=== PATIENT | female | born 1945 | race Caucasian/White ===

== ENCOUNTER 2017-04-17 10:59 | Emergency (ER) | payer MEDICARE, BC ==
[2017-04-17 11:34] VITALS: BP 170/74
[2017-04-17] MEDS ORDERED: ONDANSETRON 4 MG TAB.RAPDIS PO ONE (11:53)
--- NOTE | 2017-04-17 11:55 | ER Document Report ---
ED Medical Screen (RME) - General Chief Complaint: Abdominal Pain >50 Stated Complaint: AMDOMINAL PAIN Time Seen by Provider: 04/17/17 11:48 Notes: This 71-year-old female patient reports being nauseous for 3-4 days after starting Bactrim for UTI. The Bactrim was stopped and a different antibiotic was started. She reports this morning about 5 AM she began having severe pain and cramps to her lower abdomen and has been having cold sweats today. She does have nausea without vomiting or diarrhea. I have greeted and performed a rapid initial assessment of this patient. A comprehensive ED assessment and evaluation of the patient, analysis of test results and completion of the medical decision making process will be conducted by additional ED providers. TRAVEL OUTSIDE OF THE [place] IN LAST 30 DAYS: No - Related Data Allergies/Adverse Reactions: No Known Allergies Allergy (Verified 04/17/17 11:30) Past Medical History Renal/ Medical History: Reports: Hx Kidney Stones. Denies: Hx Peritoneal Dialysis Past Surgical History: Reports: Hx Bowel Surgery - colon resection, Hx Hysterectomy - Immunizations Hx Diphtheria, Pertussis, Tetanus Vaccination: Yes Physical Exam - Vital signs Vitals: Temp Pulse Resp BP Pulse Ox 98.4 F 100 20 170/74 H 97 04/17/17 11:34 04/17/17 11:34 04/17/17 11:34 04/17/17 11:34 04/17/17 11:34 Course - Vital Signs Vital signs: Temp Pulse Resp BP Pulse Ox 98.4 F 100 20 170/74 H 97 04/17/17 11:34 04/17/17 11:34 04/17/17 11:34 04/17/17 11:34 04/17/17 11:34
[2017-04-17] MEDS ORDERED: HYDROCODONE/ACETAMINOPHEN 5-325 MG TABLET PO ONE (12:49)
[2017-04-17 13:13] LABS: ABSOLUTE BASOPHILS # (AUTO) 0.1 10^3/uL (0.0-0.2); ABSOLUTE LYMPHOCYTES (AUTO) 1.2 10^3/uL (0.5-4.7); ABSOLUTE MONOCYTES (AUTO) 0.7 10^3/uL (0.1-1.4); ABSOLUTE NEUT (AUTO) 6.6 10^3/uL (1.7-8.2); BASOPHILS % (AUTO) 0.8 % (0-2); EOSINOPHILS % (AUTO) 0.1 % (0-6); HEMATOCRIT 42.5 % (36.0-47.0); HEMOGLOBIN 13.7 g/dL (12.0-15.5); HGB HCT DIFFERENCE -1.4; LYMPHOCYTES % (AUTO) 13.7 % (13-45); MEAN CORPUSCULAR HGB CONC 32.3 g/dL (32.0-36.0); MEAN CORPUSCULAR VOLUME 84 fl (80-97); MONOCYTES % (AUTO) 8.6 % (3-13); RED BLOOD COUNT 5.08 10^6/uL (3.72-5.28); RED CELL DISTRIBUTION WIDTH 16.3 % (11.5-14.0); SEGMENTED NEUTROPHILS % (AUTO) 76.8 % (42-78); WHITE BLOOD COUNT 8.6 10^3/uL (4.0-10.5)
[2017-04-17 13:22] LABS: APPEARANCE,URINE CLOUDY; BILIRUBIN,URINE NEGATIVE (NEGATIVE); GLUCOSE, URINE NEGATIVE (NEGATIVE); KETONES,URINE NEGATIVE (NEGATIVE); LEUKOCYTE ESTERASE,URINE LARGE (NEGATIVE); NITRITE,URINE NEGATIVE (NEGATIVE); PROTEIN,URINE NEGATIVE (NEGATIVE); UROBILINOGEN,URINE NEGATIVE mg/dL (<2.0)
[2017-04-17 13:30] LABS: ALANINE AMINOTRANSFERASE 33 U/L (9-52); ALBUMIN 4.8 g/dL (3.5-5.0); ALKALINE PHOSPHATASE 116 U/L (38-126); ANION GAP 18 (5-19); ASPARTATE AMINO TRANSFERASE 27 U/L (14-36); BILIRUBIN,DIRECT 0.3 mg/dL (0.0-0.4); BILIRUBIN,TOTAL 0.6 mg/dL (0.2-1.3); BLOOD UREA NITROGEN 13 mg/dL (7-20); CALCIUM 10.5 mg/dL (8.4-10.2); CARBON DIOXIDE 22 mmol/L (22-30); CHLORIDE 102 mmol/L (98-107); CREATININE RESULT 0.56 mg/dL (0.52-1.25); GLUCOSE 137 mg/dL (75-110); POTASSIUM 4.3 mmol/L (3.6-5.0); SODIUM 142.2 mmol/L (137-145); TOTAL PROTEIN 8.8 g/dL (6.3-8.2)
[2017-04-17] MEDS ORDERED: OXYCODONE-ACETAMINOPHEN 5-325 MG TABLET PO ONE (14:33)
== END 2017-04-17 15:18 | disposition left against medical advice (07) ==
LOC: ER 10:59
DX: N39.0 Urinary tract infection, site not specified (principal); R11.0 Nausea; R10.30 Lower abdominal pain, unspecified; R61 Generalized hyperhidrosis; Z87.442 Personal history of urinary calculi; Z53.20 Procedure and treatment not carried out because of patient's decision for unspecified reasons
CPT/HCPCS: 99284; 36415; 87040; 87086; 85025; 87088; 80053; 81001; 87186; A9270 ×2; S0119

== ENCOUNTER 2017-04-23 09:46 | Emergency (ER) | payer MEDICARE, BC ==
[2017-04-23 10:37] LABS: ABSOLUTE BASOPHILS # (AUTO) 0.1 10^3/uL (0.0-0.2); ABSOLUTE LYMPHOCYTES (AUTO) 1.4 10^3/uL (0.5-4.7); ABSOLUTE MONOCYTES (AUTO) 0.7 10^3/uL (0.1-1.4); BASOPHILS % (AUTO) 0.9 % (0-2); EOSINOPHILS % (AUTO) 0.5 % (0-6); HEMATOCRIT 37.6 % (36.0-47.0); HEMOGLOBIN 12.7 g/dL (12.0-15.5); HGB HCT DIFFERENCE 0.5; LYMPHOCYTES % (AUTO) 22.5 % (13-45); MEAN CORPUSCULAR HEMOGLOBIN 28.1 pg (27.0-33.4); MEAN CORPUSCULAR HGB CONC 33.8 g/dL (32.0-36.0); MEAN CORPUSCULAR VOLUME 83 fl (80-97); MONOCYTES % (AUTO) 11.3 % (3-13); RED BLOOD COUNT 4.52 10^6/uL (3.72-5.28); RED CELL DISTRIBUTION WIDTH 15.5 % (11.5-14.0); SEGMENTED NEUTROPHILS % (AUTO) 64.8 % (42-78); WHITE BLOOD COUNT 6.2 10^3/uL (4.0-10.5)
[2017-04-23 10:52] LABS: ALANINE AMINOTRANSFERASE 32 U/L (9-52); ALBUMIN 3.6 g/dL (3.5-5.0); ALKALINE PHOSPHATASE 112 U/L (38-126); ANION GAP 12 (5-19); ASPARTATE AMINO TRANSFERASE 23 U/L (14-36); BILIRUBIN,DIRECT 0.3 mg/dL (0.0-0.4); BILIRUBIN,TOTAL 0.4 mg/dL (0.2-1.3); BLOOD UREA NITROGEN 15 mg/dL (7-20); CALCIUM 9.5 mg/dL (8.4-10.2); CARBON DIOXIDE 25 mmol/L (22-30); CHLORIDE 103 mmol/L (98-107); CREATINE KINASE 49 U/L (30-135); CREATININE RESULT 0.55 mg/dL (0.52-1.25); GLUCOSE 176 mg/dL (75-110); SODIUM 139.9 mmol/L (137-145)
[2017-04-23 11:04] LABS: CREATINE KINASE MB 1.98 ng/mL (<4.55); TROPONIN I < 0.012 ng/mL
[2017-04-23 11:51] LABS: APPEARANCE,URINE CLEAR; BILIRUBIN,URINE NEGATIVE (NEGATIVE); GLUCOSE, URINE NEGATIVE (NEGATIVE); KETONES,URINE NEGATIVE (NEGATIVE); LEUKOCYTE ESTERASE,URINE LARGE (NEGATIVE); NITRITE,URINE NEGATIVE (NEGATIVE); PROTEIN,URINE NEGATIVE (NEGATIVE); UROBILINOGEN,URINE NEGATIVE mg/dL (<2.0)
[2017-04-23] MEDS ORDERED: NITROFURANTOIN MONOHYD/M-CRYST 100 MG CAPSULE PO ONE (11:57)
[2017-04-23 12:01] LABS: BACTERIA,URINE TRACE /HPF; RBC,URINE 20-30 /HPF
[2017-04-23] MEDS ORDERED: ONDANSETRON HCL INJ/PF 4 MG/2 ML SDV IV ONE (12:37)
[2017-04-23] MEDS ORDERED: NORMAL SALINE 1000 ML 1,000 ML IV ONE (12:37)
[2017-04-23] MEDS ORDERED: AMOXICILLIN TR/POT CLAVULANATE 500-125 MG TAB PO ONE (12:39)
[2017-04-23] MEDS ORDERED: MORPHINE SULFATE 10 MG/ML INJ IV ONE ×2 (12:40→14:14)
[2017-04-23] MEDS ORDERED: AMPICILLIN SOD/SULBACTAM 3 GM VIAL IV ONE (13:16)
--- NOTE | 2017-04-23 13:37 | ER Document Report ---
ED Dizziness/Weakness - General Chief Complaint: General Weakness Stated Complaint: WEAKNESS Time Seen by Provider: 04/23/17 11:56 Mode of Arrival: Ambulatory Information source: Patient Notes: Patient is a 71-year-old female who presents to the ER today for fever and chills for the past 3 weeks. Patient states that she has had a UTI since that time and has been on Bactrim, Macrobid and now doxycycline. She states that she started having some nausea and vomiting 3 days ago and has not been able to take the doxycycline at all for 3 days. She states that she was here on the with nausea and vomiting as well but left without being seen. She states that her highest temperature is 102F. She also complains of back pain, she had surgery on March 11 and states that she does not have any pain medicine to take at home and "just needs something to rest." TRAVEL OUTSIDE OF THE [place] IN LAST 30 DAYS: No - Related Data Allergies/Adverse Reactions: cephalexin [From Keflex] Allergy (Verified 04/23/17 10:21) ciprofloxacin [From Cipro] Allergy (Verified 04/23/17 10:21) levofloxacin [From Levaquin] Allergy (Verified 04/23/17 10:21) pioglitazone Allergy (Verified 04/23/17 10:21) Past Medical History - General Information source: Patient - Social History Smoking Status: Never Smoker Frequency of alcohol use: None Drug Abuse: None Family History: Reviewed & Not Pertinent - Past Medical History Cardiac Medical History: Reports: Hx Hypercholesterolemia Endocrine Medical History: Reports: Hx Diabetes Mellitus Type 2 Renal/ Medical History: Reports: Hx Kidney Stones. Denies: Hx Peritoneal Dialysis Psychiatric Medical History: Reports: Hx Depression Past Surgical History: Reports: Hx Bowel Surgery - colon resection, Hx Hysterectomy - Immunizations Hx Diphtheria, Pertussis, Tetanus Vaccination: Yes Review of Systems - Review of Systems Constitutional: See HPI EENT: No symptoms reported Cardiovascular: No symptoms reported Respiratory: No symptoms reported Gastrointestinal: No symptoms reported Genitourinary: See HPI Female Genitourinary: No symptoms reported Musculoskeletal: No symptoms reported Skin: No symptoms reported Hematologic/Lymphatic: No symptoms reported Neurological/Psychological: No symptoms reported Physical Exam - Vital signs Vitals: Resp 18 04/23/17 09:55 - Notes Notes: PHYSICAL EXAMINATION: GENERAL: Appears uncomfortable, but in no acute distress. HEAD: Atraumatic, normocephalic. EYES: Pupils equal round and reactive to light, extraocular movements intact, sclera anicteric, conjunctiva are normal. NECK: Normal range of motion, supple without lymphadenopathy LUNGS: CTAB and equal. No wheezes rales or rhonchi. HEART: Regular rate and rhythm without murmurs ABDOMEN: Soft, suprapubic tenderness. No guarding, no rebound BACK: lumbar vertebral tenderness, new vertical scar over lumbar spine noted, pt will not cooperate with ROM GI/: no CVA tenderness EXTREMITIES: Normal range of motion, no pitting edema. No cyanosis. NEUROLOGICAL: Cranial nerves grossly intact. Normal sensory/motor exams. PSYCH:: anxious SKIN: Warm, Dry, normal turgor, no rashes or lesions noted Course - Re-evaluation Re-evalutation: 04/23/17 15:15 Lab work is unremarkable except for a urinalysis that revealed leukocytes and white blood cells. Patient has not been taking her doxycycline, and is uncertain if patient has been compliant or not she does not seem to be with me. She has not been taking her doxycycline. However she states "is not working" so I will switch her to Augmentin as her urine culture sent on the of this month for this infection revealed that it was susceptible to penicillins. She received IV Unasyn here and fluids. She continues after pain medication although she is really here for nausea, vomiting and a UTI. This is for chronic back pain. I was nice enough to give her some pain medication here but I will not send her home on any narcotics as I see that she keeps receiving prescriptions every couple of days from 2 different doctors for narcotic medications. I will advise her to follow-up with whoever she sees for this. They apparently have some concern as well as they will only give her 10 pills at a time. Patient has not had any vomiting here in the emergency department the entire time she has been here. P.o. challenge was attempted she made the nurse told her Gatorade for her and hold the straw to her mouth, would not even attempt to hold with her own hands. 04/23/17 15:17 04/23/17 15:17 On discharge, patient repeats over and over to the nurse, "I want to kill myself ," place and performed. I spoke with provider who performed psych consult who states psych consult was that she had a long conversation with the son and the patient, provider's impression was that she does not really want to kill herself she just wants to be taking care of, some attention. The son is now aware of her struggles taking care of her bedbound , son's father, at home and son agrees to watch her medications and help her, keep a close eye on her. Psychiatric provider does not feel IVC or inpatient stay is necessary at this time after long conversation with family. 04/24/17 09:14 - Vital Signs Vital signs: Temp Pulse Resp BP Pulse Ox 98.0 F 16 134/64 H 97 04/23/17 16:29 04/23/17 17:01 04/23/17 17:01 04/23/17 17:01 - Laboratory Result Diagrams: 04/23/17 10:05 04/23/17 10:05 Laboratory results interpreted by me: 04/23/17 04/23/17 04/23/17 10:05 10:05 11:10 RDW 15.5 H Glucose 176 H Urine Blood LARGE H Ur Leukocyte Esterase LARGE H Discharge - Discharge Clinical Impression: UTI (urinary tract infection) Qualifiers: Urinary tract infection type: site unspecified Hematuria presence: with hematuria Qualified Code(s): N39.0 - Urinary tract infection, site not specified Nausea and vomiting Qualifiers: Vomiting type: unspecified Vomiting Intractability: non-intractable Qualified Code(s): R11.2 - Nausea with vomiting, unspecified Condition: Stable Disposition: HOME, SELF-CARE Additional Instructions: Return immediately for any new or worsening symptoms. Follow up with primary care provider, call tomorrow to make followup appointment. Prescriptions: Amox Tr/Potassium Clavulanate [Augmentin 875-125 Tablet] 1 tab PO BID 10 Days Ondansetron [Zofran Odt 4 mg Tablet] 1 - 2 tab PO Q4H PRN #15 tab.rapdis PRN Reason: For Nausea/Vomiting
[2017-04-23] MEDS ORDERED: HYDROMORPHONE HCL INJ/PF 2 MG/ML AMPULE IV ONE (15:13)
[2017-04-23 17:24] VITALS: BP 134/64
--- NOTE | 2017-04-23 17:46 | PSYCHOLOGICAL NOTE ---
Psych Note - Psych Note Psych Note: Patient is a 71 year old female who presented today with c/o n/v and UTI symptoms. Patient repeatedly complained of back pain, and states she has had 4 back surgeries within 2 months and she cannot find a medication to manage her pain. Patient was was referred for consultation after she reported suicidal ideations during discharge. Patient reportedly asked how long it would take for the infection to spread to her kidney so she would just . Patient states to this clinician she is tired of being sick. Patient states she is tired of the back pain and the UTI. 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 Patient states she feels responsible for him and his care, despite having home health. Patient states she does not want to commit suicide, but does not have "the guts" to do it. Patient states she has not had the ability to take her medications for her back pain and or UTI because of her n/v she relates to her UTI medications (which she discontinued). Patient states she needs rest and sleep. Patient states her son, who is bedside, lives down the road. Attempted to discuss with patient and son any precautionary measures that could be taken, to include staying with or having another family member stay with her. Patient state, "that is not realistic nor is it helpful." Patient did states everyone's lives are busy. Patient states she will not kill herself. Patient stated, "I am not trying to be condescending , but I have to pee and my son is here to take me home. That is what is helpful at this time." SonSerafin : states he feels the patient would be best served by resting and asks if there is anywhere she can check in. Did attempt to clarify this in re: to a licensed facility (SNF or [facility]), or this hospital, etc. Son did state he was not concerned for her safety. He does acknowledge that this information is new to him as of this afternoon. Patient stated he would check in with the patient, and resides [address] from her, and agreed to attempt to monitor the medications in the home. Son again states she feels she will be ok , but just needs to rest and heal. Patient is A&O. Mood is irritable with congruent affect. Patient endorses suicidal ideations. She did reference cutting herself with a knife. Patient states she does not want to follow though with this notion. Patient denies homicidal ideations, intent, plan , or means. Patient denies A/V H; delusions not noted. Thought processes were guarded. Conversational speech was WNL for prosody. Intellectual abilities were estimated within average range. Attention and focus were fair. Insight, judgment, and impulse control were poor. Diagnosis : Deferred Patient is psychiatrically cleared for discharge to her son. Patient encouraged to work with son and family members to utilize as support, to include daily check ins, and monitoring of medications and sharp objects. Patient refused referral information. Per patient [place] Registry, she is prescribed large amounts of Hydrocodone as well as Ativan; however, recently has been prescribed fewer and fewer pills (10 days vs 120). I consulted with Dr. Leon in regards to the care and management of this patient. ED provider was in agreement with disposition and recommendations.
--- NOTE | 2017-04-23 18:46 | EKG REPORT ---
SEVERITY:- ABNORMAL ECG - SINUS TACHYCARDIA LEFT AXIS DEVIATION ANTERIOR INFARCT, OLD : Confirmed by: Valdez Martinez 23-Apr-2017 18:46:00
== END 2017-04-23 17:24 | disposition home or self-care (01) ==
LOC: ER 09:46
DX: N39.0 Urinary tract infection, site not specified (principal); R31.9 Hematuria, unspecified; T36.4X6A Underdosing of tetracyclines, initial encounter; Z91.14 Patient's other noncompliance with medication regimen; R50.9 Fever, unspecified; R11.2 Nausea with vomiting, unspecified; M54.9 Dorsalgia, unspecified; G89.29 Other chronic pain; Z98.890 Other specified postprocedural states; Z88.1 Allergy status to other antibiotic agents; Z88.8 Allergy status to other drugs, medicaments and biological substances
CPT/HCPCS: 93005; 96376; 99285; 96361; 96375; 96365; 36415; 87086; 82553; 82550; 85025; 87088; 80053; 81001; 84484; 87186; 93010; J0295; J2270; J1170; J2405; J7030

== ENCOUNTER 2017-05-03 12:03 | Emergency (ER) | payer MEDICARE, BC ==
--- NOTE | 2017-05-03 12:27 | ER Document Report ---
ED Medical Screen (RME) - General Chief Complaint: Nausea/Vomiting/Diarrhea Stated Complaint: NAUSEA VOMITING AND DIARREHA Time Seen by Provider: 05/03/17 12:25 Notes: Patient says that she has been having nausea and diarrhea for the past 3 weeks. She says that this is her third visit here to the emergency department for this complaint. She had back surgery a couple months ago and feels that that lowered her community. On 1 of her prior 2 visits here to the emergency department, she says that she was treated for a UTI with Augmentin, which worsened her diarrhea. Has not seen any blood in her diarrhea. Has not had any fever. Patient wants to know why she is having these symptoms and that is why she is here for the third visit. TRAVEL OUTSIDE OF THE [place] IN LAST 30 DAYS: No - Related Data Allergies/Adverse Reactions: cephalexin [From Keflex] Allergy (Verified 05/03/17 12:09) ciprofloxacin [From Cipro] Allergy (Verified 05/03/17 12:09) levofloxacin [From Levaquin] Allergy (Verified 05/03/17 12:09) pioglitazone Allergy (Verified 05/03/17 12:09) Past Medical History - Social History Chew tobacco use (# tins/day): No Frequency of alcohol use: None Drug Abuse: None - Past Medical History Cardiac Medical History: Reports: Hx Hypercholesterolemia Endocrine Medical History: Reports: Hx Diabetes Mellitus Type 2 Renal/ Medical History: Reports: Hx Kidney Stones. Denies: Hx Peritoneal Dialysis Psychiatric Medical History: Reports: Hx Depression Past Surgical History: Reports: Hx Bowel Surgery - colon resection, Hx Hysterectomy - Immunizations Hx Diphtheria, Pertussis, Tetanus Vaccination: Yes Physical Exam - Vital signs Vitals: Temp Pulse Resp BP Pulse Ox 98.2 F 53 L 18 165/81 H 97 05/03/17 12:11 05/03/17 12:11 05/03/17 12:11 05/03/17 12:11 05/03/17 12:11 Course - Vital Signs Vital signs: Temp Pulse Resp BP Pulse Ox 98.2 F 53 L 18 165/81 H 97 05/03/17 12:11 05/03/17 12:11 05/03/17 12:11 05/03/17 12:11 05/03/17 12:11
[2017-05-03 12:57] LABS: ABSOLUTE BASOPHILS # (AUTO) 0.1 10^3/uL (0.0-0.2); ABSOLUTE LYMPHOCYTES (AUTO) 1.2 10^3/uL (0.5-4.7); ABSOLUTE NEUT (AUTO) 8.1 10^3/uL (1.7-8.2); BASOPHILS % (AUTO) 0.6 % (0-2); EOSINOPHILS % (AUTO) 0.2 % (0-6); HEMATOCRIT 39.7 % (36.0-47.0); HGB HCT DIFFERENCE -0.7; LYMPHOCYTES % (AUTO) 11.5 % (13-45); MEAN CORPUSCULAR HGB CONC 32.7 g/dL (32.0-36.0); MEAN CORPUSCULAR VOLUME 83 fl (80-97); MONOCYTES % (AUTO) 9.8 % (3-13); RED CELL DISTRIBUTION WIDTH 15.6 % (11.5-14.0); SEGMENTED NEUTROPHILS % (AUTO) 77.9 % (42-78); WHITE BLOOD COUNT 10.4 10^3/uL (4.0-10.5)
[2017-05-03 13:16] LABS: APPEARANCE,URINE HAZY; BILIRUBIN,URINE NEGATIVE (NEGATIVE); GLUCOSE, URINE 50 mg/dL (NEGATIVE); KETONES,URINE NEGATIVE (NEGATIVE); LEUKOCYTE ESTERASE,URINE LARGE (NEGATIVE); NITRITE,URINE NEGATIVE (NEGATIVE); PROTEIN,URINE 30 mg/dL (NEGATIVE); UROBILINOGEN,URINE NEGATIVE mg/dL (<2.0)
[2017-05-03 13:17] LABS: ALANINE AMINOTRANSFERASE 33 U/L (9-52); ALBUMIN 4.4 g/dL (3.5-5.0); ALKALINE PHOSPHATASE 114 U/L (38-126); ANION GAP 15 (5-19); ASPARTATE AMINO TRANSFERASE 25 U/L (14-36); BILIRUBIN,DIRECT 0.3 mg/dL (0.0-0.4); BILIRUBIN,TOTAL 0.4 mg/dL (0.2-1.3); BLOOD UREA NITROGEN 16 mg/dL (7-20); CALCIUM 10.2 mg/dL (8.4-10.2); CARBON DIOXIDE 24 mmol/L (22-30); CHLORIDE 101 mmol/L (98-107); CREATININE RESULT 0.53 mg/dL (0.52-1.25); GLUCOSE 166 mg/dL (75-110); LIPASE 135.9 U/L (23-300); POTASSIUM 4.1 mmol/L (3.6-5.0); SODIUM 139.9 mmol/L (137-145); TOTAL PROTEIN 8.1 g/dL (6.3-8.2)
[2017-05-03 13:19] LABS: URINE SPECIFIC GRAVITY 1.006
[2017-05-03] MEDS ORDERED: OXYCODONE-ACETAMINOPHEN 5-325 MG TABLET PO ONE (13:27)
[2017-05-03] MEDS ORDERED: ONDANSETRON HCL INJ/PF 4 MG/2 ML SDV IV ONE (13:27)
--- NOTE | 2017-05-03 13:27 | ER Document Report ---
ED GI/ - General Mode of Arrival: Ambulatory Information source: Patient TRAVEL OUTSIDE OF THE [place] IN LAST 30 DAYS: No - HPI Patient complains to provider of: Abdominal pain Associated symptoms: Other - See above <ODILON SORTO - Last Filed: 05/03/17 14:30> <AZALEAMARTINMILTON - Last Filed: 05/03/17 20:14> - General Chief Complaint: Abdominal Pain Stated Complaint: abdominal pain Time Seen by Provider: 05/03/17 12:25 Notes: Patient is a 71 year old female, with a past medical history including colon resection and breast cancer that is in remission, who presents to the emergency department complaining of abdominal pain onset 3 weeks ago. Patient states that she had gotten the stomach flu about 3 weeks ago and came to the ED but left without being seen, the day before that she had gone to her PCP and was treated with Macrobid for a UTI. Patient states the the Macrobid did not help and so she stopped taking it but still had urinary symptoms as well as nausea, vomiting , diarrhea, and abdominal pain so she went back to her PCP and was given Bactrim but that made her symptoms worse so she stopped taking it. Patient then came to the ED for her abdominal pain and was given Augmentin which made her pain worse and stopped taking it. Patient states that her abdominal pain is gnawing, located across her middle. Patient reports she has only been eating a bland diet and feels weak, states she had passed out before her last ED visit, and that she is also running a low grade fever since onset of her complaint that she measured as 101.1. Patient also complains of having dark tar like stool. Patient recently had back surgery a few months ago performed by Dr. Fields. PCP: Dr. Avery Zarate (ODILON SORTO) - Related Data Allergies/Adverse Reactions: cephalexin [From Keflex] Allergy (Verified 05/03/17 12:09) ciprofloxacin [From Cipro] Allergy (Verified 05/03/17 12:09) levofloxacin [From Levaquin] Allergy (Verified 05/03/17 12:09) pioglitazone Allergy (Verified 05/03/17 12:09) Past Medical History - General Information source: Patient - Social History Smoking Status: Never Smoker Chew tobacco use (# tins/day): No Frequency of alcohol use: None Drug Abuse: None Family History: Reviewed & Not Pertinent Patient has suicidal ideation: No Patient has homicidal ideation: No - Past Medical History Cardiac Medical History: Reports: Hx Heart Attack, Hx Hypercholesterolemia, Hx Hypertension Endocrine Medical History: Reports: Hx Diabetes Mellitus Type 2 Renal/ Medical History: Reports: Hx Kidney Stones Malignancy Medical History: Reports: Hx Breast Cancer Psychiatric Medical History: Reports: Hx Depression Past Surgical History: Reports: Hx Bowel Surgery - colon resection, Hx Hysterectomy, Other - Hx colon resection - Immunizations Hx Diphtheria, Pertussis, Tetanus Vaccination: Yes <ODILON SORTO - Last Filed: 05/03/17 14:30> Review of Systems - Review of Systems Constitutional: See HPI, Fever EENT: No symptoms reported Cardiovascular: No symptoms reported Respiratory: No symptoms reported Gastrointestinal: See HPI, Abdominal pain, Diarrhea, Nausea, Vomiting, Black stools Genitourinary: No symptoms reported Female Genitourinary: No symptoms reported Musculoskeletal: No symptoms reported Skin: No symptoms reported Hematologic/Lymphatic: No symptoms reported Neurological/Psychological: No symptoms reported -: Yes All other systems reviewed and negative <ODILON SORTO - Last Filed: 05/03/17 14:30> Physical Exam <ODILON SORTO - Last Filed: 05/03/17 14:30> <MILTON SZYMANSKI - Last Filed: 05/03/17 20:14> - Vital signs Vitals: Temp Pulse Resp BP Pulse Ox 98.2 F 53 L 18 165/81 H 97 05/03/17 12:11 05/03/17 12:11 05/03/17 12:11 05/03/17 12:11 05/03/17 12:11 - Notes Notes: GENERAL: Alert, interacts well. No acute distress. HEAD: Normocephalic, atraumatic. EYES: Pupils equal, round, and reactive to light. Extraocular movements intact. ENT: Oral mucosa moist, tongue midline. NECK: Full range of motion. Supple. Trachea midline. LUNGS: Clear to auscultation bilaterally, no wheezes, rales, or rhonchi. No respiratory distress. HEART: Regular rate and rhythm. No murmurs, gallops, or rubs. ABDOMEN: Tenderness to palpation of left lower quadrant, swelling of left side. No hernia, no guarding, no rigidity, no rebound. Bowel sounds present in all 4 quadrants. EXTREMITIES: Moves all 4 extremities spontaneously. No edema, radial and dorsalis pedis pulses 2/4 bilaterally. No cyanosis. NEUROLOGICAL: Alert and oriented x3. Normal speech. PSYCH: Normal affect, normal mood. SKIN: Warm, dry, normal turgor. No rashes or lesions noted. (ODILON SORTO) Course - Laboratory Result Diagrams: 05/03/17 12:50 05/03/17 12:50 <ODILON SORTO - Last Filed: 05/03/17 14:30> - Laboratory Result Diagrams: 05/03/17 12:50 05/03/17 12:50 <MILTON SZYMANSKI - Last Filed: 05/03/17 20:14> - Re-evaluation Re-evalutation: 05/03/17 17:58 CBC unremarkable, CMP shows hyperglycemia with glucose 166 otherwise unremarkable, lipase normal, urinalysis shows small blood but large leukocyte esterase, 1+ bacteria, negative occult blood sample, C. difficile PCR still pending. CT scan the abdomen and pelvis shows a distended gallbladder without any signs of obstruction, pericholecystic fluid or gallbladder wall thickening. No acute surgical pathology at this time. Patient is concerned by the amount of diarrhea she has been having since starting Augmentin, I did emphasize that the only abnormality we are finding on her lab work is a urinary tract infection. Discussed with patient the importance of actually finishing a course of antibiotics. We have urine cultures and microbiology data that shows that her urine is susceptible to penicillin based antibiotics. Patient will be changed from Augmentin due to its diarrhea type side effects to Keflex. Patient will be discharged home on Keflex. Patient is encouraged to use Imodium, given Phenergan and Zofran for the nausea. Follow-up with surgery as an outpatient for the gallbladder distention without any acute surgical pathology. Patient may need to have a HIDA scan at some point as well. Currently symptoms are not classic for biliary colic, there is no worsening with food simply low-grade nausea. (MILTON SZYMANSKI) - Vital Signs Vital signs: Temp Pulse Resp BP Pulse Ox 97.9 F 86 18 140/77 H 95 05/03/17 18:38 05/03/17 18:38 05/03/17 12:11 05/03/17 18:38 05/03/17 18:38 - Laboratory Laboratory results interpreted by me: 05/03/17 05/03/17 05/03/17 12:45 12:50 12:50 RDW 15.6 H Lymphocytes % 11.5 L Glucose 166 H Urine Protein 30 H Urine Glucose (UA) 50 H Urine Blood SMALL H Ur Leukocyte Esterase LARGE H Discharge <ODILON SORTO - Last Filed: 05/03/17 14:30> <MILTON SZYMANSKI - Last Filed: 05/03/17 20:14> - Discharge Clinical Impression: Nausea vomiting and diarrhea Urinary tract infection Qualifiers: Urinary tract infection type: acute cystitis Hematuria presence: with hematuria Qualified Code(s): N30.01 - Acute cystitis with hematuria Condition: Stable Disposition: HOME, SELF-CARE Additional Instructions: Drink plenty of fluids. Follow a bland diet. The BRAT diet can be helpful. Bananas rice applesauce and toast. It is imperative that you finish all of your antibiotics as directed. Do not stop taking them partway through. I have changed you from your Augmentin to Keflex. Keflex will have less diarrhea. You must finish the antibiotic or ulcer urinary tract infection could kill you. You may use Imodium as directed [id number] for diarrhea. We have also prescribed Phenergan and Zofran for nausea. You do have a slightly distended gallbladder on ultrasound. This could cause some of your nausea but would not be causing her diarrhea. If you start having pain when eating you may wish to see a surgeon as an outpatient to consider having her gallbladder removed. Your primary care physician can help finish the workup. There is no evidence of blockage or infection of your gallbladder today. Please return to the emergency department for any new or concerning symptoms. Prescriptions: Cephalexin Monohydrate [Keflex 500 mg Capsule] 1,000 mg PO BID #28 capsule Ondansetron [Zofran Odt 4 mg Tablet] 1 - 2 tab PO Q4H PRN #15 tab.rapdis PRN Reason: For Nausea/Vomiting Promethazine HCl [Phenergan 25 mg Tablet] 1 - 2 tab PO Q6H PRN #15 tablet PRN Reason: Referrals: AVERY ZARATE MD [Primary Care Provider] - Follow up in 3-5 days [employer] Attestation: 05/03/17 20:14 I personally performed the services described in the documentation, reviewed and edited the documentation which was dictated to the scribe in my presence, and it accurately records my words and actions. (MILTON SZYMANSKI) Scribe Documentation - Scribe Written by Zee:: zee Eason, 05/03/17, 1443 acting as scribe for :: Amada <ODILON SORTO - Last Filed: 05/03/17 14:30>
[2017-05-03] MEDS ORDERED: NORMAL SALINE 1000 ML 1,000 ML IV ONE (13:28)
--- NOTE | 2017-05-03 16:59 | RADIOLOGY REPORT (SQ) ---
EXAM DESCRIPTION: CT ABD/PELVIS WITH IV ORAL COMPLETED DATE/TIME: 05/03/2017 4:33 pm REASON FOR STUDY: persistent N/V/D x 3 wks, LLQ TTP COMPARISON: None. TECHNIQUE: CT scan of the abdomen and pelvis performed using helical scanning technique with dynamic intravenous contrast injection. Patient drank oral contrast. Images reviewed with lung, soft tissue, and bone windows. Reconstructed coronal and sagittal MPR imag es reviewed. Delayed images for evaluation of the urinary system also acquired. All images stored on PACS. All CT scanners at this facility use dose modulation, iterative reconstruction, and/or weight based d osing when appropriate to reduce radiation dose to as low as reasonably achievable (ALARA). [facility]: Dose Right [facility]: CareDose [facility]: Dose Right [facility]: Teradose 4D [facility]: 80[employer] CONTRAST TYPE AND DOSE: contrast/concentration: Isovue 370.00 mg/ml; Total Contrast Delivered: 75.0 ml; Total Saline Delivered: 50.0 ml RENAL FUNCTION: Creatinine 0.53 RADIATION DOSE: Up-to-date CT equipment and radiation dose reduction techniques were employed. CTDIv ol: 7.3 - 10.4 mGy. DLP: 961 mGy-cm.. LIMITATIONS: None. FINDINGS: LOWER CHEST: No significant findings. No nodules or infiltrates. LIVER: Normal size. No masses. No dilated ducts. There are calcified lymph nodes at the sony hepat is of uncertain clinical significance, 8 mm diameter on axial image 27, 14 mm diameter axial image 28 , 12 mm diameter axial image 31. SPLEEN: Normal size. No focal lesions. PANCREAS: No masses. No significant calcifications. No adjacent inflammation or peripancreatic fluid collections. Pancreatic duct not dilated. GALLBLADDER: No identified stones by CT criteria. Gallbladder is distended, 11 cm in greatest length . No pericholecystic fluid. ADRENAL GLANDS: No significant masses or asymmetry. RIGHT KIDNEY AND URETER: No solid masses. Calcified medullary pyramids No hydronephrosis or hydro ureter. LEFT KIDNEY AND URETER: No solid masses. Calcified medullary pyramids No hydronephrosis or hydrou reter. AORTA AND VESSELS: No aneurysm. No dissection. Renal arteries, SMA, celiac without stenosis. RETROPERITONEUM: No retroperitoneal adenopathy, hemorrhage or masses. BOWEL AND PERITONEAL CAVITY: No masses or inflammatory changes. No free fluid or peritoneal masses. Oral contrast throughout the gastrointestinal tract without evidence of obstruction. Patient is post partial sigmoid colectomy. No diverticulosis. APPENDIX: Normal. PELVIS: No mass or free fluid. No bladder calculi. Post hysterectomy. Bladder bulges into the christopher neum from pelvic floor insufficiency ABDOMINAL WALL: No masses. No hernias. BONES: Post lower lumbar bilateral laminectomies and fusion of L3-4, L4-5, L5-S1. There is lucency a round the screws at the S1 level from loosening. Bone growth stimulator with battery pack over the d orsal paraspinal soft tissues OTHER: No other significant finding. IMPRESSION: Distended gallbladder without gallbladder wall thickening or pericholecystic fluid. Post hysterectomy, lower lumbar laminectomy, partial sigmoid colectomy TECHNICAL DOCUMENTATION: JOB ID: [id number] Quality ID # [id number]: Final reports with documentation of one or more dose reduction techniques (e.g., Au tomated exposure control, adjustment of the mA and/or kV according to patient size, use of iterative reconstruction technique) 2010 [employer]- All Rights Reserved
[2017-05-03 18:46] VITALS: BP 140/77
== END 2017-05-03 18:40 | disposition home or self-care (01) ==
LOC: ER 12:03
DX: N30.01 Acute cystitis with hematuria (principal); R10.9 Unspecified abdominal pain; Z85.3 Personal history of malignant neoplasm of breast; R11.2 Nausea with vomiting, unspecified; R19.7 Diarrhea, unspecified
CPT/HCPCS: 99284; 96361; 96374; 36415; 87045; 87086; 87205; 83690; 85025; 82272; 87088; 80053; 81001; 87186; 87493 ×2; 74177; A9270; J2405; J7030

== ENCOUNTER 2017-10-28 15:00 | Emergency (ER) | payer MEDICARE, BC ==
[2017-10-28 15:46] VITALS: BP 142/69
== END 2017-10-28 16:30 | disposition left against medical advice (07) ==
LOC: ER 15:00
DX: Z53.9 Procedure and treatment not carried out, unspecified reason (principal); M25.561 Pain in right knee

== ENCOUNTER 2017-11-14 16:14 | Emergency (ER) | payer MEDICARE, BC ==
--- NOTE | 2017-11-14 17:00 | RADIOLOGY REPORT (SQ) ---
EXAM DESCRIPTION: CHEST SINGLE VIEW COMPLETED DATE/TIME: 11/14/2017 4:42 pm REASON FOR STUDY: bed 8 sepsis protocol COMPARISON: None. EXAM PARAMETERS: NUMBER OF VIEWS: One view. TECHNIQUE: Single frontal radiographic view of the chest acquired. RADIATION DOSE: NA LIMITATIONS: None. FINDINGS: LUNGS AND PLEURA: No acute opacities, masses or pneumothorax. No pleural effusion. MEDIASTINUM AND HILAR STRUCTURES: No masses. Contour normal. HEART AND VASCULAR STRUCTURES: Heart normal in size. Normal vasculature. BONES: No acute findings. HARDWARE: Multiple surgical clips in the left axilla. OTHER: No other significant finding. IMPRESSION: NO ACUTE RADIOGRAPHIC FINDING IN THE CHEST. TECHNICAL DOCUMENTATION: JOB ID: [id number] [employer]- All Rights Reserved
--- NOTE | 2017-11-14 17:29 | ER Document Report ---
ED General - General Chief Complaint: General Weakness Stated Complaint: GENERAL WEAKNESS Time Seen by Provider: 11/14/17 16:39 Notes: 72-year-old female patient, found on floor. Febrile, tachycardic. History of UTI and sepsis. History of kidney stones. Patient confused. Has a recent history of back surgeries with complications. No surgeries within the last 2 months though. According to family has had increased confusion over the last couple of days. 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 Followed by urology at [facility] in [place]. TRAVEL OUTSIDE OF THE [place] IN LAST 30 DAYS: No - HPI Onset: Just prior to arrival Quality of pain: Achy Severity: Moderate Pain Level: 2 - Related Data Allergies/Adverse Reactions: cephalexin [From Keflex] Allergy (Verified 10/28/17 15:03) ciprofloxacin [From Cipro] Allergy (Verified 10/28/17 15:03) levofloxacin [From Levaquin] Allergy (Verified 10/28/17 15:03) pioglitazone Allergy (Verified 10/28/17 15:03) Past Medical History - General Information source: Patient, Relative - Social History Smoking Status: Former Smoker Chew tobacco use (# tins/day): No Drug Abuse: None Lives with: Family, Spouse/Significant other Family History: Reviewed & Not Pertinent Patient has suicidal ideation: No Patient has homicidal ideation: No - Past Medical History Cardiac Medical History: Reports: Hx Heart Attack, Hx Hypercholesterolemia, Hx Hypertension Endocrine Medical History: Reports: Hx Diabetes Mellitus Type 2 Renal/ Medical History: Reports: Hx Kidney Stones. Denies: Hx Peritoneal Dialysis Malignancy Medical History: Reports: Hx Breast Cancer Psychiatric Medical History: Reports: Hx Depression Past Surgical History: Reports: Hx Bowel Surgery - colon resection, Hx Hysterectomy, Other - Hx colon resection - Immunizations Hx Diphtheria, Pertussis, Tetanus Vaccination: Yes Review of Systems - Review of Systems -: Yes ROS unobtainable due to patient's medical condition - Patient is confused. Difficult to answer questions. Physical Exam - Vital signs Vitals: Resp 21 H 11/14/17 16:57 Interpretation: Tachycardic - General General appearance: Appears well, Alert - HEENT Head: Normocephalic, Atraumatic Eyes: Normal Pupils: PERRL Mucous membranes: Dry - Respiratory Respiratory status: No respiratory distress Chest status: Nontender Breath sounds: Normal Chest palpation: Normal - Cardiovascular Rhythm: Tachycardia Heart sounds: Normal auscultation Murmur: No - Abdominal Inspection: Normal Distension: No distension Bowel sounds: Normal Tenderness: Nontender Organomegaly: No organomegaly - Back Back: Normal, Nontender - Extremities General upper extremity: Normal inspection, Nontender, Normal color, Normal ROM , Normal temperature General lower extremity: Normal inspection, Nontender, Normal color, Normal ROM , Normal temperature, Normal weight bearing. No: Wai's sign - Neurological Neuro grossly intact: Yes Cognition: Confused Orientation: Disoriented to person, Disoriented to place, Disoriented to time, Disoriented to events [place] Coma Scale Eye Opening: Spontaneous [place] Coma Scale Verbal: Oriented Nick Coma Scale Motor: Obeys Commands [place] Coma Scale Total: 15 Motor strength normal: LUE, RUE, LLE, RLE Sensory: Normal - Psychological Associated symptoms: Normal affect, Normal mood - Skin Skin Temperature: Warm Skin Moisture: Dry Skin Color: Normal Course - Re-evaluation Re-evalutation: 11/14/17 18:32 Patient with a 6 mm proximal ureter stone obstruction with infection. Tachycardic. Infected urine. Patient will need to be seen by urologist. No urological services are available at this facility. Blood cultures have been obtained. Patient does have elevated lactic acid. 11/14/17 19:12 Patient followed by urologist at [facility]. Will attempt to transfer there at this time. 11/14/17 19:12 Laboratory 11/14/17 11/14/17 11/14/17 16:50 17:16 17:23 WBC 27.9 H RBC 4.29 Hgb 12.1 Hct 35.5 L MCV 83 MCH 28.2 MCHC 34.1 RDW 14.8 H Plt Count 262 Total Counted 100 Seg Neutrophils % Not Reportable Seg Neuts % (Manual) 92 H Lymphocytes % Not Reportable Lymphocytes % (Manual) 4 L Monocytes % Not Reportable Monocytes % (Manual) 4 Eosinophils % Not Reportable Eosinophils % (Manual) 0 Basophils % Not Reportable Basophils % (Manual) 0 Absolute Neutrophils Not Reportable Abs Neuts (Manual) 25.7 H Absolute Lymphocytes Not Reportable Abs Lymphs (Manual) 1.1 Absolute Monocytes Not Reportable Abs Monocytes (Manual) 1.1 Absolute Eosinophils Not Reportable Absolute Eos (Manual) 0.0 Absolute Basophils Not Reportable Abs Basophils (Manual) 0.0 Hypersegmented Neuts PRESENT Toxic Vacuolation PRESENT Large Platelets PRESENT Giant Platelets PRESENT Platelet Comment ADEQUATE Polychromasia SLIGHT RBC Morph Comment NORMO-CYTIC/CHROMIC PT INR VBG pH VBG pCO2 VBG HCO3 VBG Base Excess Sodium Potassium Chloride Carbon Dioxide Anion Gap BUN Creatinine Est GFR ( Amer) Est GFR (Non-Af Amer) Glucose POC Glucose 256 H Lactic Acid Calcium Total Bilirubin Direct Bilirubin Neonat Total Bilirubin Neonat Direct Bilirubin Neonat Indirect Bili AST ALT Alkaline Phosphatase Total Protein Albumin Urine Color YELLOW Urine Appearance TURBID Urine pH 8.0 Ur Specific [place] 1.017 Urine Protein >=500 H Urine Glucose (UA) NEGATIVE Urine Ketones NEGATIVE Urine Blood SMALL H Urine Nitrite NEGATIVE Urine Bilirubin NEGATIVE Urine Urobilinogen NEGATIVE Ur Leukocyte Esterase MODERATE H Urine WBC (Auto) 4 Urine Mucus (Auto) MANY Urine Ascorbic Acid NEGATIVE 11/14/17 11/14/17 11/14/17 17:23 17:23 17:23 WBC RBC Hgb Hct MCV MCH MCHC RDW Plt Count Total Counted Seg Neutrophils % Seg Neuts % (Manual) Lymphocytes % Lymphocytes % (Manual) Monocytes % Monocytes % (Manual) Eosinophils % Eosinophils % (Manual) Basophils % Basophils % (Manual) Absolute Neutrophils Abs Neuts (Manual) Absolute Lymphocytes Abs Lymphs (Manual) Absolute Monocytes Abs Monocytes (Manual) Absolute Eosinophils Absolute Eos (Manual) Absolute Basophils Abs Basophils (Manual) Hypersegmented Neuts Toxic Vacuolation Large Platelets Giant Platelets Platelet Comment Polychromasia RBC Morph Comment PT 15.0 INR 1.10 VBG pH VBG pCO2 VBG HCO3 VBG Base Excess Sodium 127.8 L Potassium 4.2 Chloride 92 L Carbon Dioxide 21 L Anion Gap 15 BUN 50 H Creatinine 1.23 Est GFR ( Amer) 52 L Est GFR (Non-Af Amer) 43 L Glucose 235 H POC Glucose Lactic Acid 3.3 H Calcium 9.6 Total Bilirubin 1.2 Direct Bilirubin 0.5 H Neonat Total Bilirubin Not Reportable Neonat Direct Bilirubin Not Reportable Neonat Indirect Bili Not Reportable AST 105 H ALT 54 H Alkaline Phosphatase 97 Total Protein 6.6 Albumin 3.7 Urine Color Urine Appearance Urine pH Ur Specific [place] Urine Protein Urine Glucose (UA) Urine Ketones Urine Blood Urine Nitrite Urine Bilirubin Urine Urobilinogen Ur Leukocyte Esterase Urine WBC (Auto) Urine Mucus (Auto) Urine Ascorbic Acid 01/17/18 17:23 WBC RBC Hgb Hct MCV MCH MCHC RDW Plt Count Total Counted Seg Neutrophils % Seg Neuts % (Manual) Lymphocytes % Lymphocytes % (Manual) Monocytes % Monocytes % (Manual) Eosinophils % Eosinophils % (Manual) Basophils % Basophils % (Manual) Absolute Neutrophils Abs Neuts (Manual) Absolute Lymphocytes Abs Lymphs (Manual) Absolute Monocytes Abs Monocytes (Manual) Absolute Eosinophils Absolute Eos (Manual) Absolute Basophils Abs Basophils (Manual) Hypersegmented Neuts Toxic Vacuolation Large Platelets Giant Platelets Platelet Comment Polychromasia RBC Morph Comment PT INR VBG pH 7.49 H VBG pCO2 31.6 L VBG HCO3 23.4 VBG Base Excess 0.6 Sodium Potassium Chloride Carbon Dioxide Anion Gap BUN Creatinine Est GFR ( Amer) Est GFR (Non-Af Amer) Glucose POC Glucose Lactic Acid Calcium Total Bilirubin Direct Bilirubin Neonat Total Bilirubin Neonat Direct Bilirubin Neonat Indirect Bili AST ALT Alkaline Phosphatase Total Protein Albumin Urine Color Urine Appearance Urine pH Ur Specific [place] Urine Protein Urine Glucose (UA) Urine Ketones Urine Blood Urine Nitrite Urine Bilirubin Urine Urobilinogen Ur Leukocyte Esterase Urine WBC (Auto) Urine Mucus (Auto) Urine Ascorbic Acid Chest X-Ray 11/14/17 16:20 IMPRESSION: NO ACUTE RADIOGRAPHIC FINDING IN THE CHEST. Abdomen/Pelvis CT 11/14/17 17:07 IMPRESSION: 1. Left renal obstruction as above. Moderate hydronephrosis with renal edema. This is due to a proximal ureteral stone measuring 6 mm. There is also another stone in the left UVJ measuring just over 3 mm. 2. Extensive chronic renal calcifications otherwise. 11/14/17 19:47 Dr. Nguyen at [facility] states that she needs to be admitted at their hospital. Will make n.p.o. Antibiotics have been started. Awaiting callback regarding transfer at this time. 11/14/17 21:53 Affecting a prolonged wait for the transfer. I have called [facility]. Spoke with Dr. Guillory who is also accepted patient. Will transfer her to the first available facility. Repeating lactate at this time. Repeating fluids at this time. Had a head CT as well. 11/14/17 22:26 She complaining of pain in her left flank. Toradol ordered. Continue fluids. Continue antibiotics. - Vital Signs Vital signs: Temp Pulse Resp BP Pulse Ox 99.2 F 21 H 115/96 H 100 11/14/17 17:00 11/14/17 22:00 11/14/17 21:00 11/14/17 22:00 - Laboratory Result Diagrams: 11/14/17 17:23 11/14/17 17:23 Laboratory results interpreted by me: 11/14/17 11/14/17 11/14/17 16:50 17:16 17:23 WBC 27.9 H Hct 35.5 L RDW 14.8 H Seg Neuts % (Manual) 92 H Lymphocytes % (Manual) 4 L Abs Neuts (Manual) 25.7 H VBG pH VBG pCO2 Sodium Chloride Carbon Dioxide BUN Est GFR ( Amer) Est GFR (Non-Af Amer) Glucose POC Glucose 256 H Lactic Acid Direct Bilirubin AST ALT Urine Protein >=500 H Urine Blood SMALL H Ur Leukocyte Esterase MODERATE H 11/14/17 11/14/17 11/14/17 17:23 17:23 17:23 WBC Hct RDW Seg Neuts % (Manual) Lymphocytes % (Manual) Abs Neuts (Manual) VBG pH 7.49 H VBG pCO2 31.6 L Sodium 127.8 L Chloride 92 L Carbon Dioxide 21 L BUN 50 H Est GFR ( Amer) 52 L Est GFR (Non-Af Amer) 43 L Glucose 235 H POC Glucose Lactic Acid 3.3 H Direct Bilirubin 0.5 H AST 105 H ALT 54 H Urine Protein Urine Blood Ur Leukocyte Esterase 11/14/17 21:27 WBC Hct RDW Seg Neuts % (Manual) Lymphocytes % (Manual) Abs Neuts (Manual) VBG pH VBG pCO2 Sodium Chloride Carbon Dioxide BUN Est GFR ( Amer) Est GFR (Non-Af Amer) Glucose POC Glucose Lactic Acid 2.8 H Direct Bilirubin AST ALT Urine Protein Urine Blood Ur Leukocyte Esterase Critical Care Note - Critical Care Note Total time excluding time spent on procedures (mins): 60 Comments: Abscess, consultation with specialists, transfer to another facility, infection , fluid management Discharge - Discharge Clinical Impression: Ureterolithiasis, Hyponatremia Sepsis Qualifiers: Sepsis type: Escherichia coli Qualified Code(s): A41.51 - Sepsis due to Escherichia coli [E. coli] Urinary tract infection Qualifiers: Urinary tract infection type: site unspecified Hematuria presence: without hematuria Qualified Code(s): N39.0 - Urinary tract infection, site not specified
[2017-11-14 17:31] LABS: APPEARANCE,URINE TURBID; BILIRUBIN,URINE NEGATIVE (NEGATIVE); COLOR,URINE YELLOW; GLUCOSE, URINE NEGATIVE (NEGATIVE); KETONES,URINE NEGATIVE (NEGATIVE); LEUKOCYTE ESTERASE,URINE MODERATE (NEGATIVE); NITRITE,URINE NEGATIVE (NEGATIVE); PROTEIN,URINE >=500 mg/dL (NEGATIVE); URINE SPECIFIC GRAVITY 1.017; UROBILINOGEN,URINE NEGATIVE mg/dL (<2.0)
[2017-11-14 17:48] LABS: HEMATOCRIT 35.5 % (36.0-47.0); HEMOGLOBIN 12.1 g/dL (12.0-15.5); MEAN CORPUSCULAR HEMOGLOBIN 28.2 pg (27.0-33.4); MEAN CORPUSCULAR HGB CONC 34.1 g/dL (32.0-36.0); MEAN CORPUSCULAR VOLUME 83 fl (80-97); PLATELET COUNT 262 10^3/uL (150-450); RED BLOOD COUNT 4.29 10^6/uL (3.72-5.28); RED CELL DISTRIBUTION WIDTH 14.8 % (11.5-14.0); WHITE BLOOD COUNT 27.9 10^3/uL (4.0-10.5)
[2017-11-14 17:51] LABS: VENOUS BLOOD BASE EXCESS 0.6 mmol/L; VENOUS BLOOD HCO3 23.4 mmol/L (20-32); VENOUS BLOOD PCO2 31.6 mmHg (35-63); VENOUS BLOOD PH 7.49 (7.30-7.42)
[2017-11-14 18:13] LABS: ALANINE AMINOTRANSFERASE 54 U/L (9-52); ALBUMIN 3.7 g/dL (3.5-5.0); ALKALINE PHOSPHATASE 97 U/L (38-126); ANION GAP 15 (5-19); ASPARTATE AMINO TRANSFERASE 105 U/L (14-36); BILIRUBIN,DIRECT 0.5 mg/dL (0.0-0.4); BILIRUBIN,TOTAL 1.2 mg/dL (0.2-1.3); BLOOD UREA NITROGEN 50 mg/dL (7-20); CALCIUM 9.6 mg/dL (8.4-10.2); CARBON DIOXIDE 21 mmol/L (22-30); CHLORIDE 92 mmol/L (98-107); GLUCOSE 235 mg/dL (75-110); POTASSIUM 4.2 mmol/L (3.6-5.0); SODIUM 127.8 mmol/L (137-145); TOTAL PROTEIN 6.6 g/dL (6.3-8.2)
[2017-11-14] MEDS ORDERED: SULFAMETHOX/TRIMETH 800-160 MG/10 ML VIAL IV ONE (18:25)
[2017-11-14] MEDS ORDERED: NORMAL SALINE 1000 ML 1,000 ML IV ONE ×2 (18:25→21:26)
[2017-11-14 18:27] LABS: ABSOLUTE LYMPHOCYTES# (MANUAL) 1.1 10^3/uL (0.5-4.7); ABSOLUTE MONOCYTES # (MANUAL) 1.1 10^3/uL (0.1-1.4); ABSOLUTE NEUTROPHILS# (MANUAL) 25.7 10^3/uL (1.7-8.2); BASOPHILS % (MANUAL) 0 % (0-2); EOSINOPHILS % (MANUAL) 0 % (0-6); LYMPHOCYTES % (MANUAL) 4 % (13-45); MONOCYTES % (MANUAL) 4 % (3-13); SEGMENTED NEUTROPHILS % (MAN) 92 % (42-78); TOTAL CELLS COUNTED 100
[2017-11-14 18:28] LABS: HYPERSEGMENTED NEUTROPHILS PRESENT; TOXIC VACUOLATION PRESENT
[2017-11-14 18:29] LABS: PLATELET COMMENT ADEQUATE
[2017-11-14 18:30] LABS: PLATELET GIANT PRESENT; PLATELET LARGE PRESENT; POLYCHROMASIA SLIGHT; RBC MORPHOLOGY COMMENT NORMO-CYTIC/CHROMIC
--- NOTE | 2017-11-14 18:30 | RADIOLOGY REPORT (SQ) ---
EXAM DESCRIPTION: CT ABD/PELVIS NO ORAL OR IV COMPLETED DATE/TIME: 11/14/2017 6:17 pm REASON FOR STUDY: History of stones, infection in urine, left lower COMPARISON: 05/03/2017. TECHNIQUE: CT scan of the abdomen and pelvis performed without intravenous or oral contrast. Images reviewed with lung, soft tissue, and bone windows. Reconstructed coronal and sagittal MPR images revi ewed. All images stored on PACS. All CT scanners at this facility use dose modulation, iterative reconstruction, and/or weight based d osing when appropriate to reduce radiation dose to as low as reasonably achievable (ALARA). [facility]: Dose Right [facility]: CareDose [facility]: Dose Right [facility]: Teradose 4D [facility]: [email or web address] RADIATION DOSE: CT Rad equipment meets quality standard of care and radiation dose reduction techniq ues were employed. CTDIvol: 9.2 mGy. DLP: 537 mGy-cm.mGy. LIMITATIONS: None. FINDINGS: LOWER CHEST: Mild areas of suspected subsegmental atelectasis. Mild pericardial fluid. NON-CONTRASTED LIVER, SPLEEN, ADRENALS: Fatty liver parenchyma without suggestion of gross mass. Spl een unremarkable. No adrenal mass. PANCREAS: No masses. No peripancreatic inflammatory changes. GALLBLADDER: No identified stones by CT criteria. No inflammatory changes to suggest cholecystitis. RIGHT KIDNEY AND URETER: Numerous calcifications, most of which look medullary. No hydronephrosis or ureteral stone. LEFT KIDNEY AND URETER: Numerous calcifications, many of which are medullary. There is moderate hydr onephrosis with distended renal pelvis and proximal ureteral obstructing stone which measures at leas t 6 mm. Configuration makes Hounsfield unit determination somewhat difficult ; likely is at least 63 0 Hounsfield units or more. Tiny 3 mm stone at the left UVJ. Mild left generalized increased renal density and enlargement consistent with parenchymal edema. Mild perinephric stranding as well. AORTA AND RETROPERITONEUM: No aneurysm. No retroperitoneal masses or adenopathy. BOWEL AND PERITONEAL CAVITY: No obvious masses or inflammatory changes. No free fluid. APPENDIX: Normal. PELVIS, BLADDER, AND ABDOMINAL WALL:As above. No pelvic mass or free fluid. BONES: Osteopenia. Postoperative lumbar spine changes. No fracture or worrisome bone lesion per OTHER: No other significant finding. IMPRESSION: 1. Left renal obstruction as above. Moderate hydronephrosis with renal edema. This is due to a proximal ureteral stone measuring 6 mm. There is also another stone in the left UVJ measur ing just over 3 mm. 2. Extensive chronic renal calcifications otherwise. TECHNICAL DOCUMENTATION: JOB ID: [id number] Quality ID # [id number]: Final reports with documentation of one or more dose reduction techniques (e.g., Au tomated exposure control, adjustment of the mA and/or kV according to patient size, use of iterative reconstruction technique) 2010 [employer]- All Rights Reserved
[2017-11-14] MEDS ORDERED: VANCOMYCIN HCL INJ 1000 MG VIAL IV ONE (18:35)
[2017-11-14] MEDS ORDERED: VANCOMYCIN HCL INJ 1000 MG VIAL ONE (21:39)
[2017-11-14] MEDS ORDERED: KETOROLAC TROMETHAMINE INJ/PF 30 MG/1 ML SDV IV ONE (22:24)
--- NOTE | 2017-11-14 23:08 | EKG REPORT ---
SEVERITY:- OTHERWISE NORMAL ECG - SINUS TACHYCARDIA BORDERLINE LEFT AXIS DEVIATION : Confirmed by: Valdez Martinez 14-Nov-2017 23:07:54
--- NOTE | 2017-11-14 23:34 | RADIOLOGY REPORT (SQ) ---
EXAM DESCRIPTION: CT HEAD WITHOUT CLINICAL HISTORY: 72 years Female, altered mental status COMPARISON: None. TECHNIQUE: No contrast. This exam was performed according to our departmental dose-optimization program, which includes automated exposure control, adjustment of the mA and/or kV according to patient size and/or use of iterative reconstruction technique. FINDINGS: No hemorrhage or infarct. No mass, mass effect, or midline shift. Atherosclerosis. Brain and extra-axial structures appear otherwise intact. IMPRESSION: No acute findings.
[2017-11-15] MEDS ORDERED: NORMAL SALINE 1000 ML 1,000 ML IV ONE (00:07)
[2017-11-15] MEDS ORDERED: POTASSI CL 20 MEQ/NS 1L 1,000 ML IV ONE (00:07)
[2017-11-15] MEDS ORDERED: ONDANSETRON HCL INJ/PF 4 MG/2 ML SDV IV ONE (04:55)
[2017-11-15] MEDS: FENTANYL CITRATE INJ/PF 100 MCG/2 ML AMPUL IV PRN ×2 (05:27→11:14)
[2017-11-15] MEDS ORDERED: SULFAMETHOX/TRIMETH 800-160 MG/10 ML VIAL IV ONE ×2 (10:18→10:30)
[2017-11-15] MEDS ORDERED: VANCOMYCIN HCL INJ 1000 MG VIAL IV ONE (10:30)
[2017-11-15] MEDS ORDERED: GLIMEPIRIDE 1 MG TABLET PO ONE (11:21)
[2017-11-15] MEDS ORDERED: PREGABALIN 75 MG CAPSULE PO ONE (11:21)
[2017-11-15] MEDS ORDERED: VENLAFAXINE HCL 37.5 MG CAP.SR.24H PO ONE (11:22)
[2017-11-15] MEDS ORDERED: DICLOFENAC SODIUM 25 MG TABLET.DR PO ONE (11:27)
[2017-11-15] MEDS ORDERED: ONDANSETRON 4 MG TAB.RAPDIS PO ONE (12:55)
[2017-11-15 12:57] LABS: HEMOGLOBIN 10.1 g/dL (12.0-15.5); MEAN CORPUSCULAR HEMOGLOBIN 28.4 pg (27.0-33.4); MEAN CORPUSCULAR HGB CONC 33.8 g/dL (32.0-36.0); MEAN CORPUSCULAR VOLUME 84 fl (80-97); PLATELET COUNT 209 10^3/uL (150-450); RED BLOOD COUNT 3.57 10^6/uL (3.72-5.28); RED CELL DISTRIBUTION WIDTH 14.9 % (11.5-14.0); WHITE BLOOD COUNT 15.6 10^3/uL (4.0-10.5)
[2017-11-15 13:09] LABS: ANION GAP 10 (5-19); BLOOD UREA NITROGEN 40 mg/dL (7-20); CALCIUM 8.3 mg/dL (8.4-10.2); CARBON DIOXIDE 18 mmol/L (22-30); CHLORIDE 103 mmol/L (98-107); GLUCOSE 155 mg/dL (75-110); POTASSIUM 4.3 mmol/L (3.6-5.0); SODIUM 130.5 mmol/L (137-145)
[2017-11-15 13:13] LABS: ABSOLUTE LYMPHOCYTES# (MANUAL) 1.4 10^3/uL (0.5-4.7); ABSOLUTE MONOCYTES # (MANUAL) 0.3 10^3/uL (0.1-1.4); ABSOLUTE NEUTROPHILS# (MANUAL) 13.9 10^3/uL (1.7-8.2); BAND NEUTROPHILS % (MANUAL) 1 % (3-5); BASOPHILS % (MANUAL) 0 % (0-2); EOSINOPHILS % (MANUAL) 0 % (0-6); LYMPHOCYTES % (MANUAL) 9 % (13-45); MONOCYTES % (MANUAL) 2 % (3-13); SEGMENTED NEUTROPHILS % (MAN) 88 % (42-78); TOTAL CELLS COUNTED 100
[2017-11-15 13:14] LABS: ANISOCYTOSIS SLIGHT; PLATELET COMMENT ADEQUATE
[2017-11-15] MEDS ORDERED: KETOROLAC TROMETHAMINE INJ/PF 30 MG/1 ML SDV IV ONE (14:48)
[2017-11-15 15:39] VITALS: BP 117/63
== END 2017-11-15 15:25 | disposition short-term general hospital (02) ==
LOC: ER 16:14
DX: A41.51 Sepsis due to Escherichia coli [E. coli] (principal); N39.0 Urinary tract infection, site not specified; N13.2 Hydronephrosis with renal and ureteral calculous obstruction; E87.1 Hypo-osmolality and hyponatremia; R41.0 Disorientation, unspecified; R50.9 Fever, unspecified; R00.0 Tachycardia, unspecified; I25.2 Old myocardial infarction; I10 Essential (primary) hypertension; E11.9 Type 2 diabetes mellitus without complications; Z88.1 Allergy status to other antibiotic agents; Z88.8 Allergy status to other drugs, medicaments and biological substances; Z87.891 Personal history of nicotine dependence; Z85.3 Personal history of malignant neoplasm of breast
CPT/HCPCS: 93005; 96376; 99291; 96361; 96375; 96365; 96366; 96367; 36415; 87040; 87086; 82962; 85025; 85610; 87077; 87088; 80048; 80053; 81001; 87186; 82803; 83605; 71045; 70450; 74176; 93010; A9270 ×5; J3010; J1885 ×2; J3490 ×2; J2405; J7030 ×2; J3480; J3370 ×2; S0119

== ENCOUNTER 2019-10-08 11:57 | Emergency (ER) | payer MEDICARE, BC ==
[2019-10-08] MEDS ORDERED: HYDROCODONE/ACETAMINOPHEN 5-325 MG TABLET PO ONE (13:06)
[2019-10-08 13:07] VITALS: BP 109/83
--- NOTE | 2019-10-08 14:09 | RADIOLOGY REPORT (SQ) ---
EXAM DESCRIPTION: KNEE RIGHT 4 VIEWS COMPLETED DATE/TIME: 10/08/2019 1:52 pm REASON FOR STUDY: fall COMPARISON: None. NUMBER OF VIEWS: Four views. TECHNIQUE: AP, lateral, and both oblique radiographic images acquired of the right knee. LIMITATIONS: None. FINDINGS: MINERALIZATION: Normal. BONES: No acute fracture or dislocation. No worrisome bone lesions. JOINT: No effusion. Chondrocalcinosis. SOFT TISSUES: No soft tissue swelling. No radio-opaque foreign body. OTHER: No other significant finding. IMPRESSION: No acute findings. TECHNICAL DOCUMENTATION: JOB ID: [id number] [employer]- All Rights Reserved Reading location - IP/workstation name: [email or web address]
--- NOTE | 2019-10-08 14:10 | RADIOLOGY REPORT (SQ) ---
EXAM DESCRIPTION: FOOT RIGHT COMPLETE COMPLETED DATE/TIME: 10/08/2019 1:52 pm REASON FOR STUDY: fall INJURY PAIN COMPARISON: Ankle films same date NUMBER OF VIEWS: Three views. TECHNIQUE: AP, lateral and oblique radiographic images acquired of the right foot. LIMITATIONS: None. FINDINGS: MINERALIZATION: Osteoporotic BONES: Few tiny bone flecks are present along the dorsum of the talus and tarsal navicular bone, worr isome for avulsion fractures at the tibialis anterior attachment. Old healed 3rd 4th and 5th metatarsal fracture. Prominent plantar calcaneal spur. JOINTS: Tibiotalar joint effusion SOFT TISSUES: Anterior ankle soft tissue swelling over the talus and navicular bone OTHER: Small plantar calcaneal spur. Hallux valgus deformity. IMPRESSION: Soft tissue swelling with tiny avulsion fragments along the dorsum of the talus and tars al navicular, worrisome for injury at the distal attachment of the tibialis anterior tendon TECHNICAL DOCUMENTATION: JOB ID: [id number] [employer]- All Rights Reserved Reading location - IP/workstation name: [email or web address]
--- NOTE | 2019-10-08 14:11 | RADIOLOGY REPORT (SQ) ---
EXAM DESCRIPTION: ANKLE RIGHT COMPLETE COMPLETED DATE/TIME: 10/08/2019 1:52 pm REASON FOR STUDY: fall COMPARISON: Foot films same date NUMBER OF VIEWS: Three views. TECHNIQUE: AP, lateral, and oblique radiographic images acquired of the right ankle. LIMITATIONS: None. FINDINGS: MINERALIZATION: Osteopenic BONES: Soft tissue swelling with tiny avulsion fragments along the dorsum of the talus and tarsal cary icular, worrisome for injury at the distal attachment of the tibialis anterior tendon JOINTS: Tibiotalar joint effusion. Normal alignment at the ankle mortise SOFT TISSUES: Anterior soft tissue swelling. No foreign body. OTHER: No other significant finding. IMPRESSION: Soft tissue swelling with tiny avulsion fragments along the dorsum of the talus and tars al navicular, worrisome for injury at the distal attachment of the tibialis anterior tendon TECHNICAL DOCUMENTATION: JOB ID: [id number] [employer]- All Rights Reserved Reading location - IP/workstation name: [email or web address]
--- NOTE | 2019-10-08 14:34 | ER Document Report ---
HPI - HPI Time Seen by Provider: 10/08/19 12:59 Pain Level: 5 Notes: 74-year-old female patient presenting with right foot, ankle and knee pain after she states that she tripped and fell yesterday. Patient reports the majority of her pain is in the right foot area, states she has difficulty bearing weight. Denies any dizziness, loss of consciousness and denies hitting her head. - REPRODUCTIVE Reproductive: DENIES: : Past Medical History - General Information source: Patient - Social History Smoking Status: Never Smoker Chew tobacco use (# tins/day): No Frequency of alcohol use: None Drug Abuse: None Family History: Reviewed & Not Pertinent Patient has suicidal ideation: No Patient has homicidal ideation: No - Past Medical History Cardiac Medical History: Reports: Hx Heart Attack, Hx Hypercholesterolemia, Hx Hypertension Endocrine Medical History: Reports: Hx Diabetes Mellitus Type 2 Renal/ Medical History: Reports: Hx Kidney Stones. Denies: Hx Peritoneal Dialysis Malignancy Medical History: Reports: Hx Breast Cancer Psychiatric Medical History: Reports: Hx Depression Past Surgical History: Reports: Hx Bowel Surgery - colon resection, Hx Hysterectomy, Other - Hx colon resection - Immunizations Hx Diphtheria, Pertussis, Tetanus Vaccination: Yes Vertical Provider Document - CONSTITUTIONAL Notes: PHYSICAL EXAMINATION: GENERAL: Well-appearing, well-nourished and in no acute distress. HEAD: Atraumatic, normocephalic. EYES: Pupils equal round extraocular movements intact, conjunctiva are normal. ENT: Nares patent NECK: Normal range of motion LUNGS: No respiratory distress Musculoskeletal: Normal range of motion to right lower extremity. Some swelling noted over dorsal surface of right foot, strong dorsalis pedis pulse, cap refill less than 3 seconds. Tenderness with palpation over the lateral and anterior right knee, no erythema, edema or ecchymosis noted. NEUROLOGICAL: Normal speech. PSYCH: Normal mood, normal affect. SKIN: Warm, Dry, normal turgor, no rashes or lesions noted. - INFECTION CONTROL TRAVEL OUTSIDE OF THE [place] IN LAST 30 DAYS: No Course - Re-evaluation Re-evalutation: Ankle X-Ray 10/08/19 13:03 IMPRESSION: Soft tissue swelling with tiny avulsion fragments along the dorsum of the talus and tarsal navicular, worrisome for injury at the distal attachment of the tibialis anterior tendon Foot X-Ray 10/08/19 13:03 IMPRESSION: Soft tissue swelling with tiny avulsion fragments along the dorsum of the talus and tarsal navicular, worrisome for injury at the distal attachment of the tibialis anterior tendon Knee X-Ray 10/08/19 13:03 IMPRESSION: No acute findings. Radiology findings as outlined above. Patient will be placed in a short leg posterior splint and sent to orthopedics, she will call them today to schedule a follow-up appointment. She will be given crutches here in the emergency department and she states at home she has a walker that she can use. The patient's emergency department workup and current diagnosis were explained to the patient and or family. Follow-up instructions were provided. Medications if prescribed were discussed. Instructions for when to return to the emergency department including specific worrisome symptoms were discussed with the patient and/or family. - Vital Signs Vital signs: Temp Pulse Resp BP Pulse Ox 98.0 F 85 16 109/83 98 10/08/19 11:58 10/08/19 11:58 10/08/19 11:58 10/08/19 11:58 10/08/19 11:58 Procedures - Immobilization Right lower extremity Pre-Proc Neuro Vasc Exam: Normal Immobilizer type: Crutches, Short Leg Posterior Performed by: PCT Post-Proc Neuro Vasc Exam: Normal Alignment checked and good: Yes Discharge - Discharge Clinical Impression: Foot fracture, right Qualifiers: Encounter type: initial encounter Fracture type: closed Qualified Code(s): S92.901A - Unspecified fracture of right foot, initial encounter for closed fracture Condition: Stable Disposition: HOME, SELF-CARE Additional Instructions: There is a fracture in your foot with possible tendon involvement. Please keep the splint in place until seen by orthopedics, call orthopedics today to set up a schedule for an appointment. Let them know you were seen in the emergency department and that we need you to follow-up with them. Take the pain medication as prescribed. You may also take ibuprofen 600 mg every 6 hours. Prescriptions: Hydrocodone Bit/Acetaminophen [Hydrocodon-Acetaminophen 5-325] 1 - 2 each PO Q4H #15 tablet Referrals: DHARMESH PALACIOS MD [Primary Care Provider] - Follow up as needed
== END 2019-10-08 15:10 | disposition home or self-care (01) ==
LOC: ER 11:57
DX: S92.901A Unspecified fracture of right foot, initial encounter for closed fracture (principal); M25.571 Pain in right ankle and joints of right foot; M25.561 Pain in right knee; W01.0XXA Fall on same level from slipping, tripping and stumbling without subsequent striking against object, initial encounter; E78.00 Pure hypercholesterolemia, unspecified; I10 Essential (primary) hypertension; E11.9 Type 2 diabetes mellitus without complications; Z87.442 Personal history of urinary calculi; Z90.710 Acquired absence of both cervix and uterus; I25.2 Old myocardial infarction
CPT/HCPCS: 99283; 73610; 73630; 73564; 29515; A9270

== ENCOUNTER 2019-11-12 13:20 | Emergency (ER) | payer MEDICARE, BC ==
--- NOTE | 2019-11-12 14:23 | ER Document Report ---
ED Medical Screen (RME) - General Chief Complaint: Flank Pain Stated Complaint: BLOOD IN URINE/PAIN IN PELVIC AREA Time Seen by Provider: 11/12/19 14:16 Primary Care Provider: DHARMESH PALACIOS MD [Primary Care Provider] - Follow up as needed Information source: Patient Notes: Patient presents with dysuria and frequency for the past 4 days. Patient reports hematuria today. Patient reports subjective fever and occasionally feels as though she breaks out in a sweat. Patient complains of bilateral flank pain. No nausea or vomiting. Patient does report a previous history of kidney stones. I have greeted and performed a rapid initial assessment of this patient. A comprehensive ED assessment and evaluation of the patient, analysis of test results and completion of the medical decision making process will be conducted by additional ED providers. TRAVEL OUTSIDE OF THE [place] IN LAST 30 DAYS: No - Related Data Allergies/Adverse Reactions: cephalexin [From Keflex] Allergy (Verified 11/12/19 14:17) ciprofloxacin [From Cipro] Allergy (Verified 11/12/19 14:17) levofloxacin [From Levaquin] Allergy (Verified 11/12/19 14:17) pioglitazone Allergy (Verified 11/12/19 14:17) Home Medications: breast ca. 10 inches of colon removed. htn. dm. high cholesterol. hysterec ravi. kidney stones Past Medical History - Social History Chew tobacco use (# tins/day): No Frequency of alcohol use: None Drug Abuse: None - Past Medical History Cardiac Medical History: Reports: Hx Atrial Fibrillation, Hx Heart Attack, Hx Hypercholesterolemia, Hx Hypertension Endocrine Medical History: Reports: Hx Diabetes Mellitus Type 2 Renal/ Medical History: Reports: Hx Kidney Stones. Denies: Hx Peritoneal Dialysis Malignancy Medical History: Reports: Hx Breast Cancer Psychiatric Medical History: Reports: Hx Depression Past Surgical History: Reports: Hx Bowel Surgery - colon resection, Hx Hysterectomy, Other - Hx colon resection - Immunizations Hx Diphtheria, Pertussis, Tetanus Vaccination: Yes Physical Exam - General Notes: Patient with very dark hematuria noted to urine cup in triage - Back Back: CVA tenderness - bilateral Doctor's Discharge - Discharge Referrals: DHARMESH PALACIOS MD [Primary Care Provider] - Follow up as needed
[2019-11-12 14:47] LABS: BILIRUBIN,URINE NEGATIVE (NEGATIVE); GLUCOSE, URINE >=500 mg/dL (NEGATIVE); KETONES,URINE TRACE mg/dL (NEGATIVE); LEUKOCYTE ESTERASE,URINE MODERATE (NEGATIVE); NITRITE,URINE NEGATIVE (NEGATIVE); PROTEIN,URINE 100 mg/dL (NEGATIVE); URINE SPECIFIC GRAVITY 1.024; UROBILINOGEN,URINE NEGATIVE mg/dL (<2.0)
[2019-11-12 14:48] LABS: APPEARANCE,URINE TURBID
[2019-11-12 14:49] LABS: COLOR,URINE RED
[2019-11-12 15:33] LABS: ABSOLUTE LYMPHOCYTES (AUTO) 1.2 10^3/uL (0.5-4.7); ABSOLUTE MONOCYTES (AUTO) 0.9 10^3/uL (0.1-1.4); ABSOLUTE NEUT (AUTO) 8.1 10^3/uL (1.7-8.2); BASOPHILS % (AUTO) 0.5 % (0-2); EOSINOPHILS % (AUTO) 0.3 % (0-6); HEMATOCRIT 42.2 % (36.0-47.0); HEMOGLOBIN 14.2 g/dL (12.0-15.5); LYMPHOCYTES % (AUTO) 12.1 % (13-45); MEAN CORPUSCULAR HEMOGLOBIN 28.4 pg (27.0-33.4); MEAN CORPUSCULAR HGB CONC 33.7 g/dL (32.0-36.0); MEAN CORPUSCULAR VOLUME 84 fl (80-97); MONOCYTES % (AUTO) 8.7 % (3-13); PLATELET COUNT 258 10^3/uL (150-450); RED BLOOD COUNT 5.01 10^6/uL (3.72-5.28); RED CELL DISTRIBUTION WIDTH 14.8 % (11.5-14.0); SEGMENTED NEUTROPHILS % (AUTO) 78.4 % (42-78); TOTAL CELLS COUNTED % (AUTO) 100 %; WHITE BLOOD COUNT 10.3 10^3/uL (4.0-10.5)
--- NOTE | 2019-11-12 15:45 | RADIOLOGY REPORT (SQ) ---
EXAM DESCRIPTION: CT ABD/PELVIS NO ORAL OR IV COMPLETED DATE/TIME: 11/12/2019 3:10 pm REASON FOR STUDY: flank pain, hematuria COMPARISON: CT of the abdomen pelvis without contrast from 11/14/2017. TECHNIQUE: CT scan of the abdomen and pelvis performed without intravenous or oral contrast. Images reviewed with lung, soft tissue, and bone windows. Reconstructed coronal and sagittal MPR images revi ewed. All images stored on PACS. All CT scanners at this facility use dose modulation, iterative reconstruction, and/or weight based d osing when appropriate to reduce radiation dose to as low as reasonably achievable (ALARA). [facility]: Dose Right [facility]: CareDose [facility]: Dose Right [facility]: Teradose 4D [facility]: [employer] RADIATION DOSE: CT Rad equipment meets quality standard of care and radiation dose reduction techniq ues were employed. CTDIvol: 8.6 mGy. DLP: 497 mGy-cm.mGy. LIMITATIONS: None. FINDINGS: LOWER CHEST: Severe atherosclerotic calcification of the coronary arteries. There is no p ericardial effusion, basilar consolidation or pericardial effusion NON-CONTRASTED LIVER, SPLEEN, ADRENALS: Evaluation is limited due to the absence of intravenous contr ast. The geographic hypodensity in the posterolateral aspect of the right hepatic lobe is new from . The calcifications and surrounding heterogeneity/hypodensity in the posteromedial aspect o f the right hepatic lobe are also new. The calcifications near the confluence of hepatic veins are u nchanged. The spleen is normal in size. There is no abnormality of the adrenal glands. PANCREAS: No acute gross abnormality of the pancreas. GALLBLADDER: The gallbladder is contracted. RIGHT KIDNEY AND URETER: Evaluation is limited due to the absence of intravenous contrast. Unchanged medullary nephrocalcinosis. There is no hydronephrosis, hydroureter or ureterolithiasis. LEFT KIDNEY AND URETER: Evaluation is limited due to the absence of intravenous contrast. Unchanged medullary nephrocalcinosis. There is no hydronephrosis, hydroureter or ureterolithiasis. AORTA AND RETROPERITONEUM: No aneurysm of the abdominal aorta. No retroperitoneal adenopathy, hemorr swati or mass BOWEL AND PERITONEAL CAVITY: Status post partial colectomy and anastomosis. There is no bowel obstruction, bowel wall thickening, pericolonic/perienteric inflammation. There is a cluster partially calcified lymph nodes near the p rahul hepatis that measure up to 10 mm in diameter; these lymph nodes have increased in size from 11/14. There is no free intraperitoneal fluid or mesenteric/omental inflammation. APPENDIX: Unable to identify the appendix. PELVIS, BLADDER, AND ABDOMINAL WALL:There is asymmetric thickening of the right posterolateral aspect of the bladder wall. There is a 2.5 x 2 cm the ovoid hyperdensity within the dependent portion of t he bladder lumen. The uterus is surgically absent. There is no abnormality of the adnexa that is apparent on CT. BONES: Status post posterior fusion and decompression from L3-S1. There is no acute fracture. OTHER: No other finding. IMPRESSION: 1. Medullary nephrocalcinosis without hydronephrosis or hydroureter. 2. New geographic abnormalities that involve the right hepatic lobe. Correlation with a contrast-en hanced liver CT is recommended. 3. Asymmetric thickening of the posterolateral aspect of the bladder wall with suspected intralumina l clot. 3. Other findings as detailed above. COMMENT: Quality ID # [id number]: Final reports with documentation of one or more dose reduction techniques (e.g., Automated exposure control, adjustment of the mA and/or kV according to patient size, use of iterative reconstruction technique) TECHNICAL DOCUMENTATION: JOB ID: [id number] [employer]- All Rights Reserved Reading location - IP/workstation name: [email or web address]
[2019-11-12 15:50] LABS: ALBUMIN 4.4 g/dL (3.5-5.0); ALKALINE PHOSPHATASE 197 U/L (38-126); ANION GAP 16 (5-19); ASPARTATE AMINO TRANSFERASE 39 U/L (14-36); BILIRUBIN,DIRECT 0.3 mg/dL (0.0-0.4); BILIRUBIN,TOTAL 0.6 mg/dL (0.2-1.3); BLOOD UREA NITROGEN 25 mg/dL (7-20); CALCIUM 10.7 mg/dL (8.4-10.2); CARBON DIOXIDE 26 mmol/L (22-30); CHLORIDE 94 mmol/L (98-107); POTASSIUM 4.4 mmol/L (3.6-5.0)
[2019-11-12 15:58] LABS: GLUCOSE 486 mg/dL (75-110)
[2019-11-12] MEDS ORDERED: NORMAL SALINE 1000 ML 1,000 ML IV ONE (16:02)
[2019-11-12] MEDS ORDERED: INSULIN REG, HUMAN 100 UNIT/ML 3 ML VIAL (PYX) IV ONE (17:44)
--- NOTE | 2019-11-12 17:53 | ER Document Report ---
ED General - General Chief Complaint: Flank Pain Stated Complaint: BLOOD IN URINE/PAIN IN PELVIC AREA Time Seen by Provider: 11/12/19 14:16 Primary Care Provider: DHARMESH PALACIOS MD [Primary Care Provider] - Follow up as needed TRAVEL OUTSIDE OF THE [place] IN LAST 30 DAYS: No - HPI Notes: Patient is a 74-year-old female with a history of medullary calcinosis, frequent UTIs, who presents to the emergency department for evaluation of bilateral flank pain, urinary tract infection symptoms, and hematuria. She states that her symptoms have been present this time around for the last several days. She notes that she has had recurrent infections over the last several months. She noticed gross hematuria earlier today. She states she has had 4 or 5 episodes of it. She is having the sensation of emptying her bladder. She states she is felt hot and cold, but denies any radha fevers to her knowledge. No nausea or vomiting. Eating and drinking normally. Normal bowel movements. She states today she did not have any food she was waiting here in the emergency department. She is taking her medications as prescribed. - Related Data Allergies/Adverse Reactions: cephalexin [From Keflex] Allergy (Verified 11/12/19 14:17) ciprofloxacin [From Cipro] Allergy (Verified 11/12/19 14:17) levofloxacin [From Levaquin] Allergy (Verified 11/12/19 14:17) pioglitazone Allergy (Verified 11/12/19 14:17) Home Medications: List reviewed, please see notes Past Medical History - General Information source: Patient - Social History Smoking Status: Never Smoker Chew tobacco use (# tins/day): No Frequency of alcohol use: None Drug Abuse: None Family History: Reviewed & Not Pertinent Patient has suicidal ideation: No Patient has homicidal ideation: No - Past Medical History Cardiac Medical History: Reports: Hx Atrial Fibrillation, Hx Heart Attack, Hx Hypercholesterolemia, Hx Hypertension Endocrine Medical History: Reports: Hx Diabetes Mellitus Type 2 Renal/ Medical History: Reports: Hx Kidney Stones, Other - Medullary calcinosis. Denies: Hx Peritoneal Dialysis Malignancy Medical History: Reports: Hx Breast Cancer Psychiatric Medical History: Reports: Hx Depression Past Surgical History: Reports: Hx Bowel Surgery - colon resection, Hx Hysterectomy, Other - Hx colon resection - Immunizations Hx Diphtheria, Pertussis, Tetanus Vaccination: Yes Review of Systems - Review of Systems Constitutional: No symptoms reported EENT: No symptoms reported Cardiovascular: No symptoms reported Respiratory: No symptoms reported Gastrointestinal: No symptoms reported Genitourinary: See HPI Female Genitourinary: No symptoms reported Musculoskeletal: No symptoms reported Skin: No symptoms reported Neurological/Psychological: No symptoms reported Physical Exam - Vital signs Vitals: Temp Pulse Resp BP Pulse Ox 97.4 F 59 L 16 146/78 H 96 11/12/19 14:15 11/12/19 14:15 11/12/19 14:15 11/12/19 14:15 11/12/19 14:15 - Notes Notes: Vital signs reviewed, please refer to chart. Head is normocephalic, atraumatic. Pupils equal round, reactive to light. Neck is supple without meningismus. Heart is regular rate and rhythm. Lungs are clear to auscultation bilaterally. Abdomen is soft, nontender, normoactive bowel sounds throughout. No significant CVA tenderness noted. Extremities without cyanosis, clubbing. Posterior calves are nontender. Peripheral pulses are equal. Skin is warm and dry. Patient is awake, alert, neurological exam is nonfocal. Course - Re-evaluation Re-evalutation: 11/12/19 17:50 Patient presents emergency department for evaluation. She had laboratory investigations as ordered through triage, as well as CT scan. Laboratory i nvestigation showed gross hematuria. She does not have a significant leukocytosis. Her urine is sent for culture. CT scan revealed liver abnormalities. These were explained to the patient, and the need for an IV contrasted scan for further liver evaluation was explained. The patient voiced understanding. Further noted was what appears to be a intra-bladder clot. Decision was made to advance of Marvin catheter and can start CBI. I discussed patient's options in regards to IV antibiotics. She states she has tolerated Keflex in the past despite the allergy list. She was administered IV c eftriaxone here. I will send her home with Keflex. She has an appointment with urology later this month, she is encouraged to try to make that earlier. Her hyperglycemia was treated with insulin. She is told to keep a close eye on her glucose and follow-up with her primary care doctor in regards to this. Will monitor for response to CBI. 11/12/19 19:54 CBI went well. Urine is running very light pink to nearly clear. Patient tolerated the Rocephin. She was given the insulin for her hyperglycemia. We will start her on Keflex, she is to follow-up closely with urology. Return to the ED with worsening or new concerning symptoms of any sort. - Vital Signs Vital signs: Temp Pulse Resp BP Pulse Ox 98.5 F 82 18 128/52 H 96 11/12/19 19:39 11/12/19 19:39 11/12/19 19:39 11/12/19 19:39 11/12/19 19:39 - Laboratory Result Diagrams: 11/12/19 15:10 11/12/19 15:10 Laboratory results interpreted by me: 11/12/19 11/12/19 11/12/19 14:23 15:10 15:10 RDW 14.8 H Lymph % (Auto) 12.1 L Seg Neutrophils % 78.4 H VBG pH VBG pCO2 Sodium 135.6 L Chloride 94 L BUN 25 H Glucose 486 H* Calcium 10.7 H AST 39 H Alkaline Phosphatase 197 H Urine Protein 100 H Urine Glucose (UA) >=500 H Urine Ketones TRACE H Urine Blood LARGE H Ur Leukocyte Esterase MODERATE H 11/12/19 17:25 RDW Lymph % (Auto) Seg Neutrophils % VBG pH 7.47 H VBG pCO2 32.7 L Sodium Chloride BUN Glucose Calcium AST Alkaline Phosphatase Urine Protein Urine Glucose (UA) Urine Ketones Urine Blood Ur Leukocyte Esterase - Diagnostic Test Radiology reviewed: Reports reviewed Radiology results interpreted by me: 11/12/19 17:50 Abdomen/Pelvis CT 11/12/19 14:21 IMPRESSION: 1. Medullary nephrocalcinosis without hydronephrosis or hydroureter. 2. New geographic abnormalities that involve the right hepatic lobe. Correlation with a contrast-enhanced liver CT is recommended. 3. Asymmetric thickening of the posterolateral aspect of the bladder wall with suspected intraluminal clot. 3. Other findings as detailed above. Discharge - Discharge Clinical Impression: Hyperglycemia, Liver abnormality Hematuria Qualifiers: Hematuria type: gross Qualified Code(s): R31.0 - Gross hematuria Urinary tract infection Qualifiers: Urinary tract infection type: site unspecified Hematuria presence: with hematuria Qualified Code(s): N39.0 - Urinary tract infection, site not specified Condition: Stable Disposition: HOME, SELF-CARE Instructions: Cephalexin ([facility]), Hematuria ([facility]), Urinary Tract Infection ([facility]) Additional Instructions: CT scan today revealed an abnormality on of your liver. It is recommended that you have a CT scan with IV contrast to further characterize this lesion, follow- up with your primary care doctor in regards to this. There was blood in your urine today, finds consistent with a urinary tract infection. You have been given IV antibiotics, will be sent home on Keflex. Please follow-up as closely as possible with your urologist. If you develop fevers, vomiting, increased pa in, or any other new or concerning symptoms, please return immediately to the emergency department for reevaluation. [email or web address] [facility] Prescriptions: Cephalexin Monohydrate [Keflex 500 mg Capsule] 500 mg PO TID #42 capsule Referrals: DHARMESH PALACIOS MD [Primary Care Provider] - Follow up as needed
[2019-11-12] MEDS ORDERED: CEFTRIAXONE 1 GM/D5W RTU 1 GM/50 ML RTUPB IV ONE ×2 (17:54→19:00)
[2019-11-12 18:05] LABS: VENOUS BLOOD BASE EXCESS 0.1 mmol/L; VENOUS BLOOD PCO2 32.7 mmHg (35-63); VENOUS BLOOD PH 7.47 (7.30-7.42)
[2019-11-12] MEDS ORDERED: ONDANSETRON HCL INJ/PF 4 MG/2 ML SDV IV ONE (18:16)
[2019-11-12] MEDS ORDERED: MORPHINE SULFATE 10 MG/ML INJ IV ONE (18:16)
[2019-11-12 20:48] VITALS: BP 126/60
== END 2019-11-12 20:48 | disposition home or self-care (01) ==
LOC: ER 13:20
DX: N39.0 Urinary tract infection, site not specified (principal); K76.9 Liver disease, unspecified; E11.65 Type 2 diabetes mellitus with hyperglycemia; R31.0 Gross hematuria; R10.9 Unspecified abdominal pain; R10.2 Pelvic and perineal pain; I48.91 Unspecified atrial fibrillation; E78.00 Pure hypercholesterolemia, unspecified; I10 Essential (primary) hypertension; Z88.3 Allergy status to other anti-infective agents; I25.2 Old myocardial infarction
CPT/HCPCS: 99284; 96361; 96375; 96365; 36415; 87086; 85025; 80053; 81001; 82803; 74176; J2270; A9270; J2405; J7030; J0696; J1815

== ENCOUNTER 2020-01-16 13:42 | Emergency (ER) | payer MEDICARE, BC ==
--- NOTE | 2020-01-16 13:53 | ER Document Report ---
ED Medical Screen (RME) - General Chief Complaint: Upper Abdominal Pain Stated Complaint: UPPER RIGHT ABDOMINAL PAIN Time Seen by Provider: 01/16/20 13:49 Primary Care Provider: DHARMESH PALACIOS MD [Primary Care Provider] - Follow up as needed Mode of Arrival: Wheelchair Information source: Patient Notes: 74-year-old female presents to ED for complaint of right upper quadrant abdominal pain. Patient denies any fevers nausea vomiting or diarrhea. She states she does have a history of kidney stones but no history of gallbladder problems. She states she woke up this morning at 830 with the pain in the right upper quadrant. I have greeted and performed a rapid initial assessment of this patient. A comprehensive ED assessment and evaluation of the patient, analysis of test results and completion of medical decision making process will be conducted by an additional ED providers. TRAVEL OUTSIDE OF THE [place] IN LAST 30 DAYS: No - Related Data Allergies/Adverse Reactions: cephalexin [From Keflex] Allergy (Verified 11/12/19 14:17) ciprofloxacin [From Cipro] Allergy (Verified 11/12/19 14:17) levofloxacin [From Levaquin] Allergy (Verified 11/12/19 14:17) pioglitazone Allergy (Verified 11/12/19 14:17) Past Medical History - Past Medical History Cardiac Medical History: Reports: Hx Atrial Fibrillation, Hx Heart Attack, Hx Hypercholesterolemia, Hx Hypertension Endocrine Medical History: Reports: Hx Diabetes Mellitus Type 2 Renal/ Medical History: Reports: Hx Kidney Stones. Denies: Hx Peritoneal Dialysis Malignancy Medical History: Reports: Hx Breast Cancer Psychiatric Medical History: Reports: Hx Depression Past Surgical History: Reports: Hx Bowel Surgery - colon resection, Hx Hysterectomy, Other - Hx colon resection - Immunizations Hx Diphtheria, Pertussis, Tetanus Vaccination: Yes Doctor's Discharge - Discharge Referrals: DHARMESH PALACIOS MD [Primary Care Provider] - Follow up as needed
[2020-01-16] MEDS ORDERED: MORPHINE SULFATE 10 MG/ML INJ IV ONE (13:55)
[2020-01-16] MEDS ORDERED: NORMAL SALINE 1000 ML 1,000 ML IV ONE (13:55)
[2020-01-16] MEDS ORDERED: ONDANSETRON 4 MG TAB.RAPDIS PO ONE (13:55)
[2020-01-16 14:50] LABS: ABSOLUTE BASOPHILS # (AUTO) 0.1 10^3/uL (0.0-0.2); ABSOLUTE LYMPHOCYTES (AUTO) 0.9 10^3/uL (0.5-4.7); ABSOLUTE MONOCYTES (AUTO) 1.2 10^3/uL (0.1-1.4); ABSOLUTE NEUT (AUTO) 9.1 10^3/uL (1.7-8.2); BASOPHILS % (AUTO) 0.9 % (0-2); EOSINOPHILS % (AUTO) 0.1 % (0-6); HEMATOCRIT 35.3 % (36.0-47.0); HEMOGLOBIN 12.3 g/dL (12.0-15.5); LYMPHOCYTES % (AUTO) 7.9 % (13-45); MEAN CORPUSCULAR HEMOGLOBIN 27.7 pg (27.0-33.4); MEAN CORPUSCULAR HGB CONC 34.8 g/dL (32.0-36.0); MEAN CORPUSCULAR VOLUME 80 fl (80-97); MONOCYTES % (AUTO) 10.4 % (3-13); PLATELET COUNT 278 10^3/uL (150-450); RED BLOOD COUNT 4.44 10^6/uL (3.72-5.28); RED CELL DISTRIBUTION WIDTH 15.2 % (11.5-14.0); SEGMENTED NEUTROPHILS % (AUTO) 80.7 % (42-78); TOTAL CELLS COUNTED % (AUTO) 100 %; WHITE BLOOD COUNT 11.2 10^3/uL (4.0-10.5)
[2020-01-16 15:02] LABS: ALBUMIN 4.6 g/dL (3.5-5.0); ALKALINE PHOSPHATASE 147 U/L (38-126); ANION GAP 16 (5-19); ASPARTATE AMINO TRANSFERASE 34 U/L (14-36); BILIRUBIN,DIRECT 0.3 mg/dL (0.0-0.4); BILIRUBIN,TOTAL 0.6 mg/dL (0.2-1.3); BLOOD UREA NITROGEN 27 mg/dL (7-20); CALCIUM 10.6 mg/dL (8.4-10.2); CARBON DIOXIDE 24 mmol/L (22-30); CHLORIDE 95 mmol/L (98-107); GLUCOSE 265 mg/dL (75-110); TOTAL PROTEIN 8.4 g/dL (6.3-8.2)
[2020-01-16] MEDS ORDERED: KETOROLAC TROMETHAMINE INJ/PF 30 MG/1 ML SDV IV ONE ×2 (15:58→18:48)
--- NOTE | 2020-01-16 16:00 | RADIOLOGY REPORT (SQ) ---
EXAM DESCRIPTION: U/S ABDOMEN LIMITED W/O DOP COMPLETED DATE/TIME: 01/16/2020 3:48 pm REASON FOR STUDY: Upper quadrant abdominal pain COMPARISON: CT abdomen pelvis 11/12/2019, 11/14/2017, 05/03/2017 TECHNIQUE: Dynamic and static grayscale images acquired of the abdomen and recorded on PACS. Additio nal selected color Doppler and spectral images recorded. LIMITATIONS: None. FINDINGS: PANCREAS: Midline pancreas unremarkable LIVER: Geographic area decreased attenuation in the posterior right lobe liver, about 7 x 6 x 5 cm in size. This correlates with low attenuation on CT exam 11/12/2019, and could represent a hepatic infa rct or mass. LIVER VASCULATURE: Normal directional flow of the main portal vein and hepatic veins. GALLBLADDER: Gallbladder sludge is present without shadowing stones. No gross gallbladder wall thick ening or pericholecystic fluid ULTRASOUND-DETECTED LOMELI'S SIGN: Negative. INTRAHEPATIC DUCTS AND COMMON DUCT: No intrahepatic biliary ductal dilatation. Common bile duct at t he sony hepatis 5 mm in diameter. Distal common duct not well seen due to duodenum gas INFERIOR VENA CAVA: Not well seen AORTA: No aneurysm RIGHT KIDNEY: Multiple shadowing right renal stones without hydronephrosis PERITONEAL AND RIGHT PLEURAL SPACE: No ascites or effusions. OTHER: No other significant findings. IMPRESSION: Geographic hypoechoic area in the posterior right lobe liver could be in infarct or mass . Sludge in the gallbladder Stones in the right kidney without hydronephrosis TECHNICAL DOCUMENTATION: JOB ID: [id number] [employer]- All Rights Reserved Reading location - IP/workstation name: [email or web address]
--- NOTE | 2020-01-16 16:11 | ER Document Report ---
ED General - General Chief Complaint: Upper Abdominal Pain Stated Complaint: UPPER RIGHT ABDOMINAL PAIN Time Seen by Provider: 01/16/20 13:49 Primary Care Provider: DHARMESH PALACIOS MD [Primary Care Provider] - Follow up as needed Mode of Arrival: Wheelchair Notes: 74-year-old woman presents to the emergency department history of pain in the right flank area which began at approximately 830 this morning. She states the pain is severe and shooting. She denies nausea vomiting or associated GI symptoms. She also denies a history of similar episodes. She has had prior back surgeries x2 denies any associated trauma. She also notes a history of kidney stones. TRAVEL OUTSIDE OF THE [place] IN LAST 30 DAYS: No - Related Data Allergies/Adverse Reactions: cephalexin [From Keflex] Allergy (Verified 11/12/19 14:17) ciprofloxacin [From Cipro] Allergy (Verified 11/12/19 14:17) levofloxacin [From Levaquin] Allergy (Verified 11/12/19 14:17) pioglitazone Allergy (Verified 11/12/19 14:17) Past Medical History - General Information source: Patient - Social History Smoking Status: Never Smoker Chew tobacco use (# tins/day): No Frequency of alcohol use: None Drug Abuse: None Family History: Reviewed & Not Pertinent Patient has suicidal ideation: No Patient has homicidal ideation: No - Past Medical History Cardiac Medical History: Reports: Hx Atrial Fibrillation, Hx Heart Attack, Hx Hypercholesterolemia, Hx Hypertension Endocrine Medical History: Reports: Hx Diabetes Mellitus Type 2 Renal/ Medical History: Reports: Hx Kidney Stones. Denies: Hx Peritoneal Dialysis Malignancy Medical History: Reports: Hx Breast Cancer Psychiatric Medical History: Reports: Hx Depression Past Surgical History: Reports: Hx Bowel Surgery - colon resection, Hx Hysterectomy, Other - Hx colon resection - Immunizations Hx Diphtheria, Pertussis, Tetanus Vaccination: Yes Review of Systems - Review of Systems Notes: Constitutional: Negative for fever. HENT: Negative for sore throat. Eyes: Negative for visual changes. Cardiovascular: Negative for chest pain. Respiratory: Negative for shortness of breath. Gastrointestinal: + Right flank pain, + lateral abdominal pain, no vomiting or diarrhea. Genitourinary: Negative for dysuria. Musculoskeletal: Negative for back pain. Skin: Negative for rash. Neurological: Negative for headaches, weakness or numbness. 10 point ROS negative except as marked above and in HPI. Physical Exam - Vital signs Vitals: Temp Pulse Resp BP Pulse Ox 97.5 F 92 20 148/68 H 98 01/16/20 13:52 01/16/20 13:52 01/16/20 13:52 01/16/20 13:52 01/16/20 13:52 - Notes Notes: PHYSICAL EXAMINATION: Physical Exam: General: Well-nourished well-developed 84-year-old woman with right flank and abdominal pain no acute distress HEENT: NC/AT, pupils equal round and reactive to light, MM moist,nares clear, oropharynx clear, airway patent Neck: supple, no adenopathy, no masses. Good range of motion Lungs: clear, no wheezing, no rales no rhonchi CVS: Regular rate and rhythm no murmur gallop or rub Abdomen: Tenderness in the right lateral flank area and, right upper rib cage, soft, active, no masses, no hepatosplenomegaly Ext: No edema, clubbing or cyanosis. Neuro: Alert and responsive, moving all 4 extremities on command, cranial nerves intact, no focal findings Skin: Intact no open lesions, no rash PSYCH: Normal mood, normal affect. Course - Re-evaluation Re-evalutation: 01/16/20 18:34 Patient with a mass noted on CT scan, history of breast cancer question of metas tatic disease. I reviewed the CT findings with the patient and has explained to her the need for follow-up and transcutaneous biopsy. The patient has no icteric findings or elevated bilirubin. The patient has no associated urinary symptoms. She is hemodynamically stable and Toradol appears to have helped her pain tremendously. She will be discharged home with Toradol tablets, she has hydrocodone at home and she will follow-up as an outpatient with oncology at [facility]. - Vital Signs Vital signs: Temp Pulse Resp BP Pulse Ox 97.5 F 92 13 132/70 H 95 01/16/20 13:52 01/16/20 13:52 01/16/20 18:25 01/16/20 18:25 01/16/20 18:25 - Laboratory Result Diagrams: 01/16/20 14:28 01/16/20 14:28 Laboratory results interpreted by me: 01/16/20 01/16/20 01/16/20 14:28 14:28 16:18 WBC 11.2 H Hct 35.3 L RDW 15.2 H Lymph % (Auto) 7.9 L Absolute Neuts (auto) 9.1 H Seg Neutrophils % 80.7 H Sodium 135.2 L Chloride 95 L BUN 27 H Glucose 265 H Calcium 10.6 H Alkaline Phosphatase 147 H Total Protein 8.4 H Urine Protein 100 H Urine Glucose (UA) 150 H Urine Blood LARGE H Urine Nitrite (Reflex) POSITIVE H Leukocyte Esterase Rfl LARGE H Urine Ascorbic Acid 40 H - Diagnostic Test Radiology reviewed: Image reviewed, Reports reviewed - Ultrasound of the right upper quadrant: Geographic Lindsay: Area in the left posterior right lobe of the liver? Infarct or mass. Sludge in the gallbladder, stone in the right kidney without hydronephrosis. CT scan of the abdomen and pelvis was heterogenous enhancing mass of the right hepatic lobe new since 2017, highly suggestive of malignancy. May represent a primary hepatic malignancy or possible metastatic disease given the patient history of breast cancer. This would be amenable to percutaneous biopsy. 2 there is thickening in the distal right ureter near the ureteral vesicle junction with asymptomatic wall thickening of the right posterior lateral bladder, suggestive of bladder mass. Clinical correlation and correlation with any recent cystoscopy results. - EKG Interpretation by Or EKG shows normal: Sinus rhythm - Rate of 80 with sinus rhythm. No acute ST or T wave abnormalities. Discharge - Discharge Clinical Impression: Right flank pain, Liver mass, right lobe Condition: Good Disposition: HOME, SELF-CARE Instructions: Abdominal Pain ([facility]) Additional Instructions: You are diagnosed with a mass in the liver, question of whether is related to malignancy from breast cancer or primary liver related mass needs to be evaluated. A biopsy will need to be done. You may use the hydrocodone as previous and Toradol as prescribed. Please follow-up with your oncologist at [facility] noting "liver mass found on CT scan ". Prescriptions: Ketorolac Tromethamine [Toradol 10 mg Tablet] 10 mg PO Q6 #14 tablet Referrals: DHARMESH PALACIOS MD [Primary Care Provider] - Follow up as needed
[2020-01-16 16:43] LABS: APPEARANCE,URINE TURBID; BILIRUBIN,URINE NEGATIVE (NEGATIVE); COLOR,URINE YELLOW; GLUCOSE, URINE 150 mg/dL (NEGATIVE); KETONES,URINE NEGATIVE (NEGATIVE); PROTEIN,URINE 100 mg/dL (NEGATIVE); URINE SPECIFIC GRAVITY 1.012; UROBILINOGEN,URINE NEGATIVE mg/dL (<2.0)
--- NOTE | 2020-01-16 18:21 | RADIOLOGY REPORT (SQ) ---
EXAM DESCRIPTION: CT ABD/PELVIS WITH IV ONLY COMPLETED DATE/TIME: 01/16/2020 4:45 pm REASON FOR STUDY: RUQ pain. Abnormality on recent CT in the right upper quadrant abdomen. Possible right hepatic lobe mass on ultrasound history of a colonic fistula. Prior hysterectomy. Breast can cer. . COMPARISON: Abdominal ultrasound same date. CT abdomen and pelvis without contrast, 11/12/2019. CT abdomen and pelvis with IV contrast, 05/03/2017. . TECHNIQUE: CT scan of the abdomen and pelvis performed using helical scanning technique with dynamic intravenous contrast injection. No oral contrast. Images reviewed with lung, soft tissue, and bone windows. Reconstructed coronal and sagittal MPR images reviewed. Delayed images for evaluation of the urinary system also acquired. All images stored on PACS. All CT scanners at this facility use dose modulation, iterative reconstruction, and/or weight based d osing when appropriate to reduce radiation dose to as low as reasonably achievable (ALARA). [facility]: Dose Right [facility]: CareDose [facility]: Dose Right [facility]: Teradose 4D [facility]: [employer] CONTRAST TYPE AND DOSE: contrast/concentration: Isovue 350.00 mg/ml; Total Contrast Delivered: 85.0 ml; Total Saline Delivered: 59.3 ml RENAL FUNCTION: GFR > 60. RADIATION DOSE: CT Rad equipment meets quality standard of care and radiation dose reduction techniq ues were employed. CTDIvol: 11.2 - 15.8 mGy. DLP: 1443 mGy-cm.. LIMITATIONS: None. FINDINGS: LOWER CHEST: There is minimal atelectasis at the right lung base. No focal consolidation or pleural effusion. LIVER: The liver has normal size and contour. Within the right hepatic lobe posteriorly there is a 9 .9 x 6.2 cm heterogeneous mass which demonstrates heterogeneous enhancement on delayed phase images. This has an ill-defined margin and is suspicious for malignancy. There is mass effect with attenuat ion of the right portal vein. Right hepatic vein is patent. No evidence of portal or IVC thrombus. SPLEEN: Normal size. No focal lesions. PANCREAS: No masses. No significant calcifications. No adjacent inflammation or peripancreatic fluid collections. Pancreatic duct not dilated. GALLBLADDER: No identified stones by CT criteria. No inflammatory changes to suggest cholecystitis. ADRENAL GLANDS: No significant masses or asymmetry. RIGHT KIDNEY AND URETER: No solid masses. Multiple calcifications at the renal collecting system. No obstructing renal or ureteral calculi. There is thickening of the distal right ureter near the u reterovesical junction. LEFT KIDNEY AND URETER: No solid masses. Multiple calcifications of the left renal collecting syste m. No obstructing renal or ureteral calculus. No hydronephrosis. No perinephric fluid. Ureter has normal caliber and appearance. AORTA AND VESSELS: No aneurysm. No dissection. Renal arteries, SMA, celiac without stenosis. RETROPERITONEUM: No retroperitoneal adenopathy, hemorrhage or masses. BOWEL AND PERITONEAL CAVITY: There is a surgical anastomosis at the rectosigmoid junction which is pa tent. There is no bowel obstruction. No bowel wall thickening. No significant inflammatory change. APPENDIX: Normal. PELVIS: There is gas within the urinary bladder. Asymmetric wall thickening along the right posterol ateral wall with decreased soft tissue attenuation posteriorly. Small foci of gas in a dependent pos ition along the right lateral wall may represent recent postsurgical change. No intraluminal bladder debris. ABDOMINAL WALL: No masses. No hernias. BONES: Unchanged vertebral body hemangiomas at T12 demonstrating stability since 2017. Posterior olivera inectomy and fusion L3-S1, stable. No evidence of hardware fracture, loosening or subsidence. Spina l stimulator battery pack with lead wire in the posterior thecal space unchanged from prior examinati on. No suspicious bone lesions. OTHER: No other significant finding. IMPRESSION: 1. Heterogeneous enhancing mass in the right hepatic lobe is new since 2017, highly suggestive of mal ignancy. This may represent a primary hepatic malignancy or possibly metastatic disease given patien t's history of breast cancer. This would be amenable to percutaneous biopsy. 2. Thickening of the distal right ureter near the ureterovesical junction with asymmetric wall thicke katerina of the right posterolateral bladder, suggestive of bladder mass. There is dependent gas adjacen t to the right lateral bladder wall suggestive of a recent surgical procedure/intervention. Clinical correlation and correlation with any recent cystoscopy results recommended. If no recent cystoscopy was performed, further evaluation with cystoscopy would be recommended. TECHNICAL DOCUMENTATION: JOB ID: [id number] Quality ID # 436: Final reports with documentation of one or more dose reduction techniques (e.g., Au tomated exposure control, adjustment of the mA and/or kV according to patient size, use of iterative reconstruction technique) 2010 [employer]- All Rights Reserved Reading location - IP/workstation name: [email or web address]
[2020-01-16 18:59] VITALS: BP 132/70
== END 2020-01-16 19:13 | disposition home or self-care (01) ==
LOC: ER 13:42
DX: R10.10 Upper abdominal pain, unspecified (principal); E78.00 Pure hypercholesterolemia, unspecified; I48.91 Unspecified atrial fibrillation; E11.9 Type 2 diabetes mellitus without complications; Z88.3 Allergy status to other anti-infective agents; Z87.442 Personal history of urinary calculi; I25.2 Old myocardial infarction; Z90.710 Acquired absence of both cervix and uterus; Z85.3 Personal history of malignant neoplasm of breast
CPT/HCPCS: 99284; 96361; 96374; 96375; 36415; 87086; 83690; 85025; 87088; 80053; 81001; 87186; 76705; 74177; A9270; J1885; J2270; J7030; S0119

== ENCOUNTER 2020-01-31 14:17 | Emergency (ER) | payer MEDICARE, BC ==
--- NOTE | 2020-01-31 14:51 | ER Document Report ---
ED Medical Screen (RME) - General Chief Complaint: Fall Injury Stated Complaint: FALL/LACERATION TO HEAD,HIP PAIN Time Seen by Provider: 01/31/20 14:40 Primary Care Provider: DHARMESH PALACIOS MD [Primary Care Provider] - Follow up as needed Mode of Arrival: Wheelchair Information source: Patient, Parent Notes: This 74-year-old female presents with her daughter for reports she is falling more with some confusion. Reports patient fell last night and laid on the floor all night. Pt reports she was incontinent of stool in her depends while laying on the floor. Patient reports she got up to the bathroom and fell. Patient complains of right wrist pain and hip pain. She has laceration to the right side of her scalp. Patient lives at home with her and nephew. Patient's daughter is concerned that pt is abusing oxycodone. Patient states her son is taking her oxycodone. Patient reports that she has been taking oxycodone for years. She is evaluated and treated by [place] [facility]. When asked what she is taking oxycodone for, what chronic pain, she cannot answer. I have greeted and performed a rapid initial assessment of this patient. A comprehensive ED assessment and evaluation of the patient, analysis of test results and completion of the medical decision making process will be conducted by additional ED providers. TRAVEL OUTSIDE OF THE [place] IN LAST 30 DAYS: No - Related Data Allergies/Adverse Reactions: cephalexin [From Keflex] Allergy (Verified 11/12/19 14:17) ciprofloxacin [From Cipro] Allergy (Verified 11/12/19 14:17) levofloxacin [From Levaquin] Allergy (Verified 11/12/19 14:17) pioglitazone Allergy (Verified 11/12/19 14:17) Past Medical History - Past Medical History Cardiac Medical History: Reports: Hx Atrial Fibrillation, Hx Heart Attack, Hx Hypercholesterolemia, Hx Hypertension Endocrine Medical History: Reports: Hx Diabetes Mellitus Type 2 Renal/ Medical History: Reports: Hx Kidney Stones. Denies: Hx Peritoneal Dialysis Malignancy Medical History: Reports: Hx Breast Cancer Psychiatric Medical History: Reports: Hx Depression Past Surgical History: Reports: Hx Bowel Surgery - colon resection, Hx Hysterectomy, Other - Hx colon resection - Immunizations Hx Diphtheria, Pertussis, Tetanus Vaccination: Yes Physical Exam - Vital signs Vitals: Temp Pulse Resp BP Pulse Ox 98.1 F 100 16 149/62 H 97 01/31/20 14:21 01/31/20 14:21 01/31/20 14:21 01/31/20 14:21 01/31/20 14:21 Course - Vital Signs Vital signs: Temp Pulse Resp BP Pulse Ox 98.1 F 100 16 149/62 H 97 01/31/20 14:21 01/31/20 14:21 01/31/20 14:21 01/31/20 14:21 01/31/20 14:21 Doctor's Discharge - Discharge Referrals: DHARMESH PALACIOS MD [Primary Care Provider] - Follow up as needed
--- NOTE | 2020-01-31 15:30 | RADIOLOGY REPORT (SQ) ---
EXAM DESCRIPTION: CT CERVICAL SPINE WITHOUT IMAGES COMPLETED DATE/TIME: 01/31/2020 2:14 pm REASON FOR STUDY: fall COMPARISON: Chest radiograph, 11/14/2017. TECHNIQUE: Axial images acquired through the cervical spine without intravenous contrast. Images re viewed with lung, soft tissue and bone windows. Reconstructed coronal and sagittal MPR images review ed. Images stored on PACS. All CT scanners at this facility use dose modulation, iterative reconstruction, and/or weight based d osing when appropriate to reduce radiation dose to as low as reasonably achievable (ALARA). [facility]: Dose Right [facility]: CareDose [facility]: Dose Right [facility]: Teradose 4D [facility]: Smart [employer] RADIATION DOSE: CT Rad equipment meets quality standard of care and radiation dose reduction techniq ues were employed. CTDIvol: 18.1 mGy. DLP: 380 mGy-cm. mGy. LIMITATIONS: None. FINDINGS: ALIGNMENT: Anatomic. MINERALIZATION: Normal. VERTEBRAL BODIES: No acute fracture or loss of vertebral body height. Mild spondylosis with small ma rginal osteophytes particularly at C5 and C6. No significant spinal canal stenosis. DISCS: There is degenerative disc disease with loss of intervertebral disc height particularly at C5- C6 and C6-C7. FACETS, LATERAL MASSES, POSTERIOR ELEMENTS: No fractures. No dislocation. No acute findings. HARDWARE: None in the spine. VISUALIZED RIBS: No fractures. LUNG APICES AND SOFT TISSUES: 1.3 cm soft tissue density nodularity in the peripheral left upper lobe partially visualized, indeterminate (image 69). OTHER: No other significant finding. IMPRESSION: 1. No acute fracture or dislocation of the cervical spine. Degenerative disc disease and spondylosis at C5-C6 and C6-C7. 2. Partial visualization of a soft tissue density nodularity or consolidation in the peripheral left upper lobe. When compared with previous chest radiograph, it appears the patient has had previous le ft axillary lymph node dissection and possible asymmetric left pleural thickening at this location, h owever this remains indeterminate. Further evaluation with dedicated CT of the chest is recommended for complete evaluation. TECHNICAL DOCUMENTATION: JOB ID: [id number] Quality ID # 436: Final reports with documentation of one or more dose reduction techniques (e.g., Au tomated exposure control, adjustment of the mA and/or kV according to patient size, use of iterative reconstruction technique) 2010 [employer]- All Rights Reserved Reading location - IP/workstation name: [email or web address]
--- NOTE | 2020-01-31 15:31 | RADIOLOGY REPORT (SQ) ---
EXAM DESCRIPTION: CT HEAD WITHOUT IMAGES COMPLETED DATE/TIME: 01/31/2020 2:14 pm REASON FOR STUDY: fall, confusion COMPARISON: 11/14/2017 TECHNIQUE: Axial images acquired through the brain without intravenous contrast. Images reviewed wi th bone, brain and subdural windows. Additional sagittal and coronal reconstructions were generated. Images stored on PACS. All CT scanners at this facility use dose modulation, iterative reconstruction, and/or weight based d osing when appropriate to reduce radiation dose to as low as reasonably achievable (ALARA). [facility]: Dose Right [facility]: CareDose [facility]: Dose Right [facility]: Teradose 4D [facility]: Smart [email or web address] RADIATION DOSE: CT Rad equipment meets quality standard of care and radiation dose reduction techniq ues were employed. CTDIvol: 53.2 mGy. DLP: 1017 mGy-cm. mGy. LIMITATIONS: None. FINDINGS: VENTRICLES: Normal size and contour. CEREBRUM: No masses. No hemorrhage. No midline shift. No evidence for acute infarction. Normal gra y-white matter differentiation. Mild patchy periventricular and deep white matter hypodense attenuat ion consistent with mild chronic small vessel ischemic change. There is intracranial atherosclerosis . CEREBELLUM: No masses. No hemorrhage. No alteration of density. No evidence for acute infarction. EXTRAAXIAL SPACES: No fluid collections. No masses. ORBITS AND GLOBE: No intra- or extraconal masses. Normal contour of globe without masses. CALVARIUM: No fracture. PARANASAL SINUSES: No fluid or mucosal thickening. SOFT TISSUES: No mass or hematoma. OTHER: No other significant finding. IMPRESSION: No acute intracranial hemorrhage, mass, or evidence of acute territorial infarct. Mild chronic small vessel ischemic change and intracranial atherosclerosis. EVIDENCE OF ACUTE STROKE: NO. COMMENT: Quality ID # 436: Final reports with documentation of one or more dose reduction techniques (e.g., Automated exposure control, adjustment of the mA and/or kV according to patient size, use of iterative reconstruction technique) TECHNICAL DOCUMENTATION: JOB ID: [id number] [employer]- All Rights Reserved Reading location - IP/workstation name: [email or web address]
--- NOTE | 2020-01-31 15:45 | RADIOLOGY REPORT (SQ) ---
EXAM DESCRIPTION: WRIST RIGHT 2 VIEWS IMAGES COMPLETED DATE/TIME: 01/31/2020 2:24 pm REASON FOR STUDY: fall wrist pain COMPARISON: None. NUMBER OF VIEWS: Three views. TECHNIQUE: AP, lateral, and oblique radiographic images acquired of the right wrist. LIMITATIONS: None. FINDINGS: MINERALIZATION: Osteopenia. BONES: There is an acute impacted nondisplaced and nonangulated fracture of the distal radial metaphy sis. The distal ulna appears intact. Bones of the mid carpus are intact. SOFT TISSUES: Chondrocalcinosis at the radiocarpal joint. Dorsal soft tissue swelling. OTHER: No other significant finding. IMPRESSION: 1. Acute nondisplaced fracture distal radial metaphysis. 2. Moderate osteopenia. 3. 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 TECHNICAL DOCUMENTATION: JOB ID: [id number] 2010 [employer]- All Rights Reserved Reading location - IP/workstation name: [email or web address]
--- NOTE | 2020-01-31 15:46 | RADIOLOGY REPORT (SQ) ---
EXAM DESCRIPTION: HIP RIGHT AP/LATERAL IMAGES COMPLETED DATE/TIME: 01/31/2020 2:24 pm REASON FOR STUDY: hip pain fall COMPARISON: None. NUMBER OF VIEWS: Two views. TECHNIQUE: AP pelvis and additional frog-leg view of the right hip. LIMITATIONS: None. FINDINGS: MINERALIZATION: Osteopenia. RIGHT HIP: No fracture or dislocation. No worrisome bone lesions. LEFT HIP: No fracture or dislocation. No worrisome bone lesions. PUBIS AND ISCHIUM: No fracture. PELVIS: No fracture. SACRUM: No fracture or dislocation. No worrisome bone lesions. LOWER LUMBAR SPINE: Laminectomy and fusion spanning at least L4-S1. No evidence of hardware fracture . SOFT TISSUES: No findings. OTHER: No other significant finding. IMPRESSION: No acute fracture or dislocation of the right hip or pelvis. Moderate osteopenia. TECHNICAL DOCUMENTATION: JOB ID: [id number] 2010 [employer]- All Rights Reserved Reading location - IP/workstation name: [email or web address]
[2020-01-31] MEDS ORDERED: DIPH/PERTUSS(ACELL)/TETANUS VAC/PF 0.5 ML SYR (>=10YO) IM ONE (15:54)
--- NOTE | 2020-01-31 16:00 | ER Document Report ---
ED General - General Mode of Arrival: Wheelchair TRAVEL OUTSIDE OF THE [place] IN LAST 30 DAYS: No <LINDA TOLLIVER Annika - Last Filed: 01/31/20 19:28> <TRAMAINE CAMACHO TAHIR - Last Filed: 01/31/20 20:14> - General Chief Complaint: Fall Injury Stated Complaint: FALL/LACERATION TO HEAD,HIP PAIN Time Seen by Provider: 01/31/20 14:40 Primary Care Provider: DHARMESH PALACIOS MD [Primary Care Provider] - Follow up as needed Notes: Patient is a 74-year-old white female with a past medical history of hypertension, depression, diabetes and chronic pain who is currently in pain management on benzos and opioids who presents to the emergency department with a chief complaint of fall last night. She states around 2 in the morning she got up to go to the bathroom. She states on the way back to the bathroom she collapsed. She denies any mechanical nature. States she is unsure if she passed out but notes that she fell landing on her left side striking her left head on the ground. She is unsure of loss of consciousness. She states she was unable to get up at the time so she laid there for approximately 4 hours. She states that she lives at home with her but her is bedridden. She states she eventually told herself that no one was coming to help so she was able to get up and get to the bed. She called her rxvtybhf-iu-iyg who came over and checked on her. She advised the patient come for evaluation. The patient reports that while on the ground she did soil herself. She denies this being related to incontinence. She states that she was laying there so long she could not hold it any longer but reports that it was not an incontinent episode. She denies any lower back pain. Denies any numbness tingling or weakness. She complains of pain in the head, right wrist and right hip. States that she was able to ambulate after getting up eventually. She reports this is happened a couple times in the past. She is unsure if she is ever been evaluated for this specifically. She states that this happened about 2 weeks ago, EMS came out to the house and advised transport to the ER which she refused at that time. She denies any chest pain or shortness of breath. Denies any calf swelling or tenderness. No fever, nausea, vomiting, diarrhea, chills or night sweats. Patient reports the last time this happened she thinks that it was because she took too much medicine on an empty stomach. (LINDA TOLLIVER) - Related Data Allergies/Adverse Reactions: cephalexin [From Keflex] Allergy (Verified 11/12/19 14:17) ciprofloxacin [From Cipro] Allergy (Verified 11/12/19 14:17) levofloxacin [From Levaquin] Allergy (Verified 11/12/19 14:17) pioglitazone Allergy (Verified 11/12/19 14:17) Past Medical History - General Information source: Patient, Parent - Social History Smoking Status: Unknown if Ever Smoked Family History: Reviewed & Not Pertinent - Past Medical History Cardiac Medical History: Reports: Hx Atrial Fibrillation, Hx Heart Attack, Hx Hypercholesterolemia, Hx Hypertension Endocrine Medical History: Reports: Hx Diabetes Mellitus Type 2 Renal/ Medical History: Reports: Hx Kidney Stones. Denies: Hx Peritoneal Dialysis Malignancy Medical History: Reports: Hx Breast Cancer Psychiatric Medical History: Reports: Hx Depression Past Surgical History: Reports: Hx Bowel Surgery - colon resection, Hx Hysterectomy, Other - Hx colon resection - Immunizations Hx Diphtheria, Pertussis, Tetanus Vaccination: Yes <LINDA TOLLIVER - Last Filed: 01/31/20 19:28> Review of Systems - Review of Systems Constitutional: Weakness Musculoskeletal: Joint pain Skin: Lesions Neurological/Psychological: Weakness, Lost consciousness -: Yes All other systems reviewed and negative <LINDA TOLLIVER - Last Filed: 01/31/20 19:28> Physical Exam - General General appearance: Appears well, Alert In distress: None - HEENT Head: Normocephalic, Other - Mild abrasion with dried blood to the right posterior scalp, no laceration, step-off or crepitus Eyes: Normal Conjunctiva: Normal Extraocular movements intact: Yes Eyelashes: Normal Pupils: PERRL External canal: Normal Tympanic membrane: Normal Nasal: Normal Mouth/Lips: Normal Pharynx: Normal Neck: Normal - Respiratory Respiratory status: No respiratory distress Chest status: Nontender Breath sounds: Normal Chest palpation: Normal - Cardiovascular Rhythm: Regular Heart sounds: Normal auscultation Murmur: No - Abdominal Inspection: Normal Distension: No distension Bowel sounds: Normal Tenderness: Nontender Organomegaly: No organomegaly - Extremities Wrist: Other - Full passive range of motion of the right wrist. No deformities of the right wrist. 2+ radial on the right. Good gis scientist strength on the right. No proximal forearm tenderness. Full passive range of motion of the right elbow. Hip: Other - Tenderness to palpation over the right greater trochanter. No leg length discrepancies. Patient is able to bear weight with a limp. Neurovascularly intact distally with a 2+ DP/PT bilaterally. No deformities. Full passive range of motion of the right hip. - Neurological Neuro grossly intact: Yes Cognition: Normal Orientation: AAOx4 Nick Coma Scale Eye Opening: Spontaneous [place] Coma Scale Verbal: Oriented [place] Coma Scale Motor: Obeys Commands Nick Coma Scale Total: 15 Speech: Normal Cranial nerves: Normal Motor strength normal: LUE, RUE, LLE, RLE Sensory: Normal - Psychological Associated symptoms: Normal affect, Normal mood - Skin Skin Temperature: Warm Skin Moisture: Dry Skin Color: Other - Posterior right-sided occipital scalp abrasion with dried blood. No laceration. <LINDA TOLLIVER A - Last Filed: 01/31/20 19:28> - Vital signs Vitals: Temp Pulse Resp BP Pulse Ox 98.1 F 100 16 149/62 H 97 01/31/20 14:21 01/31/20 14:21 01/31/20 14:21 01/31/20 14:21 01/31/20 14:21 Course - Laboratory Result Diagrams: 01/31/20 15:29 01/31/20 15:29 <LINDA TOLLIVER A - Last Filed: 01/31/20 19:28> - Laboratory Result Diagrams: 01/31/20 15:29 01/31/20 15:29 <TRAMAINE CAMACHO IV - Last Filed: 01/31/20 20:14> - Re-evaluation Re-evalutation: 01/31/20 17:56 Corrected sodium 135. 01/31/20 19:21 Patient without a lack to the occipital scalp, abrasion with some dried blood. The area was cleansed copiously with saline and Betadine solution. She was given a liter normal saline and 8 units of IV insulin. Her glucose is trending down. She was also given 1 g of Rocephin. Will be sent home on Bactrim. Will refer to orthopedics regarding the wrist fracture. She will be discharged into the custody of her ubdaeljb-ni-doy who she will stay with. The gicneluv-sa-gig will help care for her. I discussed with him the importance of outpatient follow-up and advised to return here or any ER immediately with any new, persistent or worsening symptoms. They verbalized understood and agreed. They will call the primary doctor on Sunday morning. 01/31/20 19:24 slightly febrile on recheck. Given pain medicine here., [place] with Tylenol will help with fever. 01/31/20 19:26 Tetanus updated today. (LINDA TOLLIVER) - Vital Signs Vital signs: Temp Pulse Resp BP Pulse Ox 100.9 F H 91 16 118/47 L 100 01/31/20 18:23 01/31/20 18:23 01/31/20 14:21 01/31/20 18:23 01/31/20 18:23 - Laboratory Laboratory results interpreted by me: 01/31/20 01/31/20 01/31/20 15:29 15:29 17:20 WBC 13.4 H Hgb 10.2 L Hct 29.9 L MCV 78 L MCH 26.6 L RDW 15.4 H Lymph % (Auto) 6.3 L Absolute Neuts (auto) 11.3 H Seg Neutrophils % 84.4 H Sodium 129.6 L Chloride 90 L BUN 44 H Est GFR (MDRD) Non-Af 50 L Glucose 360 H POC Glucose AST 38 H ALT 36 H Alkaline Phosphatase 156 H Creatine Kinase 29 L Urine Protein 100 H Urine Glucose (UA) >=500 H Urine Blood MODERATE H Urine Nitrite (Reflex) POSITIVE H Leukocyte Esterase Rfl MODERATE H Urine Ascorbic Acid 40 H 01/31/20 19:03 WBC Hgb Hct MCV MCH RDW Lymph % (Auto) Absolute Neuts (auto) Seg Neutrophils % Sodium Chloride BUN Est GFR (MDRD) Non-Af Glucose POC Glucose 308 H AST ALT Alkaline Phosphatase Creatine Kinase Urine Protein Urine Glucose (UA) Urine Blood Urine Nitrite (Reflex) Leukocyte Esterase Rfl Urine Ascorbic Acid Discharge <LINDA TOLLIVER - Last Filed: 01/31/20 19:28> <TRAMAINE CAMACHO IV - Last Filed: 01/31/20 20:14> - Discharge Clinical Impression: uti with delerium Fall Qualifiers: Encounter type: initial encounter Qualified Code(s): W19.XXXA - Unspecified fall, initial encounter Distal radial fracture Qualifiers: Encounter type: initial encounter Fracture type: closed Fracture morphology: unspecified fracture morphology Laterality: right Qualified Code(s): S52.501A - Unspecified fracture of the lower end of right radius, initial encounter for closed fracture Condition: Stable Disposition: HOME, SELF-CARE Instructions: Urinary Tract Infection ([facility]) Additional Instructions: Please continue to monitor your blood glucose closely. It is important that it stays well controlled especially during this episode of illness with your urinary tract infection so that it does not worsen. Please take your antibiotics as prescribed until completion. You are being referred to orthopedics for your wrist. Please call them first thing Sunday morning for outpatient management and care. Please also follow-up with your primary care doctor on Sunday for continued reevaluation and care. Please return here or any ER immediately with any new, persistent or worsening symptoms. Your tetanus was updated today. Prescriptions: Sulfamethoxazole/Trimethoprim [Bactrim Ds Tablet] 1 tab PO BID 14 Days #28 tablet Referrals: DHARMESH PALACIOS MD [Primary Care Provider] - Follow up as needed
[2020-01-31 16:22] LABS: ABSOLUTE LYMPHOCYTES (AUTO) 0.8 10^3/uL (0.5-4.7); ABSOLUTE MONOCYTES (AUTO) 1.2 10^3/uL (0.1-1.4); ABSOLUTE NEUT (AUTO) 11.3 10^3/uL (1.7-8.2); BASOPHILS % (AUTO) 0.1 % (0-2); HEMATOCRIT 29.9 % (36.0-47.0); HEMOGLOBIN 10.2 g/dL (12.0-15.5); LYMPHOCYTES % (AUTO) 6.3 % (13-45); MEAN CORPUSCULAR HEMOGLOBIN 26.6 pg (27.0-33.4); MEAN CORPUSCULAR HGB CONC 34.1 g/dL (32.0-36.0); MEAN CORPUSCULAR VOLUME 78 fl (80-97); MONOCYTES % (AUTO) 9.2 % (3-13); PLATELET COUNT 312 10^3/uL (150-450); RED BLOOD COUNT 3.83 10^6/uL (3.72-5.28); RED CELL DISTRIBUTION WIDTH 15.4 % (11.5-14.0); SEGMENTED NEUTROPHILS % (AUTO) 84.4 % (42-78); TOTAL CELLS COUNTED % (AUTO) 100 %; WHITE BLOOD COUNT 13.4 10^3/uL (4.0-10.5)
[2020-01-31 16:36] LABS: ALBUMIN 3.6 g/dL (3.5-5.0); ALKALINE PHOSPHATASE 156 U/L (38-126); ANION GAP 15 (5-19); ASPARTATE AMINO TRANSFERASE 38 U/L (14-36); BILIRUBIN,DIRECT 0.3 mg/dL (0.0-0.4); BILIRUBIN,TOTAL 0.5 mg/dL (0.2-1.3); BLOOD UREA NITROGEN 44 mg/dL (7-20); CALCIUM 9.1 mg/dL (8.4-10.2); CARBON DIOXIDE 25 mmol/L (22-30); CHLORIDE 90 mmol/L (98-107); CREATINE KINASE 29 U/L (30-135); GLUCOSE 360 mg/dL (75-110); POTASSIUM 4.1 mmol/L (3.6-5.0); TOTAL PROTEIN 7.3 g/dL (6.3-8.2)
--- NOTE | 2020-01-31 16:59 | RADIOLOGY REPORT (SQ) ---
EXAM DESCRIPTION: CHEST SINGLE VIEW IMAGES COMPLETED DATE/TIME: 01/31/2020 3:33 pm REASON FOR STUDY: syncopal episode COMPARISON: None. EXAM PARAMETERS: NUMBER OF VIEWS: One view. TECHNIQUE: Single frontal radiographic view of the chest acquired. RADIATION DOSE: NA LIMITATIONS: None. FINDINGS: LUNGS AND PLEURA: Lungs are hyperinflated. No focal consolidation or pleural effusion. N o pneumothorax. Left apical pleural scarring is stable. MEDIASTINUM AND HILAR STRUCTURES: No masses. Contour normal. HEART AND VASCULAR STRUCTURES: Heart normal in size. Normal vasculature. BONES: No acute findings. HARDWARE: Left axillary surgical clips unchanged. OTHER: No other significant finding. IMPRESSION: No acute cardiopulmonary disease. Hyperinflated lungs which can be seen with obstructiv e lung disease. Asymmetric left apical pleural scarring is stable from prior. TECHNICAL DOCUMENTATION: JOB ID: [id number] 2010 [employer]- All Rights Reserved Reading location - IP/workstation name: [email or web address]
[2020-01-31 17:45] LABS: APPEARANCE,URINE TURBID; BILIRUBIN,URINE NEGATIVE (NEGATIVE); COLOR,URINE YELLOW; GLUCOSE, URINE >=500 mg/dL (NEGATIVE); KETONES,URINE NEGATIVE (NEGATIVE); PROTEIN,URINE 100 mg/dL (NEGATIVE); URINE SPECIFIC GRAVITY 1.008; UROBILINOGEN,URINE NEGATIVE mg/dL (<2.0)
[2020-01-31] MEDS ORDERED: NORMAL SALINE 1000 ML 1,000 ML IV ONE (17:55)
[2020-01-31] MEDS ORDERED: INSULIN REG, HUMAN 100 UNIT/ML 3 ML VIAL (PYX) IV ONE (17:55)
[2020-01-31] MEDS ORDERED: CEFTRIAXONE 1 GM/D5W RTU 1 GM/50 ML RTUPB IV ONE ×2 (18:04→18:40)
[2020-01-31 18:15] LABS: URINE AMPHETAMINES SCREEN NEGATIVE; URINE BARBITURATES SCREEN NEGATIVE; URINE BENZODIAZEPINES SCREEN NEGATIVE; URINE COCAINE SCREEN NEGATIVE; URINE MARIJUANA (THC) SCREEN NEGATIVE; URINE METHADONE SCREEN NEGATIVE; URINE PHENCYCLIDINE SCREEN NEGATIVE
--- NOTE | 2020-01-31 18:22 | RADIOLOGY REPORT (SQ) ---
EXAM DESCRIPTION: CT CHEST WITHOUT IMAGES COMPLETED DATE/TIME: 01/31/2020 6:13 pm REASON FOR STUDY: ? meghana consolidation COMPARISON: Chest radiograph TECHNIQUE: CT scan performed of the chest without intravenous contrast. Images reviewed with lung, soft tissue and bone windows. Reconstructed coronal and sagittal MPR images reviewed. All images st ored on PACS. All CT scanners at this facility use dose modulation, iterative reconstruction, and/or weight based d osing when appropriate to reduce radiation dose to as low as reasonably achievable (ALARA). [facility]: Dose Right [facility]: CareDose [facility]: Dose Right [facility]: Teradose 4D [facility]: [employer] RADIATION DOSE: CT Rad equipment meets quality standard of care and radiation dose reduction techniq ues were employed. CTDIvol: 9.1 mGy. DLP: 321 mGy-cm. mGy. LIMITATIONS: No technical limitations. FINDINGS: LUNGS AND PLEURA: No masses, infiltrates, or pneumothorax. No pleural effusions or pleura l calcifications. HILAR AND MEDIASTINAL STRUCTURES: No identified masses or abnormal nodes. No obvious aneurysm. HEART AND VASCULAR STRUCTURES: No aneurysm. No pericardial effusion. UPPER ABDOMEN: No significant findings. Limited exam. THYROID AND OTHER SOFT TISSUES: No masses. No adenopathy. BONES: No significant finding. HARDWARE: Left axillary clips. OTHER: No other significant findings. IMPRESSION: NO SIGNIFICANT FINDING ON NON-CONTRASTED CHEST CT. TECHNICAL DOCUMENTATION: JOB ID: [id number] Quality ID # [id number]: Final reports with documentation of one or more dose reduction techniques (e.g., Au tomated exposure control, adjustment of the mA and/or kV according to patient size, use of iterative reconstruction technique) 2010 [email or web address]- All Rights Reserved Reading location - IP/workstation name: [email or web address]
[2020-01-31 18:34] VITALS: BP 118/47
[2020-01-31] MEDS ORDERED: HYDROCODONE/ACETAMINOPHEN 5-325 MG TABLET PO ONE (18:41)
--- NOTE | 2020-01-31 20:15 | ER Document Report ---
Doctor's Note Notes: 01/31/20 20:15 Patient's prescription for Bactrim was accidentally sent to the wrong pharmacy. This MD put in a another prescription for Bactrim DS 1 tab p.o. twice daily x14 days and had it sent electronically to the [facility] here in [facility].
--- NOTE | 2020-02-01 10:46 | EKG REPORT ---
SEVERITY:- ABNORMAL ECG - SINUS RHYTHM LEFT AXIS DEVIATION LOW VOLTAGE IN FRONTAL LEADS : Confirmed by: Valdez Martinez 01-Feb-2020 10:46:03
== END 2020-01-31 20:00 | disposition home or self-care (01) ==
LOC: ER 14:17
DX: S52.591A Other fractures of lower end of right radius, initial encounter for closed fracture (principal); S00.01XA Abrasion of scalp, initial encounter; R51 Headache; M25.531 Pain in right wrist; M25.551 Pain in right hip; W19.XXXA Unspecified fall, initial encounter; Y93.89 Activity, other specified; Y92.009 Unspecified place in unspecified non-institutional (private) residence as the place of occurrence of the external cause; N39.0 Urinary tract infection, site not specified; R41.0 Disorientation, unspecified; R50.9 Fever, unspecified; R53.1 Weakness; I10 Essential (primary) hypertension; E11.9 Type 2 diabetes mellitus without complications; G89.29 Other chronic pain; Z79.899 Other long term (current) drug therapy; Z79.891 Long term (current) use of opiate analgesic; Z85.3 Personal history of malignant neoplasm of breast; Z23 Encounter for immunization; Z88.1 Allergy status to other antibiotic agents; Z88.8 Allergy status to other drugs, medicaments and biological substances
CPT/HCPCS: 93005; 99284; 90471; 96365; 36415; 87086; 82962; 82550; 85025; 87088; 80053; 81001; 84484; 87186; 80307; 71045; 73502; 73100; 70450; 71250; 72125; 90715; 93010; 29125; A9270 ×2; J7030; J0696; J1815

== ENCOUNTER → 2020-03-09 | Outpatient (CLI) | payer MEDICARE, BC ==
--- NOTE | 2020-03-09 14:15 | RADIOLOGY REPORT (SQ) ---
EXAM DESCRIPTION: PET CT SKULL/THIGH IMAGES COMPLETED DATE/TIME: 03/09/2020 1:05 pm REASON FOR STUDY: (C50.412)MALIG NEOPLASM OF UPPER-OUTER QUADRANT OF LEFT FEMALE BREAST C50.412 MAL IG NEOPLASM OF UPPER-OUTER QUADRANT OF LEFT FEMAL COMPARISON: Prior CT chest abdomen and pelvis dated 01/31/2020 and 01/16/2020. RADIONUCLIDE AND DOSE: 7.52 mCi F18 FDG The route of agent administration: Intravenous FASTING BLOOD SUGAR: 200 mg/dl CONTRAST TYPE AND DOSE: No CT contrast given. TECHNIQUE: Blood glucose level was verified. Above dose of FDG was injected intravenously. 2-D seg mented attenuation correction images were obtained from the base of the skull to the midthighs. Nonc ontrast CT images were obtained for attenuation correction and fusion with emission images. CT image s were performed without oral or intravenous contrast and are not sensitive for parenchymal lesions. A series of overlapping emission PET images were obtained. Images reviewed and manipulated at [facility] work station by the radiologist. Images stored on PACS. LIMITATIONS: None. FINDINGS: HEAD AND NECK: No areas of abnormal metabolic activity in the soft tissues of the head and neck. CHEST: No areas of abnormal metabolic activity in the chest. ABDOMEN AND PELVIS: Abnormal uptake in the hepatic mass. There is increased metabolic activity along the periphery of the lesion. SUVs range between 3.5 an just over 5 consistent with neoplasm. No up take centrally consistent with necrosis. No other areas of abnormal uptake in the abdomen or pelvis. Physiologic uptake in the and GI tract. PROXIMAL LOWER EXTREMITIES: No areas of abnormal metabolic activity in the soft tissues of the lower extremities. BONES: No abnormal metabolic activity in the visualized skeleton. ADDITIONAL CT FINDINGS: There is nephrocalcinosis. OTHER: No other significant findings. IMPRESSION: Abnormal uptake is limited to the right hepatic lobe mass as described. SUVs range betw een 3.5 and just above 5 consistent with neoplasm. TECHNICAL DOCUMENTATION: JOB ID: [id number] 2010 [employer]- All Rights Reserved Reading location - IP/workstation name: [email or web address]
== END ==
LOC: RAD 08:53
PROVIDERS: ATTEND Internal Medicine
DX: C50.412 Malignant neoplasm of upper-outer quadrant of left female breast (principal)
CPT/HCPCS: 78815; A9552

== ENCOUNTER 2020-03-16 09:00 | Day surgery (SDC) | payer MEDICARE, BC ==
[2020-03-16 09:40] LABS: ABSOLUTE LYMPHOCYTES (AUTO) 1.1 10^3/uL (0.5-4.7); ABSOLUTE MONOCYTES (AUTO) 0.7 10^3/uL (0.1-1.4); ABSOLUTE NEUT (AUTO) 4.5 10^3/uL (1.7-8.2); BASOPHILS % (AUTO) 0.4 % (0-2); EOSINOPHILS % (AUTO) 0.7 % (0-6); HEMATOCRIT 30.5 % (36.0-47.0); HEMOGLOBIN 10.5 g/dL (12.0-15.5); LYMPHOCYTES % (AUTO) 16.7 % (13-45); MEAN CORPUSCULAR HEMOGLOBIN 26.9 pg (27.0-33.4); MEAN CORPUSCULAR HGB CONC 34.4 g/dL (32.0-36.0); MEAN CORPUSCULAR VOLUME 78 fl (80-97); MONOCYTES % (AUTO) 11.5 % (3-13); PLATELET COUNT 230 10^3/uL (150-450); SEGMENTED NEUTROPHILS % (AUTO) 70.7 % (42-78); TOTAL CELLS COUNTED % (AUTO) 100 %; WHITE BLOOD COUNT 6.4 10^3/uL (4.0-10.5)
[2020-03-16 09:55] LABS: INTERNATIONAL RATION (INR) 1.01; PROTHROMBIN TIME 13.3 SEC (11.4-15.4)
[2020-03-16 09:56] LABS: PARTIAL THROMBOPLASTIN TIME 27.9 SEC (23.5-35.8)
[2020-03-16 10:04] LABS: BLOOD UREA NITROGEN 30 mg/dL (7-20)
[2020-03-16] MEDS ORDERED: MIDAZOLAM 2 MG/2 ML INJ ONE (11:26)
[2020-03-16] MEDS ORDERED: FENTANYL CITRATE INJ/PF 100 MCG/2 ML AMPUL ONE (11:26)
--- NOTE | 2020-03-16 12:54 | RADIOLOGY REPORT (SQ) ---
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 The patient was brought to the CT suite and was placed supin e on the CT gurney. The patient was prepped and draped in the usual sterile fashion. Axial images we re obtained for targeting of theright hepatic lobe hypodense lesion. An appropriate access site was s elected. IV conscious sedation was administered and physician direction by the registered nurse using 2 milligrams of Versed and 50 micrograms of fentanyl. Physiologic monitoring was provided before, du ring, and after sedation. The total sedation time was 30 minutes. Documentation face to face time, the performing proceduralist, spent monitoring the patient: [address] of the liver was performed to localize an approach for the hypodense right hepatic lobe lesion. A percutaneous site was marked. Time out was performed. After skin prep and local lidocaine for skin and deep tissue anesthesia, a coaxial biopsy needle sys tem was used to obtain several cores of tissue from the inferior right hepatic lobe. These were subm itted to the lab in formalin. No immediate postprocedure complications. Total of [address] fluoro was used. 3 CT Fluoroscopic images were obtained and saved to PACS. All CT scanners at this facility use dose modulation, iterative reconstruction, and/or weight based d osing when appropriate to reduce radiation dose to as low as reasonably achievable (ALARA). [facility]: Dose Right [facility]: CareDose [facility]: Dose Right [facility]: Teradose 4D [facility]: [employer] RADIATION DOSE: CT Rad equipment meets quality standard of care and radiation dose reduction techniq ues were employed. CTDIvol: 6.6 - 18.2 mGy. DLP: 940 mGy-cm. mGy. LIMITATIONS: None. FINDINGS: CT guided liver biopsy as detailed above. IMPRESSION: CT fluoroscopy guided biopsy of the inferior right hepatic lobe hypodense lesion as deta iled above. Pathology pending. COMMENT: Patient medication list reviewed:Yes- Quality ID# [id number]:Eligible professional attests to docu menting in the medical record they obtained, updated, or reviewed the patient's current medications.. Quality ID 145: Final reports for procedures using fluoroscopy that document radiation exposure trice kingsley, or exposure time and number of fluorographic images (if radiation exposure indices are not avail able) TECHNICAL DOCUMENTATION: JOB ID: [id number] Quality ID # [id number]: Final reports with documentation of one or more dose reduction techniques (e.g., A utomated exposure control, adjustment of the mA and/or kV according to patient size, use of iterative reconstruction technique) 2010 [employer]- All Rights Reserved Reading location - IP/workstation name: [email or web address]
--- NOTE | 2020-03-16 13:27 | RADIOLOGY REPORT (SQ) ---
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 IMPRESSION: Please see combined report for performance of procedure and radiologic supervision and i nterpretation. Reading location - IP/workstation name: [email or web address]
[2020-03-16 15:55] VITALS: BP 120/72
== END 2020-03-16 14:22 | disposition home or self-care (01) ==
LOC: RAD 09:00
PROVIDERS: ATTEND Internal Medicine
DX: C50.412 Malignant neoplasm of upper-outer quadrant of left female breast (principal); R16.0 Hepatomegaly, not elsewhere classified; Z79.01 Long term (current) use of anticoagulants; Z85.3 Personal history of malignant neoplasm of breast; E11.9 Type 2 diabetes mellitus without complications; Z79.899 Other long term (current) drug therapy; R63.4 Abnormal weight loss
CPT/HCPCS: 36415; 84520; 82565; 85025; 85610; 85730; 88305 ×2; 88313 ×2; 77012; 47000; J2250; J3010

== ENCOUNTER 2020-04-08 11:29 | Inpatient (IN) | payer MEDICARE, BC ==
--- NOTE | 2020-04-08 11:40 | ER Document Report ---
ED General - General Stated Complaint: ANKLE INJURY,IVC Time Seen by Provider: 04/08/20 11:34 Notes: Patient is a 74-year-old female with a history of liver cancer, and mental health issues who was brought in by EMS at the request of her son. Apparently she had a fall 2 days ago resulting in a clear left ankle injury with bruising or deformity inability to walk since then but has refused care. Today he finally placed her on IVC paperwork believing she is a danger to herself. 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 She did have a recent fall with a negative ED work-up. TRAVEL OUTSIDE OF THE [place] IN LAST 30 DAYS: No - Related Data Allergies/Adverse Reactions: levofloxacin [From Levaquin] Allergy (Verified 03/16/20 09:52) Past Medical History - General Information source: Emergency Med Personnel Cannot obtain history due to: Dementia - Social History Smoking Status: Never Smoker Family History: Reviewed & Not Pertinent - Past Medical History Cardiac Medical History: Reports: Hx Atrial Fibrillation, Hx Heart Attack - 1998, Hx Hypercholesterolemia, Hx Hypertension Denies: Hx Coronary Artery Disease Pulmonary Medical History: Denies: Hx Asthma, Hx Bronchitis, Hx COPD, Hx Pneumonia Neurological Medical History: Denies: Hx Cerebrovascular Accident, Hx Seizures Endocrine Medical History: Reports: Hx Diabetes Mellitus Type 2 Renal/ Medical History: Reports: Hx Kidney Stones. Denies: Hx Peritoneal Dialysis Malignancy Medical History: Reports: Hx Breast Cancer Musculoskeletal Medical History: Reports Hx Arthritis Psychiatric Medical History: Reports: Hx Depression Past Surgical History: Reports: Hx Bowel Surgery - colon resection, Hx Hysterectomy, Other - Hx colon resection - Immunizations Hx Diphtheria, Pertussis, Tetanus Vaccination: Yes Review of Systems - Review of Systems Notes: REVIEW OF SYSTEMS PHYSICAL EXAMINATION General: No acute distress, well-nourished Head: Atraumatic, normocephalic ENT: Mouth normal, oropharynx moist, no exudates or tonsillar enlargement Eyes: Conjunctiva normal, pupils equal, lids normal Neck: No JVD, supple, no guarding CVS: Normal rate, regular rhythm, no murmurs Resp: No resp distress, equal and normal breath sounds bilaterally GI: Nondistended, soft, no tenderness to palpation, no rebound or guarding Ext: Swelling and mild deformity with bruising of the left ankle. No knee pain or tenderness or discoloration, the remainder of joints compartments and ex tremities are normal Back: No CVA or midline TTP Skin: No rash, warm Lymphatic: No lymphadeopathy noted Neuro: Awake, alert. Trouble with memory. Intermittent confabulation. Face symmetric strength symmetric. Physical Exam - Vital signs Vitals: Temp 98.9 F 04/08/20 13:15 Course - Re-evaluation Re-evalutation: 04/08/20 15:04 Patient with dementia possible med overuse versus psychosis presenting with IVC paperwork for what is obviously broken ankle that she has been ignoring for a few days. Could be dehydration as well had some mild diarrhea. Labs done: Dehydration/hyponatremia but no acute kidney injury EKGnormal Head CT chest x-rayno trauma Ankle x-ray: Trimalleolar fracture Splinted with stirrup/posterior slab. Discussed with Dr. Solitario will see the patient as an inpatient. Discussed with psych who will hold the IVC for now after discussing with family. Discussed with Rowdy she will admit to the medicine service. Given pain medicine. - Vital Signs Vital signs: Temp Pulse Resp BP Pulse Ox 98.9 F 04/08/20 13:15 - Laboratory Result Diagrams: 04/08/20 11:45 04/08/20 11:45 Laboratory results interpreted by me: 04/08/20 04/08/20 04/08/20 11:45 11:45 12:45 RBC 3.57 L Hgb 9.7 L Hct 27.8 L MCV 78 L RDW 15.8 H Lymph % (Auto) 9.8 L Seg Neutrophils % 79.1 H Sodium 130.3 L Chloride 92 L BUN 32 H Glucose 177 H AST 56 H Alkaline Phosphatase 165 H Urine Protein 30 H Urine Glucose (UA) 50 H Urine Blood SMALL H Ur Leukocyte Esterase LARGE H Urine Ascorbic Acid 40 H Salicylates < 1.0 L Acetaminophen < 10 L Procedures - Immobilization Left Lower Leg Immobilizer type: Short Leg Posterior - With dura Performed by: Provider assisted Post-Proc Neuro Vasc Exam: Normal Alignment checked and good: Yes - Reduction attempt not made given minimal displacement Discharge - Discharge Clinical Impression: Dehydration Closed trimalleolar fracture of left ankle Qualifiers: Encounter type: initial encounter Qualified Code(s): S82.852A - Displaced trimalleolar fracture of left lower leg, initial encounter for closed fracture Condition: Fair Disposition: ADMITTED INPATIENT Admitting Provider: Andrea (Hospitalist) Unit Admitted: Medical Floor
[2020-04-08 12:07] LABS: ABSOLUTE BASOPHILS # (AUTO) 0.1 10^3/uL (0.0-0.2); ABSOLUTE LYMPHOCYTES (AUTO) 0.7 10^3/uL (0.5-4.7); ABSOLUTE MONOCYTES (AUTO) 0.8 10^3/uL (0.1-1.4); ABSOLUTE NEUT (AUTO) 5.8 10^3/uL (1.7-8.2); BASOPHILS % (AUTO) 0.8 % (0-2); EOSINOPHILS % (AUTO) 0.1 % (0-6); HEMATOCRIT 27.8 % (36.0-47.0); HEMOGLOBIN 9.7 g/dL (12.0-15.5); LYMPHOCYTES % (AUTO) 9.8 % (13-45); MEAN CORPUSCULAR HEMOGLOBIN 27.1 pg (27.0-33.4); MEAN CORPUSCULAR HGB CONC 34.8 g/dL (32.0-36.0); MEAN CORPUSCULAR VOLUME 78 fl (80-97); MONOCYTES % (AUTO) 10.2 % (3-13); PLATELET COUNT 332 10^3/uL (150-450); RED BLOOD COUNT 3.57 10^6/uL (3.72-5.28); RED CELL DISTRIBUTION WIDTH 15.8 % (11.5-14.0); SEGMENTED NEUTROPHILS % (AUTO) 79.1 % (42-78); TOTAL CELLS COUNTED % (AUTO) 100 %; WHITE BLOOD COUNT 7.4 10^3/uL (4.0-10.5)
--- NOTE | 2020-04-08 12:19 | RADIOLOGY REPORT (SQ) ---
EXAM DESCRIPTION: ANKLE LEFT AP/LATERAL IMAGES COMPLETED DATE/TIME: 04/08/2020 12:09 pm REASON FOR STUDY: fall ankle def COMPARISON: None. NUMBER OF VIEWS: Three views. TECHNIQUE: AP, lateral, and oblique radiographic images acquired of the left ankle. LIMITATIONS: None. FINDINGS: MINERALIZATION: Normal. BONES: There is a transverse fracture of the fibula above the tibiotalar joint about 5 cm. There is a fracture of the medial malleolus. JOINTS: No effusions. SOFT TISSUES: No soft tissue swelling. No foreign body. OTHER: No other significant finding. IMPRESSION: Fractures as described. TECHNICAL DOCUMENTATION: JOB ID: [id number] 2010 [employer]- All Rights Reserved Reading location - IP/workstation name: [email or web address]
--- NOTE | 2020-04-08 12:20 | RADIOLOGY REPORT (SQ) ---
EXAM DESCRIPTION: KNEE LEFT 2 VIEWS IMAGES COMPLETED DATE/TIME: 04/08/2020 12:09 pm REASON FOR STUDY: fall ankle def COMPARISON: None. NUMBER OF VIEWS: Two views. TECHNIQUE: AP and lateral radiographic images acquired of the left knee. LIMITATIONS: None. FINDINGS: MINERALIZATION: Normal. BONES: No acute fracture or dislocation. No worrisome bone lesions. JOINT: There is slight narrowing of the medial joint compartment. SOFT TISSUES: No soft tissue swelling. No radio-opaque foreign body. OTHER: No other significant finding. IMPRESSION: There is slight narrowing of the medial joint compartment. No acute abnormality is pres ent. TECHNICAL DOCUMENTATION: JOB ID: [id number] 2010 [employer]- All Rights Reserved Reading location - IP/workstation name: [email or web address]
[2020-04-08 12:25] LABS: ALBUMIN 3.5 g/dL (3.5-5.0); ALKALINE PHOSPHATASE 165 U/L (38-126); ANION GAP 10 (5-19); ASPARTATE AMINO TRANSFERASE 56 U/L (14-36); BILIRUBIN,TOTAL 0.5 mg/dL (0.2-1.3); BLOOD UREA NITROGEN 32 mg/dL (7-20); CALCIUM 9.1 mg/dL (8.4-10.2); CARBON DIOXIDE 28 mmol/L (22-30); CHLORIDE 92 mmol/L (98-107); GLUCOSE 177 mg/dL (75-110); POTASSIUM 3.7 mmol/L (3.6-5.0); TOTAL PROTEIN 6.8 g/dL (6.3-8.2)
--- NOTE | 2020-04-08 12:25 | RADIOLOGY REPORT (SQ) ---
EXAM DESCRIPTION: CT HEAD WITHOUT IMAGES COMPLETED DATE/TIME: 04/08/2020 12:15 pm REASON FOR STUDY: AMS, fall COMPARISON: 01/31/2020 TECHNIQUE: Axial images acquired through the brain without intravenous contrast. Images reviewed wi th bone, brain and subdural windows. Additional sagittal and coronal reconstructions were generated. Images stored on PACS. All CT scanners at this facility use dose modulation, iterative reconstruction, and/or weight based d osing when appropriate to reduce radiation dose to as low as reasonably achievable (ALARA). [facility]: Dose Right [facility]: CareDose [facility]: Dose Right [facility]: Teradose 4D [facility]: Smart [employer] Medical RADIATION DOSE: CT Rad equipment meets quality standard of care and radiation dose reduction techniq ues were employed. CTDIvol: 48.7 mGy. DLP: 930 mGy-cm. mGy. LIMITATIONS: None. FINDINGS: VENTRICLES: Normal size and contour. CEREBRUM: Cortical atrophy. No masses. No hemorrhage. No midline shift. No evidence for acute inf arction. Areas of low density in the white matter most likely chronic small vessel ischemic changes. CEREBELLUM: No masses. No hemorrhage. No alteration of density. No evidence for acute infarction. EXTRAAXIAL SPACES: No fluid collections. No masses. ORBITS AND GLOBE: No intra- or extraconal masses. Normal contour of globe without masses. CALVARIUM: No fracture. PARANASAL SINUSES: No fluid or mucosal thickening. SOFT TISSUES: No mass or hematoma. OTHER: No other significant finding. IMPRESSION: Involutional changes with mild chronic microvascular ischemia. No acute intracranial im aging findings. EVIDENCE OF ACUTE STROKE: NO. COMMENT: Quality ID # [id number]: Final reports with documentation of one or more dose reduction techniques (e.g., Automated exposure control, adjustment of the mA and/or kV according to patient size, use of iterative reconstruction technique) TECHNICAL DOCUMENTATION: JOB ID: [id number] 2010 [employer]- All Rights Reserved Reading location - IP/workstation name: [email or web address]
[2020-04-08 12:27] LABS: ACETAMINOPHEN < 10 ug/mL (10-30); SALICYLATE < 1.0 mg/dL (2.0-20.0)
[2020-04-08] MEDS ORDERED: NORMAL SALINE 1000 ML 1,000 ML IV ONE (12:41)
[2020-04-08] MEDS ORDERED: IBUPROFEN 600 MG TABLET PO ONE (12:41)
[2020-04-08 13:29] LABS: APPEARANCE,URINE CLOUDY; BILIRUBIN,URINE NEGATIVE (NEGATIVE); COLOR,URINE YELLOW; GLUCOSE, URINE 50 mg/dL (NEGATIVE); KETONES,URINE NEGATIVE (NEGATIVE); LEUKOCYTE ESTERASE,URINE LARGE (NEGATIVE); NITRITE,URINE NEGATIVE (NEGATIVE); PROTEIN,URINE 30 mg/dL (NEGATIVE); URINE SPECIFIC GRAVITY 1.011; UROBILINOGEN,URINE NEGATIVE mg/dL (<2.0)
[2020-04-08 13:46] LABS: URINE AMPHETAMINES SCREEN NEGATIVE; URINE BARBITURATES SCREEN NEGATIVE; URINE BENZODIAZEPINES SCREEN NEGATIVE; URINE COCAINE SCREEN NEGATIVE; URINE MARIJUANA (THC) SCREEN NEGATIVE; URINE METHADONE SCREEN NEGATIVE; URINE PHENCYCLIDINE SCREEN NEGATIVE
--- NOTE | 2020-04-08 14:47 | RADIOLOGY REPORT (SQ) ---
EXAM DESCRIPTION: CT LT LOWER EXTREMITY WITHOUT IMAGES COMPLETED DATE/TIME: 04/08/2020 2:35 pm REASON FOR STUDY: fracture of ankle COMPARISON: Plain films same date. TECHNIQUE: Axial imaging performed through the Left ankle with reformatted coronal and sagittal imaging windowed for bone and soft tissues. Images saved to PAC S. 3D IMAGING: Were 3D images as MIP, SSD, or volume rendering performed at the work station? Yes LIMITATIONS: None. FINDINGS: SOFT TISSUES: External cast. BONY STRUCTURES: Trimalleolar fracture with no significant change in alignment. MINERALIZATION: Normal. OTHER: No other significant finding. IMPRESSION: Trimalleolar ankle fracture. Reading location - IP/workstation name: [email or web address]
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
[2020-04-08] MEDS ORDERED: LIDOCAINE 2% INJ-PF (20 MG/ML) 10 ML AMPUL ONE (15:22)
[2020-04-08] MEDS ORDERED: LIDOCAINE 2% INJ (20 MG/ML) 20 ML MDV INJ PRN (15:42)
[2020-04-08] MEDS ORDERED: GLUCAGON,HUMAN RECOMB 1 MG INJ SUBCUT PRN (16:08)
[2020-04-08] MEDS ORDERED: MAG HYDROX/AL HYDROX/SIMETH SUSP 30 ML UDCUP PO PRN (16:08)
[2020-04-08] MEDS ORDERED: DEXTROSE 40% GEL 15 GM TUBE PO PRN ×2 (16:08)
[2020-04-08] MEDS ORDERED: MAGNESIUM HYDROXIDE SUSP 30 ML UDCUP PO PRN (16:08)
[2020-04-08] MEDS ORDERED: DEXTROSE 50%-WATER 25 GM/50 ML DISP.SYRIN IV PRN ×2 (16:08)
[2020-04-08] MEDS ORDERED: LORAZEPAM 1 MG TABLET PO PRN (16:17)
[2020-04-08] MEDS ORDERED: LOPERAMIDE HCL 2 MG CAPSULE PO PRN (16:22)
--- NOTE | 2020-04-08 16:39 | PDOC H&P ---
History of Present Illness Admission Date/PCP: 04/08/20 13:33 DHARMESH PALACIOS MD Patient complains of: Ankle pain History of Present Illness: RAUL TERRY is a 74 year old female who fell at home 5 days ago and fractured her left ankle. She has a trimalleolar fracture. She refused to go to the hospital. She recently had a right wrist fracture from a fall. The patient has been experiencing multiple falls recently. She has a past medical history of hypertension and diabetes. She has a history of breast cancer and is currently being worked up for a mass in the liver. Dementia is a relatively new diagnosis. Because she refused to go to the hospital for the fracture and because of some behavioral issues her son evidently filed a restraining order according to the patient. It was more likely a guardianship to force her to go to the hospital to seek care. Dr. Solitario is seeing the patient for the fracture. He is the one who treated her right wrist fracture. She was found to be hyperglycemic and hyponatremic. Dr. Solitario plans on installing of an external fixator tomorrow so she will be n.p.o. after midnight. She will be admitted to the hospitalist service with orthopedic surgery consulting. Psychiatry did see the patient in the emergency department. Past Medical History Cardiac Medical History: Reports: Atrial Fibrillation, Myocardial Infarction - 1998, Hyperlipidema, Hypertension Denies: Coronary Artery Disease Pulmonary Medical History: Denies: Asthma, Bronchitis, Chronic Obstructive Pulmonary Disease (COPD), Pneumonia Neurological Medical History: Denies: Seizures Endocrine Medical History: Reports: Diabetes Mellitus Type 2 Malignancy Medical History: Reports: Breast Cancer, Other - Liver mass Musculoskeltal Medical History: Reports: Arthritis Psychiatric Medical History: Reports: Depression Hematology: Reports: Anemia Past Surgical History Past Surgical History: Reports: Hysterectomy, Other - Hx colon resection Social History Information Source: Patient, [facility] Records Lives with: Spouse/Significant other Smoking Status: Never Smoker Electronic Cigarette use?: No Frequency of Alcohol Use: None Hx Recreational Drug Use: No Drugs: None Hx Prescription Drug Abuse: No - Advance Directive Resuscitation Status: Do Not Resuscitate Surrogate healthcare decision maker:: The patient does have a living will Family History Family History: Reviewed & Not Pertinent, CAD, Hypertension, Malignancy Parental Family History Reviewed: Yes Children Family History Reviewed: Yes Sibling(s) Family History Reviewed.: Yes Medication/Allergy Home Medications: Atorvastatin Calcium [Lipitor 20 mg Tablet] 20 mg PO QHS 04/08/20 Calcium Carbonate [Calcium] 600 mg PO DAILY 04/08/20 Hydrocodone/Acetaminophen [[place] 7.5-325 Tablet] 1 tab PO Q8HP PRN 04/08/20 Insulin Glargine,Hum.rec.anlog [Basaglar Kwikpen U-100] 40 units SQ QHS 04/08/20 Insulin Lispro [Humalog Kwikpen U-100] 10 units SQ MEALS 04/08/20 Lorazepam [Ativan 1 mg Tablet] 1 mg PO HSP PRN 04/08/20 Losartan/Hydrochlorothiazide [Hyzaar 100-12.5 Tablet] 1 tab PO DAILY 04/08/20 Magnesium Oxide [Mag-Ox 400 mg Tablet] 400 mg PO DAILY 04/08/20 Multivitamin [Tab-A-Montse (Multiple Vitamin) Tablet] 1 tab PO DAILY 04/08/20 Pioglitazone HCl [Actos 30 mg Tablet] 30 mg PO DAILY 04/08/20 Potassium Chloride [Klor-Con 10 Meq Tablet ER] 20 meq PO DAILY 04/08/20 Quetiapine Fumarate [Seroquel 100 mg Tablet] 200 mg PO QHS 04/08/20 Venlafaxine HCl ER [Effexor Xr 37.5 mg Cap.sr] 37.5 mg PO Q12 04/08/20 Allergies/Adverse Reactions: levofloxacin [From Levaquin] Allergy (Verified 03/16/20 09:52) Review of Systems Constitutional: ABSENT: anorexia, fever(s), night sweats Eyes: ABSENT: visual disturbances Ears: ABSENT: hearing changes Nose, Mouth, and Throat: ABSENT: mouth pain, sore throat Cardiovascular: ABSENT: chest pain, edema, palpitations Respiratory: ABSENT: cough, dyspnea, sputum Gastrointestinal: PRESENT: diarrhea. ABSENT: abdominal pain, constipation, melena, nausea, vomiting Genitourinary: ABSENT: dysuria, hematuria Musculoskeletal: PRESENT: deformity - Left ankle secondary to fracture Integumentary: ABSENT: diaphoresis, pruritus, wounds Neurological: PRESENT: abnormal gait - Secondary to ankle fracture, confusion, frequent falls Psychiatric: ABSENT: anxiety, depression, hallucinations Endocrine: ABSENT: cold intolerance, heat intolerance, polydipsia, polyuria Hematologic/Lymphatic: ABSENT: easy bleeding, easy bruising Physical Exam Vital Signs: Temp Pulse Resp BP Pulse Ox 98.3 F 10 L 122/84 98 04/08/20 16:15 04/08/20 15:00 04/08/20 16:15 04/08/20 16:15 Intake & Output 04/07/20 04/08/20 04/09/20 06:59 06:59 06:59 Weight 75 kg General appearance: PRESENT: cooperative, severe distress - Left ankle being manipulated, well-developed, well-nourished Head exam: PRESENT: atraumatic, normocephalic Eye exam: PRESENT: conjunctiva pale, EOMI. ABSENT: scleral icterus Ear exam: PRESENT: normal external ear exam. ABSENT: bleeding, drainage Mouth exam: PRESENT: moist, tongue midline Neck exam: ABSENT: carotid bruit, JVD, lymphadenopathy Respiratory exam: PRESENT: clear to auscultation karyn, symmetrical, unlabored. ABSENT: accessory muscle use, prolonged expiratory phas, rales, rhonchi, tachypnea, wheezes Cardiovascular exam: PRESENT: RRR, +S1, +S2. ABSENT: diastolic murmur, gallop, irregular rhythm, systolic murmur GI/Abdominal exam: PRESENT: normal bowel sounds, soft. ABSENT: distended, guarding, tenderness Rectal exam: PRESENT: deferred Extremities exam: PRESENT: joint swelling - Left ankle secondary to fracture. ABSENT: pedal edema Musculoskeletal exam: PRESENT: tenderness - Left ankle. ABSENT: ambulatory - Due to ankle fracture, normal inspection Neurological exam: PRESENT: alert, awake, oriented to person, oriented to place, oriented to situation, CN II-XII grossly intact. ABSENT: altered Psychiatric exam: PRESENT: appropriate affect. ABSENT: agitated, anxious Focused psych exam: PRESENT: other - Some forgetfulness. Unable to provide significant detail on certain answers.. ABSENT: delusional, paranoid, restlessness Skin exam: PRESENT: dry, warm, other - Ecchymosis left ankle Results Laboratory Results: 04/08/20 11:45 04/08/20 11:45 04/08/20 04/08/20 04/08/20 11:45 11:45 11:45 WBC 7.4 RBC 3.57 L Hgb 9.7 L Hct 27.8 L MCV 78 L MCH 27.1 MCHC 34.8 RDW 15.8 H Plt Count 332 Seg Neutrophils % 79.1 H Sodium 130.3 L Potassium 3.7 Chloride 92 L Carbon Dioxide 28 Anion Gap 10 BUN 32 H Creatinine 0.87 Est GFR ( Amer) > 60 Glucose 177 H Calcium 9.1 Total Bilirubin 0.5 AST 56 H Alkaline Phosphatase 165 H Total Protein 6.8 Albumin 3.5 Urine Color Urine Appearance Urine pH Ur Specific [place] Urine Protein Urine Glucose (UA) Urine Ketones Urine Blood Urine Nitrite Ur Leukocyte Esterase Urine WBC (Auto) Urine RBC (Auto) Blood Type B POSITIVE Antibody Screen NEGATIVE 04/08/20 12:45 WBC RBC Hgb Hct MCV MCH MCHC RDW Plt Count Seg Neutrophils % Sodium Potassium Chloride Carbon Dioxide Anion Gap BUN Creatinine Est GFR ( Amer) Glucose Calcium Total Bilirubin AST Alkaline Phosphatase Total Protein Albumin Urine Color YELLOW Urine Appearance CLOUDY Urine pH 7.0 Ur Specific [place] 1.011 Urine Protein 30 H Urine Glucose (UA) 50 H Urine Ketones NEGATIVE Urine Blood SMALL H Urine Nitrite NEGATIVE Ur Leukocyte Esterase LARGE H Urine WBC (Auto) >182 Urine RBC (Auto) 21 Blood Type Antibody Screen Impressions: Lower Extremity CT 04/08/20 00:00 IMPRESSION: Trimalleolar ankle fracture. Ankle X-Ray 04/08/20 11:34 IMPRESSION: Fractures as described. Head CT 04/08/20 11:34 IMPRESSION: Involutional changes with mild chronic microvascular ischemia. No acute intracranial imaging findings. EVIDENCE OF ACUTE STROKE: NO. Knee X-Ray 04/08/20 11:34 IMPRESSION: There is slight narrowing of the medial joint compartment. No acute abnormality is present. Assessment and Plan - Diagnosis (1) Closed trimalleolar fracture of left ankle Qualifiers: Encounter type: initial encounter Qualified Code(s): S82.852A - Displaced trimalleolar fracture of left lower leg, initial encounter for closed fracture Is this a current diagnosis for this admission?: Yes Plan: 04/08/2020 Temporarily reduced in the emergency department by Dr. Solitario. He is planning on placing an external fixator tomorrow. The patient will be n.p.o. after midn ight. 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 Accu-Cheks before meals and at bedtime. Adjustments will be made based on the sliding scale requirements. She will be on a diabetic control carbohydrate diet (3) Hyponatremia Is this a current diagnosis for this admission?: Yes Plan: 04/08/2020 Possibly chronic. Will monitor closely with laboratory studies. Partly dec reased due to elevated glucose. (4) Urinary tract infection Qualifiers: Urinary tract infection type: acute cystitis Is this a current diagnosis for this admission?: Yes Plan: 04/08/2020 Urinalysis was markedly positive but no culture was ordered. I ordered a culture and then will start the patient on antibiotics. I have also ordered blood cultures. (5) Dementia Qualifiers: Dementia type: vascular dementia Is this a current diagnosis for this admission?: Yes Plan: 04/08/2020 The patient is quite pleasant at this time. There are obvious memory lapses. The CT scan shows diffuse microvascular changes. Reports are that she was more confused earlier and this could be related to pain but also it looks like there might be a urinary infection as well. Supportive care for now. (6) Liver mass Is this a current diagnosis for this admission?: Yes Plan: 04/08/2020 Recent biopsy did not show malignancy however this could be sampling error. The patient is scheduled for follow-up with Dr. Carvajal. CT scan of the head did not reveal any space-occupying lesions to suggest metastases. (7) Dehydration Is this a current diagnosis for this admission?: Yes Plan: 04/08/2020 The patient was fairly immobile for 5 days at home. Will treat with IV fluids and monitor intake and output. (8) Anemia Qualifiers: Anemia type: unspecified type Qualified Code(s): D64.9 - Anemia, unspecified Is this a current diagnosis for this admission?: Yes Plan: 04/08/2020 Possibly anemia of chronic disease. Will check anemia studies. Monitor hemoglobin closely. (9) Frequent falls Is this a current diagnosis for this admission?: Yes Plan: 04/08/2020 Due to the fracture he will be difficult to have aggressive physical therapy. The patient would benefit from transfer to a [facility] facility after discharge where they can work on muscle recovery and eventually mobility. If these falls were just recent it could be contributed to dehydration, possible urinary infection and neurodegenerative disease. Evidently she has been falling for at least several months. (10) Metabolic encephalopathy Is this a current diagnosis for this admission?: Yes Plan: There are multiple reasons for the possibility of a metabolic encephalopathy. It looks like she will have a urinary tract infection and that she was dehy drated. These physiologic stressors can make underlying dementia much worse as well. It is likely that the fractured ankle has contributed to some change coordinator the last several days. - Time Time Spent with patient: 35 or more minutes Medications reviewed and adjusted accordingly: Yes Anticipated discharge: SNF - Inpatient Certification Based on my medical assessment, after consideration of the patient's comorbidities, presenting symptoms, or acuity I expect that the services needed warrant INPATIENT care.: Yes I certify that my determination is in accordance with my understanding of Medicare's requirements for reasonable and necessary INPATIENT services [42 CFR 412.3e].: Yes Medical Necessity: Need For IV Fluids, Need for Pain Control, Need for IV Antibiotics, Need for Surgery Post Hospital Care: D/C Acid Purification Equipment Operator Documentation
--- NOTE | 2020-04-08 17:27 | EKG REPORT ---
SEVERITY:- ABNORMAL ECG - SINUS RHYTHM FIRST DEGREE AV BLOCK LOW VOLTAGE IN FRONTAL LEADS : Confirmed by: Corrie Weber MD 08-Apr-2020 17:26:36
[2020-04-08] MEDS: CEFTRIAXONE 1 GM/D5W RTU 1 GM/50 ML RTUPB IV SCH (17:58)
[2020-04-08] MEDS: MORPHINE SULFATE 10 MG/ML INJ IV PRN (18:12)
--- NOTE | 2020-04-08 21:20 | PDOC CONSULTATION ---
Consultation Consult Date: 04/08/20 Provider Consulted: WENDI RUEDA JR History of Present Illness Admission Date/PCP: 04/08/20 13:33 DHARMESH PALACIOS MD History of Present Illness: RAUL TERRY is a 74 year old female who fell at her home 5 days ago injuring her left ankle and had resulting difficulty walking with associated deformity and inability to bear weight. She did not want to go to the hospital and remained at home for 5 days. She has a history of multiple falls, recently being treated in my office with a right distal radius fracture that has since healed. She also has a history of breast cancer, considered in remission but is being currently worked up for liver metastasis. She has an elderly who is bed ridden who she also takes care of at home and is occasionally visited by her nephew who assists in their care. She has recently been diagnosed with dementia. She reports severe pain and swelling in the left ankle with no loss of sensation or motor function. Pain is a 5/10 at rest, 10/10 with any attempted activity. She tried elevation and ice at home with minimal benefit. Pain is aching in nature. Past Medical History Cardiac Medical History: Reports: Atrial Fibrillation, Myocardial Infarction - 1998, Hyperlipidema, Hypertension Denies: Coronary Artery Disease Pulmonary Medical History: Denies: Asthma, Bronchitis, Chronic Obstructive Pulmonary Disease (COPD), Pneumonia Neurological Medical History: Denies: Seizures Endocrine Medical History: Reports: Diabetes Mellitus Type 2 Malignancy Medical History: Reports: Breast Cancer, Other - Liver mass Musculoskeltal Medical History: Reports: Arthritis Psychiatric Medical History: Reports: Depression Hematology: Reports: Anemia Past Surgical History Past Surgical History: Reports: Hysterectomy, Other - Hx colon resection Social History Lives with: Spouse/Significant other Smoking Status: Never Smoker Electronic Cigarette use?: No Frequency of Alcohol Use: None Hx Recreational Drug Use: No Drugs: None Hx Prescription Drug Abuse: No - Advance Directive Resuscitation Status: Do Not Resuscitate Family History Family History: Reviewed & Not Pertinent, CAD, Hypertension, Malignancy Parental Family History Reviewed: No Children Family History Reviewed: NA Sibling(s) Family History Reviewed.: NA Medication/Allergy Home Medications: Atorvastatin Calcium [Lipitor 20 mg Tablet] 20 mg PO QHS 04/08/20 Calcium Carbonate [Calcium] 600 mg PO DAILY 04/08/20 Hydrocodone/Acetaminophen [[place] 7.5-325 Tablet] 1 tab PO Q8HP PRN 04/08/20 Insulin Glargine,Hum.rec.anlog [Basaglar Kwikpen U-100] 40 units SQ QHS 04/08/20 Insulin Lispro [Humalog Kwikpen U-100] 10 units SQ MEALS 04/08/20 Lorazepam [Ativan 1 mg Tablet] 1 mg PO HSP PRN 04/08/20 Losartan/Hydrochlorothiazide [Hyzaar 100-12.5 Tablet] 1 tab PO DAILY 04/08/20 Magnesium Oxide [Mag-Ox 400 mg Tablet] 400 mg PO DAILY 04/08/20 Multivitamin [Tab-A-Montse (Multiple Vitamin) Tablet] 1 tab PO DAILY 04/08/20 Pioglitazone HCl [Actos 30 mg Tablet] 30 mg PO DAILY 04/08/20 Potassium Chloride [Klor-Con 10 Meq Tablet ER] 20 meq PO DAILY 04/08/20 Quetiapine Fumarate [Seroquel 100 mg Tablet] 200 mg PO QHS 04/08/20 Venlafaxine HCl ER [Effexor Xr 37.5 mg Cap.sr] 37.5 mg PO Q12 04/08/20 Allergies/Adverse Reactions: levofloxacin [From Levaquin] Allergy (Verified 03/16/20 09:52) Review of Systems Review of Systems: Constitutional: ABSENT: chills, night sweats; PRESENT: Loss of appetite Cardiovascular: ABSENT: chest pain Respiratory: ABSENT: dyspnea Gastrointestinal: ABSENT: vomiting Genitourinary: ABSENT: dysuria Integumentary: ABSENT: rash Neurological: ABSENT: confusion, numbness; PRESENT: Recent memory loss Psychiatric: ABSENT: hallucinations Hematologic/Lymphatic: ABSENT: easy bleeding All negative as above aside from that reported in the HPI Physical Exam Vital Signs: Temp Pulse Resp BP Pulse Ox 98.6 F 74 16 118/67 100 04/08/20 16:21 04/08/20 16:21 04/08/20 16:21 04/08/20 16:21 04/08/20 16:21 Intake & Output 04/07/20 04/08/20 04/09/20 06:59 06:59 06:59 Intake Total 1050 Output Total 200 Balance 850 Weight 70.6 kg Physical Exam: General appearance: PRESENT: no acute distress, cooperative, well-nourished Head exam: PRESENT: atraumatic, normocephalic Eye exam: PRESENT: EOMI Ear exam: PRESENT: normal external ear exam Mouth exam: PRESENT: neck supple Neck exam: ABSENT: tracheal deviation Respiratory exam: PRESENT: symmetrical, unlabored. ABSENT: accessory muscle use, wheezes Pulses: PRESENT: normal radial pulses, normal dorsalis pedis pulse Vascular exam: PRESENT: normal capillary refill GI/Abdominal exam: ABSENT: distended, firm Extremities exam: PRESENT: full ROM of bilateral shoulders, elbows wrists, knees, hips and ankles without pain Musculoskeletal exam: PRESENT: full ROM, normal inspection of all 4 extremities aside from that noted below. Neurological exam: PRESENT: alert, awake, oriented to person, oriented to place, oriented to time Psychiatric exam: PRESENT: appropriate affect. ABSENT: agitated Focused psych exam: ABSENT: catatonic Skin exam: PRESENT: intact. ABSENT: dry All as above aside from that noted in the HPI and the following: LLE No pain to motion of the left knee, no associated injury in the LLE outside of the ankle - Sensation is grossly intact, motor function grossly intact - ROM limited due to pain, swelling, deformity - Dorsal dislocation of the talus is apparent - Swelling and considerable ecchymosis is present proximal to both malleoli and extending into the foot - Pulses 1+, cap refill < 2 seconds - Skin intact, but ecchymosis does not allow for open surgery at this time. Results Laboratory Results: 04/08/20 11:45 04/08/20 11:45 04/08/20 04/08/20 04/08/20 11:45 11:45 11:45 WBC 7.4 RBC 3.57 L Hgb 9.7 L Hct 27.8 L MCV 78 L MCH 27.1 MCHC 34.8 RDW 15.8 H Plt Count 332 Seg Neutrophils % 79.1 H Sodium 130.3 L Potassium 3.7 Chloride 92 L Carbon Dioxide 28 Anion Gap 10 BUN 32 H Creatinine 0.87 Est GFR ( Amer) > 60 Glucose 177 H Calcium 9.1 Total Bilirubin 0.5 AST 56 H Alkaline Phosphatase 165 H Total Protein 6.8 Albumin 3.5 Urine Color Urine Appearance Urine pH Ur Specific [place] Urine Protein Urine Glucose (UA) Urine Ketones Urine Blood Urine Nitrite Ur Leukocyte Esterase Urine WBC (Auto) Urine RBC (Auto) Blood Type B POSITIVE Antibody Screen NEGATIVE 04/08/20 12:45 WBC RBC Hgb Hct MCV MCH MCHC RDW Plt Count Seg Neutrophils % Sodium Potassium Chloride Carbon Dioxide Anion Gap BUN Creatinine Est GFR ( Amer) Glucose Calcium Total Bilirubin AST Alkaline Phosphatase Total Protein Albumin Urine Color YELLOW Urine Appearance CLOUDY Urine pH 7.0 Ur Specific [place] 1.011 Urine Protein 30 H Urine Glucose (UA) 50 H Urine Ketones NEGATIVE Urine Blood SMALL H Urine Nitrite NEGATIVE Ur Leukocyte Esterase LARGE H Urine WBC (Auto) >182 Urine RBC (Auto) 21 Blood Type Antibody Screen Impressions: Lower Extremity CT 04/08/20 00:00 IMPRESSION: Trimalleolar ankle fracture. Ankle X-Ray 04/08/20 11:34 IMPRESSION: Fractures as described. Head CT 04/08/20 11:34 IMPRESSION: Involutional changes with mild chronic microvascular ischemia. No acute intracranial imaging findings. EVIDENCE OF ACUTE STROKE: NO. Knee X-Ray 04/08/20 11:34 IMPRESSION: There is slight narrowing of the medial joint compartment. No acute abnormality is present. Assessment & Plan - Diagnosis (1) Closed trimalleolar fracture of left ankle Qualifiers: Encounter type: initial encounter Qualified Code(s): S82.852A - Displaced trimalleolar fracture of left lower leg, initial encounter for closed fracture Is this a current diagnosis for this admission?: Yes Plan: - After discussing risks and benefits with the patient, including alternatives and potential outcomes, the patient provided informed consent for closed reduction in the ED. Sterile technique was used to provide a hematoma block with 2% lidocaine, 9 cc. After adequate pain control, a reduction maneuver was performed. The patient was then placed in a well padded splint. The patient tolerated the procedure well. - I reviewed the post reduction CT, and unfortunately, due to a large posterior malleolar fragment, she remains subluxed posteriorly. - She will need Surgical intervention to maintain reduction. Definitive open reduction internal fixation cannot be performed at this time due to skin quality. Will proceed with closed reduction and external fixation tomorrow. - Keep NPO tonight - Hold chemical DVT PPX after midnight - Keep LLE elevated
[2020-04-08] MEDS: HYDROCODONE/ACETAMINOPHEN 7.5-325 MG TABLET PO PRN (21:32)
[2020-04-08] MEDS: QUETIAPINE FUMARATE 100 MG TABLET PO SCH (21:33)
[2020-04-08] MEDS: ATORVASTATIN CALCIUM 20 MG TABLET PO SCH (21:33)
[2020-04-08] MEDS: INSULIN REG, HUMAN 100 UNIT/ML 3 ML VIAL (PYX) SUBCUT SCH (21:34)
[2020-04-08] MEDS: VENLAFAXINE HCL 37.5 MG CAP.SR.24H PO SCH (21:48)
[2020-04-08] MEDS ORDERED: INSULIN GLARGINE,HUM.REC.ANLOG 1,000 UNIT/10 ML VIAL SUBCUT SCH (22:00)
[2020-04-09 06:07] LABS: ABSOLUTE LYMPHOCYTES (AUTO) 0.7 10^3/uL (0.5-4.7); ABSOLUTE MONOCYTES (AUTO) 0.6 10^3/uL (0.1-1.4); ABSOLUTE NEUT (AUTO) 3.6 10^3/uL (1.7-8.2); BASOPHILS % (AUTO) 0.3 % (0-2); HEMATOCRIT 27.4 % (36.0-47.0); HEMOGLOBIN 9.1 g/dL (12.0-15.5); MEAN CORPUSCULAR HEMOGLOBIN 26.4 pg (27.0-33.4); MEAN CORPUSCULAR HGB CONC 33.3 g/dL (32.0-36.0); MEAN CORPUSCULAR VOLUME 79 fl (80-97); MONOCYTES % (AUTO) 12.8 % (3-13); PLATELET COUNT 305 10^3/uL (150-450); RED BLOOD COUNT 3.46 10^6/uL (3.72-5.28); RED CELL DISTRIBUTION WIDTH 16.1 % (11.5-14.0); SEGMENTED NEUTROPHILS % (AUTO) 71.9 % (42-78); TOTAL CELLS COUNTED % (AUTO) 100 %
[2020-04-09] MEDS: PANTOPRAZOLE SODIUM 40 MG TABLET.DR PO SCH (06:22)
[2020-04-09 06:28] LABS: ANION GAP 8 (5-19); BLOOD UREA NITROGEN 20 mg/dL (7-20); CALCIUM 8.7 mg/dL (8.4-10.2); CARBON DIOXIDE 28 mmol/L (22-30); CHLORIDE 102 mmol/L (98-107); CHOLESTEROL 115.25 mg/dL (0-200); GLUCOSE 111 mg/dL (75-110); POTASSIUM 3.5 mmol/L (3.6-5.0); TRIGLYCERIDES 197 mg/dL (<150)
[2020-04-09 06:31] LABS: VLDL CHOLESTEROL 39.4 mg/dL (10-31)
[2020-04-09 06:38] LABS: DIRECT LDL 53 mg/dL (<100)
[2020-04-09] MEDS: INSULIN REG, HUMAN 100 UNIT/ML 3 ML VIAL (PYX) SUBCUT SCH ×4 (07:38→21:38)
[2020-04-09] MEDS: LOSARTAN POTASSIUM 50 MG TABLET PO SCH ×2 (09:17→14:30)
[2020-04-09] MEDS: MORPHINE SULFATE 10 MG/ML INJ IV PRN ×2 (09:24→15:53)
[2020-04-09] MEDS: PROMETHAZINE HCL INJ 25 MG/1 ML VIAL IV PRN ×2 (09:24→15:50)
[2020-04-09] MEDS ORDERED: (PENDING PHARMACY ID) (Losartan/Hydrochlorothiazide [Hyzaar 100-12.5 Tablet] 1 TAB) PO SCH (10:00)
--- NOTE | 2020-04-09 10:37 | ADVANCED CARE ---
- Diagnosis (1) Closed trimalleolar fracture of left ankle Diagnosis Current: Yes (2) Hyperglycemia due to type 2 diabetes mellitus Diagnosis Current: Yes (3) Hyponatremia Diagnosis Current: Yes (4) Urinary tract infection Diagnosis Current: Yes (5) Dementia Diagnosis Current: Yes (6) Liver mass Diagnosis Current: Yes (7) Dehydration Diagnosis Current: Yes (8) Anemia Diagnosis Current: Yes (9) Frequent falls Diagnosis Current: Yes (10) Metabolic encephalopathy Diagnosis Current: Yes Attendance: Discussion was held at the bedside with the patient Resuscitation Status: Do Not Resuscitate Discussion: The patient already has a living will. She discussed the desire not to be on a ventilator or to have cardiac resuscitation. She has had a living will in place for some time. I do not believe there is a copy in the hospital computer if not I will ask family to bring it in. Care Planning Goals: This is relevant as the patient is going to the operating room. She is having an external fixator placed and so this is not a major surgery. She still was quite clear about her wishes. Document(s) Completed: Patient already has a living will in place Time Spent: 18 minutes
--- NOTE | 2020-04-09 10:38 | PDOC PROGRESS REPORT ---
Subjective Progress Note for:: 04/09/20 Subjective:: Patient is waiting to go to the operating room. She is in reasonable spirits. She is very appreciative of all the care she is getting. Her only complaint is some nausea and she is currently receiving intravenous Phenergan. Reason For Visit: TRIMALLEOLAR FRACTURE LEFT ANKLE,DEMENTIA,LIVER Physical Exam Vital Signs: Temp Pulse Resp BP Pulse Ox 98.3 F 89 18 129/56 H 100 04/09/20 07:53 04/09/20 07:53 04/09/20 07:53 04/09/20 07:53 04/09/20 07:53 Intake & Output 04/08/20 04/09/20 04/10/20 06:59 06:59 06:59 Intake Total 1150 Output Total 200 Balance 950 Weight 70.6 kg General appearance: PRESENT: cooperative, mild distress, well-developed, well- nourished Head exam: PRESENT: atraumatic, normocephalic Eye exam: PRESENT: conjunctiva pink. ABSENT: scleral icterus Ear exam: PRESENT: normal external ear exam. ABSENT: bleeding, drainage Mouth exam: PRESENT: moist, tongue midline Respiratory exam: PRESENT: clear to auscultation karyn, symmetrical, unlabored. ABSENT: rales, rhonchi, tachypnea, wheezes Cardiovascular exam: PRESENT: RRR, +S1, +S2. ABSENT: diastolic murmur, irregular rhythm, systolic murmur GI/Abdominal exam: PRESENT: normal bowel sounds, soft. ABSENT: distended, guarding, tenderness Rectal exam: PRESENT: deferred Extremities exam: PRESENT: other - Cast on left leg Neurological exam: PRESENT: alert, awake, oriented to person, oriented to place, oriented to situation, CN II-XII grossly intact. ABSENT: altered Psychiatric exam: PRESENT: appropriate affect. ABSENT: agitated, anxious Focused psych exam: ABSENT: delusional, paranoid, restlessness Skin exam: PRESENT: dry, normal color, warm. ABSENT: rash Results Laboratory Results: 04/09/20 05:29 04/09/20 05:29 04/08/20 04/08/20 04/08/20 11:45 11:45 11:45 WBC 7.4 RBC 3.57 L Hgb 9.7 L Hct 27.8 L MCV 78 L MCH 27.1 MCHC 34.8 RDW 15.8 H Plt Count 332 Seg Neutrophils % 79.1 H Sodium 130.3 L Potassium 3.7 Chloride 92 L Carbon Dioxide 28 Anion Gap 10 BUN 32 H Creatinine 0.87 Est GFR ( Amer) > 60 Glucose 177 H Calcium 9.1 Magnesium Total Bilirubin 0.5 AST 56 H Alkaline Phosphatase 165 H Total Protein 6.8 Albumin 3.5 Triglycerides Cholesterol LDL Cholesterol Direct VLDL Cholesterol HDL Cholesterol TSH Urine Color Urine Appearance Urine pH Ur Specific [place] Urine Protein Urine Glucose (UA) Urine Ketones Urine Blood Urine Nitrite Ur Leukocyte Esterase Urine WBC (Auto) Urine RBC (Auto) Blood Type B POSITIVE Antibody Screen NEGATIVE 04/08/20 04/09/20 04/09/20 12:45 05:29 05:29 WBC 5.0 RBC 3.46 L Hgb 9.1 L Hct 27.4 L MCV 79 L MCH 26.4 L MCHC 33.3 RDW 16.1 H Plt Count 305 Seg Neutrophils % 71.9 Sodium 138.0 Potassium 3.5 L Chloride 102 Carbon Dioxide 28 Anion Gap 8 BUN 20 Creatinine 0.78 Est GFR ( Amer) > 60 Glucose 111 H Calcium 8.7 Magnesium 2.2 Total Bilirubin AST Alkaline Phosphatase Total Protein Albumin Triglycerides 197 H Cholesterol 115.25 LDL Cholesterol Direct 53 VLDL Cholesterol 39.4 H HDL Cholesterol 22 L TSH Urine Color YELLOW Urine Appearance CLOUDY Urine pH 7.0 Ur Specific [place] 1.011 Urine Protein 30 H Urine Glucose (UA) 50 H Urine Ketones NEGATIVE Urine Blood SMALL H Urine Nitrite NEGATIVE Ur Leukocyte Esterase LARGE H Urine WBC (Auto) >182 Urine RBC (Auto) 21 Blood Type Antibody Screen 04/09/20 05:29 WBC RBC Hgb Hct MCV MCH MCHC RDW Plt Count Seg Neutrophils % Sodium Potassium Chloride Carbon Dioxide Anion Gap BUN Creatinine Est GFR ( Amer) Glucose Calcium Magnesium Total Bilirubin AST Alkaline Phosphatase Total Protein Albumin Triglycerides Cholesterol LDL Cholesterol Direct VLDL Cholesterol HDL Cholesterol TSH 4.20 Urine Color Urine Appearance Urine pH Ur Specific [place] Urine Protein Urine Glucose (UA) Urine Ketones Urine Blood Urine Nitrite Ur Leukocyte Esterase Urine WBC (Auto) Urine RBC (Auto) Blood Type Antibody Screen Impressions: Lower Extremity CT 04/08/20 00:00 IMPRESSION: Trimalleolar ankle fracture. Ankle X-Ray 04/08/20 11:34 IMPRESSION: Fractures as described. Head CT 04/08/20 11:34 IMPRESSION: Involutional changes with mild chronic microvascular ischemia. No acute intracranial imaging findings. EVIDENCE OF ACUTE STROKE: NO. Knee X-Ray 04/08/20 11:34 IMPRESSION: There is slight narrowing of the medial joint compartment. No acute abnormality is present. Assessment and Plan - Diagnosis (1) Closed trimalleolar fracture of left ankle Qualifiers: Encounter type: initial encounter Qualified Code(s): S82.852A - Displaced trimalleolar fracture of left lower leg, initial encounter for closed fracture Is this a current diagnosis for this admission?: Yes Plan: 04/08/2020 Temporarily reduced in the emergency department by Dr. Solitario. He is planning on placing an external fixator tomorrow. The patient will be n.p.o. after midnight. 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 Accu-Cheks before meals and at bedtime. Adjustments will be made based on the sliding scale requirements. She will be on a diabetic control carbohydrate diet 04/09/2020 I purposely give her a small dose of Lantus last night in anticipation of n.p.o. status and surgery today. Starting tonight she will have a larger dose but not yet her home dose as I do not know what her appetite of the postoperatively. She will continue sliding scale with her Accu-Cheks. (3) Hyponatremia Is this a current diagnosis for this admission?: Yes Plan: 04/08/2020 Possibly chronic. Will monitor closely with laboratory studies. Partly decre ased due to elevated glucose. 04/09/2020 Her serum sodium is normal. We will continue gentle IV fluids and monitor. (4) Urinary tract infection Qualifiers: Urinary tract infection type: acute cystitis Is this a current diagnosis for this admission?: Yes Plan: 04/08/2020 Urinalysis was markedly positive but no culture was ordered. I ordered a culture and then will start the patient on antibiotics. I have also ordered blood cultures. 04/09/2020 2 gram-negative bacilli identified. Continue Rocephin until identification and sensitivities are available. (5) Dementia Qualifiers: Dementia type: vascular dementia Is this a current diagnosis for this admission?: Yes Plan: 04/08/2020 The patient is quite pleasant at this time. There are obvious memory lapses. The CT scan shows diffuse microvascular changes. Reports are that she was more confused earlier and this could be related to pain but also it looks like there might be a urinary infection as well. Supportive care for now. 04/09/2020 She has actually been quite appropriate. I am wondering if the urinary tract infection had caused significant decompensation. We will monitor closely. (6) Liver mass Is this a current diagnosis for this admission?: Yes Plan: 04/08/2020 Recent biopsy did not show malignancy however this could be sampling error. The patient is scheduled for follow-up with Dr. Carvajal. CT scan of the head did not reveal any space-occupying lesions to suggest metastases. 04/09/[address] Carvajal as previously scheduled (7) Dehydration Is this a current diagnosis for this admission?: Yes Plan: 04/08/2020 The patient was fairly immobile for 5 days at home. Will treat with IV fluids and monitor intake and output. 04/09/2020 Resolved with IV fluids (8) Anemia Qualifiers: Anemia type: unspecified type Qualified Code(s): D64.9 - Anemia, unspecified Is this a current diagnosis for this admission?: Yes Plan: 04/08/2020 Possibly anemia of chronic disease. Will check anemia studies. Monitor hemoglobin closely. 04/09/2020 We will monitor. Multivitamin and iron supplement started. (9) Frequent falls Is this a current diagnosis for this admission?: Yes Plan: 04/08/2020 Due to the fracture he will be difficult to have aggressive physical therapy. The patient would benefit from transfer to a prison facility after discharge where they can work on muscle recovery and eventually mobility. If these falls were just recent it could be contributed to dehydration, possible urinary infection and neurodegenerative disease. Evidently she has been falling for at least several months. 04/09/2020 Physical therapy will see the patient likely tomorrow as she is having surgery t felicitas. (10) Metabolic encephalopathy Is this a current diagnosis for this admission?: Yes Plan: There are multiple reasons for the possibility of a metabolic encephalopathy. It looks like she will have a urinary tract infection and that she was dehydrated. These physiologic stressors can make underlying dementia much worse as well. It is likely that the fractured ankle has contributed to some change management facilitator the last several days. 04/09/2020 The patient may have underlying dementia but a urinary tract infection as well as dehydration certainly could have caused them transient metabolic encephalopathy. She appears to be clearing. - Time Time Spent with patient: 15-24 minutes Medications reviewed and adjusted accordingly: Yes Anticipated discharge: SNF
[2020-04-09] MEDS ORDERED: KETOROLAC TROMETHAMINE 60 MG/2 ML SDV ONE (10:48)
[2020-04-09] MEDS ORDERED: FENTANYL CITRATE INJ/PF 100 MCG/2 ML AMPUL ONE ×2 (10:48→12:37)
[2020-04-09] MEDS ORDERED: PROPOFOL INJ 200 MG/20 ML VIAL IV ONE (10:49)
[2020-04-09] MEDS ORDERED: MIDAZOLAM 2 MG/2 ML INJ ONE (10:49)
[2020-04-09] MEDS ORDERED: ONDANSETRON HCL INJ/PF 4 MG/2 ML SDV ONE (10:49)
[2020-04-09] MEDS ORDERED: PROMETHAZINE HCL INJ 25 MG/1 ML VIAL IV PRN (10:57)
[2020-04-09] MEDS ORDERED: MEPERIDINE HCL/PF INJ 25 MG/1 ML DISP.SYRIN IV PRN (10:57)
[2020-04-09] MEDS ORDERED: DIPHENHYDRAMINE HCL 50 MG/ML VIAL IV PRN (10:57)
[2020-04-09] MEDS ORDERED: ONDANSETRON HCL INJ/PF 4 MG/2 ML SDV IV PRN (10:57)
[2020-04-09] MEDS ORDERED: FENTANYL CITRATE INJ/PF 100 MCG/2 ML AMPUL IV PRN ×3 (10:57)
[2020-04-09] MEDS ORDERED: CEFAZOLIN INJ 1 GM VIAL ONE (11:37)
[2020-04-09] MEDS: FENTANYL CITRATE INJ/PF 100 MCG/2 ML AMPUL ONE ×2 (13:23→13:28)
[2020-04-09] MEDS: MORPHINE SULFATE 10 MG/ML INJ ONE ×4 (13:33→13:48)
[2020-04-09] MEDS ORDERED: CEFAZOLIN 2 GM/D5W RTU 2 GM/50 ML RTUPB IV SCH (14:00)
--- NOTE | 2020-04-09 14:18 | RADIOLOGY REPORT (SQ) ---
EXAM DESCRIPTION: ANKLE LEFT COMPLETE; NO CHG FLUORO IMAGES COMPLETED DATE/TIME: 04/09/2020 1:55 pm REASON FOR STUDY: LEFT ANKLE EXTERNAL FIXATORE; LEFT ANKLE EXTERNAL FIXATOR COMPARISON: 04/08/2020. FLUOROSCOPY TIME: 1.1 minutes. 11 images saved to PACS. TECHNIQUE: Intra-operative images acquired during surgical procedure to evaluate progress. NUMBER OF IMAGES: 11 images. LIMITATIONS: None. FINDINGS: Images acquired during placement of fixation device. IMPRESSION: IMAGE(S) OBTAINED DURING PROCEDURE. COMMENT: Quality ID 145: Final reports for procedures using fluoroscopy that document radiation exp osure indices, or exposure time and number of fluorographic images (if radiation exposure indices are not available) Please consult full operative report of the attending physician for description of the procedure. TECHNICAL DOCUMENTATION: JOB ID: [id number] 2010 [employer]- All Rights Reserved Reading location - IP/workstation name: [email or web address]
--- NOTE | 2020-04-09 14:18 | RADIOLOGY REPORT (SQ) ---
EXAM DESCRIPTION: ANKLE LEFT COMPLETE; NO CHG FLUORO IMAGES COMPLETED DATE/TIME: 04/09/2020 1:55 pm REASON FOR STUDY: LEFT ANKLE EXTERNAL FIXATORE; LEFT ANKLE EXTERNAL FIXATOR COMPARISON: 04/08/2020. FLUOROSCOPY TIME: 1.1 minutes. 11 images saved to PACS. TECHNIQUE: Intra-operative images acquired during surgical procedure to evaluate progress. NUMBER OF IMAGES: 11 images. LIMITATIONS: None. FINDINGS: Images acquired during placement of fixation device. IMPRESSION: IMAGE(S) OBTAINED DURING PROCEDURE. COMMENT: Quality ID [id number]: Final reports for procedures using fluoroscopy that document radiation exp osure indices, or exposure time and number of fluorographic images (if radiation exposure indices are not available) Please consult full operative report of the attending physician for description of the procedure. TECHNICAL DOCUMENTATION: JOB ID: [id number] 2010 [employer]- All Rights Reserved Reading location - IP/workstation name: [email or web address]
[2020-04-09] MEDS: MULTIVITAMIN TABLET PO SCH (14:30)
[2020-04-09] MEDS: HYDROCHLOROTHIAZIDE 12.5 MG TABLET PO SCH (14:30)
[2020-04-09] MEDS: MAGNESIUM OXIDE 400 MG TABLET PO SCH (14:30)
[2020-04-09] MEDS: POTASSIUM CHLORIDE 10 MEQ TABLET.ER PO SCH (14:30)
[2020-04-09] MEDS: CALCIUM CARBONATE 600 MG TABLET PO SCH (14:31)
[2020-04-09] MEDS: VENLAFAXINE HCL 37.5 MG CAP.SR.24H PO SCH ×2 (14:37→21:43)
[2020-04-09] MEDS: CEFAZOLIN SODIUM 2 GM in DEXTROSE 5%-WATER 100 ML IV SCH ×2 (14:38→21:36)
[2020-04-09] MEDS: NORMAL SALINE 1000 ML 1,000 ML IV PRN (14:44)
[2020-04-09] MEDS: HYDROCODONE/ACETAMINOPHEN 7.5-325 MG TABLET PO PRN (14:50)
[2020-04-09] MEDS: CEFTRIAXONE 1 GM/D5W RTU 1 GM/50 ML RTUPB IV SCH (17:35)
--- NOTE | 2020-04-09 17:35 | Operative Report ---
Operative Report DATE OF SURGERY: 04/09/20 PREOPERATIVE DIAGNOSIS: Left trimalleolar ankle fracture dislocation POSTOPERATIVE DIAGNOSIS: Left trimalleolar ankle fracture dislocation OPERATION: Left trimalleolar ankle fracture dislocation closed reduction, percutaneous fixation of the posterior malleolus, application of external fixator SURGEON: WENDI RUEDA JR ANESTHESIA: GA COMPLICATIONS: None ESTIMATED BLOOD LOSS: 10 cc PROCEDURE: The patient was brought to the operating suite and laid supine on the operating table. 2 g of Ancef were given preoperatively the left lower extremities prepped and draped in standard sterile fashion. Following a timeout an incision was made over the anterior cortex of the tibia to allow for pin placement. A hemostat was used to bluntly dissect down to bone. 2 pins were placed bicortically. This was assessed with fluoroscopic guidance to ensure appropriate placement. The same technique was applied to the calcaneal pin. A final pin was placed obliquely in the proximal metatarsal. A delta frame was constructed over these pins. The ankle was then reduced and provisionally locked in place with the external fixator. Following this evaluation of the posterior mouthpiece was performed under fluoroscopic guidance. A large pointed reduction forceps was used to reduce the posterior malleolus to near anatomic reduction. An anterior incision was made followed by blunt dissection with a hemostat followed by a drill whose depth was assessed with fluoroscopic guidance. This was done a second time and then to a to P screws were placed with washers. Upon secure fixation of the posterior malleolus the delta frame was loosened to allow for improved fixation and then secured tightly with wrenches. Final fluoroscopy was taken. The wounds were copiously irrigated with sterile saline followed by 3 oh portal stitch nylon sutures. Xeroform was placed around the pin sites followed by drain sponges followed by Kerlix. Patient was awoken from anesthesia and transferred the PACU in stable condition.
--- NOTE | 2020-04-09 17:39 | PDOC PROGRESS REPORT ---
Subjective Progress Note for:: 04/09/20 Subjective:: The patient was seen postoperatively and is doing well. She reports improved pain control and no new symptoms. I also discussed the case with the patient's son who is her power of health care attorney. Reason For Visit: TRIMALLEOLAR FRACTURE LEFT ANKLE,DEMENTIA,LIVER Physical Exam Vital Signs: Temp Pulse Resp BP Pulse Ox 98.3 F 95 16 116/65 98 04/09/20 16:30 04/09/20 16:30 04/09/20 16:30 04/09/20 16:30 04/09/20 16:30 Intake & Output 04/08/20 04/09/20 04/10/20 06:59 06:59 06:59 Intake Total 1150 1200 Output Total 200 410 Balance 950 790 Weight 70.6 kg Physical Exam: General appearance: PRESENT: no acute distress, cooperative, well-nourished Head exam: PRESENT: atraumatic, normocephalic Eye exam: PRESENT: EOMI Ear exam: PRESENT: normal external ear exam Mouth exam: PRESENT: neck supple Neck exam: ABSENT: tracheal deviation Respiratory exam: PRESENT: symmetrical, unlabored. ABSENT: accessory muscle use, wheezes Pulses: PRESENT: normal radial pulses, normal dorsalis pedis pulse Vascular exam: PRESENT: normal capillary refill GI/Abdominal exam: ABSENT: distended, firm Extremities exam: PRESENT: full ROM of bilateral shoulders, elbows wrists, knees, hips and ankles without pain Musculoskeletal exam: PRESENT: full ROM, normal inspection of all 4 extremities aside from that noted below. Neurological exam: PRESENT: alert, awake, oriented to person, oriented to place, oriented to time Psychiatric exam: PRESENT: appropriate affect. ABSENT: agitated Focused psych exam: ABSENT: catatonic Skin exam: PRESENT: intact. ABSENT: dry All as above aside from that noted in the HPI and the following: Left lower extremity -Sensation and motor function are grossly intact to the foot. Dressings are clean dry and intact. Delta frame is secure. Capillary refill is less than 2 seconds Results Laboratory Results: 04/09/20 05:29 04/09/20 05:29 04/09/20 04/09/20 04/09/20 05:29 05:29 05:29 WBC 5.0 RBC 3.46 L Hgb 9.1 L Hct 27.4 L MCV 79 L MCH 26.4 L MCHC 33.3 RDW 16.1 H Plt Count 305 Seg Neutrophils % 71.9 Sodium 138.0 Potassium 3.5 L Chloride 102 Carbon Dioxide 28 Anion Gap 8 BUN 20 Creatinine 0.78 Est GFR ( Amer) > 60 Glucose 111 H Calcium 8.7 Magnesium 2.2 Triglycerides 197 H Cholesterol 115.25 LDL Cholesterol Direct 53 VLDL Cholesterol 39.4 H HDL Cholesterol 22 L TSH 4.20 Impressions: Lower Extremity CT 04/08/20 00:00 IMPRESSION: Trimalleolar ankle fracture. Head CT 04/08/20 11:34 IMPRESSION: Involutional changes with mild chronic microvascular ischemia. No acute intracranial imaging findings. EVIDENCE OF ACUTE STROKE: NO. Knee X-Ray 04/08/20:34 IMPRESSION: There is slight narrowing of the medial joint compartment. No acute abnormality is present. Ankle X-Ray 04/09/20 00:00 IMPRESSION: IMAGE(S) OBTAINED DURING PROCEDURE. Fluoroscopy 04/09/20 00:00 IMPRESSION: IMAGE(S) OBTAINED DURING PROCEDURE. Assessment & Plan - Diagnosis (1) Closed trimalleolar fracture of left ankle Qualifiers: Encounter type: initial encounter Qualified Code(s): S82.852A - Displaced trimalleolar fracture of left lower leg, initial encounter for closed fracture Is this a current diagnosis for this admission?: Yes Plan: I discussed with the son the potential for allowing formal healing in the external fixator versus returning to the operating room for a second stage procedure. We will reevaluate this in the office in approximately 10 to 15 days to allow for soft tissue healing. I would like to see the patient the office in 10 days from the date of surgery. Until that time they can be discharged to either home or rehab given the patient's home support situation. Would encourage case management to discuss this with the family determine her best dis position in the interval. Complete 24 hours of perioperative antibiotic prophylaxis Encourage aspirin daily for DVT prophylaxis, 325 mg Facility will need to perform pin site care and evaluation every 1 to 2 days. They may call me with questions on the matter. Suggest cleansing the pin sites daily with dilute Betadine followed by application of Xeroform circumferentially around the pins followed by a lightly compressive dressing with Kerlix - Time Time Spent with patient: Less than 15 minutes
[2020-04-09] MEDS: ACETAMINOPHEN 325 MG TABLET PO PRN (18:19)
[2020-04-09] MEDS: ATORVASTATIN CALCIUM 20 MG TABLET PO SCH (21:36)
[2020-04-09] MEDS: QUETIAPINE FUMARATE 100 MG TABLET PO SCH (21:36)
[2020-04-09] MEDS: INSULIN GLARGINE,HUM.REC.ANLOG 1,000 UNIT/10 ML VIAL SUBCUT SCH (21:38)
[2020-04-09] MEDS: HEPARIN SOD (PORCINE) 5,000 UNIT/ML 1 ML VIAL SUBCUT SCH (21:39)
[2020-04-10] MEDS: HEPARIN SOD (PORCINE) 5,000 UNIT/ML 1 ML VIAL SUBCUT SCH ×3 (05:28→21:13)
[2020-04-10] MEDS: CEFAZOLIN SODIUM 2 GM in DEXTROSE 5%-WATER 100 ML IV SCH ×3 (05:28→21:12)
[2020-04-10] MEDS: ACETAMINOPHEN 325 MG TABLET PO PRN ×2 (05:29→12:28)
[2020-04-10 06:46] LABS: ABSOLUTE LYMPHOCYTES (AUTO) 0.5 10^3/uL (0.5-4.7); ABSOLUTE MONOCYTES (AUTO) 0.6 10^3/uL (0.1-1.4); ABSOLUTE NEUT (AUTO) 4.2 10^3/uL (1.7-8.2); BASOPHILS % (AUTO) 0.7 % (0-2); EOSINOPHILS % (AUTO) 0.5 % (0-6); HEMOGLOBIN 8.3 g/dL (12.0-15.5); LYMPHOCYTES % (AUTO) 8.9 % (13-45); MEAN CORPUSCULAR HEMOGLOBIN 26.5 pg (27.0-33.4); MEAN CORPUSCULAR HGB CONC 33.3 g/dL (32.0-36.0); MEAN CORPUSCULAR VOLUME 80 fl (80-97); MONOCYTES % (AUTO) 11.6 % (3-13); PLATELET COUNT 275 10^3/uL (150-450); RED BLOOD COUNT 3.14 10^6/uL (3.72-5.28); SEGMENTED NEUTROPHILS % (AUTO) 78.3 % (42-78); TOTAL CELLS COUNTED % (AUTO) 100 %; WHITE BLOOD COUNT 5.3 10^3/uL (4.0-10.5)
[2020-04-10] MEDS: PANTOPRAZOLE SODIUM 40 MG TABLET.DR PO SCH (06:52)
[2020-04-10 07:04] LABS: ANION GAP 8 (5-19); BLOOD UREA NITROGEN 13 mg/dL (7-20); CALCIUM 8.3 mg/dL (8.4-10.2); CARBON DIOXIDE 24 mmol/L (22-30); CHLORIDE 102 mmol/L (98-107); GLUCOSE 169 mg/dL (75-110); POTASSIUM 3.1 mmol/L (3.6-5.0)
--- NOTE | 2020-04-10 07:24 | PDOC PROGRESS REPORT ---
Subjective Progress Note for:: 04/10/20 Subjective:: Well this morning. No interval symptoms or new complaints. Pain well controlled Reason For Visit: TRIMALLEOLAR FRACTURE LEFT ANKLE,DEMENTIA,LIVER Physical Exam Vital Signs: Temp Pulse Resp BP Pulse Ox 98.1 F 93 17 115/58 L 99 04/10/20 04:50 04/10/20 04:50 04/10/20 04:50 04/10/20 04:50 04/10/20 04:50 Intake & Output 04/09/20 04/10/20 04/11/20 06:59 06:59 06:59 Intake Total 1150 1350 Output Total 200 710 Balance 950 640 Weight 70.6 kg 70.8 kg Physical Exam: General appearance: PRESENT: no acute distress, cooperative, well-nourished Head exam: PRESENT: atraumatic, normocephalic Eye exam: PRESENT: EOMI Ear exam: PRESENT: normal external ear exam Mouth exam: PRESENT: neck supple Neck exam: ABSENT: tracheal deviation Respiratory exam: PRESENT: symmetrical, unlabored. ABSENT: accessory muscle use, wheezes Pulses: PRESENT: normal radial pulses, normal dorsalis pedis pulse Vascular exam: PRESENT: normal capillary refill GI/Abdominal exam: ABSENT: distended, firm Extremities exam: PRESENT: full ROM of bilateral shoulders, elbows wrists, knees, hips and ankles without pain Musculoskeletal exam: PRESENT: full ROM, normal inspection of all 4 extremities aside from that noted below. Neurological exam: PRESENT: alert, awake, oriented to person, oriented to place, oriented to time Psychiatric exam: PRESENT: appropriate affect. ABSENT: agitated Focused psych exam: ABSENT: catatonic Skin exam: PRESENT: intact. ABSENT: dry All as above aside from that noted in the HPI and the following: Left lower extremity -Sensation and motor function are grossly intact to the foot. Dressings are cl hakeem dry and intact. Delta frame is secure. Capillary refill is less than 2 seconds Results Laboratory Results: 04/10/20 06:21 04/10/20 06:21 04/10/20 04/10/20 06:21 06:21 WBC 5.3 RBC 3.14 L Hgb 8.3 L Hct 25.0 L MCV 80 MCH 26.5 L MCHC 33.3 RDW 16.0 H Plt Count 275 Seg Neutrophils % 78.3 H Sodium 134.4 L Potassium 3.1 L Chloride 102 Carbon Dioxide 24 Anion Gap 8 BUN 13 Creatinine 0.62 Est GFR ( Amer) > 60 Glucose 169 H Calcium 8.3 L Magnesium 1.8 Impressions: Lower Extremity CT 04/08/20 00:00 IMPRESSION: Trimalleolar ankle fracture. Head CT 04/08/20 11:34 IMPRESSION: Involutional changes with mild chronic microvascular ischemia. No acute intracranial imaging findings. EVIDENCE OF ACUTE STROKE: NO. Knee X-Ray 04/08/20 11:34 IMPRESSION: There is slight narrowing of the medial joint compartment. No acute abnormality is present. Ankle X-Ray 04/09/20 00:00 IMPRESSION: IMAGE(S) OBTAINED DURING PROCEDURE. Fluoroscopy 04/09/20 00:00 IMPRESSION: IMAGE(S) OBTAINED DURING PROCEDURE. Assessment & Plan - Diagnosis (1) Closed trimalleolar fracture of left ankle Qualifiers: Encounter type: initial encounter Qualified Code(s): S82.852A - Displaced trimalleolar fracture of left lower leg, initial encounter for closed fracture Is this a current diagnosis for this admission?: Yes Plan: - I discussed with the son the potential for allowing formal healing in the external fixator versus returning to the operating room for a second stage procedure. We will reevaluate this in the office to allow for soft tissue healing. I would like to see the patient the office in 10 days from the date of surgery. Until that time they can be discharged to either home or rehab given the patient's home support situation. Would encourage case management to discuss this with the family determine her best disposition in the interval. - Complete 24 hours of perioperative antibiotic prophylaxis. - Encourage aspirin daily for DVT prophylaxis, 325 mg - Facility will need to perform pin site care and evaluation every 1 to 2 days. They may call me with questions on the matter. Suggest cleansing the pin sites daily with dilute Betadine followed by application of Xeroform circumferentially around the pins followed by a lightly compressive dressing with Kerlix -Orthopedically stable for discharge today -Need to follow-up in the office in 7 to 10 days. - Time Time Spent with patient: Less than 15 minutes
[2020-04-10] MEDS: INSULIN REG, HUMAN 100 UNIT/ML 3 ML VIAL (PYX) SUBCUT SCH ×4 (07:51→21:06)
[2020-04-10] MEDS: HYDROCODONE/ACETAMINOPHEN 7.5-325 MG TABLET PO PRN ×2 (08:11→17:47)
[2020-04-10] MEDS ORDERED: FERROUS SULFATE 325 MG TABLET PO SCH (10:00)
[2020-04-10] MEDS: PIOGLITAZONE HCL 30 MG TABLET PO SCH (10:06)
[2020-04-10] MEDS: LORAZEPAM 1 MG TABLET PO PRN ×2 (10:06→17:48)
[2020-04-10] MEDS: CALCIUM CARBONATE 600 MG TABLET PO SCH (10:07)
[2020-04-10] MEDS: CHOLECALCIFEROL (D3) 1,000 UNIT (25 MCG) TABLET PO SCH (10:07)
[2020-04-10] MEDS: POTASSIUM CHLORIDE 10 MEQ TABLET.ER PO SCH ×2 (10:07→17:45)
[2020-04-10] MEDS: HYDROCHLOROTHIAZIDE 12.5 MG TABLET PO SCH (10:07)
[2020-04-10] MEDS: MULTIVITAMIN TABLET PO SCH (10:07)
[2020-04-10] MEDS: LOSARTAN POTASSIUM 50 MG TABLET PO SCH (10:08)
[2020-04-10] MEDS: MAGNESIUM OXIDE 400 MG TABLET PO SCH (10:08)
[2020-04-10] MEDS: VENLAFAXINE HCL 37.5 MG CAP.SR.24H PO SCH ×2 (10:08→21:12)
[2020-04-10] MEDS ORDERED: POTASSIUM CHLORIDE 10 MEQ TABLET.ER PO ONE (12:24)
--- NOTE | 2020-04-10 12:39 | PDOC PROGRESS REPORT ---
Subjective Progress Note for:: 04/10/20 Subjective:: The patient was feeling quite anxious earlier. She seems better now. She has made to make sure that she is on her chronic home medications. The external fixator is in place on the left ankle. She states that she is not having too much pain at the site. She did report that she was diaphoretic earlier today. I believe this coincided to her periods of anxiety. Reason For Visit: TRIMALLEOLAR FRACTURE LEFT ANKLE,DEMENTIA,LIVER Physical Exam Vital Signs: Temp Pulse Resp BP Pulse Ox 97.9 F 85 16 115/62 100 04/10/20 11:14 04/10/20 11:14 04/10/20 11:14 04/10/20 11:14 04/10/20 11:14 Intake & Output 04/09/20 04/10/20 04/11/20 06:59 06:59 06:59 Intake Total 1150 1350 1220 Output Total 200 710 200 Balance 571 693 3052 Weight 70.6 kg 70.8 kg General appearance: PRESENT: no acute distress, cooperative, well-developed, well-nourished Head exam: PRESENT: atraumatic, normocephalic Eye exam: PRESENT: conjunctiva pink. ABSENT: scleral icterus Ear exam: PRESENT: normal external ear exam. ABSENT: bleeding, drainage Mouth exam: PRESENT: dry mucosa, tongue midline Respiratory exam: PRESENT: clear to auscultation karyn, symmetrical, unlabored. ABSENT: accessory muscle use, prolonged expiratory phas, rales, rhonchi, tachypnea, wheezes Cardiovascular exam: PRESENT: RRR, +S1, +S2 GI/Abdominal exam: PRESENT: normal bowel sounds, soft. ABSENT: distended, guarding, tenderness Rectal exam: PRESENT: deferred Extremities exam: PRESENT: other - External fixator left ankle. ABSENT: pedal edema Musculoskeletal exam: ABSENT: ambulatory - Physical therapy will be assessing the patient today Neurological exam: PRESENT: alert, awake, oriented to person, oriented to place, oriented to situation, CN II-XII grossly intact. ABSENT: altered Psychiatric exam: PRESENT: anxious, appropriate affect. ABSENT: agitated Focused psych exam: ABSENT: delusional, paranoid, restlessness Skin exam: PRESENT: dry, normal color, warm Results Laboratory Results: 04/10/20 06:21 04/10/20 06:21 04/10/20 04/10/20 06:21 06:21 WBC 5.3 RBC 3.14 L Hgb 8.3 L Hct 25.0 L MCV 80 MCH 26.5 L MCHC 33.3 RDW 16.0 H Plt Count 275 Seg Neutrophils % 78.3 H Sodium 134.4 L Potassium 3.1 L Chloride 102 Carbon Dioxide 24 Anion Gap 8 BUN 13 Creatinine 0.62 Est GFR ( Amer) > 60 Glucose 169 H Calcium 8.3 L Magnesium 1.8 Impressions: Lower Extremity CT 04/08/20 00:00 IMPRESSION: Trimalleolar ankle fracture. Head CT 04/08/20 11:34 IMPRESSION: Involutional changes with mild chronic microvascular ischemia. No acute intracranial imaging findings. EVIDENCE OF ACUTE STROKE: NO. Knee X-Ray 04/08/20 11:34 IMPRESSION: There is slight narrowing of the medial joint compartment. No acute abnormality is present. Ankle X-Ray 04/09/20 00:00 IMPRESSION: IMAGE(S) OBTAINED DURING PROCEDURE. Fluoroscopy 04/09/20 00:00 IMPRESSION: IMAGE(S) OBTAINED DURING PROCEDURE. Assessment and Plan - Diagnosis (1) Closed trimalleolar fracture of left ankle Qualifiers: Encounter type: initial encounter Qualified Code(s): S82.852A - Displaced trimalleolar fracture of left lower leg, initial encounter for closed fracture Is this a current diagnosis for this admission?: Yes Plan: 04/08/2020 Temporarily reduced in the emergency department by Dr. Solitario. He is planning on placing an external fixator tomorrow. The patient will be n.p.o. after midnight. 04/09/2020 The patient will be going to the OR shortly for external fixator on the left leg 04/10/2020 External fixator placed yesterday. Physical therapy will be seeing the patient today. 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 Accu-Cheks before meals and at bedtime. Adjustments will be made based on the sliding scale requirements. She will be on a diabetic control carbohydrate diet 04/09/2020 I purposely give her a small dose of Lantus last night in anticipation of n.p.o. status and surgery today. Starting tonight she will have a larger dose but not yet her home dose as I do not know what her appetite of the postoperatively. She will continue sliding scale with her Accu-Cheks. 04/10/2020 All Accu-Cheks less than 200. After today I will consider adjusting her insulin to shoot for Accu-Cheks less than 150. (3) Hyponatremia Is this a current diagnosis for this admission?: Yes Plan: 04/08/2020 Possibly chronic. Will monitor closely with laboratory studies. Partly decreased due to elevated glucose. 04/09/2020 Her serum sodium is normal. We will continue gentle IV fluids and monitor. 04/10/2020 Serum sodium just below the normal range at 134.4. Not clinically significant however will monitor closely. (4) Urinary tract infection Qualifiers: Urinary tract infection type: acute cystitis Is this a current diagnosis for this admission?: Yes Plan: 04/08/2020 Urinalysis was markedly positive but no culture was ordered. I ordered a culture and then will start the patient on antibiotics. I have also ordered blood cultures. 04/09/2020 2 gram-negative bacilli identified. Continue Rocephin until identification and sensitivities are available. 04/10/2020 Continue Rocephin. No final identification and sensitivities on the 2 gram- negative bacilli identified (5) Dementia Qualifiers: Dementia type: vascular dementia Is this a current diagnosis for this admission?: Yes Plan: 04/08/2020 The patient is quite pleasant at this time. There are obvious memory lapses. The CT scan shows diffuse microvascular changes. Reports are that she was more confused earlier and this could be related to pain but also it looks like there might be a urinary infection as well. Supportive care for now. 04/09/2020 She has actually been quite appropriate. I am wondering if the urinary tract infection had caused significant decompensation. We will monitor closely. 04/09/2020 Once again she is appropriate this morning. Her affect is a sitter but the sitter reports that she has not been agitated today. (6) Anemia Qualifiers: Anemia type: unspecified type Qualified Code(s): D64.9 - Anemia, unspecified Is this a current diagnosis for this admission?: Yes Plan: 04/08/2020 Possibly anemia of chronic disease. Will check anemia studies. Monitor hemoglobin closely. 04/09/2020 We will monitor. Multivitamin and iron supplement started. 04/10/2020 Hemoglobin dropped. This was likely from surgery. I will increase the ferrous sulfate to twice daily. Consider iron studies. (7) Frequent falls Is this a current diagnosis for this admission?: Yes Plan: 04/08/2020 Due to the fracture he will be difficult to have aggressive physical therapy. The patient would benefit from transfer to a correction facility after discharge where they can work on muscle recovery and eventually mobility. If these falls were just recent it could be contributed to dehydration, possible urinary infection and neurodegenerative disease. Evidently she has been falling for at least several months. 04/09/2020 Physical therapy will see the patient likely tomorrow as she is having surgery today. 04/10/2020 Physical therapy assessment and likely ongoing therapy at a skilled facility due to the ankle fracture. (8) Metabolic encephalopathy Is this a current diagnosis for this admission?: Yes Plan: There are multiple reasons for the possibility of a metabolic encephalopathy. It looks like she will have a urinary tract infection and that she was dehydrated. These physiologic stressors can make underlying dementia much worse as well. It is likely that the fractured ankle has contributed to some change manager the last several days. 04/09/2020 The patient may have underlying dementia but a urinary tract infection as well as dehydration certainly could have caused them transient metabolic encephalopathy. She appears to be clearing. 04/10/2020 Appears to be back at baseline. (9) Hypokalemia Is this a current diagnosis for this admission?: Yes Plan: 04/10/2020 Potassium down to 3.1. I will increase the daily potassium dose and recheck tomorrow. (10) Dehydration Is this a current diagnosis for this admission?: Yes Plan: 04/08/2020 The patient was fairly immobile for 5 days at home. Will treat with IV fluids and monitor intake and output. 04/09/2020 Resolved with IV fluids 04/10/2020 BUN is down to 13 from 32. Continue to encourage good fluid intake. (11) Liver mass Is this a current diagnosis for this admission?: Yes Plan: 04/08/2020 Recent biopsy did not show malignancy however this could be sampling error. The patient is scheduled for follow-up with Dr. Carvajal. CT scan of the head did not reveal any space-occupying lesions to suggest metastases. 04/09/[address] Carvajal as previously scheduled 04/10/2020 Pending further treatment as an outpatient - Time Time Spent with patient: 15-24 minutes Medications reviewed and adjusted accordingly: Yes Anticipated discharge: SNF
[2020-04-10] MEDS: NORMAL SALINE 1000 ML 1,000 ML IV PRN (13:30)
[2020-04-10] MEDS: CEFTRIAXONE 1 GM/D5W RTU 1 GM/50 ML RTUPB IV SCH (17:45)
[2020-04-10] MEDS: FERROUS SULFATE 325 MG TABLET PO SCH (17:46)
[2020-04-10] MEDS: MORPHINE SULFATE 10 MG/ML INJ IV PRN (20:20)
[2020-04-10] MEDS: ATORVASTATIN CALCIUM 20 MG TABLET PO SCH (21:12)
[2020-04-10] MEDS: QUETIAPINE FUMARATE 100 MG TABLET PO SCH (21:12)
[2020-04-10] MEDS: INSULIN GLARGINE,HUM.REC.ANLOG 1,000 UNIT/10 ML VIAL SUBCUT SCH (21:13)
[2020-04-11] MEDS: HYDROCODONE/ACETAMINOPHEN 7.5-325 MG TABLET PO PRN ×3 (01:18→19:44)
[2020-04-11] MEDS: NORMAL SALINE 1000 ML 1,000 ML IV PRN (03:15)
[2020-04-11] MEDS: CEFAZOLIN SODIUM 2 GM in DEXTROSE 5%-WATER 100 ML IV SCH ×3 (05:24→21:27)
[2020-04-11] MEDS: MORPHINE SULFATE 10 MG/ML INJ IV PRN ×3 (05:24→17:33)
[2020-04-11] MEDS: PANTOPRAZOLE SODIUM 40 MG TABLET.DR PO SCH (05:24)
[2020-04-11] MEDS: HEPARIN SOD (PORCINE) 5,000 UNIT/ML 1 ML VIAL SUBCUT SCH ×3 (05:24→21:41)
[2020-04-11] MEDS: LORAZEPAM 1 MG TABLET PO PRN ×2 (05:26→19:44)
[2020-04-11 07:20] LABS: ABSOLUTE BASOPHILS # (AUTO) 0.1 10^3/uL (0.0-0.2); ABSOLUTE LYMPHOCYTES (AUTO) 0.6 10^3/uL (0.5-4.7); ABSOLUTE MONOCYTES (AUTO) 0.6 10^3/uL (0.1-1.4); BASOPHILS % (AUTO) 0.9 % (0-2); EOSINOPHILS % (AUTO) 0.6 % (0-6); HEMATOCRIT 24.2 % (36.0-47.0); HEMOGLOBIN 8.3 g/dL (12.0-15.5); LYMPHOCYTES % (AUTO) 9.1 % (13-45); MEAN CORPUSCULAR HEMOGLOBIN 26.6 pg (27.0-33.4); MEAN CORPUSCULAR HGB CONC 34.2 g/dL (32.0-36.0); MEAN CORPUSCULAR VOLUME 78 fl (80-97); PLATELET COUNT 310 10^3/uL (150-450); RED BLOOD COUNT 3.11 10^6/uL (3.72-5.28); RED CELL DISTRIBUTION WIDTH 15.9 % (11.5-14.0); SEGMENTED NEUTROPHILS % (AUTO) 79.4 % (42-78); TOTAL CELLS COUNTED % (AUTO) 100 %; WHITE BLOOD COUNT 6.3 10^3/uL (4.0-10.5)
[2020-04-11 07:29] LABS: ANION GAP 8 (5-19); BLOOD UREA NITROGEN 10 mg/dL (7-20); CALCIUM 8.4 mg/dL (8.4-10.2); CARBON DIOXIDE 21 mmol/L (22-30); CHLORIDE 106 mmol/L (98-107); GLUCOSE 150 mg/dL (75-110); POTASSIUM 3.7 mmol/L (3.6-5.0)
--- NOTE | 2020-04-11 09:09 | PDOC PROGRESS REPORT ---
Subjective Progress Note for:: 04/11/20 Subjective:: Patient is in good spirits this morning. She had a bowel movement yesterday. She is not having significant pain in her left leg. She asked me about disposition. I told her she will need to go to [facility] with that external fixator. Length of stay will be determined on her progress. She specifically asked not to be transferred to [place] [facility]. Reason For Visit: TRIMALLEOLAR FRACTURE LEFT ANKLE,DEMENTIA,LIVER Physical Exam Vital Signs: Temp Pulse Resp BP Pulse Ox 98.0 F 94 17 106/58 L 97 04/11/20 00:11 04/11/20 07:00 04/11/20 00:11 04/11/20 00:11 04/11/20 00:11 Intake & Output 04/10/20 04/11/20 04/12/20 06:59 06:59 06:59 Intake Total 1350 3615 Output Total 710 200 Balance 640 3415 Weight 70.8 kg 71.7 kg General appearance: PRESENT: no acute distress, cooperative, well-developed Head exam: PRESENT: atraumatic, normocephalic Ear exam: PRESENT: normal external ear exam. ABSENT: bleeding, drainage Respiratory exam: PRESENT: rales - Right base, symmetrical, unlabored. ABSENT: prolonged expiratory phas, rhonchi, tachypnea, wheezes Cardiovascular exam: PRESENT: RRR, +S1, +S2. ABSENT: diastolic murmur, irregular rhythm, systolic murmur GI/Abdominal exam: PRESENT: normal bowel sounds, soft. ABSENT: distended, guarding, tenderness Rectal exam: PRESENT: deferred Extremities exam: ABSENT: pedal edema Musculoskeletal exam: PRESENT: deformity - Left ankle external fixator in place Neurological exam: PRESENT: alert, awake, oriented to person, oriented to place, oriented to situation, CN II-XII grossly intact Psychiatric exam: PRESENT: appropriate affect. ABSENT: agitated, anxious Focused psych exam: ABSENT: delusional, paranoid, restlessness Skin exam: PRESENT: dry, normal color, warm. ABSENT: rash Results Laboratory Results: 04/11/20 06:37 04/11/20 06:37 04/11/20 04/11/20 06:37 06:37 WBC 6.3 RBC 3.11 L Hgb 8.3 L Hct 24.2 L MCV 78 L MCH 26.6 L MCHC 34.2 RDW 15.9 H Plt Count 310 Seg Neutrophils % 79.4 H Sodium 134.5 L Potassium 3.7 Chloride 106 Carbon Dioxide 21 L Anion Gap 8 BUN 10 Creatinine 0.48 L Est GFR ( Amer) > 60 Glucose 150 H Calcium 8.4 Magnesium 1.6 04/08/20 12:45 Clean Catch Midstream Urine Culture - Final Klebsiella Pneumoniae Escherichia Coli Impressions: Lower Extremity CT 04/08/20 00:00 IMPRESSION: Trimalleolar ankle fracture. Head CT 04/08/20 11:34 IMPRESSION: Involutional changes with mild chronic microvascular ischemia. No acute intracranial imaging findings. EVIDENCE OF ACUTE STROKE: NO. Knee X-Ray 04/08/20 11:34 IMPRESSION: There is slight narrowing of the medial joint compartment. No acute abnormality is present. Ankle X-Ray 04/09/20 00:00 IMPRESSION: IMAGE(S) OBTAINED DURING PROCEDURE. Fluoroscopy 04/09/20 00:00 IMPRESSION: IMAGE(S) OBTAINED DURING PROCEDURE. Assessment and Plan - Diagnosis (1) Closed trimalleolar fracture of left ankle Qualifiers: Encounter type: initial encounter Qualified Code(s): S82.852A - Displaced trimalleolar fracture of left lower leg, initial encounter for closed fracture Is this a current diagnosis for this admission?: Yes Plan: 04/08/2020 Temporarily reduced in the emergency department by Dr. Solitario. He is planning on placing an external fixator tomorrow. The patient will be n.p.o. after midnight. 04/09/2020 The patient will be going to the OR shortly for external fixator on the left leg 04/10/2020 External fixator placed yesterday. Physical therapy will be seeing the patient today. 04/11/2020 External fixator stable. Physical therapy with transfer to [facility] for additional therapy and strengthening (2) Hyperglycemia due to type 2 diabetes mellitus Qualifiers: Diabetes mellitus rodent exterminator insulin use: with rodent exterminator use Qualified Code(s): E11.65 - Type 2 diabetes mellitus with hyperglycemia; Z79.4 - USP (current) use of insulin Is this a current diagnosis for this admission?: Yes Plan: 04/08/2020 I will give a small dose of Lantus tonight and then a larger dose starting zhen rrow night but not quite at home dose as there will be sliding scale available as well. Accu-Cheks before meals and at bedtime. Adjustments will be made based on the sliding scale requirements. She will be on a diabetic control carbohydrate diet 04/09/2020 I purposely give her a small dose of Lantus last night in anticipation of n.p.o. status and surgery today. Starting tonight she will have a larger dose but not yet her home dose as I do not know what her appetite of the postoperatively. Marcial madison will continue sliding scale with her Accu-Cheks. 04/10/2020 All Accu-Cheks less than 200. After today I will consider adjusting her insulin to shoot for Accu-Cheks less than 150. 04/11/2020 Majority of Accu-Cheks now below 150. Continue current regimen. (3) Hyponatremia Is this a current diagnosis for this admission?: Yes Plan: 04/08/2020 Possibly chronic. Will monitor closely with laboratory studies. Partly decreased due to elevated glucose. 04/09/2020 Her serum sodium is normal. We will continue gentle IV fluids and monitor. 04/10/2020 Serum sodium just below the normal range at 134.4. Not clinically significant however will monitor closely. 04/11/2020 Serum sodium has been stable at 2 to 3 millimoles per liter below the lower limit normal. (4) Urinary tract infection Qualifiers: Urinary tract infection type: acute cystitis Is this a current diagnosis for this admission?: Yes Plan: 04/08/2020 Urinalysis was markedly positive but no culture was ordered. I ordered a culture and then will start the patient on antibiotics. I have also ordered blood cultures. 04/09/2020 2 gram-negative bacilli identified. Continue Rocephin until identification and sensitivities are available. 04/10/2020 Continue Rocephin. No final identification and sensitivities on the 2 gram- negative bacilli identified 04/11/2020 Pansensitive E. coli and Klebsiella isolated from the urine. As the patient is on Ancef for the orthopedic surgery I will discontinue the ceftriaxone. (5) Dementia Qualifiers: Dementia type: vascular dementia Is this a current diagnosis for this admission?: Yes Plan: 04/08/2020 The patient is quite pleasant at this time. There are obvious memory lapses. The CT scan shows diffuse microvascular changes. Reports are that she was more confused earlier and this could be related to pain but also it looks like there might be a urinary infection as well. Supportive care for now. 04/09/2020 She has actually been quite appropriate. I am wondering if the urinary tract infection had caused significant decompensation. We will monitor closely. 04/09/2020 Once again she is appropriate this morning. Her affect is a sitter but the sitter reports that she has not been agitated today. 04/11/2020 Stable and at baseline (6) Anemia Qualifiers: Anemia type: unspecified type Qualified Code(s): D64.9 - Anemia, unspecified Is this a current diagnosis for this admission?: Yes Plan: 04/08/2020 Possibly anemia of chronic disease. Will check anemia studies. Monitor hemoglobin closely. 04/09/2020 We will monitor. Multivitamin and iron supplement started. 04/10/2020 Hemoglobin dropped. This was likely from surgery. I will increase the ferrous sulfate to twice daily. Consider iron studies. 04/11/1930 Ferrous sulfate is now twice a day. Hemoglobin has not dropped anymore. It should begin to increase soon. (7) Frequent falls Is this a current diagnosis for this admission?: Yes Plan: 04/08/2020 Due to the fracture he will be difficult to have aggressive physical therapy. The patient would benefit from transfer to a [facility] facility after discharge where they can work on muscle recovery and eventually mobility. If these falls were just recent it could be contributed to dehydration, possible urinary infection and neurodegenerative disease. Evidently she has been falling for at least several months. 04/09/2020 Physical therapy will see the patient likely tomorrow as she is having surgery today. 04/10/2020 Physical therapy assessment and likely ongoing therapy at a skilled facility due to the ankle fracture. 04/11/2020 Poor balance is likely multifactorial. Aggressive physical therapy should be effective in decreasing falls with improved balance. (8) Metabolic encephalopathy Is this a current diagnosis for this admission?: Yes Plan: There are multiple reasons for the possibility of a metabolic encephalopathy. It looks like she will have a urinary tract infection and that she was dehydrated. These physiologic stressors can make underlying dementia much worse as well. It is likely that the fractured ankle has contributed to some change management specialist the last several days. 04/09/2020 The patient may have underlying dementia but a urinary tract infection as well as dehydration certainly could have caused them transient metabolic encephalopathy. She appears to be clearing. 04/10/2020 Appears to be back at baseline. 04/11/2020 Resolved. Patient is at baseline. (9) Hypokalemia Is this a current diagnosis for this admission?: Yes Plan: 04/10/2020 Potassium down to 3.1. I will increase the daily potassium dose and recheck tomorrow. 04/11/2020 Potassium in the normal range. Continue potassium chloride 20 mEq twice daily for now. (10) Dehydration Is this a current diagnosis for this admission?: Yes Plan: 04/08/2020 The patient was fairly immobile for 5 days at home. Will treat with IV fluids and monitor intake and output. 04/09/2020 Resolved with IV fluids 04/10/2020 BUN is down to 13 from 32. Continue to encourage good fluid intake. 04/11/2020 Continue to encourage oral intake. Dehydration resolved. (11) Liver mass Is this a current diagnosis for this admission?: Yes Plan: 04/08/2020 Recent biopsy did not show malignancy however this could be sampling error. The patient is scheduled for follow-up with Dr. Carvajal. CT scan of the head did not reveal any space-occupying lesions to suggest metastases. 04/09/[address] Carvajal as previously scheduled 04/10/2020 Pending further treatment as an outpatient
[2020-04-11] MEDS: MULTIVITAMIN TABLET PO SCH (09:11)
[2020-04-11] MEDS: POTASSIUM CHLORIDE 10 MEQ TABLET.ER PO SCH ×2 (09:11→17:34)
[2020-04-11] MEDS: CALCIUM CARBONATE 600 MG TABLET PO SCH (09:11)
[2020-04-11] MEDS: MAGNESIUM OXIDE 400 MG TABLET PO SCH ×3 (09:11→17:34)
[2020-04-11] MEDS: HYDROCHLOROTHIAZIDE 12.5 MG TABLET PO SCH (09:12)
[2020-04-11] MEDS: LOSARTAN POTASSIUM 50 MG TABLET PO SCH (09:12)
[2020-04-11] MEDS: FERROUS SULFATE 325 MG TABLET PO SCH ×2 (09:13→17:34)
[2020-04-11] MEDS: CHOLECALCIFEROL (D3) 1,000 UNIT (25 MCG) TABLET PO SCH (09:13)
[2020-04-11] MEDS: INSULIN REG, HUMAN 100 UNIT/ML 3 ML VIAL (PYX) SUBCUT SCH ×4 (09:13→21:23)
[2020-04-11] MEDS: PIOGLITAZONE HCL 30 MG TABLET PO SCH (09:13)
[2020-04-11] MEDS: QUETIAPINE FUMARATE 25 MG TABLET PO SCH (09:13)
[2020-04-11] MEDS: VENLAFAXINE HCL 37.5 MG CAP.SR.24H PO SCH ×2 (09:13→21:27)
[2020-04-11] MEDS: DOCUSATE SODIUM 100 MG CAPSULE PO PRN (19:44)
--- NOTE | 2020-04-11 20:11 | PSYCHOLOGICAL NOTE ---
Psych Note - Psych Note Date seen by psych provider: 04/11/20 Time seen by psych provider: 19:50 Psych Note: Reason for Consult: AMS Check in conducted with patient: Patient reports she is currently not feeling well, she is in a lot of pain. She confirms she will be going to rehab. she denies any thoughts of wanting to harm herself; she identifies family as support. While her mood is flat, she reports being in pain. She maintains good eye contact and engages in organized and linear conversational speech. Clinician presentation: mood and affect is flat probable due to physical pain organized and linear thought processes pain medication dependency Impression\plan: Patient is recommended for rescind of IVC and is cleared from acute psychiatric services. Paperwork is signed and placed in patient's chart. Patient is no longer demonstrating altered mental status. She is engaging in organized and linear conversations. She denies any thoughts of wanting to harm herself or others. There has been no evidence of responding to internal stimuli i.e. hallucinations observed by staff or the behavioral health team. Dr. Leon was consulted to care management of this patient.
[2020-04-11] MEDS: ATORVASTATIN CALCIUM 20 MG TABLET PO SCH (21:27)
[2020-04-11] MEDS: QUETIAPINE FUMARATE 100 MG TABLET PO SCH (21:27)
[2020-04-11] MEDS: INSULIN GLARGINE,HUM.REC.ANLOG 1,000 UNIT/10 ML VIAL SUBCUT SCH (21:41)
[2020-04-12] MEDS: MORPHINE SULFATE 10 MG/ML INJ IV PRN ×3 (00:33→17:17)
[2020-04-12] MEDS: NORMAL SALINE 1000 ML 1,000 ML IV PRN ×3 (01:42→13:42)
[2020-04-12] MEDS: ACETAMINOPHEN 325 MG TABLET PO PRN ×2 (01:43→19:32)
[2020-04-12] MEDS: HYDROCODONE/ACETAMINOPHEN 7.5-325 MG TABLET PO PRN ×3 (03:49→21:47)
[2020-04-12] MEDS: CEFAZOLIN SODIUM 2 GM in DEXTROSE 5%-WATER 100 ML IV SCH ×3 (05:11→21:48)
[2020-04-12] MEDS: PANTOPRAZOLE SODIUM 40 MG TABLET.DR PO SCH (05:14)
[2020-04-12] MEDS: HEPARIN SOD (PORCINE) 5,000 UNIT/ML 1 ML VIAL SUBCUT SCH ×3 (05:14→21:48)
[2020-04-12] MEDS: CALCIUM CARBONATE 600 MG TABLET PO SCH (10:22)
[2020-04-12] MEDS: LOSARTAN POTASSIUM 50 MG TABLET PO SCH (10:22)
[2020-04-12] MEDS: HYDROCHLOROTHIAZIDE 12.5 MG TABLET PO SCH (10:23)
[2020-04-12] MEDS: POTASSIUM CHLORIDE 10 MEQ TABLET.ER PO SCH ×2 (10:23→17:19)
[2020-04-12] MEDS: MAGNESIUM OXIDE 400 MG TABLET PO SCH ×3 (10:23→16:21)
[2020-04-12] MEDS: FERROUS SULFATE 325 MG TABLET PO SCH ×2 (10:24→17:19)
[2020-04-12] MEDS: MULTIVITAMIN TABLET PO SCH (10:24)
[2020-04-12] MEDS: CHOLECALCIFEROL (D3) 1,000 UNIT (25 MCG) TABLET PO SCH (10:24)
[2020-04-12] MEDS: QUETIAPINE FUMARATE 25 MG TABLET PO SCH (10:25)
[2020-04-12] MEDS: PIOGLITAZONE HCL 30 MG TABLET PO SCH (10:25)
[2020-04-12] MEDS: VENLAFAXINE HCL 37.5 MG CAP.SR.24H PO SCH ×2 (10:25→21:47)
[2020-04-12] MEDS: INSULIN REG, HUMAN 100 UNIT/ML 3 ML VIAL (PYX) SUBCUT SCH ×4 (10:28→21:47)
--- NOTE | 2020-04-12 11:12 | PDOC PROGRESS REPORT ---
Subjective Progress Note for:: 04/12/20 Subjective:: The patient is feeling anxious. She has a lorazepam as needed order already. She uses lorazepam at home. She is not having significant pain in the left ankle. Awaiting physical therapy consult as she will need short-term (less than 30 days) rehab at a shelter facility. Reason For Visit: TRIMALLEOLAR FRACTURE LEFT ANKLE,DEMENTIA,LIVER Physical Exam Vital Signs: Temp Pulse Resp BP Pulse Ox 97.8 F 101 H 16 120/58 L 97 04/12/20 08:08 04/12/20 08:08 04/12/20 08:08 04/12/20 08:08 04/12/20 08:08 Intake & Output 04/11/20 04/12/20 04/13/20 06:59 06:59 06:59 Intake Total 3615 2313 Output Total 200 Balance 3415 2313 Weight 71.7 kg 72.2 kg General appearance: PRESENT: cooperative, mild distress, well-developed Head exam: PRESENT: atraumatic, normocephalic Eye exam: PRESENT: conjunctiva pink. ABSENT: scleral icterus Ear exam: PRESENT: normal external ear exam. ABSENT: bleeding, drainage Mouth exam: PRESENT: moist, tongue midline Respiratory exam: PRESENT: clear to auscultation karyn, symmetrical, unlabored. ABSENT: rales, rhonchi, tachypnea, wheezes Cardiovascular exam: PRESENT: RRR, +S1, +S2. ABSENT: diastolic murmur, irregular rhythm, systolic murmur GI/Abdominal exam: PRESENT: normal bowel sounds, soft. ABSENT: distended, guarding, tenderness Rectal exam: PRESENT: deferred Extremities exam: ABSENT: pedal edema Musculoskeletal exam: ABSENT: normal inspection - External fixator on left ankle Neurological exam: PRESENT: alert, awake, oriented to person, oriented to place, oriented to situation, CN II-XII grossly intact. ABSENT: altered Psychiatric exam: PRESENT: anxious, appropriate affect. ABSENT: agitated Focused psych exam: ABSENT: delusional, paranoid, restlessness Skin exam: PRESENT: dry, normal color, warm. ABSENT: rash Results Laboratory Results: 04/11/20 06:37 04/11/20 06:37 Impressions: Lower Extremity CT 04/08/20 00:00 IMPRESSION: Trimalleolar ankle fracture. Head CT 04/08/20 11:34 IMPRESSION: Involutional changes with mild chronic microvascular ischemia. No acute intracranial imaging findings. EVIDENCE OF ACUTE STROKE: NO. Knee X-Ray 04/08/20 11:34 IMPRESSION: There is slight narrowing of the medial joint compartment. No acute abnormality is present. Ankle X-Ray 04/09/20 00:00 IMPRESSION: IMAGE(S) OBTAINED DURING PROCEDURE. Fluoroscopy 04/09/20 00:00 IMPRESSION: IMAGE(S) OBTAINED DURING PROCEDURE. Assessment and Plan - Diagnosis (1) Closed trimalleolar fracture of left ankle Qualifiers: Encounter type: initial encounter Qualified Code(s): S82.852A - Displaced trimalleolar fracture of left lower leg, initial encounter for closed fracture Is this a current diagnosis for this admission?: Yes Plan: 04/08/2020 Temporarily reduced in the emergency department by Dr. Solitario. He is planning on placing an external fixator tomorrow. The patient will be n.p.o. after midnight. 04/09/2020 The patient will be going to the OR shortly for external fixator on the left leg 04/10/2020 External fixator placed yesterday. Physical therapy will be seeing the patient today. 04/11/2020 External fixator stable. Physical therapy with transfer to shelter for additional therapy and strengthening 04/12/2020 I placed a physical therapy consult. The patient will need to adjust to the external fixator. She will need physical therapy at shelter for less than 30 days. (2) Hyperglycemia due to type 2 diabetes mellitus Qualifiers: Diabetes mellitus salvage determiner insulin use: with assisted use Qualified Code(s): E11.65 - Type 2 diabetes mellitus with hyperglycemia; Z79.4 - ferry terminal agent (current) use of insulin Is this a current diagnosis for this admission?: Yes Plan: 04/08/2020 I will give a small dose of Lantus tonight and then a larger dose starting tomorrow night but not quite at home dose as there will be sliding scale available as well. Accu-Cheks before meals and at bedtime. Adjustments will be made based on the sliding scale requirements. She will be on a diabetic control carbohydrate diet 04/09/2020 I purposely give her a small dose of Lantus last night in anticipation of n.p.o. status and surgery today. Starting tonight she will have a larger dose but not yet her home dose as I do not know what her appetite of the postoperatively. She will continue sliding scale with her Accu-Cheks. 04/10/2020 All Accu-Cheks less than 200. After today I will consider adjusting her insulin to shoot for Accu-Cheks less than 150. 04/11/2020 Majority of Accu-Cheks now below 150. Continue current regimen. 04/12/2020 Continue current regimen. Reasonable control at this time. (3) Hyponatremia Is this a current diagnosis for this admission?: Yes Plan: 04/08/2020 Possibly chronic. Will monitor closely with laboratory studies. Partly decreased due to elevated glucose. 04/09/2020 Her serum sodium is normal. We will continue gentle IV fluids and monitor. 04/10/2020 Serum sodium just below the normal range at 134.4. Not clinically significant however will monitor closely. 04/11/2020 Serum sodium has been stable at 2 to 3 millimoles per liter below the lower limit normal. 04/12/2020 Sodium 134. This appears to be her normal range. No acute intervention. (4) Urinary tract infection Qualifiers: Urinary tract infection type: acute cystitis Is this a current diagnosis for this admission?: Yes Plan: 04/08/2020 Urinalysis was markedly positive but no culture was ordered. I ordered a culture and then will start the patient on antibiotics. I have also ordered blood cultures. 04/09/2020 2 gram-negative bacilli identified. Continue Rocephin until identification and sensitivities are available. 04/10/2020 Continue Rocephin. No final identification and sensitivities on the 2 gram- negative bacilli identified 04/11/2020 Pansensitive E. coli and Klebsiella isolated from the urine. As the patient is on Ancef for the orthopedic surgery I will discontinue the ceftriaxone. 04/12/2020 Complete Ancef as ordered (5) Dementia Qualifiers: Dementia type: vascular dementia Is this a current diagnosis for this admission?: Yes Plan: 04/08/2020 The patient is quite pleasant at this time. There are obvious memory lapses. The CT scan shows diffuse microvascular changes. Reports are that she was more confused earlier and this could be related to pain but also it looks like there might be a urinary infection as well. Supportive care for now. 04/09/2020 She has actually been quite appropriate. I am wondering if the urinary tract infection had caused significant decompensation. We will monitor closely. 04/09/2020 Once again she is appropriate this morning. Her affect is a sitter but the sitter reports that she has not been agitated today. 04/11/2020 Stable and at baseline 04/12/2020 At baseline. IVC rescinded. (6) Anemia Qualifiers: Anemia type: unspecified type Qualified Code(s): D64.9 - Anemia, unspecified Is this a current diagnosis for this admission?: Yes Plan: 04/08/2020 Possibly anemia of chronic disease. Will check anemia studies. Monitor hemoglobin closely. 04/09/2020 We will monitor. Multivitamin and iron supplement started. 04/10/2020 Hemoglobin dropped. This was likely from surgery. I will increase the ferrous sulfate to twice daily. Consider iron studies. 04/11/2020 Ferrous sulfate is now twice a day. Hemoglobin has not dropped anymore. It should begin to increase soon. 04/12/2020 Hemoglobin unchanged from yesterday. Continue supplements. (7) Frequent falls Is this a current diagnosis for this admission?: Yes Plan: 04/08/2020 Due to the fracture he will be difficult to have aggressive physical therapy. The patient would benefit from transfer to a shelter facility after discharge where they can work on muscle recovery and eventually mobility. If these falls were just recent it could be contributed to dehydration, possible urinary infection and neurodegenerative disease. Evidently she has been falling for at least several months. 04/09/2020 Physical therapy will see the patient likely tomorrow as she is having surgery today. 04/10/2020 Physical therapy assessment and likely ongoing therapy at a skilled facility due to the ankle fracture. 04/11/2020 Poor balance is likely multifactorial. Aggressive physical therapy should be effective in decreasing falls with improved balance. 04/12/2020 Short-term physical therapy (8) Metabolic encephalopathy Is this a current diagnosis for this admission?: Yes Plan: There are multiple reasons for the possibility of a metabolic encephalopathy. It looks like she will have a urinary tract infection and that she was dehydrated. These physiologic stressors can make underlying dementia much worse as well. It is likely that the fractured ankle has contributed to some change management manager the last several days. 04/09/2020 The patient may have underlying dementia but a urinary tract infection as well as dehydration certainly could have caused them transient metabolic encephalopathy. She appears to be clearing. 04/10/2020 Appears to be back at baseline. 04/11/2020 Resolved. Patient is at baseline. (9) Hypokalemia Is this a current diagnosis for this admission?: Yes Plan: 04/10/2020 Potassium down to 3.1. I will increase the daily potassium dose and recheck tomorrow. 04/11/2020 Potassium in the normal range. Continue potassium chloride 20 mEq twice daily for now. 04/12/2020 Resolved (10) Dehydration Is this a current diagnosis for this admission?: Yes Plan: 04/08/2020 The patient was fairly immobile for 5 days at home. Will treat with IV fluids and monitor intake and output. 04/09/2020 Resolved with IV fluids 04/10/2020 BUN is down to 13 from 32. Continue to encourage good fluid intake. 04/11/2020 Continue to encourage oral intake. Dehydration resolved. 04/12/2020 Resolved (11) Liver mass Is this a current diagnosis for this admission?: Yes Plan: 04/08/2020 Recent biopsy did not show malignancy however this could be sampling error. The patient is scheduled for follow-up with Dr. Carvajal. CT scan of the head did not reveal any space-occupying lesions to suggest metastases. 04/09/[address] Carvajal as previously scheduled 04/10/2020 Pending further treatment as an outpatient - Time Time Spent with patient: 15-24 minutes Medications reviewed and adjusted accordingly: Yes Anticipated discharge: SNF Within: within 48 hours
[2020-04-12] MEDS: LORAZEPAM 1 MG TABLET PO PRN ×2 (12:22→18:38)
[2020-04-12] MEDS ORDERED: PROMETHAZINE HCL INJ 25 MG/1 ML VIAL IV PRN (14:00)
[2020-04-12] MEDS: DOCUSATE SODIUM 100 MG CAPSULE PO PRN (16:34)
[2020-04-12] MEDS: ATORVASTATIN CALCIUM 20 MG TABLET PO SCH (21:47)
[2020-04-12] MEDS: QUETIAPINE FUMARATE 100 MG TABLET PO SCH (21:47)
[2020-04-12] MEDS: INSULIN GLARGINE,HUM.REC.ANLOG 1,000 UNIT/10 ML VIAL SUBCUT SCH (21:48)
[2020-04-13] MEDS: MORPHINE SULFATE 10 MG/ML INJ IV PRN ×4 (02:34→22:22)
[2020-04-13] MEDS: NORMAL SALINE 1000 ML 1,000 ML IV PRN ×2 (04:31→15:28)
[2020-04-13] MEDS: PANTOPRAZOLE SODIUM 40 MG TABLET.DR PO SCH (05:38)
[2020-04-13] MEDS: HEPARIN SOD (PORCINE) 5,000 UNIT/ML 1 ML VIAL SUBCUT SCH ×3 (05:38→22:13)
[2020-04-13] MEDS: CEFAZOLIN SODIUM 2 GM in DEXTROSE 5%-WATER 100 ML IV SCH (05:40)
[2020-04-13] MEDS: HYDROCODONE/ACETAMINOPHEN 7.5-325 MG TABLET PO PRN ×2 (05:41→14:58)
[2020-04-13] MEDS: QUETIAPINE FUMARATE 25 MG TABLET PO SCH (08:07)
[2020-04-13] MEDS: MAGNESIUM OXIDE 400 MG TABLET PO SCH ×3 (08:07→17:15)
[2020-04-13] MEDS: INSULIN REG, HUMAN 100 UNIT/ML 3 ML VIAL (PYX) SUBCUT SCH ×4 (08:07→22:14)
[2020-04-13] MEDS: HYDROCHLOROTHIAZIDE 12.5 MG TABLET PO SCH (10:21)
[2020-04-13] MEDS: MULTIVITAMIN TABLET PO SCH (10:21)
[2020-04-13] MEDS: VENLAFAXINE HCL 37.5 MG CAP.SR.24H PO SCH ×2 (10:22→22:13)
[2020-04-13] MEDS: FERROUS SULFATE 325 MG TABLET PO SCH ×2 (10:22→17:15)
[2020-04-13] MEDS: CHOLECALCIFEROL (D3) 1,000 UNIT (25 MCG) TABLET PO SCH (10:22)
[2020-04-13] MEDS: LOSARTAN POTASSIUM 50 MG TABLET PO SCH (10:22)
[2020-04-13] MEDS: CALCIUM CARBONATE 600 MG TABLET PO SCH (10:22)
[2020-04-13] MEDS: POTASSIUM CHLORIDE 10 MEQ TABLET.ER PO SCH ×2 (10:22→17:15)
[2020-04-13] MEDS: PIOGLITAZONE HCL 30 MG TABLET PO SCH (10:23)
--- NOTE | 2020-04-13 12:05 | PDOC PROGRESS REPORT ---
Subjective Progress Note for:: 04/13/20 Subjective:: The patient is doing well today. I have spoken with her and her son in regards to the ongoing plan. Pain is well controlled, no interval symptoms or acute changes overnight. Reason For Visit: TRIMALLEOLAR FRACTURE LEFT ANKLE,DEMENTIA,LIVER Physical Exam Vital Signs: Temp Pulse Resp BP Pulse Ox 98.6 F 103 H 15 118/64 95 04/13/20 07:14 04/13/20 07:14 04/13/20 07:14 04/13/20 07:14 04/13/20 07:14 Intake & Output 04/12/20 04/13/20 04/14/20 06:59 06:59 06:59 Intake Total 2313 2692 Balance 2313 2692 Weight 72.2 kg 72.2 kg Physical Exam: No acute distress, alert and oriented x3 Left lower extremity -Sensation and motor function are grossly intact to the foot. Dressings are clean dry and intact. Delta frame is secure. Capillary refill is less than 2 seconds. -Calf is soft nontender Results Laboratory Results: 04/11/20 06:37 04/11/20 06:37 Impressions: Lower Extremity CT 04/08/20 00:00 IMPRESSION: Trimalleolar ankle fracture. Head CT 04/08/20 11:34 IMPRESSION: Involutional changes with mild chronic microvascular ischemia. No acute intracranial imaging findings. EVIDENCE OF ACUTE STROKE: NO. Knee X-Ray 04/08/20 11:34 IMPRESSION: There is slight narrowing of the medial joint compartment. No acute abnormality is present. Ankle X-Ray 04/09/20 00:00 IMPRESSION: IMAGE(S) OBTAINED DURING PROCEDURE. Fluoroscopy 04/09/20 00:00 IMPRESSION: IMAGE(S) OBTAINED DURING PROCEDURE. Assessment & Plan - Diagnosis (1) Closed trimalleolar fracture of left ankle Qualifiers: Encounter type: initial encounter Qualified Code(s): S82.852A - Displaced trimalleolar fracture of left lower leg, initial encounter for closed fracture Is this a current diagnosis for this admission?: Yes Plan: -The patient will likely need to return to the operating room for second stage left ankle open reduction internal fixation. At that time we will be able to remove the external fixator address the medial malleolus and allow her discharge in a splint. I discussed this with the patient and her family. This should likely be staged sometime next week. -I will place her on the schedule and discussed with wrapper caser. Until that time the patient may be discharged in the interval -DVT prophylaxis per primary team. Consider aspirin daily. -Nonweightbearing left lower extremity -PT to encourage out of bed and functional ADLs nonweightbearing left lower extremity - Time Time Spent with patient: Less than 15 minutes
[2020-04-13] MEDS: LORAZEPAM 1 MG TABLET PO PRN ×2 (13:58→19:35)
--- NOTE | 2020-04-13 14:59 | PDOC PROGRESS REPORT ---
Subjective Progress Note for:: 04/13/20 Subjective:: 74 year old female who fell at home 5 days ago and fractured her left ankle. She has a trimalleolar fracture. She refused to go to the hospital. She recently had a right wrist fracture from a fall. The patient has been experiencing multiple falls recently. She has a past medical history of hypertension and diabetes. She has a history of breast cancer and is currently being worked up for a mass in the liver. Dementia is a relatively new diagnosis. Because she refused to go to the hospital for the fracture and because of some behavioral issues her son evidently filed a restraining order according to the patient. It was more likely a guardianship to force her to go to the hospital to seek care. Dr. Solitario is seeing the patient for the fracture. He is the one who treated her right wrist fracture. She was found to be hyperglycemic and hyponatremic. Dr. Solitario plans on installing of an external fixator tomorrow so she will be n.p.o. after midnight. She will be admitted to the hospitalist service with orthopedic surgery consulting. Psychiatry did see the patient in the emergency department. 04/13/20-no acute events in the last 24 hours. Patient has external fixator for left ankle fracture. Dr. Solitario saw the patient today he plan to do the second stage internal fixation and reduction next week. He thinks patient can be discharged with a splint. He also plans to remove the external fixator. Was the Melanie comes from the long-term care facility patient will be discharged. Reason For Visit: TRIMALLEOLAR FRACTURE LEFT ANKLE,DEMENTIA,LIVER Physical Exam Vital Signs: Temp Pulse Resp BP Pulse Ox 98.1 F 101 H 17 128/58 H 94 04/13/20 11:11 04/13/20 11:11 04/13/20 11:11 04/13/20 11:11 04/13/20 11:11 Intake & Output 04/12/20 04/13/20 04/14/20 06:59 06:59 06:59 Intake Total 2313 2692 300 Balance 2313 2692 300 Weight 72.2 kg 72.2 kg General appearance: PRESENT: no acute distress, well-developed Head exam: PRESENT: atraumatic Eye exam: PRESENT: PERRLA Mouth exam: PRESENT: moist, tongue midline Teeth exam: PRESENT: poor dentation Neck exam: ABSENT: carotid bruit, JVD, lymphadenopathy, thyromegaly Respiratory exam: PRESENT: clear to auscultation karyn. ABSENT: rales, rhonchi, wheezes Cardiovascular exam: PRESENT: RRR. ABSENT: diastolic murmur, rubs, systolic murmur GI/Abdominal exam: PRESENT: normal bowel sounds, soft. ABSENT: distended, guarding, mass, organolmegaly, rebound, tenderness Rectal exam: PRESENT: deferred Extremities exam: PRESENT: full ROM, other - Patient has external fixator around the left ankle.. ABSENT: calf tenderness, clubbing, pedal edema Neurological exam: PRESENT: alert, awake, oriented to person, oriented to place, oriented to time, oriented to situation, CN II-XII grossly intact. ABSENT: motor sensory deficit Psychiatric exam: PRESENT: appropriate affect, normal mood. ABSENT: homicidal ideation, suicidal ideation Results Laboratory Results: 04/11/20 06:37 04/11/20 06:37 Impressions: Lower Extremity CT 04/08/20 00:00 IMPRESSION: Trimalleolar ankle fracture. Head CT 04/08/20 11:34 IMPRESSION: Involutional changes with mild chronic microvascular ischemia. No acute intracranial imaging findings. EVIDENCE OF ACUTE STROKE: NO. Knee X-Ray 04/08/20 11:34 IMPRESSION: There is slight narrowing of the medial joint compartment. No acute abnormality is present. Ankle X-Ray 04/09/20 00:00 IMPRESSION: IMAGE(S) OBTAINED DURING PROCEDURE. Fluoroscopy 04/09/20 00:00 IMPRESSION: IMAGE(S) OBTAINED DURING PROCEDURE. Assessment and Plan - Diagnosis (1) Closed trimalleolar fracture of left ankle Qualifiers: Encounter type: initial encounter Qualified Code(s): S82.852A - Displaced trimalleolar fracture of left lower leg, initial encounter for closed fracture Is this a current diagnosis for this admission?: Yes Plan: 04/08/2020 Temporarily reduced in the emergency department by Dr. Solitario. He is planning on placing an external fixator tomorrow. The patient will be n.p.o. after midnight. 04/09/2020 The patient will be going to the OR shortly for external fixator on the left leg 04/10/2020 External fixator placed yesterday. Physical therapy will be seeing the patient today. 04/11/2020 External fixator stable. Physical therapy with transfer to long term for additional therapy and strengthening 04/12/2020 I placed a physical therapy consult. The patient will need to adjust to the external fixator. She will need physical therapy at long term for less than 30 days. 04/13/20-physical therapy is working with the patient. As per Ortho external fixator will be removed. Patient can be discharged to long-term care facility with the splint as per the Ortho team. Plan is to arrange for a second stage internal fixation and reduction of the left ankle fracture next week. (2) Hyperglycemia due to type 2 diabetes mellitus Qualifiers: Diabetes mellitus retirement insulin use: with bed bug exterminator use Qualified Code(s): E11.65 - Type 2 diabetes mellitus with hyperglycemia; Z79.4 - bed bug exterminator (current) use of insulin Is this a current diagnosis for this admission?: Yes Plan: 04/08/2020 I will give a small dose of Lantus tonight and then a larger dose starting tomorrow night but not quite at home dose as there will be sliding scale a vailable as well. Accu-Cheks before meals and at bedtime. Adjustments will be made based on the sliding scale requirements. She will be on a diabetic control carbohydrate diet 04/09/2020 I purposely give her a small dose of Lantus last night in anticipation of n.p.o. status and surgery today. Starting tonight she will have a larger dose but not yet her home dose as I do not know what her appetite of the postoperatively. She will continue sliding scale with her Accu-Cheks. 04/10/2020 All Accu-Cheks less than 200. After today I will consider adjusting her insulin to shoot for Accu-Cheks less than 150. 04/11/2020 Majority of Accu-Cheks now below 150. Continue current regimen. 04/12/2020 Continue current regimen. Reasonable control at this time. (3) Hyponatremia Is this a current diagnosis for this admission?: Yes Plan: 04/08/2020 Possibly chronic. Will monitor closely with laboratory studies. Partly decreased due to elevated glucose. 04/09/2020 Her serum sodium is normal. We will continue gentle IV fluids and monitor. 04/10/2020 Serum sodium just below the normal range at 134.4. Not clinically significant however will monitor closely. 04/11/2020 Serum sodium has been stable at 2 to 3 millimoles per liter below the lower limit normal. 04/12/2020 Sodium 134. This appears to be her normal range. No acute intervention. (4) Urinary tract infection Qualifiers: Urinary tract infection type: acute cystitis Is this a current diagnosis for this admission?: Yes Plan: 04/08/2020 Urinalysis was markedly positive but no culture was ordered. I ordered a culture and then will start the patient on antibiotics. I have also ordered blood cultures. 04/09/2020 2 gram-negative bacilli identified. Continue Rocephin until identification and sensitivities are available. 04/10/2020 Continue Rocephin. No final identification and sensitivities on the 2 gram- negative bacilli identified 04/11/2020 Pansensitive E. coli and Klebsiella isolated from the urine. As the patient is on Ancef for the orthopedic surgery I will discontinue the ceftriaxone. 04/12/2020 Complete Ancef as ordered 04/13/20-urine culture is positive for E. coli and Klebsiella. Patient is on Ancef. Plan is to continue the antibiotic therapy at this time. (5) Dementia Qualifiers: Dementia type: vascular dementia Is this a current diagnosis for this admission?: Yes Plan: 04/08/2020 The patient is quite pleasant at this time. There are obvious memory lapses. The CT scan shows diffuse microvascular changes. Reports are that she was more confused earlier and this could be related to pain but also it looks like there might be a urinary infection as well. Supportive care for now. 04/09/2020 She has actually been quite appropriate. I am wondering if the urinary tract infection had caused significant decompensation. We will monitor closely. 04/09/2020 Once again she is appropriate this morning. Her affect is a sitter but the sitter reports that she has not been agitated today. 04/11/2020 Stable and at baseline 04/12/2020 At baseline. IVC rescinded. (6) Anemia Qualifiers: Anemia type: unspecified type Qualified Code(s): D64.9 - Anemia, unspecified Is this a current diagnosis for this admission?: No Plan: 04/08/2020 Possibly anemia of chronic disease. Will check anemia studies. Monitor hemoglobin closely. 04/09/2020 We will monitor. Multivitamin and iron supplement started. 04/10/2020 Hemoglobin dropped. This was likely from surgery. I will increase the ferrous sulfate to twice daily. Consider iron studies. 04/11/2020 Ferrous sulfate is now twice a day. Hemoglobin has not dropped anymore. It should begin to increase soon. 04/12/2020 Hemoglobin unchanged from yesterday. Continue supplements. (7) Frequent falls Is this a current diagnosis for this admission?: Yes Plan: 04/08/2020 Due to the fracture he will be difficult to have aggressive physical therapy. The patient would benefit from transfer to a long term facility after discharge where they can work on muscle recovery and eventually mobility. If these falls were just recent it could be contributed to dehydration, possible urinary infection and neurodegenerative disease. Evidently she has been falling for at least several months. 04/09/2020 Physical therapy will see the patient likely tomorrow as she is having surgery today. 04/10/2020 Physical therapy assessment and likely ongoing therapy at a skilled facility due to the ankle fracture. 04/11/2020 Poor balance is likely multifactorial. Aggressive physical therapy should be effective in decreasing falls with improved balance. 04/12/2020 Short-term physical therapy (8) Metabolic encephalopathy Is this a current diagnosis for this admission?: Yes Plan: There are multiple reasons for the possibility of a metabolic encephalopathy. It looks like she will have a urinary tract infection and that she was dehydrated. These physiologic stressors can make underlying dementia much worse as well. It is likely that the fractured ankle has contributed to some policy change clerk the last several days. 04/09/2020 The patient may have underlying dementia but a urinary tract infection as well as dehydration certainly could have caused them transient metabolic encephalopathy. She appears to be clearing. 04/10/2020 Appears to be back at baseline. 04/11/2020 Resolved. Patient is at baseline. (9) Liver mass Is this a current diagnosis for this admission?: No Plan: 04/08/2020 Recent biopsy did not show malignancy however this could be sampling error. The patient is scheduled for follow-up with Dr. Carvajal. CT scan of the head did not reveal any space-occupying lesions to suggest metastases. 04/09/[address] Carvajal as previously scheduled 04/10/2020 Pending further treatment as an outpatient
[2020-04-13] MEDS: QUETIAPINE FUMARATE 100 MG TABLET PO SCH (22:13)
[2020-04-13] MEDS: ATORVASTATIN CALCIUM 20 MG TABLET PO SCH (22:13)
[2020-04-13] MEDS: INSULIN GLARGINE,HUM.REC.ANLOG 1,000 UNIT/10 ML VIAL SUBCUT SCH (22:13)
[2020-04-14] MEDS: HYDROCODONE/ACETAMINOPHEN 7.5-325 MG TABLET PO PRN ×3 (01:15→21:25)
[2020-04-14] MEDS: NORMAL SALINE 1000 ML 1,000 ML IV PRN ×3 (01:16→23:18)
[2020-04-14] MEDS: LORAZEPAM 1 MG TABLET PO PRN ×3 (05:30→19:36)
[2020-04-14] MEDS: PANTOPRAZOLE SODIUM 40 MG TABLET.DR PO SCH (05:32)
[2020-04-14] MEDS: HEPARIN SOD (PORCINE) 5,000 UNIT/ML 1 ML VIAL SUBCUT SCH ×3 (05:32→21:26)
[2020-04-14] MEDS: MORPHINE SULFATE 10 MG/ML INJ IV PRN ×3 (05:33→18:21)
[2020-04-14 06:29] LABS: ABSOLUTE EOSINOPHILS # (AUTO) 0.1 10^3/uL (0.0-0.6); ABSOLUTE LYMPHOCYTES (AUTO) 0.8 10^3/uL (0.5-4.7); ABSOLUTE MONOCYTES (AUTO) 0.6 10^3/uL (0.1-1.4); ABSOLUTE NEUT (AUTO) 3.9 10^3/uL (1.7-8.2); BASOPHILS % (AUTO) 0.7 % (0-2); EOSINOPHILS % (AUTO) 1.4 % (0-6); HEMATOCRIT 25.2 % (36.0-47.0); HEMOGLOBIN 8.7 g/dL (12.0-15.5); LYMPHOCYTES % (AUTO) 14.6 % (13-45); MEAN CORPUSCULAR HEMOGLOBIN 27.2 pg (27.0-33.4); MEAN CORPUSCULAR HGB CONC 34.4 g/dL (32.0-36.0); MEAN CORPUSCULAR VOLUME 79 fl (80-97); MONOCYTES % (AUTO) 10.5 % (3-13); PLATELET COUNT 273 10^3/uL (150-450); RED BLOOD COUNT 3.19 10^6/uL (3.72-5.28); RED CELL DISTRIBUTION WIDTH 15.8 % (11.5-14.0); SEGMENTED NEUTROPHILS % (AUTO) 72.8 % (42-78); TOTAL CELLS COUNTED % (AUTO) 100 %; WHITE BLOOD COUNT 5.3 10^3/uL (4.0-10.5)
[2020-04-14 06:54] LABS: ALBUMIN 2.7 g/dL (3.5-5.0); ALKALINE PHOSPHATASE 125 U/L (38-126); ANION GAP 6 (5-19); ASPARTATE AMINO TRANSFERASE 36 U/L (14-36); BILIRUBIN,TOTAL 0.4 mg/dL (0.2-1.3); BLOOD UREA NITROGEN 5 mg/dL (7-20); CARBON DIOXIDE 19 mmol/L (22-30); CHLORIDE 112 mmol/L (98-107); GLUCOSE 106 mg/dL (75-110); POTASSIUM 3.9 mmol/L (3.6-5.0); TOTAL PROTEIN 5.7 g/dL (6.3-8.2)
[2020-04-14] MEDS: INSULIN REG, HUMAN 100 UNIT/ML 3 ML VIAL (PYX) SUBCUT SCH ×4 (07:34→21:26)
[2020-04-14] MEDS: QUETIAPINE FUMARATE 25 MG TABLET PO SCH (07:41)
[2020-04-14] MEDS: MAGNESIUM OXIDE 400 MG TABLET PO SCH ×3 (07:41→18:21)
[2020-04-14] MEDS: FERROUS SULFATE 325 MG TABLET PO SCH ×2 (10:07→18:21)
[2020-04-14] MEDS: CALCIUM CARBONATE 600 MG TABLET PO SCH (10:07)
[2020-04-14] MEDS: MULTIVITAMIN TABLET PO SCH (10:07)
[2020-04-14] MEDS: HYDROCHLOROTHIAZIDE 12.5 MG TABLET PO SCH (10:07)
[2020-04-14] MEDS: LOSARTAN POTASSIUM 50 MG TABLET PO SCH (10:07)
[2020-04-14] MEDS: PIOGLITAZONE HCL 30 MG TABLET PO SCH (10:08)
[2020-04-14] MEDS: VENLAFAXINE HCL 37.5 MG CAP.SR.24H PO SCH ×2 (10:08→21:26)
[2020-04-14] MEDS: POTASSIUM CHLORIDE 10 MEQ TABLET.ER PO SCH ×2 (10:08→18:21)
[2020-04-14] MEDS: CHOLECALCIFEROL (D3) 1,000 UNIT (25 MCG) TABLET PO SCH (10:08)
--- NOTE | 2020-04-14 10:58 | PDOC PROGRESS REPORT ---
Subjective Progress Note for:: 04/14/20 Subjective:: 74 year old female who fell at home 5 days ago and fractured her left ankle. She has a trimalleolar fracture. She refused to go to the hospital. She recently had a right wrist fracture from a fall. The patient has been experiencing multiple falls recently. She has a past medical history of hypertension and diabetes. She has a history of breast cancer and is currently being worked up for a mass in the liver. Dementia is a relatively new diagnosis. Because she refused to go to the hospital for the fracture and because of some behavioral issues her son evidently filed a restraining order according to the patient. It was more likely a guardianship to force her to go to the hospital to seek care. Dr. Solitario is seeing the patient for the fracture. He is the one who treated her right wrist fracture. She was found to be hyperglycemic and hyponatremic. Dr. Solitario plans on installing of an external fixator tomorrow so she will be n.p.o. after midnight. She will be admitted to the hospitalist service with orthopedic surgery consulting. Psychiatry did see the patient in the emergency department. 04/13/20-no acute events in the last 24 hours. Patient has external fixator for left ankle fracture. Dr. Solitario saw the patient today he plan to do the second stage internal fixation and reduction next week. He thinks patient can be discharged with a splint. He also plans to remove the external fixator. Was the Melanie comes from the long-term care facility patient will be discharged. 04/14/20-no acute events the last 24 hours. Vital signs are stable. Dr. Solitario plan to remove external fixator on Sunday. Patient is comfortably in the bed communicating well. Reason For Visit: TRIMALLEOLAR FRACTURE LEFT ANKLE,DEMENTIA,LIVER Physical Exam Vital Signs: Temp Pulse Resp BP Pulse Ox 97.7 F 105 H 15 132/62 H 92 04/14/20 09:01 04/14/20 09:01 04/14/20 09:01 04/14/20 09:01 04/14/20 09:01 Intake & Output 04/13/20 04/14/20 04/15/20 06:59 06:59 06:59 Intake Total 2692 2805 Balance 2692 2805 Weight 72.2 kg 72.3 kg General appearance: PRESENT: no acute distress, well-developed Eye exam: PRESENT: PERRLA Mouth exam: PRESENT: moist, tongue midline Teeth exam: PRESENT: poor dentation Neck exam: ABSENT: carotid bruit, JVD, lymphadenopathy, thyromegaly Respiratory exam: PRESENT: clear to auscultation karyn. ABSENT: rales, rhonchi, wheezes Cardiovascular exam: PRESENT: RRR. ABSENT: diastolic murmur, rubs, systolic murmur GI/Abdominal exam: PRESENT: normal bowel sounds, soft. ABSENT: distended, guarding, mass, organolmegaly, rebound, tenderness Rectal exam: PRESENT: deferred Extremities exam: PRESENT: other - External fixator present in the left lower leg. Neurological exam: PRESENT: alert, awake, oriented to person, CN II-XII grossly intact Psychiatric exam: PRESENT: appropriate affect, normal mood. ABSENT: homicidal ideation, suicidal ideation Results Laboratory Results: 04/14/20 06:15 04/14/20 06:15 04/14/20 04/14/20 06:15 06:15 WBC 5.3 RBC 3.19 L Hgb 8.7 L Hct 25.2 L MCV 79 L MCH 27.2 MCHC 34.4 RDW 15.8 H Plt Count 273 Seg Neutrophils % 72.8 Sodium 137.3 Potassium 3.9 Chloride 112 H Carbon Dioxide 19 L Anion Gap 6 BUN 5 L Creatinine 0.50 L Est GFR ( Amer) > 60 Glucose 106 Calcium 9.0 Magnesium 1.7 Total Bilirubin 0.4 AST 36 Alkaline Phosphatase 125 Total Protein 5.7 L Albumin 2.7 L 04/08/20 17:28 Blood Blood Culture - Final NO GROWTH IN 5 DAYS 04/08/20 16:56 Blood Blood Culture - Final NO GROWTH IN 5 DAYS Impressions: Lower Extremity CT 04/08/20 00:00 IMPRESSION: Trimalleolar ankle fracture. Head CT 04/08/20 11:34 IMPRESSION: Involutional changes with mild chronic microvascular ischemia. No acute intracranial imaging findings. EVIDENCE OF ACUTE STROKE: NO. Knee X-Ray 04/08/20 11:34 IMPRESSION: There is slight narrowing of the medial joint compartment. No acute abnormality is present. Ankle X-Ray 04/09/20 00:00 IMPRESSION: IMAGE(S) OBTAINED DURING PROCEDURE. Fluoroscopy 04/09/20 00:00 IMPRESSION: IMAGE(S) OBTAINED DURING PROCEDURE. Assessment and Plan - Diagnosis (1) Closed trimalleolar fracture of left ankle Qualifiers: Encounter type: initial encounter Qualified Code(s): S82.852A - Displaced trimalleolar fracture of left lower leg, initial encounter for closed fracture Is this a current diagnosis for this admission?: Yes Plan: 04/08/2020 Temporarily reduced in the emergency department by Dr. Solitario. He is planning on placing an external fixator tomorrow. The patient will be n.p.o. after midnight. 04/09/2020 The patient will be going to the OR shortly for external fixator on the left leg 04/10/2020 External fixator placed yesterday. Physical therapy will be seeing the patient today. 04/11/2020 External fixator stable. Physical therapy with transfer to [facility] for additional therapy and strengthening 04/12/2020 I placed a physical therapy consult. The patient will need to adjust to the external fixator. She will need physical therapy at [facility] for less than 30 days. 04/13/20-physical therapy is working with the patient. As per Ortho external fixator will be removed. Patient can be discharged to long-term care facility with the splint as per the Ortho team. Plan is to arrange for a second stage internal fixation and reduction of the left ankle fracture next week. 04/14/2020-Dr. Solitario is planning to remove external fixator on Sunday. Plan is to discharge her with a splint after the removal of the external fixator.. (2) Hyperglycemia due to type 2 diabetes mellitus Qualifiers: Diabetes mellitus terminal worker insulin use: with skilled nursing use Qualified Code(s): E11.65 - Type 2 diabetes mellitus with hyperglycemia; Z79.4 - terminal worker (current) use of insulin Is this a current diagnosis for this admission?: Yes Plan: 04/08/2020 I will give a small dose of Lantus tonight and then a larger dose starting tomorrow night but not quite at home dose as there will be sliding scale available as well. Accu-Cheks before meals and at bedtime. Adjustments will be made based on the sliding scale requirements. She will be on a diabetic control carbohydrate diet 04/09/2020 I purposely give her a small dose of Lantus last night in anticipation of n.p.o. status and surgery today. Starting tonight she will have a larger dose but not yet her home dose as I do not know what her appetite of the postoperatively. She will continue sliding scale with her Accu-Cheks. 04/10/2020 All Accu-Cheks less than 200. After today I will consider adjusting her insulin to shoot for Accu-Cheks less than 150. 04/11/2020 Majority of Accu-Cheks now below 150. Continue current regimen. 04/12/2020 Continue current regimen. Reasonable control at this time. 04/14/2020-the blood sugars are 111 today. Stable. (3) Hyponatremia Is this a current diagnosis for this admission?: Yes Plan: 04/08/2020 Possibly chronic. Will monitor closely with laboratory studies. Partly decreased due to elevated glucose. 04/09/2020 Her serum sodium is normal. We will continue gentle IV fluids and monitor. 04/10/2020 Serum sodium just below the normal range at 134.4. Not clinically significant however will monitor closely. 04/11/2020 Serum sodium has been stable at 2 to 3 millimoles per liter below the lower limit normal. 04/12/2020 Sodium 134. This appears to be her normal range. No acute intervention. 04/14/2020-serum sodium is 137 today. Hyponatremia is resolving. (4) Urinary tract infection Qualifiers: Urinary tract infection type: acute cystitis Is this a current diagnosis for this admission?: Yes Plan: 04/08/2020 Urinalysis was markedly positive but no culture was ordered. I ordered a culture and then will start the patient on antibiotics. I have also ordered blood cultures. 04/09/2020 2 gram-negative bacilli identified. Continue Rocephin until identification and sensitivities are available. 04/10/2020 Continue Rocephin. No final identification and sensitivities on the 2 gram- negative bacilli identified 04/11/2020 Pansensitive E. coli and Klebsiella isolated from the urine. As the patient is on Ancef for the orthopedic surgery I will discontinue the ceftriaxone. 04/12/2020 Complete Ancef as ordered 04/13/20-urine culture is positive for E. coli and Klebsiella. Patient is on Ancef. Plan is to continue the antibiotic therapy at this time. 04/14/2020-urine culture is positive for E. coli and Klebsiella. Plan is to continue Ancef at this time. (5) Dementia Qualifiers: Dementia type: vascular dementia Is this a current diagnosis for this admission?: Yes Plan: 04/08/2020 The patient is quite pleasant at this time. There are obvious memory lapses. The CT scan shows diffuse microvascular changes. Reports are that she was more confused earlier and this could be related to pain but also it looks like there might be a urinary infection as well. Supportive care for now. 04/09/2020 She has actually been quite appropriate. I am wondering if the urinary tract infection had caused significant decompensation. We will monitor closely. 04/09/2020 Once again she is appropriate this morning. Her affect is a sitter but the sitter reports that she has not been agitated today. 04/11/2020 Stable and at baseline 04/12/2020 At baseline. IVC rescinded. (6) Anemia Qualifiers: Anemia type: unspecified type Qualified Code(s): D64.9 - Anemia, unspecified Is this a current diagnosis for this admission?: No Plan: 04/08/2020 Possibly anemia of chronic disease. Will check anemia studies. Monitor hemoglobin closely. 04/09/2020 We will monitor. Multivitamin and iron supplement started. 04/10/2020 Hemoglobin dropped. This was likely from surgery. I will increase the ferrous sulfate to twice daily. Consider iron studies. 04/11/2020 Ferrous sulfate is now twice a day. Hemoglobin has not dropped anymore. It should begin to increase soon. 04/12/2020 Hemoglobin unchanged from yesterday. Continue supplements. 04/14/2020-hemoglobin today is 8.7. Stable. Plan is to continue to closely monitor the hemoglobin. (7) Frequent falls Is this a current diagnosis for this admission?: Yes Plan: 04/08/2020 Due to the fracture he will be difficult to have aggressive physical therapy. The patient would benefit from transfer to a [facility] facility after discharge where they can work on muscle recovery and eventually mobility. If these falls were just recent it could be contributed to dehydration, possible urinary infection and neurodegenerative disease. Evidently she has been falling for at least several months. 04/09/2020 Physical therapy will see the patient likely tomorrow as she is having surgery today. 04/10/2020 Physical therapy assessment and likely ongoing therapy at a skilled facility due to the ankle fracture. 04/11/2020 Poor balance is likely multifactorial. Aggressive physical therapy should be effective in decreasing falls with improved balance. 04/12/2020 Short-term physical therapy (8) Metabolic encephalopathy Is this a current diagnosis for this admission?: Yes Plan: There are multiple reasons for the possibility of a metabolic encephalopathy. It looks like she will have a urinary tract infection and that she was dehydrated. These physiologic stressors can make underlying dementia much worse as well. 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 04/09/2020 The patient may have underlying dementia but a urinary tract infection as well as dehydration certainly could have caused them transient metabolic encephalopathy. She appears to be clearing. 04/10/2020 Appears to be back at baseline. 04/11/2020 Resolved. Patient is at baseline. 04/14/2020-alert awake communicating well not in distress. Metabolic and colopat hy resolved. (9) Liver mass Is this a current diagnosis for this admission?: No Plan: 04/08/2020 Recent biopsy did not show malignancy however this could be sampling error. The patient is scheduled for follow-up with Dr. Carvajal. CT scan of the head did not reveal any space-occupying lesions to suggest metastases. 04/09/[address] Carvajal as previously scheduled 04/10/2020 Pending further treatment as an outpatient
[2020-04-14] MEDS: QUETIAPINE FUMARATE 100 MG TABLET PO SCH (21:25)
[2020-04-14] MEDS: ATORVASTATIN CALCIUM 20 MG TABLET PO SCH (21:26)
[2020-04-14] MEDS: INSULIN GLARGINE,HUM.REC.ANLOG 1,000 UNIT/10 ML VIAL SUBCUT SCH (21:26)
[2020-04-15] MEDS: MORPHINE SULFATE 10 MG/ML INJ IV PRN ×3 (05:19→18:02)
[2020-04-15] MEDS: HEPARIN SOD (PORCINE) 5,000 UNIT/ML 1 ML VIAL SUBCUT SCH ×3 (05:19→22:41)
[2020-04-15] MEDS: PANTOPRAZOLE SODIUM 40 MG TABLET.DR PO SCH (05:20)
[2020-04-15] MEDS: INSULIN REG, HUMAN 100 UNIT/ML 3 ML VIAL (PYX) SUBCUT SCH ×4 (08:18→22:42)
[2020-04-15] MEDS: QUETIAPINE FUMARATE 25 MG TABLET PO SCH (08:18)
[2020-04-15] MEDS: MAGNESIUM OXIDE 400 MG TABLET PO SCH ×3 (08:18→16:59)
[2020-04-15] MEDS: HYDROCODONE/ACETAMINOPHEN 7.5-325 MG TABLET PO PRN ×2 (08:18→16:58)
--- NOTE | 2020-04-15 10:40 | PDOC PROGRESS REPORT ---
Subjective Progress Note for:: 04/15/20 Subjective:: 74 year old female who fell at home 5 days ago and fractured her left ankle. She has a trimalleolar fracture. She refused to go to the hospital. She recently had a right wrist fracture from a fall. The patient has been experiencing multiple falls recently. She has a past medical history of hypertension and diabetes. She has a history of breast cancer and is currently being worked up for a mass in the liver. Dementia is a relatively new diagnosis. Because she refused to go to the hospital for the fracture and because of some behavioral issues her son evidently filed a restraining order according to the patient. It was more likely a guardianship to force her to go to the hospital to seek care. Dr. Solitario is seeing the patient for the fracture. He is the one who treated her right wrist fracture. She was found to be hyperglycemic and hyponatremic. Dr. Solitario plans on installing of an external fixator tomorrow so she will be n.p.o. after midnight. She will be admitted to the hospitalist service with orthopedic surgery consulting. Psychiatry did see the patient in the emergency department. 04/13/20-no acute events in the last 24 hours. Patient has external fixator for left ankle fracture. Dr. Solitario saw the patient today he plan to do the second stage internal fixation and reduction next week. He thinks patient can be discharged with a splint. He also plans to remove the external fixator. Was the Melanie comes from the long-term care facility patient will be discharged. 04/14/20-no acute events the last 24 hours. Vital signs are stable. Dr. Solitario plan to remove external fixator on Sunday. Patient is comfortably in the bed communicating well. 04/15/2020-patient admitted with a left trimalleolar fracture status post home administrator al fixator placed and Dr. Solitario is planning to remove the external fixator and to arrange for a splint. No acute events in the last 24 hours. Afebrile. Comfortable in the bed communicating well. Reason For Visit: TRIMALLEOLAR FRACTURE LEFT ANKLE,DEMENTIA,LIVER Physical Exam Vital Signs: Temp Pulse Resp BP Pulse Ox 98.6 F 114 H 16 128/62 H 93 04/15/20 08:00 04/15/20 08:00 04/15/20 08:00 04/15/20 08:00 04/15/20 08:00 Intake & Output 04/14/20 04/15/20 04/16/20 06:59 06:59 06:59 Intake Total 2805 3335 Balance 2805 3335 Weight 72.3 kg 72.3 kg General appearance: PRESENT: no acute distress, well-developed Head exam: PRESENT: atraumatic Eye exam: PRESENT: PERRLA Mouth exam: PRESENT: dry mucosa Teeth exam: PRESENT: poor dentation Neck exam: ABSENT: carotid bruit, JVD, lymphadenopathy, thyromegaly Respiratory exam: PRESENT: decreased breath sounds Cardiovascular exam: PRESENT: RRR. ABSENT: diastolic murmur, rubs, systolic murmur GI/Abdominal exam: PRESENT: normal bowel sounds, soft. ABSENT: distended, guarding, mass, organolmegaly, rebound, tenderness Rectal exam: PRESENT: deferred Neurological exam: PRESENT: alert, awake, oriented to person, oriented to place, oriented to time, oriented to situation, CN II-XII grossly intact. ABSENT: motor sensory deficit Psychiatric exam: PRESENT: appropriate affect, normal mood. ABSENT: homicidal ideation, suicidal ideation Skin exam: PRESENT: dry, intact, warm. ABSENT: cyanosis, rash Results Laboratory Results: 04/14/20 06:15 04/14/20 06:15 Impressions: Lower Extremity CT 04/08/20 00:00 IMPRESSION: Trimalleolar ankle fracture. Head CT 04/08/20 11:34 IMPRESSION: Involutional changes with mild chronic microvascular ischemia. No acute intracranial imaging findings. EVIDENCE OF ACUTE STROKE: NO. Knee X-Ray 04/08/20 11:34 IMPRESSION: There is slight narrowing of the medial joint compartment. No acute abnormality is present. Ankle X-Ray 04/09/20 00:00 IMPRESSION: IMAGE(S) OBTAINED DURING PROCEDURE. Fluoroscopy 04/09/20 00:00 IMPRESSION: IMAGE(S) OBTAINED DURING PROCEDURE. Assessment and Plan - Diagnosis (1) Closed trimalleolar fracture of left ankle Qualifiers: Encounter type: initial encounter Qualified Code(s): S82.852A - Displaced trimalleolar fracture of left lower leg, initial encounter for closed fracture Is this a current diagnosis for this admission?: Yes Plan: 04/08/2020 Temporarily reduced in the emergency department by Dr. Solitario. He is planning on placing an external fixator tomorrow. The patient will be n.p.o. after midnight. 04/09/2020 The patient will be going to the OR shortly for external fixator on the left leg 04/10/2020 External fixator placed yesterday. Physical therapy will be seeing the patient today. 04/11/2020 External fixator stable. Physical therapy with transfer to senior living for additional therapy and strengthening 04/12/2020 I placed a physical therapy consult. The patient will need to adjust to the external fixator. She will need physical therapy at senior living for less than 30 days. 04/13/20-physical therapy is working with the patient. As per Ortho external fixator will be removed. Patient can be discharged to long-term care facility with the splint as per the Ortho team. Plan is to arrange for a second stage internal fixation and reduction of the left ankle fracture next week. 04/14/2020-Dr. Solitario is planning to remove external fixator on Sunday. Plan is to discharge her with a splint after the removal of the external fixator.. 04/15/20-patient has external fixator for a trimalleolar fracture she is going for removal of the fixator and splint placement tomorrow. (2) Hyperglycemia due to type 2 diabetes mellitus Qualifiers: Diabetes mellitus assistant terminal manager insulin use: with assistant terminal manager use Qualified Code(s): E11.65 - Type 2 diabetes mellitus with hyperglycemia; Z79.4 - roasterman (current) use of insulin Is this a current diagnosis for this admission?: Yes Plan: 04/08/2020 I will give a small dose of Lantus tonight and then a larger dose starting tomorrow night but not quite at home dose as there will be sliding scale available as well. Accu-Cheks before meals and at bedtime. Adjustments will be made based on the sliding scale requirements. She will be on a diabetic control carbohydrate diet 04/09/2020 I purposely give her a small dose of Lantus last night in anticipation of n.p.o. status and surgery today. Starting tonight she will have a larger dose but not yet her home dose as I do not know what her appetite of the postoperatively. She will continue sliding scale with her Accu-Cheks. 04/10/2020 All Accu-Cheks less than 200. After today I will consider adjusting her insulin to shoot for Accu-Cheks less than 150. 04/11/2020 Majority of Accu-Cheks now below 150. Continue current regimen. 04/12/2020 Continue current regimen. Reasonable control at this time. 04/14/2020-the blood sugars are 111 today. Stable. 04/15/2020-blood sugar today is 108. Stable. Plan is to continue insulin s liding scale before meals and at bedtime. (3) Hyponatremia Is this a current diagnosis for this admission?: Yes Plan: 04/08/2020 Possibly chronic. Will monitor closely with laboratory studies. Partly decreased due to elevated glucose. 04/09/2020 Her serum sodium is normal. We will continue gentle IV fluids and monitor. 04/10/2020 Serum sodium just below the normal range at 134.4. Not clinically significant however will monitor closely. 04/11/2020 Serum sodium has been stable at 2 to 3 millimoles per liter below the lower limi t normal. 04/12/2020 Sodium 134. This appears to be her normal range. No acute intervention. 04/14/2020-serum sodium is 137 today. Hyponatremia is resolving. (4) Urinary tract infection Qualifiers: Urinary tract infection type: acute cystitis Is this a current diagnosis for this admission?: Yes Plan: 04/08/2020 Urinalysis was markedly positive but no culture was ordered. I ordered a culture and then will start the patient on antibiotics. I have also ordered blood cultures. 04/09/2020 2 gram-negative bacilli identified. Continue Rocephin until identification and sensitivities are available. 04/10/2020 Continue Rocephin. No final identification and sensitivities on the 2 gram- negative bacilli identified 04/11/2020 Pansensitive E. coli and Klebsiella isolated from the urine. As the patient is on Ancef for the orthopedic surgery I will discontinue the ceftriaxone. 04/12/2020 Complete Ancef as ordered 04/13/20-urine culture is positive for E. coli and Klebsiella. Patient is on Ancef. Plan is to continue the antibiotic therapy at this time. 04/14/2020-urine culture is positive for E. coli and Klebsiella. Plan is to continue Ancef at this time. 04/15/20-patient is on IV Ancef for urine culture that was positive for E. coli and Klebsiella. (5) Dementia Qualifiers: Dementia type: vascular dementia Is this a current diagnosis for this admission?: Yes Plan: 04/08/2020 The patient is quite pleasant at this time. There are obvious memory lapses. The CT scan shows diffuse microvascular changes. Reports are that she was more confused earlier and this could be related to pain but also it looks like there might be a urinary infection as well. Supportive care for now. 04/09/2020 She has actually been quite appropriate. I am wondering if the urinary tract infection had caused significant decompensation. We will monitor closely. 04/09/2020 Once again she is appropriate this morning. Her affect is a sitter but the sitter reports that she has not been agitated today. 04/11/2020 Stable and at baseline 04/12/2020 At baseline. IVC rescinded. (6) Anemia Qualifiers: Anemia type: unspecified type Qualified Code(s): D64.9 - Anemia, unspecified Is this a current diagnosis for this admission?: No Plan: 04/08/2020 Possibly anemia of chronic disease. Will check anemia studies. Monitor hemoglobin closely. 04/09/2020 We will monitor. Multivitamin and iron supplement started. 04/10/2020 Hemoglobin dropped. This was likely from surgery. I will increase the ferrous sulfate to twice daily. Consider iron studies. 04/11/2020 Ferrous sulfate is now twice a day. Hemoglobin has not dropped anymore. It should begin to increase soon. 04/12/2020 Hemoglobin unchanged from yesterday. Continue supplements. 04/14/2020-hemoglobin today is 8.7. Stable. Plan is to continue to closely monitor the hemoglobin. (7) Frequent falls Is this a current diagnosis for this admission?: Yes Plan: 04/08/2020 Due to the fracture he will be difficult to have aggressive physical therapy. The patient would benefit from transfer to a senior living facility after discharge where they can work on muscle recovery and eventually mobility. If these falls were just recent it could be contributed to dehydration, possible urinary infection and neurodegenerative disease. Evidently she has been falling for at least several months. 04/09/2020 Physical therapy will see the patient likely tomorrow as she is having surgery today. 04/10/2020 Physical therapy assessment and likely ongoing therapy at a skilled facility due to the ankle fracture. 04/11/2020 Poor balance is likely multifactorial. Aggressive physical therapy should be effective in decreasing falls with improved balance. 04/12/2020 Short-term physical therapy (8) Metabolic encephalopathy Is this a current diagnosis for this admission?: Yes Plan: There are multiple reasons for the possibility of a metabolic encephalopathy. It looks like she will have a urinary tract infection and that she was dehydrated. These physiologic stressors can make underlying dementia much worse as well. It is likely that the fractured ankle has contributed to some blade changer the last several days. 04/09/2020 The patient may have underlying dementia but a urinary tract infection as well as dehydration certainly could have caused them transient metabolic encephalopathy. She appears to be clearing. 04/10/2020 Appears to be back at baseline. 04/11/2020 Resolved. Patient is at baseline. 04/14/2020-alert awake communicating well not in distress. Metabolic and colopathy resolved. (9) Liver mass Is this a current diagnosis for this admission?: No Plan: 04/08/2020 Recent biopsy did not show malignancy however this could be sampling error. The patient is scheduled for follow-up with Dr. Carvajal. CT scan of the head did not reveal any space-occupying lesions to suggest metastases. 04/09/[address] Carvajal as previously scheduled 04/10/2020 Pending further treatment as an outpatient
[2020-04-15] MEDS: LOSARTAN POTASSIUM 50 MG TABLET PO SCH (11:36)
[2020-04-15] MEDS: CHOLECALCIFEROL (D3) 1,000 UNIT (25 MCG) TABLET PO SCH (11:37)
[2020-04-15] MEDS: CALCIUM CARBONATE 600 MG TABLET PO SCH (11:37)
[2020-04-15] MEDS: HYDROCHLOROTHIAZIDE 12.5 MG TABLET PO SCH (11:37)
[2020-04-15] MEDS: MULTIVITAMIN TABLET PO SCH (11:37)
[2020-04-15] MEDS: FERROUS SULFATE 325 MG TABLET PO SCH ×2 (11:37→17:00)
[2020-04-15] MEDS: POTASSIUM CHLORIDE 10 MEQ TABLET.ER PO SCH ×2 (11:38→17:00)
[2020-04-15] MEDS: VENLAFAXINE HCL 37.5 MG CAP.SR.24H PO SCH ×2 (11:38→22:42)
[2020-04-15] MEDS: PIOGLITAZONE HCL 30 MG TABLET PO SCH (11:38)
[2020-04-15] MEDS: NORMAL SALINE 1000 ML 1,000 ML IV PRN (11:43)
[2020-04-15] MEDS: LORAZEPAM 1 MG TABLET PO PRN ×3 (13:55→22:43)
--- NOTE | 2020-04-15 15:28 | PDOC PROGRESS REPORT ---
Subjective Progress Note for:: 04/15/20 Subjective:: Patient is doing well today. No acute events overnight. No new symptoms. Reason For Visit: TRIMALLEOLAR FRACTURE LEFT ANKLE,DEMENTIA,LIVER Physical Exam Vital Signs: Temp Pulse Resp BP Pulse Ox 98.3 F 109 H 16 126/65 H 95 04/15/20 11:46 04/15/20 11:46 04/15/20 11:46 04/15/20 11:46 04/15/20 11:46 Intake & Output 04/14/20 04/15/20 04/16/20 06:59 06:59 06:59 Intake Total 2805 3335 1260 Balance 2805 3335 1260 Weight 72.3 kg 72.3 kg Physical Exam: No acute distress, alert and oriented x3 Left lower extremity -Sensation and motor function are grossly intact to the foot. Dressings are clean dry and intact. Delta frame is secure. Capillary refill is less than 2 seconds. -Calf is soft nontender -Dressings were removed today the incisions are clean dry and intact. The medial skin appears healthy enough at this point to proceed with open reduction internal fixation tomorrow. Results Laboratory Results: 04/14/20 06:15 04/14/20 06:15 Impressions: Lower Extremity CT 04/08/20 00:00 IMPRESSION: Trimalleolar ankle fracture. Head CT 04/08/20 11:34 IMPRESSION: Involutional changes with mild chronic microvascular ischemia. No acute intracranial imaging findings. EVIDENCE OF ACUTE STROKE: NO. Knee X-Ray 04/08/20 11:34 IMPRESSION: There is slight narrowing of the medial joint compartment. No acute abnormality is present. Ankle X-Ray 04/09/20 00:00 IMPRESSION: IMAGE(S) OBTAINED DURING PROCEDURE. Fluoroscopy 04/09/20 00:00 IMPRESSION: IMAGE(S) OBTAINED DURING PROCEDURE. Assessment & Plan - Diagnosis (1) Closed trimalleolar fracture of left ankle Qualifiers: Encounter type: initial encounter Qualified Code(s): S82.852A - Displaced trimalleolar fracture of left lower leg, initial encounter for closed fracture Is this a current diagnosis for this admission?: Yes Plan: Plan for definitive ORIF tomorrow in conjunction with removal of external fixator. -Keep n.p.o. at midnight tonight -Hold all chemical DVT prophylaxis at midnight -Ancef 2 g on-call for the operating room -Nonweightbearing left lower extremity - Time Time Spent with patient: Less than 15 minutes
[2020-04-15] MEDS: INSULIN GLARGINE,HUM.REC.ANLOG 1,000 UNIT/10 ML VIAL SUBCUT SCH (22:43)
[2020-04-15] MEDS: ATORVASTATIN CALCIUM 20 MG TABLET PO SCH (22:44)
[2020-04-15] MEDS: QUETIAPINE FUMARATE 100 MG TABLET PO SCH (22:44)
[2020-04-16] MEDS: NORMAL SALINE 1000 ML 1,000 ML IV PRN ×2 (02:16→20:52)
[2020-04-16] MEDS: HEPARIN SOD (PORCINE) 5,000 UNIT/ML 1 ML VIAL SUBCUT SCH ×3 (05:22→21:25)
[2020-04-16] MEDS: HYDROCODONE/ACETAMINOPHEN 7.5-325 MG TABLET PO PRN ×2 (05:23→18:32)
[2020-04-16] MEDS: PANTOPRAZOLE SODIUM 40 MG TABLET.DR PO SCH (05:23)
[2020-04-16 06:05] LABS: ABSOLUTE EOSINOPHILS # (AUTO) 0.1 10^3/uL (0.0-0.6); ABSOLUTE LYMPHOCYTES (AUTO) 0.8 10^3/uL (0.5-4.7); ABSOLUTE MONOCYTES (AUTO) 0.5 10^3/uL (0.1-1.4); ABSOLUTE NEUT (AUTO) 3.7 10^3/uL (1.7-8.2); BASOPHILS % (AUTO) 0.9 % (0-2); EOSINOPHILS % (AUTO) 1.8 % (0-6); HEMATOCRIT 28.2 % (36.0-47.0); HEMOGLOBIN 9.5 g/dL (12.0-15.5); LYMPHOCYTES % (AUTO) 15.6 % (13-45); MEAN CORPUSCULAR HEMOGLOBIN 26.9 pg (27.0-33.4); MEAN CORPUSCULAR HGB CONC 33.7 g/dL (32.0-36.0); MEAN CORPUSCULAR VOLUME 80 fl (80-97); MONOCYTES % (AUTO) 8.8 % (3-13); PLATELET COUNT 291 10^3/uL (150-450); RED BLOOD COUNT 3.52 10^6/uL (3.72-5.28); RED CELL DISTRIBUTION WIDTH 16.4 % (11.5-14.0); SEGMENTED NEUTROPHILS % (AUTO) 72.9 % (42-78); TOTAL CELLS COUNTED % (AUTO) 100 %; WHITE BLOOD COUNT 5.1 10^3/uL (4.0-10.5)
[2020-04-16 06:29] LABS: ALBUMIN 2.9 g/dL (3.5-5.0); ALKALINE PHOSPHATASE 131 U/L (38-126); ANION GAP 7 (5-19); ASPARTATE AMINO TRANSFERASE 35 U/L (14-36); BILIRUBIN,TOTAL 0.4 mg/dL (0.2-1.3); BLOOD UREA NITROGEN 5 mg/dL (7-20); CALCIUM 9.5 mg/dL (8.4-10.2); CARBON DIOXIDE 20 mmol/L (22-30); CHLORIDE 110 mmol/L (98-107); GLUCOSE 107 mg/dL (75-110); POTASSIUM 4.2 mmol/L (3.6-5.0)
[2020-04-16] MEDS: INSULIN REG, HUMAN 100 UNIT/ML 3 ML VIAL (PYX) SUBCUT SCH ×4 (08:33→21:25)
[2020-04-16] MEDS: MAGNESIUM OXIDE 400 MG TABLET PO SCH ×3 (08:43→18:32)
[2020-04-16] MEDS: QUETIAPINE FUMARATE 25 MG TABLET PO SCH (08:44)
[2020-04-16] MEDS: LORAZEPAM 1 MG TABLET PO PRN ×2 (08:54→18:34)
[2020-04-16 09:32] LABS: INTERNATIONAL RATION (INR) 1.05; PROTHROMBIN TIME 13.7 SEC (11.4-15.4)
[2020-04-16] MEDS ORDERED: PHENYLEPHRINE HCL INJ/PF 10 MG/1 ML SDV ONE (10:55)
[2020-04-16] MEDS ORDERED: SUCCINYLCHOLINE CHLORIDE INJ 200 MG/10 ML VIAL ONE (10:55)
[2020-04-16] MEDS ORDERED: ROCURONIUM BROMIDE INJ 50 MG/5 ML VIAL IV ONE (10:55)
--- NOTE | 2020-04-16 11:13 | PDOC PROGRESS REPORT ---
Subjective Progress Note for:: 04/16/20 Subjective:: 74 year old female who fell at home 5 days ago and fractured her left ankle. She has a trimalleolar fracture. She refused to go to the hospital. She recently had a right wrist fracture from a fall. The patient has been experiencing multiple falls recently. She has a past medical history of hypertension and diabetes. She has a history of breast cancer and is currently being worked up for a mass in the liver. Dementia is a relatively new diagnosis. Because she refused to go to the hospital for the fracture and because of some behavioral issues her son evidently filed a restraining order according to the patient. It was more likely a guardianship to force her to go to the hospital to seek care. Dr. Solitario is seeing the patient for the fracture. He is the one who treated her right wrist fracture. She was found to be hyperglycemic and hyponatremic. Dr. Solitario plans on installing of an external fixator tomorrow so she will be n.p.o. after midnight. She will be admitted to the hospitalist service with orthopedic surgery consulting. Psychiatry did see the patient in the emergency department. 04/13/20-no acute events in the last 24 hours. Patient has external fixator for left ankle fracture. Dr. Solitario saw the patient today he plan to do the second stage internal fixation and reduction next week. He thinks patient can be discharged with a splint. He also plans to remove the external fixator. Was the Melanie comes from the long-term [facility] facility patient will be discharged. 04/14/20-no acute events the last 24 hours. Vital signs are stable. Dr. Solitario plan to remove external fixator on Sunday. Patient is comfortably in the bed communicating well. 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 Solitario is planning to remove the external fixator and to arrange for a splint. No acute events in the last 24 hours. Afebrile. Comfortable in the bed communicating well. 04/16/2020-patient is going for ORIF after removal of the external fixator. Received preop dose of Ancef. Acute events in the last 24 hours. Afebrile. Reason For Visit: TRIMALLEOLAR FRACTURE LEFT ANKLE,DEMENTIA,LIVER Physical Exam Vital Signs: Temp Pulse Resp BP Pulse Ox 98.0 F 106 H 16 128/63 H 95 04/16/20 10:33 04/16/20 10:33 04/16/20 10:33 04/16/20 10:33 04/16/20 10:33 Intake & Output 04/15/20 04/16/20 04/17/20 06:59 06:59 06:59 Intake Total 3335 2780 Balance 3335 2780 Weight 72.3 kg 72.3 kg General appearance: PRESENT: no acute distress, cooperative, well-developed Head exam: PRESENT: atraumatic Eye exam: PRESENT: PERRLA Ear exam: PRESENT: normal external ear exam Mouth exam: PRESENT: neck supple Teeth exam: PRESENT: poor dentation Neck exam: ABSENT: carotid bruit, JVD, lymphadenopathy, thyromegaly Respiratory exam: PRESENT: decreased breath sounds Cardiovascular exam: PRESENT: RRR. ABSENT: diastolic murmur, rubs, systolic murmur Pulses: PRESENT: normal dorsalis pedis pul GI/Abdominal exam: PRESENT: normal bowel sounds, soft. ABSENT: distended, guarding, mass, organolmegaly, rebound, tenderness Rectal exam: PRESENT: deferred Extremities exam: PRESENT: full ROM. ABSENT: calf tenderness, clubbing, pedal edema Neurological exam: PRESENT: alert, awake, oriented to person, oriented to place, oriented to time, oriented to situation, CN II-XII grossly intact. ABSENT: motor sensory deficit Psychiatric exam: PRESENT: appropriate affect, normal mood. ABSENT: homicidal ideation, suicidal ideation Results Laboratory Results: 04/16/20 04:41 04/16/20 04:41 04/16/20 04/16/20 04:41 04:41 WBC 5.1 RBC 3.52 L Hgb 9.5 L Hct 28.2 L MCV 80 MCH 26.9 L MCHC 33.7 RDW 16.4 H Plt Count 291 Seg Neutrophils % 72.9 Sodium 137.3 Potassium 4.2 Chloride 110 H Carbon Dioxide 20 L Anion Gap 7 BUN 5 L Creatinine 0.54 Est GFR ( Amer) > 60 Glucose 107 Calcium 9.5 Magnesium 1.7 Total Bilirubin 0.4 AST 35 Alkaline Phosphatase 131 H Total Protein 6.0 L Albumin 2.9 L Impressions: Lower Extremity CT 04/08/20 00:00 IMPRESSION: Trimalleolar ankle fracture. Head CT 04/08/20 11:34 IMPRESSION: Involutional changes with mild chronic microvascular ischemia. No acute intracranial imaging findings. EVIDENCE OF ACUTE STROKE: NO. Knee X-Ray 04/08/20 11:34 IMPRESSION: There is slight narrowing of the medial joint compartment. No acute abnormality is present. Ankle X-Ray 04/09/20 00:00 IMPRESSION: IMAGE(S) OBTAINED DURING PROCEDURE. Fluoroscopy 04/09/20 00:00 IMPRESSION: IMAGE(S) OBTAINED DURING PROCEDURE. Assessment and Plan - Diagnosis (1) Closed trimalleolar fracture of left ankle Qualifiers: Encounter type: initial encounter Qualified Code(s): S82.852A - Displaced trimalleolar fracture of left lower leg, initial encounter for closed fracture Is this a current diagnosis for this admission?: Yes Plan: 04/08/2020 Temporarily reduced in the emergency department by Dr. Solitario. He is planning on placing an external fixator tomorrow. The patient will be n.p.o. after midnight. 04/09/2020 The patient will be going to the OR shortly for external fixator on the left leg 04/10/2020 External fixator placed yesterday. Physical therapy will be seeing the patient today. 04/11/2020 External fixator stable. Physical therapy with transfer to prison for additional therapy and strengthening 04/12/2020 I placed a physical therapy consult. The patient will need to adjust to the external fixator. She will need physical therapy at prison for less than 30 days. 04/13/20-physical therapy is working with the patient. As per Ortho external fixator will be removed. Patient can be discharged to long-term care facility with the splint as per the Ortho team. Plan is to arrange for a second stage internal fixation and reduction of the left ankle fracture next week. 04/14/2020-Dr. Solitario is planning to remove external fixator on Sunday. Plan is to discharge her with a splint after the removal of the external fixator.. 04/15/20-patient has external fixator for a trimalleolar fracture she is going for removal of the fixator and splint placement tomorrow. 04/16/2020 patient is going for ORIF for a left ankle trimalleolar fracture. Patient has external fixator at this time which is going to be removed. 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 Accu-Cheks before meals and at bedtime. Adjustments will be made based on the sliding scale requirements. She will be on a diabetic control carbohydrate diet 04/09/2020 I purposely give her a small dose of Lantus last night in anticipation of n.p.o. status and surgery today. Starting tonight she will have a larger dose but not yet her home dose as I do not know what her appetite of the postoperatively. She will continue sliding scale with her Accu-Cheks. 04/10/2020 All Accu-Cheks less than 200. After today I will consider adjusting her insulin to shoot for Accu-Cheks less than 150. 04/11/2020 Majority of Accu-Cheks now below 150. Continue current regimen. 04/12/2020 Continue current regimen. Reasonable control at this time. 04/14/2020-the blood sugars are 111 today. Stable. 04/15/2020-blood sugar today is 108. Stable. Plan is to continue insulin sliding scale before meals and at bedtime. (3) Hyponatremia Is this a current diagnosis for this admission?: Yes Plan: 04/08/2020 Possibly chronic. Will monitor closely with laboratory studies. Partly decreased due to elevated glucose. 04/09/2020 Her serum sodium is normal. We will continue gentle IV fluids and monitor. 04/10/2020 Serum sodium just below the normal range at 134.4. Not clinically significant however will monitor closely. 04/11/2020 Serum sodium has been stable at 2 to 3 millimoles per liter below the lower limit normal. 04/12/2020 Sodium 134. This appears to be her normal range. No acute intervention. 04/14/2020-serum sodium is 137 today. Hyponatremia is resolving. 04/16/2020-serum sodium is 137 hyponatremia is resolved. (4) Urinary tract infection Qualifiers: Urinary tract infection type: acute cystitis Is this a current diagnosis for this admission?: Yes Plan: 04/08/2020 Urinalysis was markedly positive but no culture was ordered. I ordered a culture and then will start the patient on antibiotics. I have also ordered blood cultures. 04/09/2020 2 gram-negative bacilli identified. Continue Rocephin until identification and sensitivities are available. 04/10/2020 Continue Rocephin. No final identification and sensitivities on the 2 gram- negative bacilli identified 04/11/2020 Pansensitive E. coli and Klebsiella isolated from the urine. As the patient is on Ancef for the orthopedic surgery I will discontinue the ceftriaxone. 04/12/2020 Complete Ancef as ordered 04/13/20-urine culture is positive for E. coli and Klebsiella. Patient is on Ancef. Plan is to continue the antibiotic therapy at this time. 04/14/2020-urine culture is positive for E. coli and Klebsiella. Plan is to continue Ancef at this time. 04/15/20-patient is on IV Ancef for urine culture that was positive for E. coli and Klebsiella. 04/16/20-urine culture is positive for E. coli and Klebsiella completed antibiotic therapy. (5) Dementia Qualifiers: Dementia type: vascular dementia Is this a current diagnosis for this admission?: Yes Plan: 04/08/2020 The patient is quite pleasant at this time. There are obvious memory lapses. The CT scan shows diffuse microvascular changes. Reports are that she was more confused earlier and this could be related to pain but also it looks like there might be a urinary infection as well. Supportive care for now. 04/09/2020 She has actually been quite appropriate. I am wondering if the urinary tract infection had caused significant decompensation. We will monitor closely. 04/09/2020 Once again she is appropriate this morning. Her affect is a sitter but the s itter reports that she has not been agitated today. 04/11/2020 Stable and at baseline 04/12/2020 At baseline. IVC rescinded. (6) Anemia Qualifiers: Anemia type: unspecified type Qualified Code(s): D64.9 - Anemia, unspecified Is this a current diagnosis for this admission?: No Plan: 04/08/2020 Possibly anemia of chronic disease. Will check anemia studies. Monitor hemoglo bin closely. 04/09/2020 We will monitor. Multivitamin and iron supplement started. 04/10/2020 Hemoglobin dropped. This was likely from surgery. I will increase the ferrous sulfate to twice daily. Consider iron studies. 04/11/2020 Ferrous sulfate is now twice a day. Hemoglobin has not dropped anymore. It should begin to increase soon. 04/12/2020 Hemoglobin unchanged from yesterday. Continue supplements. 04/14/2020-hemoglobin today is 8.7. Stable. Plan is to continue to closely monitor the hemoglobin. 04/16/2020-hemoglobin is 9.5 today stable. (7) Frequent falls Is this a current diagnosis for this admission?: Yes Plan: 04/08/2020 Due to the fracture he will be difficult to have aggressive physical therapy. The patient would benefit from transfer to a prison facility after discharge where they can work on muscle recovery and eventually mobility. If these falls were just recent it could be contributed to dehydration, possible urinary infection and neurodegenerative disease. Evidently she has been falling for at least several months. 04/09/2020 Physical therapy will see the patient likely tomorrow as she is having surgery today. 04/10/2020 Physical therapy assessment and likely ongoing therapy at a skilled facility due to the ankle fracture. 04/11/2020 Poor balance is likely multifactorial. Aggressive physical therapy should be effective in decreasing falls with improved balance. 04/12/2020 Short-term physical therapy (8) Metabolic encephalopathy Is this a current diagnosis for this admission?: Yes Plan: There are multiple reasons for the possibility of a metabolic encephalopathy. It looks like she will have a urinary tract infection and that she was dehydrated. These physiologic stressors can make underlying dementia much worse as well. 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 04/09/2020 The patient may have underlying dementia but a urinary tract infection as well as dehydration certainly could have caused them transient metabolic encephalopathy. She appears to be clearing. 04/10/2020 Appears to be back at baseline. 04/11/2020 Resolved. Patient is at baseline. 04/14/2020-alert awake communicating well not in distress. Metabolic and colopathy resolved. (9) Liver mass Is this a current diagnosis for this admission?: No Plan: 04/08/2020 Recent biopsy did not show malignancy however this could be sampling error. The patient is scheduled for follow-up with Dr. Carvajal. CT scan of the head did not reveal any space-occupying lesions to suggest metastases. 04/09/[address] Carvajal as previously scheduled 04/10/2020 Pending further treatment as an outpatient
[2020-04-16] MEDS: FERROUS SULFATE 325 MG TABLET PO SCH ×2 (11:48→18:32)
[2020-04-16] MEDS: PIOGLITAZONE HCL 30 MG TABLET PO SCH (11:48)
[2020-04-16] MEDS: CALCIUM CARBONATE 600 MG TABLET PO SCH (11:48)
[2020-04-16] MEDS: LOSARTAN POTASSIUM 50 MG TABLET PO SCH (11:48)
[2020-04-16] MEDS: VENLAFAXINE HCL 37.5 MG CAP.SR.24H PO SCH ×2 (11:48→21:27)
[2020-04-16] MEDS: POTASSIUM CHLORIDE 10 MEQ TABLET.ER PO SCH ×2 (11:49→18:33)
[2020-04-16] MEDS: MULTIVITAMIN TABLET PO SCH (11:49)
[2020-04-16] MEDS: CHOLECALCIFEROL (D3) 1,000 UNIT (25 MCG) TABLET PO SCH (11:49)
[2020-04-16] MEDS: HYDROCHLOROTHIAZIDE 12.5 MG TABLET PO SCH (11:49)
[2020-04-16] MEDS ORDERED: BUPIVACAINE HCL 0.5 % INJ/PF 30 ML SDV ONE (14:27)
[2020-04-16] MEDS ORDERED: LIDOCAINE 1% INJ-PF (10 MG/ML) 30 ML SDV ONE (14:27)
[2020-04-16] MEDS ORDERED: CEFAZOLIN INJ 1 GM VIAL ONE (15:16)
[2020-04-16] MEDS ORDERED: ONDANSETRON HCL INJ/PF 4 MG/2 ML SDV IV PRN (15:36)
[2020-04-16] MEDS ORDERED: DIPHENHYDRAMINE HCL 50 MG/ML VIAL IV PRN (15:36)
[2020-04-16] MEDS ORDERED: FENTANYL CITRATE INJ/PF 100 MCG/2 ML AMPUL IV PRN ×3 (15:36)
[2020-04-16] MEDS ORDERED: MEPERIDINE HCL/PF INJ 25 MG/1 ML DISP.SYRIN IV PRN (15:36)
[2020-04-16] MEDS ORDERED: PROMETHAZINE HCL INJ 25 MG/1 ML VIAL IV PRN ×2 (15:36)
[2020-04-16] MEDS ORDERED: OXYCODONE-ACETAMINOPHEN 5-325 MG TABLET PO PRN ×2 (15:36)
[2020-04-16] MEDS ORDERED: MORPHINE SULFATE 10 MG/ML INJ IV PRN (15:36)
[2020-04-16] MEDS ORDERED: DEXMEDETOMIDINE INJ 80 MCG/20 ML VIAL IV ONE (15:54)
--- NOTE | 2020-04-16 16:41 | RADIOLOGY REPORT (SQ) ---
EXAM DESCRIPTION: ANKLE RIGHT COMPLETE IMAGES COMPLETED DATE/TIME: 04/16/2020 4:29 pm REASON FOR STUDY: ORIF RT ANKLE COMPARISON: None. FLUOROSCOPY TIME: 0.8 minutes 5 images saved to PACS. TECHNIQUE: Intra-operative images acquired during surgical procedure to evaluate progress. NUMBER OF IMAGES: 5 LIMITATIONS: None. FINDINGS: 5 intraoperative fluoroscopic spot images were obtained over the course of apparent open r eduction, internal fixation of the ankle. Images are submitted for administrative purposes only. Pl ease refer to the operative report for full details regarding this examination. IMPRESSION: IMAGE(S) OBTAINED DURING PROCEDURE. COMMENT: Quality ID [id number]: Final reports for procedures using fluoroscopy that document radiation exp osure indices, or exposure time and number of fluorographic images (if radiation exposure indices are not available) Please consult full operative report of the attending physician for description of the procedure. TECHNICAL DOCUMENTATION: JOB ID: [id number] 2010 [employer]- All Rights Reserved Reading location - IP/workstation name: [email or web address]
--- NOTE | 2020-04-16 18:51 | RADIOLOGY REPORT (SQ) ---
EXAM DESCRIPTION: NO CHG FLUORO IMAGES COMPLETED DATE/TIME: 04/16/2020 4:29 pm REASON FOR STUDY: ORIF RT ANKLE COMPARISON: None. FLUOROSCOPY TIME: 0.8 minutes LIMITATIONS: None. PROCEDURE: ORIF right ankle FINDINGS: Fluoro which used to assist in the procedure. IMPRESSION: Fluoro which used to assist in the procedure. Refer to operative note for further infor mation. COMMENT: PQRS [id number]: Fluoroscopy time of the procedure is documented in the report. TECHNICAL DOCUMENTATION: JOB ID: [id number] 2010 [employer]- All Rights Reserved Reading location - IP/workstation name: [email or web address]
--- NOTE | 2020-04-16 20:23 | Operative Report ---
Operative Report DATE OF SURGERY: 04/16/20 PREOPERATIVE DIAGNOSIS: Left trimalleolar ankle fracture POSTOPERATIVE DIAGNOSIS: Left trimalleolar ankle fracture OPERATION: Left ankle open reduction, internal fixation, removal of external fixator. SURGEON: WENDI RUEDA JR ANESTHESIA: GA COMPLICATIONS: None ESTIMATED BLOOD LOSS: 10cc PROCEDURE: The patient was brought to the operating suite and laid supine on the operating table. 2 g Ancef were provided preoperatively. Patient was placed under general anesthesia. After adequate anesthesia the left lower extremity was then prepped and draped in standard sterile fashion. Betadine solution was used over the entirety of the external fixator frame and pin sites. Fluoroscopy was brought into the case to evaluate fracture reduction and operative procedure throughout. The first metatarsal pin and bar were removed in order to obtain adequate exposure to the medial malleolus. The remainder of the external fixator frame was loosened in order to achieve near anatomic reduction of the medial malleolus. This was resecured and a percutaneous technique was used to place 2 screws into the medial malleolus. 2 small incisions were made over the medial malleolus followed by K wires to achieve stability of the fracture fragment in near-anatomic position. Following this the K wire depth was measured and the position was checked under fluoroscopy. Self-tapping screws were utilized over the K wires with washers. Following this the external fixator was then completely removed. We then turned our attention to the lateral fibula. Rotation stress test was performed that showed the syndesmosis to be grossly inadequate. We then made an incision to the fibula at the level of the fracture site followed by the application of a straight plate. This needed to be bent in order to achieve bony approximation. Reduction was obtained under direct visualization and proximal screws were placed followed by a distal screw. After securing the plate provisionally with these screws a large reduction forcep was applied to reduce the syndesmosis anatomically. Again this was checked under fluoroscopy. 2 syndesmotic screws were placed Quadra cortically. Again external rotation stress was performed and final fluoroscopy was taken. The wound was then thoroughly irrigated with dilute Betadine solution followed by irrigation of all of the prior pin sites. The pin sites were left open and covered with Xeroform. Stab incisions were some with 3-0 nylon portal stitches. The lateral incision was closed with subcutaneous 3-0 Monocryl to approximate the fascia over the plate. Following this interrupted subcutaneous Monocryl was used followed by a running horizontal mattress 3-0 nylon. Xeroform was placed over the remaining wound sites and a sterile dressing was placed. Following this a well noted splint was applied. The patient was then awakened from anesthesia and transferred to PACU in stable condition.
--- NOTE | 2020-04-16 20:26 | PDOC PROGRESS REPORT ---
Subjective Progress Note for:: 04/16/20 Subjective:: Patient was seen postoperatively. She is doing well and pain is well controlled. She has no new complaints at this time. Reason For Visit: TRIMALLEOLAR FRACTURE LEFT ANKLE,DEMENTIA,LIVER Physical Exam Vital Signs: Temp Pulse Resp BP Pulse Ox 98.6 F 115 H 16 136/71 H 97 04/16/20 18:30 04/16/20 18:30 04/16/20 18:30 04/16/20 18:30 04/16/20 18:30 Intake & Output 04/15/20 04/16/20 04/17/20 06:59 06:59 06:59 Intake Total 3335 2780 1350 Output Total 5 Balance 3335 2780 1345 Weight 72.3 kg 72.3 kg Physical Exam: No acute distress, alert and oriented x3. Extremity. Well-placed and well molded splint. Clean dry and intact. Left lower extremity is neurovascular intact. Capillary refill less than 2 seconds. Sensation and motor function to all visible toes is present. Results Laboratory Results: 04/16/20 04:41 04/16/20 04:41 04/16/20 04/16/20 04:41 04:41 WBC 5.1 RBC 3.52 L Hgb 9.5 L Hct 28.2 L MCV 80 MCH 26.9 L MCHC 33.7 RDW 16.4 H Plt Count 291 Seg Neutrophils % 72.9 Sodium 137.3 Potassium 4.2 Chloride 110 H Carbon Dioxide 20 L Anion Gap 7 BUN 5 L Creatinine 0.54 Est GFR ( Amer) > 60 Glucose 107 Calcium 9.5 Magnesium 1.7 Total Bilirubin 0.4 AST 35 Alkaline Phosphatase 131 H Total Protein 6.0 L Albumin 2.9 L Impressions: Lower Extremity CT 04/08/20 00:00 IMPRESSION: Trimalleolar ankle fracture. Head CT 04/08/20 11:34 IMPRESSION: Involutional changes with mild chronic microvascular ischemia. No acute intracranial imaging findings. EVIDENCE OF ACUTE STROKE: NO. Knee X-Ray 04/08/20 11:34 IMPRESSION: There is slight narrowing of the medial joint compartment. No acute abnormality is present. Ankle X-Ray 04/16/20 00:00 IMPRESSION: IMAGE(S) OBTAINED DURING PROCEDURE. Fluoroscopy 04/16/20 00:00 IMPRESSION: Fluoro which used to assist in the procedure. Refer to operative note for further information. Assessment & Plan - Diagnosis (1) Closed trimalleolar fracture of left ankle Qualifiers: Encounter type: initial encounter Qualified Code(s): S82.852A - Displaced trimalleolar fracture of left lower leg, initial encounter for closed fracture Is this a current diagnosis for this admission?: Yes Plan: 2 g of Ancef postoperatively x24 hours. Nonweightbearing left lower extremity DVT prophylaxis per primary provider. Follow-up in my office in 10 to 14 days for suture removal and reevaluation. Conservative pain management including limited narcotics. Encourage elevation o f the left lower extremity - Time Time Spent with patient: Less than 15 minutes
[2020-04-16] MEDS ORDERED: CEFAZOLIN 2 GM/D5W RTU 2 GM/50 ML RTUPB IV SCH (21:17)
[2020-04-16] MEDS: INSULIN GLARGINE,HUM.REC.ANLOG 1,000 UNIT/10 ML VIAL SUBCUT SCH (21:24)
[2020-04-16] MEDS: QUETIAPINE FUMARATE 100 MG TABLET PO SCH (21:25)
[2020-04-16] MEDS: ATORVASTATIN CALCIUM 20 MG TABLET PO SCH (21:25)
[2020-04-17] MEDS: MORPHINE SULFATE 10 MG/ML INJ IV PRN ×3 (00:50→17:45)
[2020-04-17] MEDS: CEFAZOLIN SODIUM 2 GM in DEXTROSE 5%-WATER 100 ML IV SCH ×5 (00:51→23:55)
[2020-04-17] MEDS: HYDROCODONE/ACETAMINOPHEN 7.5-325 MG TABLET PO PRN ×3 (03:31→20:27)
[2020-04-17] MEDS: HEPARIN SOD (PORCINE) 5,000 UNIT/ML 1 ML VIAL SUBCUT SCH ×3 (06:40→22:01)
[2020-04-17] MEDS: PANTOPRAZOLE SODIUM 40 MG TABLET.DR PO SCH (06:41)
[2020-04-17] MEDS: INSULIN REG, HUMAN 100 UNIT/ML 3 ML VIAL (PYX) SUBCUT SCH ×4 (07:42→22:03)
[2020-04-17] MEDS: MAGNESIUM OXIDE 400 MG TABLET PO SCH ×3 (07:42→17:37)
[2020-04-17] MEDS: QUETIAPINE FUMARATE 25 MG TABLET PO SCH (07:43)
[2020-04-17 08:15] LABS: ABSOLUTE LYMPHOCYTES (AUTO) 0.5 10^3/uL (0.5-4.7); ABSOLUTE MONOCYTES (AUTO) 0.6 10^3/uL (0.1-1.4); ABSOLUTE NEUT (AUTO) 6.2 10^3/uL (1.7-8.2); BASOPHILS % (AUTO) 0.4 % (0-2); HEMATOCRIT 25.4 % (36.0-47.0); HEMOGLOBIN 8.3 g/dL (12.0-15.5); LYMPHOCYTES % (AUTO) 6.4 % (13-45); MEAN CORPUSCULAR HEMOGLOBIN 26.6 pg (27.0-33.4); MEAN CORPUSCULAR HGB CONC 32.8 g/dL (32.0-36.0); MEAN CORPUSCULAR VOLUME 81 fl (80-97); MONOCYTES % (AUTO) 8.5 % (3-13); PLATELET COUNT 282 10^3/uL (150-450); RED BLOOD COUNT 3.13 10^6/uL (3.72-5.28); RED CELL DISTRIBUTION WIDTH 16.5 % (11.5-14.0); SEGMENTED NEUTROPHILS % (AUTO) 84.7 % (42-78); TOTAL CELLS COUNTED % (AUTO) 100 %; WHITE BLOOD COUNT 7.3 10^3/uL (4.0-10.5)
[2020-04-17 08:37] LABS: ALBUMIN 2.6 g/dL (3.5-5.0); ALKALINE PHOSPHATASE 104 U/L (38-126); ANION GAP 5 (5-19); ASPARTATE AMINO TRANSFERASE 29 U/L (14-36); BILIRUBIN,TOTAL 0.2 mg/dL (0.2-1.3); BLOOD UREA NITROGEN 5 mg/dL (7-20); CALCIUM 7.7 mg/dL (8.4-10.2); CARBON DIOXIDE 21 mmol/L (22-30); CHLORIDE 110 mmol/L (98-107); GLUCOSE 189 mg/dL (75-110); POTASSIUM 3.9 mmol/L (3.6-5.0); TOTAL PROTEIN 5.3 g/dL (6.3-8.2)
[2020-04-17] MEDS: FERROUS SULFATE 325 MG TABLET PO SCH ×2 (09:18→17:37)
[2020-04-17] MEDS: HYDROCHLOROTHIAZIDE 12.5 MG TABLET PO SCH (09:18)
[2020-04-17] MEDS: MULTIVITAMIN TABLET PO SCH (09:18)
[2020-04-17] MEDS: VENLAFAXINE HCL 37.5 MG CAP.SR.24H PO SCH ×2 (09:19→22:02)
[2020-04-17] MEDS: LOSARTAN POTASSIUM 50 MG TABLET PO SCH (09:19)
[2020-04-17] MEDS: CALCIUM CARBONATE 600 MG TABLET PO SCH (09:19)
[2020-04-17] MEDS: CHOLECALCIFEROL (D3) 1,000 UNIT (25 MCG) TABLET PO SCH (09:19)
[2020-04-17] MEDS: POTASSIUM CHLORIDE 10 MEQ TABLET.ER PO SCH ×2 (09:19→17:37)
[2020-04-17] MEDS: PIOGLITAZONE HCL 30 MG TABLET PO SCH (09:19)
--- NOTE | 2020-04-17 09:21 | RADIOLOGY REPORT (SQ) ---
EXAM DESCRIPTION: ANKLE LEFT AP/LATERAL; NO CHG FLUORO IMAGES COMPLETED DATE/TIME: 04/17/2020 8:57 am REASON FOR STUDY: LEFT ANKLE ORIF COMPARISON: 04/08/2020 FLUOROSCOPY TIME: 1.1 minute 11 images saved to PACS. TECHNIQUE: Intra-operative images acquired during surgical procedure to evaluate progress. NUMBER OF IMAGES: 11 LIMITATIONS: None. FINDINGS: Internal fixation with screws IMPRESSION: IMAGE(S) OBTAINED DURING PROCEDURE. COMMENT: Quality ID 145: Final reports for procedures using fluoroscopy that document radiation exp osure indices, or exposure time and number of fluorographic images (if radiation exposure indices are not available) Please consult full operative report of the attending physician for description of the procedure. TECHNICAL DOCUMENTATION: JOB ID: [id number] 2010 [employer]- All Rights Reserved Reading location - IP/workstation name: [email or web address]
--- NOTE | 2020-04-17 09:21 | RADIOLOGY REPORT (SQ) ---
EXAM DESCRIPTION: ANKLE LEFT AP/LATERAL; NO CHG FLUORO IMAGES COMPLETED DATE/TIME: 04/17/2020 8:57 am REASON FOR STUDY: LEFT ANKLE ORIF COMPARISON: 04/08/2020 FLUOROSCOPY TIME: 1.1 minute 11 images saved to PACS. TECHNIQUE: Intra-operative images acquired during surgical procedure to evaluate progress. NUMBER OF IMAGES: 11 LIMITATIONS: None. FINDINGS: Internal fixation with screws IMPRESSION: IMAGE(S) OBTAINED DURING PROCEDURE. COMMENT: Quality ID 145: Final reports for procedures using fluoroscopy that document radiation exp osure indices, or exposure time and number of fluorographic images (if radiation exposure indices are not available) Please consult full operative report of the attending physician for description of the procedure. TECHNICAL DOCUMENTATION: JOB ID: [id number] 2010 [employer]- All Rights Reserved Reading location - IP/workstation name: [email or web address]
--- NOTE | 2020-04-17 09:22 | PDOC PROGRESS REPORT ---
Subjective Progress Note for:: 04/17/20 Subjective:: 74 year old female who fell at home 5 days ago and fractured her left ankle. She has a trimalleolar fracture. She refused to go to the hospital. She recently had a right wrist fracture from a fall. The patient has been experiencing multiple falls recently. She has a past medical history of hypertension and diabetes. She has a history of breast cancer and is currently being worked up for a mass in the liver. Dementia is a relatively new diagnosis. Because she refused to go to the hospital for the fracture and because of some behavioral issues her son evidently filed a restraining order according to the patient. It was more likely a guardianship to force her to go to the hospital to seek care. Dr. Solitario is seeing the patient for the fracture. He is the one who treated her right wrist fracture. She was found to be hyperglycemic and hyponatremic. Dr. Solitario plans on installing of an external fixator tomorrow so she will be n.p.o. after midnight. She will be admitted to the hospitalist service with orthopedic surgery consulting. Psychiatry did see the patient in the emergency department. 04/13/20-no acute events in the last 24 hours. Patient has external fixator for left ankle fracture. Dr. Solitario saw the patient today he plan to do the second stage internal fixation and reduction next week. He thinks patient can be discharged with a splint. He also plans to remove the external fixator. Was the Melanie comes [facility] the [facility] patient will be discharged. 04/14/20-no acute events the last 24 hours. Vital signs are stable. Dr. Solitario plan to remove external fixator on Sunday. Patient is comfortably in the bed communicating well. 04/15/2020-patient admitted with a left trimalleolar fracture status post market development manager al fixator placed and Dr. Solitario is planning to remove the external fixator and to arrange for a splint. No acute events in the last 24 hours. Afebrile. Comfortable in the bed communicating well. 04/16/2020-patient is going for ORIF after removal of the external fixator. Received preop dose of Ancef. Acute events in the last 24 hours. Afebrile. 04/17/20-patient admitted with a trimalleolar fracture initially placed on external fixator patient went to the OR yesterday and external fixator was removed and open reduction internal fixation was done patient is presently on the splint. Reason For Visit: TRIMALLEOLAR FRACTURE LEFT ANKLE,DEMENTIA,LIVER Physical Exam Vital Signs: Temp Pulse Resp BP Pulse Ox 98.8 F 101 H 16 109/54 L 92 04/17/20 07:33 04/17/20 07:33 04/17/20 07:33 04/17/20 07:33 04/17/20 07:33 Intake & Output 04/16/20 04/17/20 04/18/20 06:59 06:59 06:59 Intake Total 2780 2650 100 Output Total 5 Balance 2780 2645 100 Weight 72.3 kg 68.9 kg General appearance: PRESENT: no acute distress, well-developed Head exam: PRESENT: atraumatic Eye exam: PRESENT: PERRLA Mouth exam: PRESENT: moist, tongue midline Neck exam: ABSENT: carotid bruit, JVD, lymphadenopathy, thyromegaly Respiratory exam: PRESENT: decreased breath sounds Cardiovascular exam: PRESENT: RRR. ABSENT: diastolic murmur, rubs, systolic murmur GI/Abdominal exam: PRESENT: normal bowel sounds, soft. ABSENT: distended, guarding, mass, organolmegaly, rebound, tenderness Rectal exam: PRESENT: deferred Neurological exam: PRESENT: alert, awake, oriented to person, oriented to place, oriented to time, oriented to situation, CN II-XII grossly intact. ABSENT: motor sensory deficit Psychiatric exam: PRESENT: appropriate affect, normal mood. ABSENT: homicidal ideation, suicidal ideation Results Laboratory Results: 04/17/20 08:06 04/17/20 08:06 04/17/20 04/17/20 08:06 08:06 WBC 7.3 RBC 3.13 L Hgb 8.3 L Hct 25.4 L MCV 81 MCH 26.6 L MCHC 32.8 RDW 16.5 H Plt Count 282 Seg Neutrophils % 84.7 H Sodium 136.3 L Potassium 3.9 Chloride 110 H Carbon Dioxide 21 L Anion Gap 5 BUN 5 L Creatinine 0.49 L Est GFR ( Amer) > 60 Glucose 189 H Calcium 7.7 L Magnesium 1.4 L Total Bilirubin 0.2 AST 29 Alkaline Phosphatase 104 Total Protein 5.3 L Albumin 2.6 L Impressions: Lower Extremity CT 04/08/20 00:00 IMPRESSION: Trimalleolar ankle fracture. Head CT 04/08/20 11:34 IMPRESSION: Involutional changes with mild chronic microvascular ischemia. No acute intracranial imaging findings. EVIDENCE OF ACUTE STROKE: NO. Knee X-Ray 04/08/20 11:34 IMPRESSION: There is slight narrowing of the medial joint compartment. No acute abnormality is present. Ankle X-Ray 04/16/20 00:00 IMPRESSION: IMAGE(S) OBTAINED DURING PROCEDURE. Fluoroscopy 04/16/20 00:00 IMPRESSION: Fluoro which used to assist in the procedure. Refer to operative note for further information. Assessment and Plan - Diagnosis (1) Closed trimalleolar fracture of left ankle Qualifiers: Encounter type: initial encounter Qualified Code(s): S82.852A - Displaced trimalleolar fracture of left lower leg, initial encounter for closed fracture Is this a current diagnosis for this admission?: Yes Plan: 04/08/2020 Temporarily reduced in the emergency department by Dr. Solitario. He is planning on placing an external fixator tomorrow. The patient will be n.p.o. after midnight. 04/09/2020 The patient will be going to the OR shortly for external fixator on the left leg 04/10/2020 External fixator placed yesterday. Physical therapy will be seeing the patient today. 04/11/2020 External fixator stable. Physical therapy with transfer to custodial for additional therapy and strengthening 04/12/2020 I placed a physical therapy consult. The patient will need to adjust to the external fixator. She will need physical therapy at custodial for less than 30 days. 04/13/20-physical therapy is working with the patient. As per Ortho external fixator will be removed. Patient can be discharged to long-term care facility with the splint as per the Ortho team. Plan is to arrange for a second stage internal fixation and reduction of the left ankle fracture next week. 04/14/2020-Dr. Solitario is planning to remove external fixator on Sunday. Plan is to discharge her with a splint after the removal of the external fixator.. 04/15/20-patient has external fixator for a trimalleolar fracture she is going for removal of the fixator and splint placement tomorrow. 04/16/2020 patient is going for ORIF for a left ankle trimalleolar fracture. Patient has external fixator at this time which is going to be removed. 04/17/2020-went to the OR yesterday had open reduction and internal fixation of the left ankle fracture on the removal of the external fixator. Patient is presently on the splint. Plan is to continue physical therapy here. 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 Accu-Cheks before meals and at bedtime. Adjustments will be made based on the sliding scale requirements. She will be on a diabetic control carbohydrate diet 04/09/2020 I purposely give her a small dose of Lantus last night in anticipation of n.p.o. status and surgery today. Starting tonight she will have a larger dose but not yet her home dose as I do not know what her appetite of the postoperatively. She will continue sliding scale with her Accu-Cheks. 04/10/2020 All Accu-Cheks less than 200. After today I will consider adjusting her insulin to shoot for Accu-Cheks less than 150. 04/11/2020 Majority of Accu-Cheks now below 150. Continue current regimen. 04/12/2020 Continue current regimen. Reasonable control at this time. 04/14/2020-the blood sugars are 111 today. Stable. 04/15/2020-blood sugar today is 108. Stable. Plan is to continue insulin sliding scale before meals and at bedtime. 04/17/2020-latest blood sugar is 193. Plan is to continue insulin sliding scale before meals and at bedtime. (3) Hyponatremia Is this a current diagnosis for this admission?: Yes Plan: 04/08/2020 Possibly chronic. Will monitor closely with laboratory studies. Partly decreased due to elevated glucose. 04/09/2020 Her serum sodium is normal. We will continue gentle IV fluids and monitor. 04/10/2020 Serum sodium just below the normal range at 134.4. Not clinically significant however will monitor closely. 04/11/2020 Serum sodium has been stable at 2 to 3 millimoles per liter below the lower limit normal. 04/12/2020 Sodium 134. This appears to be her normal range. No acute intervention. 04/14/2020-serum sodium is 137 today. Hyponatremia is resolving. 04/16/2020-serum sodium is 137 hyponatremia is resolved. (4) Urinary tract infection Qualifiers: Urinary tract infection type: acute cystitis Is this a current diagnosis for this admission?: Yes Plan: 04/08/2020 Urinalysis was markedly positive but no culture was ordered. I ordered a culture and then will start the patient on antibiotics. I have also ordered blood cultures. 04/09/2020 2 gram-negative bacilli identified. Continue Rocephin until identification and sensitivities are available. 04/10/2020 Continue Rocephin. No final identification and sensitivities on the 2 gram- negative bacilli identified 04/11/2020 Pansensitive E. coli and Klebsiella isolated from the urine. As the patient is on Ancef for the orthopedic surgery I will discontinue the ceftriaxone. 04/12/2020 Complete Ancef as ordered 04/13/20-urine culture is positive for E. coli and Klebsiella. Patient is on Ancef. Plan is to continue the antibiotic therapy at this time. 04/14/2020-urine culture is positive for E. coli and Klebsiella. Plan is to continue Ancef at this time. 04/15/20-patient is on IV Ancef for urine culture that was positive for E. coli and Klebsiella. 04/16/20-urine culture is positive for E. coli and Klebsiella completed antibiotic therapy. (5) Dementia Qualifiers: Dementia type: vascular dementia Is this a current diagnosis for this admission?: Yes Plan: 04/08/2020 The patient is quite pleasant at this time. There are obvious memory lapses. The CT scan shows diffuse microvascular changes. Reports are that she was more confused earlier and this could be related to pain but also it looks like there might be a urinary infection as well. Supportive care for now. 04/09/2020 She has actually been quite appropriate. I am wondering if the urinary tract infection had caused significant decompensation. We will monitor closely. 04/09/2020 Once again she is appropriate this morning. Her affect is a sitter but the sitter reports that she has not been agitated today. 04/11/2020 Stable and at baseline 04/12/2020 At baseline. IVC rescinded. (6) Anemia Qualifiers: Anemia type: unspecified type Qualified Code(s): D64.9 - Anemia, unspecified Is this a current diagnosis for this admission?: No Plan: 04/08/2020 Possibly anemia of chronic disease. Will check anemia studies. Monitor hemoglobin closely. 04/09/2020 We will monitor. Multivitamin and iron supplement started. 04/10/2020 Hemoglobin dropped. This was likely from surgery. I will increase the ferrous sulfate to twice daily. Consider iron studies. 04/11/2020 Ferrous sulfate is now twice a day. Hemoglobin has not dropped anymore. It should begin to increase soon. 04/12/2020 Hemoglobin unchanged from yesterday. Continue supplements. 04/14/2020-hemoglobin today is 8.7. Stable. Plan is to continue to closely monitor the hemoglobin. 04/16/2020-hemoglobin is 9.5 today stable. (7) Frequent falls Is this a current diagnosis for this admission?: Yes Plan: 04/08/2020 Due to the fracture he will be difficult to have aggressive physical therapy. The patient would benefit from transfer to a custodial facility after discharge where they can work on muscle recovery and eventually mobility. If these falls were just recent it could be contributed to dehydration, possible urinary infection and neurodegenerative disease. Evidently she has been falling for at least several months. 04/09/2020 Physical therapy will see the patient likely tomorrow as she is having surgery today. 04/10/2020 Physical therapy assessment and likely ongoing therapy at a skilled facility due to the ankle fracture. 04/11/2020 Poor balance is likely multifactorial. Aggressive physical therapy should be effective in decreasing falls with improved balance. 04/12/2020 Short-term physical therapy (8) Metabolic encephalopathy Is this a current diagnosis for this admission?: Yes Plan: There are multiple reasons for the possibility of a metabolic encephalopathy. It looks like she will have a urinary tract infection and that she was dehydrated. These physiologic stressors can make underlying dementia much worse as well. It is likely that the fractured ankle has contributed to some change director the last several days. 04/09/2020 The patient may have underlying dementia but a urinary tract infection as well as dehydration certainly could have caused them transient metabolic encephalopathy. She appears to be clearing. 04/10/2020 Appears to be back at baseline. 04/11/2020 Resolved. Patient is at baseline. 04/14/2020-alert awake communicating well not in distress. Metabolic and colopathy resolved. (9) Liver mass Is this a current diagnosis for this admission?: No Plan: 04/08/2020 Recent biopsy did not show malignancy however this could be sampling error. The patient is scheduled for follow-up with Dr. Carvajal. CT scan of the head did not reveal any space-occupying lesions to suggest metastases. 04/09/[address] Carvajal as previously scheduled 04/10/2020 Pending further treatment as an outpatient
[2020-04-17] MEDS: NORMAL SALINE 1000 ML 1,000 ML IV PRN (12:20)
[2020-04-17] MEDS: LORAZEPAM 1 MG TABLET PO PRN (17:42)
[2020-04-17] MEDS: DOCUSATE SODIUM 100 MG CAPSULE PO PRN (20:27)
[2020-04-17] MEDS: INSULIN GLARGINE,HUM.REC.ANLOG 1,000 UNIT/10 ML VIAL SUBCUT SCH (22:02)
[2020-04-17] MEDS: QUETIAPINE FUMARATE 100 MG TABLET PO SCH (22:02)
[2020-04-17] MEDS: ATORVASTATIN CALCIUM 20 MG TABLET PO SCH (22:03)
[2020-04-18] MEDS: MORPHINE SULFATE 10 MG/ML INJ IV PRN (04:34)
[2020-04-18] MEDS: PANTOPRAZOLE SODIUM 40 MG TABLET.DR PO SCH (05:16)
[2020-04-18] MEDS: HEPARIN SOD (PORCINE) 5,000 UNIT/ML 1 ML VIAL SUBCUT SCH ×3 (05:16→21:29)
[2020-04-18] MEDS: CEFAZOLIN SODIUM 2 GM in DEXTROSE 5%-WATER 100 ML IV SCH (05:16)
[2020-04-18] MEDS: NORMAL SALINE 1000 ML 1,000 ML IV PRN ×2 (05:16→18:12)
[2020-04-18] MEDS: LORAZEPAM 1 MG TABLET PO PRN ×4 (06:08→21:29)
[2020-04-18] MEDS: INSULIN REG, HUMAN 100 UNIT/ML 3 ML VIAL (PYX) SUBCUT SCH ×4 (07:38→22:55)
[2020-04-18] MEDS: QUETIAPINE FUMARATE 25 MG TABLET PO SCH (08:13)
[2020-04-18] MEDS: MAGNESIUM OXIDE 400 MG TABLET PO SCH ×3 (08:14→16:35)
--- NOTE | 2020-04-18 08:55 | PDOC PROGRESS REPORT ---
Subjective Progress Note for:: 04/18/20 Subjective:: 74 year old female who fell at home 5 days ago and fractured her left ankle. She has a trimalleolar fracture. She refused to go to the hospital. She recently had a right wrist fracture from a fall. The patient has been experiencing multiple falls recently. She has a past medical history of hypertension and diabetes. She has a history of breast cancer and is currently being worked up for a mass in the liver. Dementia is a relatively new diagnosis. Because she refused to go to the hospital for the fracture and because of some behavioral issues her son evidently filed a restraining order according to the patient. It was more likely a guardianship to force her to go to the hospital to seek care. Dr. Solitario is seeing the patient for the fracture. He is the one who treated her right wrist fracture. She was found to be hyperglycemic and hyponatremic. Dr. Solitario plans on installing of an external fixator tomorrow so she will be n.p.o. after midnight. She will be admitted to the hospitalist service with orthopedic surgery consulting. Psychiatry did see the patient in the emergency department. 04/13/20-no acute events in the last 24 hours. Patient has external fixator for left ankle fracture. Dr. Solitario saw the patient today he plan to do the second stage internal fixation and reduction next week. He thinks patient can be discharged with a splint. He also plans to remove the external fixator. Was the Melanie comes from the long-term [facility] patient will be discharged. 04/14/20-no acute events the last 24 hours. Vital signs are stable. Dr. Solitario plan to remove external fixator on Sunday. Patient is comfortably in the bed communicating well. 04/15/2020-patient admitted with a left trimalleolar fracture status post court crier al fixator placed and Dr. Solitario is planning to remove the external fixator and to arrange for a splint. No acute events in the last 24 hours. Afebrile. Comfortable in the bed communicating well. 04/16/2020-patient is going for ORIF after removal of the external fixator. Received preop dose of Ancef. Acute events in the last 24 hours. Afebrile. 04/17/20-patient admitted with a trimalleolar fracture initially placed on external fixator patient went to the OR yesterday and external fixator was removed and open reduction internal fixation was done patient is presently on the splint. 04/18/2020-no acute events in the last 24 hours. T-max is ten 9.8. WBC count within normal limits. Patient has a splint of the left lower leg. Physical therapy is working with the patient. Reason For Visit: TRIMALLEOLAR FRACTURE LEFT ANKLE,DEMENTIA,LIVER Physical Exam Vital Signs: Temp Pulse Resp BP Pulse Ox 99.8 F 109 H 18 138/59 H 95 04/18/20 07:34 04/18/20 07:34 04/18/20 07:34 04/18/20 07:34 04/18/20 07:34 Intake & Output 04/17/20 04/18/20 04/19/20 06:59 06:59 06:59 Intake Total 3650 1640 Output Total 5 Balance 3645 1640 Weight 68.9 kg 71.8 kg General appearance: PRESENT: no acute distress, well-developed Head exam: PRESENT: atraumatic Eye exam: PRESENT: PERRLA Mouth exam: PRESENT: dry mucosa Teeth exam: PRESENT: poor dentation Neck exam: ABSENT: carotid bruit, JVD, lymphadenopathy, thyromegaly Respiratory exam: PRESENT: decreased breath sounds Cardiovascular exam: PRESENT: RRR. ABSENT: diastolic murmur, rubs, systolic murmur GI/Abdominal exam: PRESENT: normal bowel sounds, soft. ABSENT: distended, guarding, mass, organolmegaly, rebound, tenderness Rectal exam: PRESENT: deferred Extremities exam: PRESENT: full ROM. ABSENT: calf tenderness, clubbing, pedal edema Neurological exam: PRESENT: alert, awake, oriented to person, oriented to place, oriented to time, oriented to situation, CN II-XII grossly intact. ABSENT: motor sensory deficit Psychiatric exam: PRESENT: appropriate affect, normal mood. ABSENT: homicidal ideation, suicidal ideation Results Laboratory Results: 04/17/20 08:06 04/17/20 08:06 Impressions: Lower Extremity CT 04/08/20 00:00 IMPRESSION: Trimalleolar ankle fracture. Head CT 04/08/20 11:34 IMPRESSION: Involutional changes with mild chronic microvascular ischemia. No acute intracranial imaging findings. EVIDENCE OF ACUTE STROKE: NO. Knee X-Ray 04/08/20 11:34 IMPRESSION: There is slight narrowing of the medial joint compartment. No acute abnormality is present. Ankle X-Ray 04/16/20 00:00 IMPRESSION: IMAGE(S) OBTAINED DURING PROCEDURE. Fluoroscopy 04/16/20 00:00 IMPRESSION: IMAGE(S) OBTAINED DURING PROCEDURE. Assessment and Plan - Diagnosis (1) Closed trimalleolar fracture of left ankle Qualifiers: Encounter type: initial encounter Qualified Code(s): S82.852A - Displaced trimalleolar fracture of left lower leg, initial encounter for closed fracture Is this a current diagnosis for this admission?: Yes Plan: 04/08/2020 Temporarily reduced in the emergency department by Dr. Solitario. He is planning on placing an external fixator tomorrow. The patient will be n.p.o. after midnight. 04/09/2020 The patient will be going to the OR shortly for external fixator on the left leg 04/10/2020 External fixator placed yesterday. Physical therapy will be seeing the patient today. 04/11/2020 External fixator stable. Physical therapy with transfer to [facility] for additional therapy and strengthening 04/12/2020 I placed a physical therapy consult. The patient will need to adjust to the external fixator. She will need physical therapy at [facility] for less than 30 days. 04/13/20-physical therapy is working with the patient. As per Ortho external fixator will be removed. Patient can be discharged to long-term care facility with the splint as per the Ortho team. Plan is to arrange for a second stage internal fixation and reduction of the left ankle fracture next week. 04/14/2020-Dr. Solitario is planning to remove external fixator on Sunday. Plan is to discharge her with a splint after the removal of the external fixator.. 04/15/20-patient has external fixator for a trimalleolar fracture she is going for removal of the fixator and splint placement tomorrow. 04/16/2020 patient is going for ORIF for a left ankle trimalleolar fracture. Patient has external fixator at this time which is going to be removed. 04/17/2020-went to the OR yesterday had open reduction and internal fixation of the left ankle fracture on the removal of the external fixator. Patient is presently on the splint. Plan is to continue physical therapy here. 04/18/2020-status post open reduction and internal fixation of trimalleolar left ankle fracture and patient is with a splint. Doing well. Physical therapy is working with the patient. (2) Hyperglycemia due to type 2 diabetes mellitus Qualifiers: Diabetes mellitus skilled nursing insulin use: with skilled nursing use Qualified Code(s): E11.65 - Type 2 diabetes mellitus with hyperglycemia; Z79.4 - residential (current) use of insulin Is this a current diagnosis for this admission?: Yes Plan: 04/08/2020 I will give a small dose of Lantus tonight and then a larger dose starting tomorrow night but not quite at home dose as there will be sliding scale available as well. Accu-Cheks before meals and at bedtime. Adjustments will be made based on the sliding scale requirements. She will be on a diabetic control carbohydrate diet 04/09/2020 I purposely give her a small dose of Lantus last night in anticipation of n.p.o. status and surgery today. Starting tonight she will have a larger dose but not yet her home dose as I do not know what her appetite of the postoperatively. She will continue sliding scale with her Accu-Cheks. 04/10/2020 All Accu-Cheks less than 200. After today I will consider adjusting her insulin to shoot for Accu-Cheks less than 150. 04/11/2020 Majority of Accu-Cheks now below 150. Continue current regimen. 04/12/2020 Continue current regimen. Reasonable control at this time. 04/14/2020-the blood sugars are 111 today. Stable. 04/15/2020-blood sugar today is 108. Stable. Plan is to continue insulin sliding scale before meals and at bedtime. 04/17/2020-latest blood sugar is 193. Plan is to continue insulin sliding scale before meals and at bedtime. 04/18/20-latest blood sugar is 136 hemoglobin A1c is 8.3. Plan is to continue insulin sliding scale before meals and at bedtime at this time. (3) Hyponatremia Is this a current diagnosis for this admission?: Yes Plan: 04/08/2020 Possibly chronic. Will monitor closely with laboratory studies. Partly decreased due to elevated glucose. 04/09/2020 Her serum sodium is normal. We will continue gentle IV fluids and monitor. 04/10/2020 Serum sodium just below the normal range at 134.4. Not clinically significant however will monitor closely. 04/11/2020 Serum sodium has been stable at 2 to 3 millimoles per liter below the lower limit normal. 04/12/2020 Sodium 134. This appears to be her normal range. No acute intervention. 04/14/2020-serum sodium is 137 today. Hyponatremia is resolving. 04/16/2020-serum sodium is 137 hyponatremia is resolved. (4) Urinary tract infection Qualifiers: Urinary tract infection type: acute cystitis Is this a current diagnosis for this admission?: Yes Plan: 04/08/2020 Urinalysis was markedly positive but no culture was ordered. I ordered a culture and then will start the patient on antibiotics. I have also ordered blood cultures. 04/09/2020 2 gram-negative bacilli identified. Continue Rocephin until identification and sensitivities are available. 04/10/2020 Continue Rocephin. No final identification and sensitivities on the 2 gram- negative bacilli identified 04/11/2020 Pansensitive E. coli and Klebsiella isolated from the urine. As the patient is on Ancef for the orthopedic surgery I will discontinue the ceftriaxone. 04/12/2020 Complete Ancef as ordered 04/13/20-urine culture is positive for E. coli and Klebsiella. Patient is on Ancef. Plan is to continue the antibiotic therapy at this time. 04/14/2020-urine culture is positive for E. coli and Klebsiella. Plan is to continue Ancef at this time. 04/15/20-patient is on IV Ancef for urine culture that was positive for E. coli and Klebsiella. 04/16/20-urine culture is positive for E. coli and Klebsiella completed antibiotic therapy. 04/18/20-urine culture is growing E. coli and Klebsiella completed 10 days of Ancef antibiotic therapy. (5) Dementia Qualifiers: Dementia type: vascular dementia Is this a current diagnosis for this admission?: Yes Plan: 04/08/2020 The patient is quite pleasant at this time. There are obvious memory lapses. The CT scan shows diffuse microvascular changes. Reports are that she was more confused earlier and this could be related to pain but also it looks like there might be a urinary infection as well. Supportive care for now. 04/09/2020 She has actually been quite appropriate. I am wondering if the urinary tract infection had caused significant decompensation. We will monitor closely. 04/09/2020 Once again she is appropriate this morning. Her affect is a sitter but the sitter reports that she has not been agitated today. 04/11/2020 Stable and at baseline 04/12/2020 At baseline. IVC rescinded. (6) Anemia Qualifiers: Anemia type: unspecified type Qualified Code(s): D64.9 - Anemia, unspecified Is this a current diagnosis for this admission?: No Plan: 04/08/2020 Possibly anemia of chronic disease. Will check anemia studies. Monitor hemoglobin closely. 04/09/2020 We will monitor. Multivitamin and iron supplement started. 04/10/2020 Hemoglobin dropped. This was likely from surgery. I will increase the ferrous sulfate to twice daily. Consider iron studies. 04/11/2020 Ferrous sulfate is now twice a day. Hemoglobin has not dropped anymore. It should begin to increase soon. 04/12/2020 Hemoglobin unchanged from yesterday. Continue supplements. 04/14/2020-hemoglobin today is 8.7. Stable. Plan is to continue to closely monitor the hemoglobin. 04/16/2020-hemoglobin is 9.5 today stable. (7) Frequent falls Is this a current diagnosis for this admission?: Yes Plan: 04/08/2020 Due to the fracture he will be difficult to have aggressive physical therapy. The patient would benefit from transfer to a [facility] facility after discharge where they can work on muscle recovery and eventually mobility. If these falls were just recent it could be contributed to dehydration, possible urinary infection and neurodegenerative disease. Evidently she has been falling for at least several months. 04/09/2020 Physical therapy will see the patient likely tomorrow as she is having surgery today. 04/10/2020 Physical therapy assessment and likely ongoing therapy at a skilled facility due to the ankle fracture. 04/11/2020 Poor balance is likely multifactorial. Aggressive physical therapy should be effective in decreasing falls with improved balance. 04/12/2020 Short-term physical therapy (8) Metabolic encephalopathy Is this a current diagnosis for this admission?: Yes Plan: There are multiple reasons for the possibility of a metabolic encephalopathy. It looks like she will have a urinary tract infection and that she was dehydrated. These physiologic stressors can make underlying dementia much worse as well. 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 04/09/2020 The patient may have underlying dementia but a urinary tract infection as well as dehydration certainly could have caused them transient metabolic encephalopathy. She appears to be clearing. 04/10/2020 Appears to be back at baseline. 04/11/2020 Resolved. Patient is at baseline. 04/14/2020-alert awake communicating well not in distress. Metabolic and colopathy resolved. (9) Liver mass Is this a current diagnosis for this admission?: No Plan: 04/08/2020 Recent biopsy did not show malignancy however this could be sampling error. The patient is scheduled for follow-up with Dr. Carvajal. CT scan of the head did not reveal any space-occupying lesions to suggest metastases. 04/09/[address] Carvajal as previously scheduled 04/10/2020 Pending further treatment as an outpatient
[2020-04-18] MEDS: VENLAFAXINE HCL 37.5 MG CAP.SR.24H PO SCH ×2 (09:38→21:30)
[2020-04-18] MEDS: CALCIUM CARBONATE 600 MG TABLET PO SCH (09:38)
[2020-04-18] MEDS: PIOGLITAZONE HCL 30 MG TABLET PO SCH (09:38)
[2020-04-18] MEDS: HYDROCHLOROTHIAZIDE 12.5 MG TABLET PO SCH (09:38)
[2020-04-18] MEDS: POTASSIUM CHLORIDE 10 MEQ TABLET.ER PO SCH ×2 (09:38→18:07)
[2020-04-18] MEDS: FERROUS SULFATE 325 MG TABLET PO SCH ×2 (09:38→18:08)
[2020-04-18] MEDS: MULTIVITAMIN TABLET PO SCH (09:38)
[2020-04-18] MEDS: CHOLECALCIFEROL (D3) 1,000 UNIT (25 MCG) TABLET PO SCH (09:38)
[2020-04-18] MEDS: LOSARTAN POTASSIUM 50 MG TABLET PO SCH (09:39)
[2020-04-18] MEDS: HYDROCODONE/ACETAMINOPHEN 7.5-325 MG TABLET PO PRN ×2 (09:39→18:08)
[2020-04-18] MEDS: ATORVASTATIN CALCIUM 20 MG TABLET PO SCH (21:29)
[2020-04-18] MEDS: QUETIAPINE FUMARATE 100 MG TABLET PO SCH (21:29)
[2020-04-18] MEDS: INSULIN GLARGINE,HUM.REC.ANLOG 1,000 UNIT/10 ML VIAL SUBCUT SCH (22:56)
[2020-04-19] MEDS: PANTOPRAZOLE SODIUM 40 MG TABLET.DR PO SCH (06:20)
[2020-04-19] MEDS: HEPARIN SOD (PORCINE) 5,000 UNIT/ML 1 ML VIAL SUBCUT SCH (06:20)
[2020-04-19] MEDS: HYDROCODONE/ACETAMINOPHEN 7.5-325 MG TABLET PO PRN (06:20)
[2020-04-19] MEDS: NORMAL SALINE 1000 ML 1,000 ML IV PRN (06:21)
[2020-04-19] MEDS: LORAZEPAM 1 MG TABLET PO PRN (06:26)
[2020-04-19] MEDS: INSULIN REG, HUMAN 100 UNIT/ML 3 ML VIAL (PYX) SUBCUT SCH ×2 (09:07→12:23)
[2020-04-19] MEDS: MULTIVITAMIN TABLET PO SCH (09:12)
[2020-04-19] MEDS: LOSARTAN POTASSIUM 50 MG TABLET PO SCH (09:12)
[2020-04-19] MEDS: HYDROCHLOROTHIAZIDE 12.5 MG TABLET PO SCH (09:12)
[2020-04-19] MEDS: PIOGLITAZONE HCL 30 MG TABLET PO SCH (09:12)
[2020-04-19] MEDS: CALCIUM CARBONATE 600 MG TABLET PO SCH (09:12)
[2020-04-19] MEDS: FERROUS SULFATE 325 MG TABLET PO SCH (09:12)
[2020-04-19] MEDS: MAGNESIUM OXIDE 400 MG TABLET PO SCH ×2 (09:13→12:59)
[2020-04-19] MEDS: CHOLECALCIFEROL (D3) 1,000 UNIT (25 MCG) TABLET PO SCH (09:13)
[2020-04-19] MEDS: VENLAFAXINE HCL 37.5 MG CAP.SR.24H PO SCH (09:13)
[2020-04-19] MEDS: QUETIAPINE FUMARATE 25 MG TABLET PO SCH (09:13)
[2020-04-19] MEDS: POTASSIUM CHLORIDE 10 MEQ TABLET.ER PO SCH (09:13)
--- NOTE | 2020-04-19 09:30 | PDOC PROGRESS REPORT ---
Subjective Progress Note for:: 04/19/20 Subjective:: 74 year old female who fell at home 5 days ago and fractured her left ankle. She has a trimalleolar fracture. She refused to go to the hospital. She recently had a right wrist fracture from a fall. The patient has been experiencing multiple falls recently. She has a past medical history of hypertension and diabetes. She has a history of breast cancer and is currently being worked up for a mass in the liver. Dementia is a relatively new diagnosis. Because she refused to go to the hospital for the fracture and because of some behavioral issues her son evidently filed a restraining order according to the patient. It was more likely a guardianship to force her to go to the hospital to seek care. Dr. Solitario is seeing the patient for the fracture. He is the one who treated her right wrist fracture. She was found to be hyperglycemic and hyponatremic. Dr. Solitario plans on installing of an external fixator tomorrow so she will be n.p.o. after midnight. She will be admitted to the hospitalist service with orthopedic surgery consulting. Psychiatry did see the patient in the emergency department. 04/13/20-no acute events in the last 24 hours. Patient has external fixator for left ankle fracture. Dr. Solitario saw the patient today he plan to do the second stage internal fixation and reduction next week. He thinks patient can be discharged with a splint. He also plans to remove the external fixator. Was the Melanie comes from the long-term [facility] patient will be discharged. 04/14/20-no acute events the last 24 hours. Vital signs are stable. Dr. Solitario plan to remove external fixator on Sunday. Patient is comfortably in the bed communicating well. 04/15/2020-patient admitted with a left trimalleolar fracture status post coach builder al fixator placed and Dr. Solitario is planning to remove the external fixator and to arrange for a splint. No acute events in the last 24 hours. Afebrile. Comfortable in the bed communicating well. 04/16/2020-patient is going for ORIF after removal of the external fixator. Received preop dose of Ancef. Acute events in the last 24 hours. Afebrile. 04/17/20-patient admitted with a trimalleolar fracture initially placed on external fixator patient went to the OR yesterday and external fixator was removed and open reduction internal fixation was done patient is presently on the splint. 04/18/2020-no acute events in the last 24 hours. T-max is ten 9.8. WBC count within normal limits. Patient has a splint of the left lower leg. Physical therapy is working with the patient. 04/19/2020-no acute events in the last 24 hours., Patient refused to participate with physical therapy yesterday. Waiting for placement at [facility]. Reason For Visit: TRIMALLEOLAR FRACTURE LEFT ANKLE,DEMENTIA,LIVER Physical Exam Vital Signs: Temp Pulse Resp BP Pulse Ox 97.8 F 98 15 132/69 H 95 04/19/20 07:27 04/19/20 07:27 04/19/20 07:27 04/19/20 07:27 04/19/20 07:27 Intake & Output 04/18/20 04/19/20 04/20/20 06:59 06:59 06:59 Intake Total 1640 2520 Balance 1640 2520 Weight 71.8 kg 70.6 kg General appearance: PRESENT: no acute distress, well-developed Head exam: PRESENT: atraumatic Eye exam: PRESENT: PERRLA Mouth exam: PRESENT: moist, tongue midline Teeth exam: PRESENT: poor dentation Neck exam: ABSENT: carotid bruit, JVD, lymphadenopathy, thyromegaly Respiratory exam: PRESENT: decreased breath sounds Cardiovascular exam: PRESENT: RRR. ABSENT: diastolic murmur, rubs, systolic murmur GI/Abdominal exam: PRESENT: normal bowel sounds, soft. ABSENT: distended, guarding, mass, organolmegaly, rebound, tenderness Rectal exam: PRESENT: deferred Extremities exam: PRESENT: full ROM. ABSENT: calf tenderness, clubbing, pedal edema Neurological exam: PRESENT: alert, awake, oriented to person, oriented to place, oriented to time, oriented to situation, CN II-XII grossly intact. ABSENT: motor sensory deficit Psychiatric exam: PRESENT: appropriate affect, normal mood. ABSENT: homicidal ideation, suicidal ideation Results Laboratory Results: 04/17/20 08:06 04/17/20 08:06 Impressions: Lower Extremity CT 04/08/20 00:00 IMPRESSION: Trimalleolar ankle fracture. Head CT 04/08/20 11:34 IMPRESSION: Involutional changes with mild chronic microvascular ischemia. No acute intracranial imaging findings. EVIDENCE OF ACUTE STROKE: NO. Knee X-Ray 04/08/20 11:34 IMPRESSION: There is slight narrowing of the medial joint compartment. No acute abnormality is present. Ankle X-Ray 04/16/20 00:00 IMPRESSION: IMAGE(S) OBTAINED DURING PROCEDURE. Fluoroscopy 04/16/20 00:00 IMPRESSION: IMAGE(S) OBTAINED DURING PROCEDURE. Assessment and Plan - Diagnosis (1) Closed trimalleolar fracture of left ankle Qualifiers: Encounter type: initial encounter Qualified Code(s): S82.852A - Displaced trimalleolar fracture of left lower leg, initial encounter for closed fracture Is this a current diagnosis for this admission?: Yes Plan: 04/08/2020 Temporarily reduced in the emergency department by Dr. Solitario. He is planning on placing an external fixator tomorrow. The patient will be n.p.o. after m idnight. 04/09/2020 The patient will be going to the OR shortly for external fixator on the left leg 04/10/2020 External fixator placed yesterday. Physical therapy will be seeing the patient today. 04/11/2020 External fixator stable. Physical therapy with transfer to [facility] for additional therapy and strengthening 04/12/2020 I placed a physical therapy consult. The patient will need to adjust to the external fixator. She will need physical therapy at [facility] for less than 30 days. 04/13/20-physical therapy is working with the patient. As per Ortho external fixator will be removed. Patient can be discharged to long-term care facility with the splint as per the Ortho team. Plan is to arrange for a second stage internal fixation and reduction of the left ankle fracture next week. 04/14/2020-Dr. Solitario is planning to remove external fixator on Sunday. Plan is to discharge her with a splint after the removal of the external fixator.. 04/15/20-patient has external fixator for a trimalleolar fracture she is going for removal of the fixator and splint placement tomorrow. 04/16/2020 patient is going for ORIF for a left ankle trimalleolar fracture. Patient has external fixator at this time which is going to be removed. 04/17/2020-went to the OR yesterday had open reduction and internal fixation of the left ankle fracture on the removal of the external fixator. Patient is presently on the splint. Plan is to continue physical therapy here. 04/18/2020-status post open reduction and internal fixation of trimalleolar left ankle fracture and patient is with a splint. Doing well. Physical therapy is working with the patient. 04/19/20-patient with a left lower leg splint at this time. Refusing physical therapy. Ortho on board. Plan is to discharge her to [facility]. 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 Accu-Cheks before meals and at bedtime. Adjustments will be made based on the sliding scale requirements. She will be on a diabetic control carbohydrate diet 04/09/2020 I purposely give her a small dose of Lantus last night in anticipation of n.p.o. status and surgery today. Starting tonight she will have a larger dose but not yet her home dose as I do not know what her appetite of the postoperatively. She will continue sliding scale with her Accu-Cheks. 04/10/2020 All Accu-Cheks less than 200. After today I will consider adjusting her insulin to shoot for Accu-Cheks less than 150. 04/11/2020 Majority of Accu-Cheks now below 150. Continue current regimen. 04/12/2020 Continue current regimen. Reasonable control at this time. 04/14/2020-the blood sugars are 111 today. Stable. 04/15/2020-blood sugar today is 108. Stable. Plan is to continue insulin sliding scale before meals and at bedtime. 04/17/2020-latest blood sugar is 193. Plan is to continue insulin sliding scale before meals and at bedtime. 04/18/20-latest blood sugar is 136 hemoglobin A1c is 8.3. Plan is to continue insulin sliding scale before meals and at bedtime at this time. 04/19/2020-latest blood sugar is 170., Hemoglobin A1c is 8.3. Plan is to continue insulin sliding scale before meals and at bedtime at this time. (3) Hyponatremia Is this a current diagnosis for this admission?: Yes Plan: 04/08/2020 Possibly chronic. Will monitor closely with laboratory studies. Partly decreased due to elevated glucose. 04/09/2020 Her serum sodium is normal. We will continue gentle IV fluids and monitor. 04/10/2020 Serum sodium just below the normal range at 134.4. Not clinically significant however will monitor closely. 04/11/2020 Serum sodium has been stable at 2 to 3 millimoles per liter below the lower limit normal. 04/12/2020 Sodium 134. This appears to be her normal range. No acute intervention. 04/14/2020-serum sodium is 137 today. Hyponatremia is resolving. 04/16/2020-serum sodium is 137 hyponatremia is resolved. (4) Urinary tract infection Qualifiers: Urinary tract infection type: acute cystitis Is this a current diagnosis for this admission?: Yes Plan: 04/08/2020 Urinalysis was markedly positive but no culture was ordered. I ordered a culture and then will start the patient on antibiotics. I have also ordered b lood cultures. 04/09/2020 2 gram-negative bacilli identified. Continue Rocephin until identification and sensitivities are available. 04/10/2020 Continue Rocephin. No final identification and sensitivities on the 2 gram- negative bacilli identified 04/11/2020 Pansensitive E. coli and Klebsiella isolated from the urine. As the patient is on Ancef for the orthopedic surgery I will discontinue the ceftriaxone. 04/12/2020 Complete Ancef as ordered 04/13/20-urine culture is positive for E. coli and Klebsiella. Patient is on Ancef. Plan is to continue the antibiotic therapy at this time. 04/14/2020-urine culture is positive for E. coli and Klebsiella. Plan is to continue Ancef at this time. 04/15/20-patient is on IV Ancef for urine culture that was positive for E. coli and Klebsiella. 04/16/20-urine culture is positive for E. coli and Klebsiella completed antibiotic therapy. 04/18/20-urine culture is growing E. coli and Klebsiella completed 10 days of Ancef antibiotic therapy. (5) Dementia Qualifiers: Dementia type: vascular dementia Is this a current diagnosis for this admission?: Yes Plan: 04/08/2020 The patient is quite pleasant at this time. There are obvious memory lapses. The CT scan shows diffuse microvascular changes. Reports are that she was more confused earlier and this could be related to pain but also it looks like there might be a urinary infection as well. Supportive care for now. 04/09/2020 She has actually been quite appropriate. I am wondering if the urinary tract infection had caused significant decompensation. We will monitor closely. 04/09/2020 Once again she is appropriate this morning. Her affect is a sitter but the sitter reports that she has not been agitated today. 04/11/2020 Stable and at baseline 04/12/2020 At baseline. IVC rescinded. (6) Anemia Qualifiers: Anemia type: unspecified type Qualified Code(s): D64.9 - Anemia, unspecified Is this a current diagnosis for this admission?: No Plan: 04/08/2020 Possibly anemia of chronic disease. Will check anemia studies. Monitor hemoglobin closely. 04/09/2020 We will monitor. Multivitamin and iron supplement started. 04/10/2020 Hemoglobin dropped. This was likely from surgery. I will increase the ferrous sulfate to twice daily. Consider iron studies. 04/11/2020 Ferrous sulfate is now twice a day. Hemoglobin has not dropped anymore. It should begin to increase soon. 04/12/2020 Hemoglobin unchanged from yesterday. Continue supplements. 04/14/2020-hemoglobin today is 8.7. Stable. Plan is to continue to closely monitor the hemoglobin. 04/16/2020-hemoglobin is 9.5 today stable. (7) Frequent falls Is this a current diagnosis for this admission?: Yes Plan: 04/08/2020 Due to the fracture he will be difficult to have aggressive physical therapy. The patient would benefit from transfer to a [facility] facility after discharge where they can work on muscle recovery and eventually mobility. If these falls were just recent it could be contributed to dehydration, possible urinary infection and neurodegenerative disease. Evidently she has been falling for at least several months. 04/09/2020 Physical therapy will see the patient likely tomorrow as she is having surgery today. 04/10/2020 Physical therapy assessment and likely ongoing therapy at a skilled facility due to the ankle fracture. 04/11/2020 Poor balance is likely multifactorial. Aggressive physical therapy should be effective in decreasing falls with improved balance. 04/12/2020 Short-term physical therapy 04/19/2020 patient refused to participate in physical therapy yesterday. (8) Metabolic encephalopathy Is this a current diagnosis for this admission?: Yes Plan: There are multiple reasons for the possibility of a metabolic encephalopathy. It looks like she will have a urinary tract infection and that she was dehydrated. These physiologic stressors can make underlying dementia much worse as well. It is likely that the fractured ankle has contributed to some record changer tester the last several days. 04/09/2020 The patient may have underlying dementia but a urinary tract infection as well as dehydration certainly could have caused them transient metabolic encephalopathy. She appears to be clearing. 04/10/2020 Appears to be back at baseline. 04/11/2020 Resolved. Patient is at baseline. 04/14/2020-alert awake communicating well not in distress. Metabolic and colopathy resolved. (9) Liver mass Is this a current diagnosis for this admission?: No Plan: 04/08/2020 Recent biopsy did not show malignancy however this could be sampling error. The patient is scheduled for follow-up with Dr. Carvajal. CT scan of the head did not reveal any space-occupying lesions to suggest metastases. 04/09/[address] Carvajal as previously scheduled 04/10/2020 Pending further treatment as an outpatient
--- NOTE | 2020-04-19 10:13 | PDOC PROGRESS REPORT ---
Subjective Progress Note for:: 04/19/20 Subjective:: Is doing well this morning. Reports no interval events or symptom changes. Has not been working well with physical therapy. Recently requested cessation for physical therapy while in-house. I had a conversation with her today in regards to the importance of ongoing activity, encouragement of out of bed. The patient admits to being noncompliant and asks "do not give me a lecture". Reports loss of motivation associated with levaquin which she claims to be allergic to and which she believes she has been receiving in house. Reason For Visit: TRIMALLEOLAR FRACTURE LEFT ANKLE,DEMENTIA,LIVER Physical Exam Vital Signs: Temp Pulse Resp BP Pulse Ox 97.8 F 98 15 132/69 H 95 04/19/20 07:27 04/19/20 07:27 04/19/20 07:27 04/19/20 07:27 04/19/20 07:27 Intake & Output 04/18/20 04/19/20 04/20/20 06:59 06:59 06:59 Intake Total 1640 2520 Balance 1640 2520 Weight 71.8 kg 70.6 kg Physical Exam: NAD, AOx3 LLE - Well positioned in well molded splint - Sensation and motor function grossly intact - Capillary refill less than 2 seconds - Calf soft, non-tender - Dressing C/D/I Results Laboratory Results: 04/17/20 08:06 04/17/20 08:06 Impressions: Lower Extremity CT 04/08/20 00:00 IMPRESSION: Trimalleolar ankle fracture. Head CT 04/08/20 11:34 IMPRESSION: Involutional changes with mild chronic microvascular ischemia. No acute intracranial imaging findings. EVIDENCE OF ACUTE STROKE: NO. Knee X-Ray 04/08/20 11:34 IMPRESSION: There is slight narrowing of the medial joint compartment. No acute abnormality is present. Ankle X-Ray 04/16/20 00:00 IMPRESSION: IMAGE(S) OBTAINED DURING PROCEDURE. Fluoroscopy 04/16/20 00:00 IMPRESSION: IMAGE(S) OBTAINED DURING PROCEDURE. Assessment & Plan - Diagnosis (1) Closed trimalleolar fracture of left ankle Qualifiers: Encounter type: initial encounter Qualified Code(s): S82.852A - Displaced trimalleolar fracture of left lower leg, initial encounter for closed fracture Is this a current diagnosis for this admission?: Yes Plan: She is doing well today and a well-positioned splint for the right lower extremity. She has been noncompliant with physical therapy and ultimately refuses to proceed with any further therapy in house at this point. -She reports that she knows what she needs and she will do better when she gets to rehab. -Continue splint until seen in my office. -Follow-up in my office is in 7 to 10 days for wound check -Nonweightbearing left lower extremity -Keep elevated -Encourage PT and out of bed -DVT prophylaxis per hospitalist - Time Time Spent with patient: Less than 15 minutes
--- NOTE | 2020-04-19 11:17 | PDOC TRANSFER SUMMARY ---
Impression - Admit/DC Date/PCP Admission Date/Primary Care Provider: 04/08/20 13:33 DHARMESH PALACIOS MD Discharge Date: 04/19/20 - Discharge Diagnosis (1) Closed trimalleolar fracture of left ankle Is this a current diagnosis for this admission?: Yes (2) Hyperglycemia due to type 2 diabetes mellitus Is this a current diagnosis for this admission?: No (3) Hyponatremia Is this a current diagnosis for this admission?: Yes (4) Urinary tract infection Is this a current diagnosis for this admission?: Yes (5) Dementia Is this a current diagnosis for this admission?: Yes (6) Anemia Is this a current diagnosis for this admission?: No (7) Frequent falls Is this a current diagnosis for this admission?: Yes (8) Metabolic encephalopathy Is this a current diagnosis for this admission?: Yes (9) Liver mass Is this a current diagnosis for this admission?: No - Assessment Summary: (1) Closed trimalleolar fracture of left ankle Qualifiers: Encounter type: initial encounter Qualified Code(s): S82.852A - Displaced trimalleolar fracture of left lower leg, initial encounter for closed fracture Is this a current diagnosis for this admission?: Yes Plan: 04/08/2020 Temporarily reduced in the emergency department by Dr. Solitario. He is planning on placing an external fixator tomorrow. The patient will be n.p.o. after midnight. 04/09/2020 The patient will be going to the OR shortly for external fixator on the left leg 04/10/2020 External fixator placed yesterday. Physical therapy will be seeing the patient today. 04/11/2020 External fixator stable. Physical therapy with transfer [facility] for additional therapy and strengthening 04/12/2020 I placed a physical therapy consult. The patient will need to adjust to the external fixator. She will need physical therapy at [facility] for less than 30 days. 04/13/20-physical therapy is working with the patient. As per Ortho external fixator will be removed. Patient can be discharged to long-term care facility with the splint as per the Ortho team. Plan is to arrange for a second stage internal fixation and reduction of the left ankle fracture next week. 04/14/2020-Dr. Solitario is planning to remove external fixator on Sunday. Plan is to discharge her with a splint after the removal of the external fixator.. 04/15/20-patient has external fixator for a trimalleolar fracture she is going for removal of the fixator and splint placement tomorrow. 04/16/2020 patient is going for ORIF for a left ankle trimalleolar fracture. Patient has external fixator at this time which is going to be removed. 04/17/2020-went to the OR yesterday had open reduction and internal fixation of the left ankle fracture on the removal of the external fixator. Patient is presently on the splint. Plan is to continue physical therapy here. 04/18/2020-status post open reduction and internal fixation of trimalleolar left ankle fracture and patient is with a splint. Doing well. Physical therapy is working with the patient. 04/19/20-patient with a left lower leg splint at this time. Refusing physical therapy. Ortho on board. Plan is to discharge her to [facility]. [id number]-patient seen by Dr. Solitario and his recommendation is to continue keep the patient in the splint and he will see the patient in his office in 1 week time. (2) Hyperglycemia due to type 2 diabetes mellitus Qualifiers: Diabetes mellitus penitentiary insulin use: with salvage determiner use Qualified Code(s): E11.65 - Type 2 diabetes mellitus with hyperglycemia; Z79.4 - skilled nursing (current) use of insulin Is this a current diagnosis for this admission?: No Plan: 04/08/2020 I will give a small dose of Lantus tonight and then a larger dose starting tomorrow night but not quite at home dose as there will be sliding scale available as well. Accu-Cheks before meals and at bedtime. Adjustments will be made based on the sliding scale requirements. She will be on a diabetic control carbohydrate diet 04/09/2020 I purposely give her a small dose of Lantus last night in anticipation of n.p.o. status and surgery today. Starting tonight she will have a larger dose but not yet her home dose as I do not know what her appetite of the postoperatively. She will continue sliding scale with her Accu-Cheks. 04/10/2020 All Accu-Cheks less than 200. After today I will consider adjusting her insulin to shoot for Accu-Cheks less than 150. 04/11/2020 Majority of Accu-Cheks now below 150. Continue current regimen. 04/12/2020 Continue current regimen. Reasonable control at this time. 04/14/2020-the blood sugars are 111 today. Stable. 04/15/2020-blood sugar today is 108. Stable. Plan is to continue insulin sliding scale before meals and at bedtime. 04/17/2020-latest blood sugar is 193. Plan is to continue insulin sliding scale before meals and at bedtime. 04/18/20-latest blood sugar is 136 hemoglobin A1c is 8.3. Plan is to continue insulin sliding scale before meals and at bedtime at this time. 04/19/2020-latest blood sugar is 170., Hemoglobin A1c is 8.3. Plan is to continue insulin sliding scale before meals and at bedtime at this time. (3) Hyponatremia Is this a current diagnosis for this admission?: Yes Plan: 04/08/2020 Possibly chronic. Will monitor closely with laboratory studies. Partly decreased due to elevated glucose. 04/09/2020 Her serum sodium is normal. We will continue gentle IV fluids and monitor. 04/10/2020 Serum sodium just below the normal range at 134.4. Not clinically significant however will monitor closely. 04/11/2020 Serum sodium has been stable at 2 to 3 millimoles per liter below the lower limit normal. 04/12/2020 Sodium 134. This appears to be her normal range. No acute intervention. 04/14/2020-serum sodium is 137 today. Hyponatremia is resolving. 04/16/2020-serum sodium is 137 hyponatremia is resolved. (4) Urinary tract infection Qualifiers: Urinary tract infection type: acute cystitis Is this a current diagnosis for this admission?: Yes Plan: 04/08/2020 Urinalysis was markedly positive but no culture was ordered. I ordered a culture and then will start the patient on antibiotics. I have also ordered blood cultures. 04/09/2020 2 gram-negative bacilli identified. Continue Rocephin until identification and sensitivities are available. 04/10/2020 Continue Rocephin. No final identification and sensitivities on the 2 gram- negative bacilli identified 04/11/2020 Pansensitive E. coli and Klebsiella isolated from the urine. As the patient is on Ancef for the orthopedic surgery I will discontinue the ceftriaxone. 04/12/2020 Complete Ancef as ordered 04/13/20-urine culture is positive for E. coli and Klebsiella. Patient is on Ancef. Plan is to continue the antibiotic therapy at this time. 04/14/2020-urine culture is positive for E. coli and Klebsiella. Plan is to continue Ancef at this time. 04/15/20-patient is on IV Ancef for urine culture that was positive for E. coli and Klebsiella. 04/16/20-urine culture is positive for E. coli and Klebsiella completed antibiotic therapy. 04/18/20-urine culture is growing E. coli and Klebsiella completed 10 days of Ancef antibiotic therapy. (5) Dementia Qualifiers: Dementia type: vascular dementia Is this a current diagnosis for this admission?: Yes Plan: 04/08/2020 The patient is quite pleasant at this time. There are obvious memory lapses. The CT scan shows diffuse microvascular changes. Reports are that she was more confused earlier and this could be related to pain but also it looks like there might be a urinary infection as well. Supportive care for now. 04/09/2020 She has actually been quite appropriate. I am wondering if the urinary tract infection had caused significant decompensation. We will monitor closely. 04/09/2020 Once again she is appropriate this morning. Her affect is a sitter but the sitter reports that she has not been agitated today. 04/11/2020 Stable and at baseline 04/12/2020 At baseline. IVC rescinded. (6) Anemia Qualifiers: Anemia type: unspecified type Qualified Code(s): D64.9 - Anemia, unspecified Is this a current diagnosis for this admission?: No Plan: 04/08/2020 Possibly anemia of chronic disease. Will check anemia studies. Monitor hemoglobin closely. 04/09/2020 We will monitor. Multivitamin and iron supplement started. 04/10/2020 Hemoglobin dropped. This was likely from surgery. I will increase the ferrous sulfate to twice daily. Consider iron studies. 04/11/2020 Ferrous sulfate is now twice a day. Hemoglobin has not dropped anymore. It should begin to increase soon. 04/12/2020 Hemoglobin unchanged from yesterday. Continue supplements. 04/14/2020-hemoglobin today is 8.7. Stable. Plan is to continue to closely monitor the hemoglobin. 04/16/2020-hemoglobin is 9.5 today stable. (7) Frequent falls Is this a current diagnosis for this admission?: Yes Plan: 04/08/2020 Due to the fracture he will be difficult to have aggressive physical therapy. The patient would benefit from transfer to a [facility] facility after discharge where they can work on muscle recovery and eventually mobility. If these falls were just recent it could be contributed to dehydration, possible urinary infection and neurodegenerative disease. Evidently she has been falling for at least several months. 04/09/2020 Physical therapy will see the patient likely tomorrow as she is having surgery today. 04/10/2020 Physical therapy assessment and likely ongoing therapy at a skilled facility due to the ankle fracture. 04/11/2020 Poor balance is likely multifactorial. Aggressive physical therapy should be effective in decreasing falls with improved balance. 04/12/2020 Short-term physical therapy 04/19/2020 patient refused to participate in physical therapy yesterday. (8) Metabolic encephalopathy Is this a current diagnosis for this admission?: Yes Plan: There are multiple reasons for the possibility of a metabolic encephalopathy. It looks like she will have a urinary tract infection and that she was dehydrated. These physiologic stressors can make underlying dementia much worse as well. 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 04/09/2020 The patient may have underlying dementia but a urinary tract infection as well as dehydration certainly could have caused them transient metabolic encephalopathy. She appears to be clearing. 04/10/2020 Appears to be back at baseline. 04/11/2020 Resolved. Patient is at baseline. 04/14/2020-alert awake communicating well not in distress. Metabolic and colopathy resolved. (9) Liver mass Is this a current diagnosis for this admission?: No Plan: 04/08/2020 Recent biopsy did not show malignancy however this could be sampling error. The patient is scheduled for follow-up with Dr. Carvajal. CT scan of the head did not reveal any space-occupying lesions to suggest metastases. 04/09/[address] Carvajal as previously scheduled 04/10/2020 Pending further treatment as an outpatient - Additional Information Resuscitation Status: Do Not Resuscitate Discharge Diet: Diabetic Discharge Activity: Activity As Tolerated Referrals: [facility] [Outside] WENDI SOLITARIO JR, DO [ACTIVE PROVISIONAL STAFF] - 04/23/20 3:45 pm (LEFT ankle fx) Prescriptions: Calcium Carbonate [Calcium] 600 mg PO DAILY 30 Days #30 Docusate Sodium [Colace 100 mg Capsule] 100 mg PO BIDP PRN 30 Days #30 capsule PRN Reason: Venlafaxine HCl ER [Effexor Xr 37.5 mg Cap.sr] 37.5 mg PO Q12 30 Days #60 Ferrous Sulfate [Feosol 325 mg Tablet] 325 mg PO BID 30 Days #60 tablet Potassium Chloride [Klor-Con 10 Meq Tablet ER] 20 meq PO DAILY 30 Days #30 Insulin Glargine,Hum.rec.anlog [Lantus Insulin 100 Unit/1 ml 10 ml] 30 unit SUBCUT QHS 30 Days #2 vial Atorvastatin Calcium [Lipitor 20 mg Tablet] 20 mg PO QHS 30 Days #30 Pantoprazole Sodium [Protonix [address] Tablet] 40 mg PO Q6AM 30 Days #30 tablet.dr Quetiapine Fumarate [Seroquel 100 mg Tablet] 200 mg PO QHS 30 Days #30 Quetiapine Fumarate [Seroquel 25 mg Tablet] 25 mg PO QAM 30 Days #30 tablet Multivitamin [Tab-A-Montse (Multiple Vitamin) Tablet] 1 tab PO DAILY 30 Days #30 Cholecalciferol (Vitamin D3) [Vitamin D3 1000 Unit Tablet] 1,000 unit PO DAILY 30 Days #30 tablet Home Medications: Losartan/Hydrochlorothiazide [Hyzaar 100-12.5 Tablet] 1 tab PO DAILY 04/08/20 Magnesium Oxide [Mag-Ox 400 mg Tablet] 400 mg PO DAILY 04/08/20 Pioglitazone HCl [Actos 30 mg Tablet] 30 mg PO DAILY 04/08/20 Atorvastatin Calcium [Lipitor 20 mg Tablet] 20 mg PO QHS 30 Days #30 04/19/20 Calcium Carbonate [Calcium] 600 mg PO DAILY 30 Days #30 04/19/20 Cholecalciferol (Vitamin D3) [Vitamin D3 1000 Unit Tablet] 1,000 unit PO DAILY 30 Days #30 tablet 04/19/20 Docusate Sodium [Colace 100 mg Capsule] 100 mg PO BIDP PRN 30 Days #30 capsule 04/19/20 Ferrous Sulfate [Feosol 325 mg Tablet] 325 mg PO BID 30 Days #60 tablet 04/19/20 Insulin Glargine,Hum.rec.anlog [Lantus Insulin 100 Unit/1 ml 10 ml] 30 unit SUBCUT QHS 30 Days #2 vial 04/19/20 Multivitamin [Tab-A-Montse (Multiple Vitamin) Tablet] 1 tab PO DAILY 30 Days #30 04/19/20 Pantoprazole Sodium [Protonix [address] Tablet] 40 mg PO Q6AM 30 Days #30 tablet. 04/19/20 Potassium Chloride [Klor-Con 10 Meq Tablet ER] 20 meq PO DAILY 30 Days #30 04/19/20 Quetiapine Fumarate [Seroquel 100 mg Tablet] 200 mg PO QHS 30 Days #30 04/19/20 Quetiapine Fumarate [Seroquel 25 mg Tablet] 25 mg PO QAM 30 Days #30 tablet 04/19/20 Venlafaxine HCl ER [Effexor Xr 37.5 mg Cap.sr] 37.5 mg PO Q12 30 Days #60 04/19/20 History of Present Illiness History of Present Illness: RAUL TERRY is a 74 year old female 74 year old female who fell at home 5 days ago and fractured her left ankle. She has a trimalleolar fracture. She refused to go to the hospital. She recently had a right wrist fracture from a fall. The patient has been experiencing multiple falls recently. She has a past medical history of hypertension and diabetes. She has a history of breast cancer and is currently being worked up for a mass in the liver. Dementia is a relatively new diagnosis. Because she refused to go to the hospital for the fracture and because of some behavioral issues her son evidently filed a restraining order according to the patient. It was more likely a guardianship to force her to go to the hospital to seek care. Dr. Solitario is seeing the patient for the fracture. He is the one who treated her right wrist fracture. She was found to be hyperglycemic and hyponatremic. Dr. Solitario plans on installing of an external fixator tomorrow so she will be n.p.o. after midnight. She will be admitted to the hospitalist service with orthopedic surgery consulting. Psychiatry did see the patient in the emergency department. Hospital Course Hospital Course: 74 year old female who fell at home 5 days ago and fractured her left ankle. She has a trimalleolar fracture. She refused to go to the hospital. She recently had a right wrist fracture from a fall. The patient has been experiencing multiple falls recently. She has a past medical history of hypertension and diabetes. She has a history of breast cancer and is currently being worked up for a mass in the liver. Dementia is a relatively new diagnosis. Because she refused to go to the hospital for the fracture and b ecause of some behavioral issues her son evidently filed a restraining order according to the patient. It was more likely a guardianship to force her to go to the hospital to seek care. Dr. Solitario is seeing the patient for the fracture. He is the one who treated her right wrist fracture. She was found to be hyperglycemic and hyponatremic. Dr. Solitario plans on installing of an external fixator tomorrow so she will be n.p.o. after midnight. She will be admitted to the hospitalist service with orthopedic surgery consulting. Psychiatry did see the patient in the emergency department. 04/13/20-no acute events in the last 24 hours. Patient has external fixator for left ankle fracture. Dr. Solitario saw the patient today he plan to do the second stage internal fixation and reduction next week. He thinks patient can be discharged with a splint. He also plans to remove the external fixator. Was the Melanie comes from the long-term care facility patient will be discharged. 04/14/20-no acute events the last 24 hours. Vital signs are stable. Dr. Solitario plan to remove external fixator on Sunday. Patient is comfortably in the bed communicating well. 04/15/2020-patient admitted with a left trimalleolar fracture status post external fixator placed and Dr. Solitario is planning to remove the external fixator and to arrange for a splint. No acute events in the last 24 hours. Afebrile. Comfortable in the bed communicating well. 04/16/2020-patient is going for ORIF after removal of the external fixator. Received preop dose of Ancef. Acute events in the last 24 hours. Afebrile. 04/17/20-patient admitted with a trimalleolar fracture initially placed on external fixator patient went to the OR yesterday and external fixator was removed and open reduction internal fixation was done patient is presently on the splint. 04/18/2020-no acute events in the last 24 hours. T-max is ten 9.8. WBC count within normal limits. Patient has a splint of the left lower leg. Physical therapy is working with the patient. 04/19/2020-no acute events in the last 24 hours., Patient refused to participate with physical therapy yesterday. Waiting for placement at [facility]. 04/20/2020-got a call from the case management that the patient has a bed available at [facility] today for transfer. Physical Exam Vital Signs: Temp Pulse Resp BP Pulse Ox 97.8 F 98 15 132/69 H 95 04/19/20 07:27 04/19/20 07:27 04/19/20 07:27 04/19/20 07:27 04/19/20 07:27 Intake & Output 04/18/20 04/19/20 04/20/20 06:59 06:59 06:59 Intake Total 1640 2520 Balance 1640 2520 Weight 71.8 kg 70.6 kg General appearance: PRESENT: no acute distress, well-developed Head exam: PRESENT: atraumatic Eye exam: PRESENT: PERRLA Mouth exam: PRESENT: moist, tongue midline Teeth exam: PRESENT: poor dentation Neck exam: ABSENT: carotid bruit, JVD, lymphadenopathy, thyromegaly Respiratory exam: PRESENT: decreased breath sounds Cardiovascular exam: PRESENT: RRR. ABSENT: diastolic murmur, rubs, systolic murmur Vascular exam: PRESENT: normal capillary refill GI/Abdominal exam: PRESENT: ascites Rectal exam: PRESENT: deferred Extremities exam: PRESENT: full ROM, other - Splint present in the left lower leg. ABSENT: calf tenderness, clubbing, pedal edema Neurological exam: PRESENT: alert, awake, oriented to person, oriented to place, oriented to time, oriented to situation, CN II-XII grossly intact. ABSENT: motor sensory deficit Psychiatric exam: PRESENT: appropriate affect, normal mood. ABSENT: homicidal ideation, suicidal ideation Results Laboratory Results: WBC 7.3 10^3/uL (4.0-10.5) 04/17/20 08:06 RBC 3.13 10^6/uL (3.72-5.28) L 04/17/20 08:06 Hgb 8.3 g/dL (12.0-15.5) L 04/17/20 08:06 Hct 25.4 % (36.0-47.0) L 04/17/20 08:06 MCV 81 fl (80-97) 04/17/20 08:06 MCH 26.6 pg (27.0-33.4) L 04/17/20 08:06 MCHC 32.8 g/dL (32.0-36.0) 04/17/20 08:06 RDW 16.5 % (11.5-14.0) H 04/17/20 08:06 Plt Count 282 10^3/uL (150-450) 04/17/20 08:06 Lymph % (Auto) 6.4 % (13-45) L 04/17/20 08:06 [place] % (Auto) 8.5 % (3-13) 04/17/20 08:06 Eos % (Auto) 0.0 % (0-6) 04/17/20 08:06 Baso % (Auto) 0.4 % (0-2) 04/17/20 08:06 Absolute Neuts (auto) 6.2 10^3/uL (1.7-8.2) 04/17/20 08:06 Absolute Lymphs (auto) 0.5 10^3/uL (0.5-4.7) 04/17/20 08:06 Absolute Monos (auto) 0.6 10^3/uL (0.1-1.4) 04/17/20 08:06 Absolute Eos (auto) 0.0 10^3/uL (0.0-0.6) 04/17/20 08:06 Absolute Basos (auto) 0.0 10^3/uL (0.0-0.2) 04/17/20 08:06 Seg Neutrophils % 84.7 % (42-78) H 04/17/20 08:06 PT 13.7 SEC (11.4-15.4) 04/16/20 08:42 INR 1.05 04/16/20 08:42 Sodium 136.3 mmol/L (137-145) L 04/17/20 08:06 Potassium 3.9 mmol/L (3.6-5.0) 04/17/20 08:06 Chloride 110 mmol/L (98-107) H 04/17/20 08:06 Carbon Dioxide 21 mmol/L (22-30) L 04/17/20 08:06 Anion Gap 5 (5-19) 04/17/20 08:06 BUN 5 mg/dL (7-20) L 04/17/20 08:06 Creatinine 0.49 mg/dL (0.52-1.25) L 04/17/20 08:06 Est GFR ( Amer) > 60 (>60) 04/17/20 08:06 Est GFR (MDRD) Non-Af > 60 (>60) 04/17/20 08:06 Glucose 189 mg/dL (75-110) H 04/17/20 08:06 POC Glucose 170 mg/dL (70-110) H 04/19/20 06:45 Hemoglobin A1c % 7.2 % (4.7-6.0) H 04/09/20 05:29 Calcium 7.7 mg/dL (8.4-10.2) L 04/17/20 08:06 Magnesium 1.4 mg/dL (1.6-2.3) L 04/17/20 08:06 Total Bilirubin 0.2 mg/dL (0.2-1.3) 04/17/20 08:06 Direct Bilirubin 0.0 mg/dL (0.0-0.4) 04/17/20 08:06 Neonat Total Bilirubin Not Reportable 04/17/20 08:06 Neonat Direct Bilirubin Not Reportable 04/17/20 08:06 Neonat Indirect Bili Not Reportable 04/17/20 08:06 AST 29 U/L (14-36) 04/17/20 08:06 ALT 10 U/L (<35) 04/17/20 08:06 Alkaline Phosphatase 104 U/L (38-126) 04/17/20 08:06 Total Protein 5.3 g/dL (6.3-8.2) L 04/17/20 08:06 Albumin 2.6 g/dL (3.5-5.0) L 04/17/20 08:06 Triglycerides 197 mg/dL (<150) H 04/09/20 05:29 Cholesterol 115.25 mg/dL (0-200) 04/09/20 05:29 LDL Cholesterol Direct 53 mg/dL (<100) 04/09/20 05:29 VLDL Cholesterol 39.4 mg/dL (10-31) H 04/09/20 05:29 HDL Cholesterol 22 mg/dL (>40) L 04/09/20 05:29 TSH 4.20 uIU/mL (0.47-4.68) 04/09/20 05:29 Urine Color YELLOW 04/08/20 12:45 Urine Appearance CLOUDY 04/08/20 12:45 Urine pH 7.0 (5.0-9.0) 04/08/20 12:45 Ur Specific [place] 1.011 04/08/20 12:45 Urine Protein 30 mg/dL (NEGATIVE) H 04/08/20 12:45 Urine Glucose (UA) 50 mg/dL (NEGATIVE) H 04/08/20 12:45 Urine Ketones NEGATIVE mg/dL (NEGATIVE) 04/08/20 12:45 Urine Blood SMALL (NEGATIVE) H 04/08/20 12:45 Urine Nitrite NEGATIVE (NEGATIVE) 04/08/20 12:45 Urine Bilirubin NEGATIVE (NEGATIVE) 04/08/20 12:45 Urine Urobilinogen NEGATIVE mg/dL (<2.0) 04/08/20 12:45 Ur Leukocyte Esterase LARGE (NEGATIVE) H 04/08/20 12:45 Urine WBC (Auto) >182 /HPF 04/08/20 12:45 Urine RBC (Auto) 21 /HPF 04/08/20 12:45 Urine WBC Clumps FEW /HPF 04/08/20 12:45 Squamous Epi Cells Auto 8 /HPF 04/08/20 12:45 U Non-Squamous Epis Auto 1 /HPF 04/08/20 12:45 Urine Mucus (Auto) RARE /LPF 04/08/20 12:45 Urine Ascorbic Acid 40 (NEGATIVE) H 04/08/20 12:45 Salicylates < 1.0 mg/dL (2.0-20.0) L 04/08/20 11:45 Urine Opiates Screen NEGATIVE 04/08/20 12:45 Urine Methadone Screen NEGATIVE 04/08/20 12:45 Acetaminophen < 10 ug/mL (10-30) L 04/08/20 11:45 Ur Barbiturates Screen NEGATIVE 04/08/20 12:45 Ur Phencyclidine Scrn NEGATIVE 04/08/20 12:45 Ur Amphetamines Screen NEGATIVE 04/08/20 12:45 U Benzodiazepines Scrn NEGATIVE 04/08/20 12:45 Urine Cocaine Screen NEGATIVE 04/08/20 12:45 U Marijuana (THC) Screen NEGATIVE 04/08/20 12:45 SARS-CoV-2 (PCR) NEGATIVE (NEGATIVE) 04/09/20 03:45 Blood Type B POSITIVE 04/08/20 11:45 Antibody Screen NEGATIVE 04/08/20 11:45 Impressions: Lower Extremity CT 04/08/20 00:00 IMPRESSION: Trimalleolar ankle fracture. Ankle X-Ray 04/08/20 11:34 IMPRESSION: Fractures as described. Head CT 04/08/20 11:34 IMPRESSION: Involutional changes with mild chronic microvascular ischemia. No acute intracranial imaging findings. EVIDENCE OF ACUTE STROKE: NO. Knee X-Ray 04/08/20 11:34 IMPRESSION: There is slight narrowing of the medial joint compartment. No acute abnormality is present. Ankle X-Ray 04/09/20 00:00 IMPRESSION: IMAGE(S) OBTAINED DURING PROCEDURE. Fluoroscopy 04/09/20 00:00 IMPRESSION: IMAGE(S) OBTAINED DURING PROCEDURE. Ankle X-Ray 04/16/20 00:00 IMPRESSION: IMAGE(S) OBTAINED DURING PROCEDURE. Ankle X-Ray 04/16/20 00:00 IMPRESSION: IMAGE(S) OBTAINED DURING PROCEDURE. Fluoroscopy 04/16/20 00:00 IMPRESSION: Fluoro which used to assist in the procedure. Refer to operative note for further information. Fluoroscopy 04/16/20 00:00 IMPRESSION: IMAGE(S) OBTAINED DURING PROCEDURE. Plan Plan of Treatment: Patient is going to [facility] for rehab. Time Spent: Greater than 30 Minutes Stroke Is this a Stroke Patient?: No Acute Heart Failure - Is this a Heart Failure Patient?: No
[2020-04-19] MEDS ORDERED: HYDROCODONE/ACETAMINOPHEN 7.5-325 MG TABLET PO ONE (13:00)
[2020-04-19] MEDS ORDERED: LORAZEPAM 1 MG TABLET PO PRN (13:24)
[2020-04-19 13:48] VITALS: BP 125/66
--- NOTE | 2020-04-19 15:56 | RADIOLOGY REPORT (SQ) ---
EXAM DESCRIPTION: ANKLE LEFT COMPLETE IMAGES COMPLETED DATE/TIME: 04/19/2020 3:16 pm REASON FOR STUDY: ORIF ANKLE COMPARISON: None. FLUOROSCOPY TIME: 0.8 minutes Spot images saved to PACS. TECHNIQUE: Intra-operative images acquired during surgical procedure to evaluate progress. NUMBER OF IMAGES: 5 LIMITATIONS: None. FINDINGS: Fluoroscopy was provided for intraoperative procedure. Please refer to the operative repo rt for further discussion. IMPRESSION: IMAGE(S) OBTAINED DURING PROCEDURE. COMMENT: Quality ID [id number]: Final reports for procedures using fluoroscopy that document radiation exp osure indices, or exposure time and number of fluorographic images (if radiation exposure indices are not available) Please consult full operative report of the attending physician for description of the procedure. TECHNICAL DOCUMENTATION: JOB ID: [id number] 2010 [employer]- All Rights Reserved Reading location - IP/workstation name: [email or web address]
== END 2020-04-19 13:51 | DRG 492 ==
LOC: ER 11:29 → EH 13:33 → 4N 16:56
PROVIDERS: ADMIT Hospitalist; ATTEND Internal Medicine
PROC: 0QSHXZZ Reposition Left Tibia, External Approach (ICD-10-PCS; 2020-04-08)
PROC: 0QSH35Z Reposition Left Tibia with External Fixation Device, Percutaneous Approach (ICD-10-PCS; 2020-04-09)
PROC: 0QSH04Z Reposition Left Tibia with Internal Fixation Device, Open Approach (ICD-10-PCS; 2020-04-16)
PROC: 0QSK04Z Reposition Left Fibula with Internal Fixation Device, Open Approach (ICD-10-PCS; principal; 2020-04-16 13:30)
DX: S82.852A Displaced trimalleolar fracture of left lower leg, initial encounter for closed fracture (principal); G93.41 Metabolic encephalopathy; E87.1 Hypo-osmolality and hyponatremia; N30.00 Acute cystitis without hematuria; E11.65 Type 2 diabetes mellitus with hyperglycemia; I10 Essential (primary) hypertension; R29.6 Repeated falls; R16.0 Hepatomegaly, not elsewhere classified; B96.20 Unspecified Escherichia coli [E. coli] as the cause of diseases classified elsewhere; B96.1 Klebsiella pneumoniae [K. pneumoniae] as the cause of diseases classified elsewhere; F01.50 Vascular dementia, unspecified severity, without behavioral disturbance, psychotic disturbance, mood disturbance, and anxiety; E86.0 Dehydration; E78.5 Hyperlipidemia, unspecified; Z66 Do not resuscitate; F32.9 Major depressive disorder, single episode, unspecified; E87.6 Hypokalemia; D63.8 Anemia in other chronic diseases classified elsewhere; W19.XXXA Unspecified fall, initial encounter; I25.2 Old myocardial infarction; Z03.818 Encounter for observation for suspected exposure to other biological agents ruled out; Z79.4 Long term (current) use of insulin; Z79.899 Other long term (current) drug therapy; Z85.3 Personal history of malignant neoplasm of breast; Z88.3 Allergy status to other anti-infective agents; Z90.49 Acquired absence of other specified parts of digestive tract; Z91.19 Patient's noncompliance with other medical treatment and regimen; Z85.05 Personal history of malignant neoplasm of liver
CPT/HCPCS: 01462; 01830; 36415; 70450; 80048; 80053; 80061; 80076; 80307; 81001; 82962; 83036; 83735; 84443; 85025; 85610; 86850; 86900; 86901; 87040; 87086; 87088; 87186; 87635; 93005; 93010; 96360; 99140; 99285; C1713; C1769; C9803; J0330; J0690; J0696; J1644; J1815; J1885; J2250; J2270; J2370; J2405; J2550; J2704; J3010; J3490; J7030; J7060

== ENCOUNTER 2020-04-27 09:07 | Day surgery (SDC) | payer MEDICARE, BC ==
[2020-04-22 13:05] LABS: HEMATOCRIT 33.9 % (36.0-47.0); HEMOGLOBIN 11.2 g/dL (12.0-15.5); MEAN CORPUSCULAR HEMOGLOBIN 26.8 pg (27.0-33.4); MEAN CORPUSCULAR HGB CONC 33.2 g/dL (32.0-36.0); MEAN CORPUSCULAR VOLUME 81 fl (80-97); PLATELET COUNT 323 10^3/uL (150-450); RED BLOOD COUNT 4.19 10^6/uL (3.72-5.28); RED CELL DISTRIBUTION WIDTH 17.5 % (11.5-14.0); WHITE BLOOD COUNT 6.9 10^3/uL (4.0-10.5)
[2020-04-22 13:33] LABS: ANION GAP 10 (5-19); BLOOD UREA NITROGEN 12 mg/dL (7-20); CALCIUM 10.1 mg/dL (8.4-10.2); CARBON DIOXIDE 21 mmol/L (22-30); CHLORIDE 105 mmol/L (98-107); GLUCOSE 158 mg/dL (75-110); POTASSIUM 4.4 mmol/L (3.6-5.0)
[2020-04-22 13:34] LABS: ALKALINE PHOSPHATASE 142 U/L (38-126); ASPARTATE AMINO TRANSFERASE 33 U/L (14-36); BILIRUBIN,TOTAL 0.5 mg/dL (0.2-1.3); TOTAL PROTEIN 7.3 g/dL (6.3-8.2)
--- NOTE | 2020-04-23 19:19 | EKG REPORT ---
SEVERITY:- ABNORMAL ECG - SINUS RHYTHM LAD, CONSIDER LAFB OR INFERIOR INFARCT ABNORMAL T, CONSIDER ISCHEMIA, DIFFUSE LEADS PROLONGED QT INTERVAL : Confirmed by: Valdez Martinez 23-Apr-2020 19:18:29
[~2020-04-27 09:07] MED LIST: CEFAZOLIN 2 GM/D5W RTU 2 GM/50 ML RTUPB IV PRN; DEXAMETHASONE SOD PHOSPHATE INJ 4 MG/1 ML VIAL ONE; FENTANYL CITRATE INJ/PF 100 MCG/2 ML AMPUL ONE; LACTATED RINGERS 1000 ML IV PRN; LIDOCAINE 0.5% INJ-PF (5 MG/ML) 50 ML SDV SUBCUT PRN; MIDAZOLAM 2 MG/2 ML INJ ONE; ONDANSETRON HCL INJ/PF 4 MG/2 ML SDV ONE; PROPOFOL INJ 200 MG/20 ML VIAL IV ONE; SUGAMMADEX SODIUM 200 MG/2 ML SDV IV ONE
[2020-04-27] MEDS ORDERED: MIDAZOLAM 2 MG/2 ML INJ ONE (09:49)
[2020-04-27] MEDS ORDERED: CEFAZOLIN 2 GM/D5W RTU 2 GM/50 ML RTUPB IV ONE (09:49)
[2020-04-27] MEDS ORDERED: ONDANSETRON HCL INJ/PF 4 MG/2 ML SDV ONE ×2 (09:52→12:40)
[2020-04-27] MEDS ORDERED: MIDAZOLAM 2 MG/2 ML INJ IV ONE (10:15)
[2020-04-27] MEDS ORDERED: ONDANSETRON HCL INJ/PF 4 MG/2 ML SDV IV ONE (11:00)
[2020-04-27] MEDS ORDERED: BUPIVACAINE INJ/PF LIPOSOME/PF 266 MG/20 ML SDV ONE (11:34)
[2020-04-27] MEDS ORDERED: MORPHINE SULFATE 10 MG/ML INJ IV PRN (11:45)
[2020-04-27] MEDS ORDERED: PROMETHAZINE HCL INJ 25 MG/1 ML VIAL IV PRN ×2 (11:45)
[2020-04-27] MEDS ORDERED: MEPERIDINE HCL/PF INJ 25 MG/1 ML DISP.SYRIN IV PRN (11:45)
[2020-04-27] MEDS ORDERED: DIPHENHYDRAMINE HCL 50 MG/ML VIAL IV PRN (11:45)
[2020-04-27] MEDS ORDERED: ONDANSETRON HCL INJ/PF 4 MG/2 ML SDV IV PRN (11:45)
[2020-04-27] MEDS ORDERED: FENTANYL CITRATE INJ/PF 100 MCG/2 ML AMPUL IV PRN ×3 (11:45)
--- NOTE | 2020-04-27 12:26 | Operative Report ---
Nonrecallable Operative Report DATE OF SURGERY: 04/27/20 PREOPERATIVE DIAGNOSIS: r/o metastatic cancer POSTOPERATIVE DIAGNOSIS: r/o metastatic cancer OPERATION: diagnostic laparoscopy and liver biopsy SURGEON: ASHLI COHEN [employer]USTRI[employer]ILER[employer]KER: JOSE PERRY ANESTHESIA: GA TISSUE REMOVED OR ALTERED: liver biopsy COMPLICATIONS: none INTRAOPERATIVE FINDINGS: 25cc. PROCEDURE: Patient was brought to the operating awake alert stable condition placed on the operative table supine position just under general anesthesia intubated. The abdomen was prepped and draped in usual sterile fashion for the procedure. Veress needle was placed into the umbilicus and the abdomen was insufflated 6 L of CO2 gas a supraumbilical 10 mm incision was made with a 15 blade and a 10 mm port placed into the abdominal cavity intra-abdominal visualization revealed no evidence of Veress needle or trocar injury. 2 right-sided 5 mm ports were placed under direct vision a left-sided 5 mm port. Examination of the peritoneal surfaces revealed no evidence of metastatic deposits. We examined the liver the anterior surface of the liver appeared to be normal. Examining the top of the liver segment 7 segments 8 to be normal as well as segment 5 however upon lifting the liver examining the posterior surfaces of segment 6 it appeared that there was a mass that was adherent to the posterior peritoneum and the diaphragm was lifted up and a biopsy was obtained. Pathology revealed to be a malignancy. The other surfaces appeared to be normal no peritoneal studding stomach appeared normal as well as the spleen and other surrounding structures. After obtaining the malignant diagnosis from pathology elected to terminate the procedure at this point the pneumoperitoneum was reduced the fascial defect of the supraumbilical position was closed with 0 Vicryl and all skin stitches were closed with intracuticular 4-0 Biosyn Steri- Strips completed the procedure estimated blood loss was 25 cc sponge needle counts were correct x2 the patient was awakened in the operating extubated transferred recovery in stable condition no complications DOLORES Almanza was present for the entire procedure for help with wound retraction wound closure
[2020-04-27] MEDS ORDERED: HYDROCODONE/ACETAMINOPHEN 10-325 MG TABLET PO PRN (12:41)
--- NOTE | 2020-04-27 12:41 | Discharge Summary ---
Discharge Summary (SDC) - Discharge Final Diagnosis: Metastatic disease to the liver Date of Surgery: 04/27/20 Discharge Date: 04/27/20 Condition: Good Treatment or Instructions: Okay to shower tomorrow no lifting of any greater than 5 to 10 pounds for the next 2 to 3 weeks Prescriptions: Hydrocodone/Acetaminophen [[place] 10-325 mg Tablet] 1 tab PO Q6HP PRN #20 tablet PRN Reason: Referrals: DHARMESH PALACIOS MD [Primary Care Provider] - Discharge Diet: As Tolerated Discharge Activity: Activity As Tolerated, Energy Conservation, No Lifting Over 10 Pounds Report the Following to Your Physician Immediately: Shortness of Breath, Nausea, Vomiting, Fever over 101 Degrees, Unusual Bleeding
[2020-04-27] MEDS: MORPHINE SULFATE 10 MG/ML INJ ONE ×2 (12:44→12:50)
[2020-04-27] MEDS ORDERED: HYDROCODONE/ACETAMINOPHEN 10-325 MG TABLET ONE (13:31)
[2020-04-27] MEDS ORDERED: GLYCOPYRROLATE 1 MG/5 ML VIAL ONE (14:12)
[2020-04-27] MEDS ORDERED: SUCCINYLCHOLINE CHLORIDE INJ 200 MG/10 ML VIAL ONE (14:12)
[2020-04-27] MEDS ORDERED: NEOSTIGMINE METHYLSULFATE 10 MG/10 ML VIAL ONE (14:12)
[2020-04-27] MEDS ORDERED: VECURONIUM BROMIDE INJ 10 MG VIAL IV ONE (14:12)
[2020-04-27 14:53] VITALS: BP 160/86
== END 2020-04-27 14:40 | disposition home or self-care (01) ==
LOC: OROUT 09:07
PROVIDERS: ATTEND Surgery
DX: C78.7 Secondary malignant neoplasm of liver and intrahepatic bile duct (principal); R16.0 Hepatomegaly, not elsewhere classified; R97.8 Other abnormal tumor markers; I10 Essential (primary) hypertension; E78.00 Pure hypercholesterolemia, unspecified; I25.2 Old myocardial infarction; E11.9 Type 2 diabetes mellitus without complications; Z79.899 Other long term (current) drug therapy; Z85.3 Personal history of malignant neoplasm of breast; Z79.4 Long term (current) use of insulin; Z03.818 Encounter for observation for suspected exposure to other biological agents ruled out
CPT/HCPCS: 93005; 36415; 86301; 82962; 86304; 85027; 80076; 80048; 88342 ×2; 88341 ×2; 88305 ×2; 93010; 00790; 47379; U0003; J2250; J1100; J3010; J3490 ×2; J2270; J2710; J0330; J2405; J2704; J0690; C9290; A9270; C9803; 790; 87635